=== PATIENT | female | born 1945 | race Caucasian/White ===

== ENCOUNTER → 2016-07-29 | Outpatient (CLI) | payer OTHER ==
[~2016-07-29] MED LIST: BROM0.0911 OPL; ESTRDIS EXT; LEVO25TA5 PO; OXYB3.9D TD; PRED1SUS3 OPR; THYR32.55 PO
--- NOTE | 2016-07-29 12:46 | MAMMOGRAPHY REPORT ---
ULTRASOUND OF BOTH BREASTS: 07/29/2016 CLINICAL HISTORY: Screening breast ultrasound, with history of dense breasts. The patient refuses m ammograms today, and was told in the past that mammograms were useless due to her dense breast tissu e. COMPARISON: Comparison is made to exams dated: 04/25/2013 ultrasound, 08/02/2012 ultrasound, 08/02/2012 mammogram - [facility], and 06/14/2008. TECHNIQUE: Real-time ultrasound of both breasts was performed. FINDINGS: Real-time, high-resolution ultrasound was performed of both breasts including all 4 quadrants and mantilla bareolar regions. The breast tissue is markedly heterogeneous on ultrasound, which reduces the sens itivity of the exam. Multiple small cysts were seen scattered within both breasts. In the left breast at 1:00, 2 cm from the nipple, there is an oval isoechoic circumscribed parallel mass which measures 6 x 2 x 4 mm. A punctate echogenic focus is seen within the mass, which could represent a calcification. The mass i s probably benign and may represent a complicated cyst or a solid mass such as a fibroadenoma. In t he left breast at 3:00, 2 cm from the nipple, there is a circumscribed anechoic cyst which measures 4 x 4 x 5 mm. An echogenic focus is seen within the mass which could represent an internal calcific ation. Multiple small anechoic benign cysts were seen within the left breast at 3:00. Another oval anechoic 6 x 5 mm mass is seen within the left breast at 9:00, 3 cm from the nipple, which contains an echogenic internal focus which could represent a calcification. In the left breast at 12:00 per iareolar region, there is an oval anechoic circumscribed mass with internal echogenic debris, consis tent with a complicated cyst, measuring 5 x 4 mm. In the right breast at 12:00 periareolar region, there is a lobulated circumscribed hypoechoic 6 x 4 x 5 mm mass, which likely represents a complicated cyst. In the right breast at 1:00 periareolar region, there is a round hypoechoic circumscribed mass which measures 3 x 3 mm, and is probably adam gn and likely represents a complicated cyst. An oval anechoic benign simple cyst is seen within the right breast at 4:00 measuring 4 mm. In the right breast at 6:00, 4 cm from the nipple, there is a n oval hypoechoic circumscribed 5 x 4 mm mass, which likely represents a complicated cyst. Other sc attered simple cysts were seen within the right breast including the subareolar and 9:00 breast. The masses in the left 12:00, 1:00, 3:00, and 9:00 breast, as well as the right 12:00, 1:00, and 6:0 0 breast are probably benign and likely represent complicated cysts. Recommend follow-up ultrasound in 6 months. At that time, recommend bilateral diagnostic tomosynthesis mammograms. Mammograms we re recommended today, however, the patient refused. It was discussed with the patient that mammogram s are useful even in patients with extremely dense breasts, as suspicious calcifications and areas o f architectural distortion can sometimes only be seen on a mammogram. IMPRESSION: ACR-BI-RADS CATEGORY 3: PROBABLY BENIGN - FOLLOW-UP RECOMMENDED Small bilateral hypoechoic masses, which are probably benign and likely represent complicated cysts, with other cysts seen elsewhere in both breasts. Recommend follow-up bilateral targeted ultrasound in 6 months. At that time, bilateral tomosynthesis mammograms could be performed. The patient was verbally notified of the results. Laure Izquierdo M.D. ah/:07/29/2016 12:14:34 Attending Technologist: Charis MUKHERJEE(R)(M), [facility] Workforce Management Consultant: Laure Izquierdo MD, [facility] letter sent: Follow Up Recommended 3 BI-RADS Code: ACR-BI-RADS Category 3: Probably Benign
== END | disposition home or self-care (01) ==
LOC: C.MAMM 08:49
PROVIDERS: ATTEND Family Medicine
DX: Z12.31 Encounter for screening mammogram for malignant neoplasm of breast (principal); N63 Unspecified lump in breast

== ENCOUNTER → 2016-07-30 | Outpatient (CLI) | payer OTHER | END | disposition home or self-care (01) | LOC: C.PAPS 17:53 | PROVIDERS: ATTEND Obstetrics & Gynecology | DX: Z12.4 Encounter for screening for malignant neoplasm of cervix (principal) ==

== ENCOUNTER → 2017-04-27 | Outpatient (CLI) | payer OTHER ==
--- NOTE | 2017-04-29 14:38 | MAMMOGRAPHY REPORT ---
BILATERAL DIGITAL DIAGNOSTIC MAMMOGRAM TOMOSYNTHESIS WITH CAD AND BILATERAL ULTRASOUND: 04/27/2017 CLINICAL HISTORY: Routine screening. Patient has no complaints. TECHNIQUE: Bilateral breast tomosynthesis in addition to standard 2D mammography was performed. An a dditional spot compression right CC tomosynthesis view was obtained. Current study was also evaluate d with a Computer Aided Detection (CAD) system. COMPARISON: Comparison is made to exams dated: 07/29/2016 ultrasound, 04/25/2013 ultrasound, 08/02/2012 ultrasound, 08/02/2012 mammogram - [facility], and 06/14/2008. BREAST COMPOSITION: The tissue of both breasts is extremely dense, which lowers the sensitivity of m ammography. FINDINGS: There are diffuse bilateral round and punctate microcalcifications, which appear similar in number and distribution comparing to the 2013 mammograms, most likely representing benign fibrocysti c change. No obvious new cluster of microcalcifications, suspicious mass or asymmetry is seen. Ther e is a questionable area of architectural distortion in the lateral, middle one third of the right br east on the CC view (tomosynthesis slice 16/42), for which the additional spot compression tomosynthe sis view in the right lateral breast was obtained. This additional view demonstrates effacement of t he questionable area of distortion, suggesting it represented normal overlapping tissue. Real-time high-resolution sonographic evaluation was performed in each breast including the retroareo lar aspect of the breasts and both axillae. The breast parenchymal echotexture is heterogeneousdense. There is no suspicious lymphadenopathy wi thin the right or left axilla. Again noted are bilateral anechoic cysts an indeterminate hypoechoic solid versus cystic masses. In particular in the 12:00 left breast, 2 cm from the nipple, there is a n oval parallel circumscribed hypoechoic solid versus cystic mass, with minimal posterior acoustic en hancement, measuring 5.9 x 2.9 x 4.7 mm. A probable cyst cluster in the 3:00 left breast, 2 cm from the nipple measures 3.7 x 3.2 x 7.0 mm. There is internal comet-tail artifact, suggesting an interna l calcification. Another oval parallel circumscribed hypoechoic cystic appearing mass in the 6:00 le ft breast measures 3.5 x 4.6 mm. The masses in the 12:00 and 3:00 left breast appears similar to a p rior whole breast ultrasound. The masses previously seen in the 1:00 and 9:00 axes are no longer see n, confirming benignity. The patient pointed out a lump in the right axilla and sonographic evaluation targeted over this area demonstrates normal subcutaneous tissue suggesting the visible and palpable soft lump could represen t a lipoma or simply normal tissue. There is an isoechoic solid versus cystic mass in the 12:00 right breast, 3 cm from the nipple, measu ring 4.9 x 3.0 x 4.8 mm. This may represent normal fibroglandular tissue or a collapsing cyst. In t he 4:00 right breast, 2 cm from the nipple, there is an oval parallel hypoechoic solid versus cystic mass measuring 3.8 x 1.8 x 3.7 mm. Another hypoechoic solid versus cystic mass is seen in the 6:00 p eriareolar right breast measuring 3.5 x 2.3 x 3.1 mm. The cyst in the 1:00 periareolar region is no longer clearly identified. The other benign-appearing masses in the 12:00 and 6:00 axes of the right breast are stable and most likely benign. There is also a conglomerate of several isoechoic to hypo echoic prominent/dilated ducts in the upper outer quadrant of the right breast, 9:00 and 10:00 axes. Although this most likely represents debris-filled ducts in the no prior ultrasound images are avail able for complete comparison and therefore a short interval follow-up targeted right breast ultrasoun d is recommended to ensure stability in 6 months. IMPRESSION: ACR-BI-RADS CATEGORY 3: PROBABLY BENIGN, ULTRASOUND ACR-BI-RADS CATEGORY 3: PROBABLY CUONG IGN 1. No mammographic evidence of malignancy in the breasts. There are stable scattered benign-appeari ng round and punctate microcalcifications bilaterally. 2. Stable sonographic appearance of benign-appearing complicated cysts and solid versus cystic ander s in the left 12:00, 3:00, right 12:00 and 6:00 axes. Other similar appearing lesions are identified in the right 4:00 and left 3:00 axes. Some of the previously observed indeterminate solid versus cy stic masses have resolved, confirming benignity. Overall these bilateral findings most likely repres ent benign fibrocystic changes, but another close follow-up bilateral targeted ultrasound is recommen ded. 3. A conglomerate of prominent hypoechoic dilated ducts in the right 9:00 and 10:00 axes identified on ultrasound, without prior imaging to confirm stability. Although these findings most likely repre sent debris-filled ducts, given that there is no new mammographic abnormality in this area, a short i nterval follow-up targeted ultrasound focused in the right upper outer quadrant is recommended in 6 m [facility]. Overall bilateral ultrasound is recommended in 6 months (30 minutes) and pending stability, would rec ommend bilateral tomosynthesis mammography with possible ultrasound in one year. These results and recommendations were discussed with the patient at the time of the exam and via tel ephone after consultation of the imaging findings with a second Breast Tractor Crane Operator. Approximately 10% of breast cancers are not detected with mammography. A negative mammographic report should not delay biopsy if a clinically suggestive mass is present. Cora Sorto M.D. ay/:04/28/2017 15:20:49 Balance Staff Staker: Darby Corbin, [facility] letter sent: Follow Up Recommended 3 BI-RADS Code: ACR-BI-RADS Category 3: Probably Benign Ultrasound BI-RADS: ACR-BI-RADS Category 3: Pr obably Benign
== END | disposition home or self-care (01) ==
LOC: C.MAMM 08:43
PROVIDERS: ATTEND Family Medicine
DX: R92.0 Mammographic microcalcification found on diagnostic imaging of breast (principal); N63.21 Unspecified lump in the left breast, upper outer quadrant

== ENCOUNTER → 2017-08-24 | Outpatient (CLI) | payer OTHER | END | disposition home or self-care (01) | LOC: C.PAPS 15:38 | PROVIDERS: ATTEND Obstetrics & Gynecology | DX: Z12.4 Encounter for screening for malignant neoplasm of cervix (principal) ==

== ENCOUNTER 2020-06-14 16:53 | Inpatient (IN) ==
[2020-06-14] MEDS ORDERED: SODIUM CHLORIDE 0.9% 1000ML 1,000 ML IV ONE (19:35)
[2020-06-14] MEDS ORDERED: FAMOTIDINE 20MG IV PUSH 20 MG/5 ML SYR IV STA (19:35)
--- NOTE | 2020-06-14 19:41 | Emergency Department Note ---
Impression & Plan Hyponatremia, Hypokalemia, Diarrhea ED Provider Note NAME: YULIANA GALLAGHER AGE: 74 SEX: F ARRIVES VIA: Walk-In INFORMANT: Patient, ED PROVIDER(S): Anjum Jurado MD CHIEF COMPLAINT: weakness, hyponatremia - referred. PLAN: Disposition: Admit. MEDICAL DECISION MAKING: The patient is a pleasant 74-year-old woman with a past medical history of bipolar disorder who presents emergency department with generalized weakness nausea over the past couple of weeks where she was seen by her [facility] providers today for question of UTI per her report and had blood work that was abnormal and was referred to the emergency department. The patient is uncertain what was abnormal about her blood work. She reports feeling weak, intermitte ntly confused, nauseated but no vomiting with several episodes of diarrhea for the past week or so. She reports a burning with urination. She reports feeling lightheaded intermittently but denies headaches, changes in vision or hearing. She denies any chest pain, shortness of breath. She reports she has been intermittently confused over the past several months. We were able to obtain the patient's [facility] records and does show blood work that showed hyponatremia with a sodium of 120 which appears acutely new compared to normal sodium in December 2019. On arrival patient is fatigued appearing but no acute distress, afebrile stable vital signs. She appears clinically dry. She has no focal neurologic deficits. Abdomen is benign. EKG without overt acute ischemia. Chest x-ray deferred as patient declined. WBC, H/H and platelets within normal limits. Chemistry without metabolic acidosis. Sodium 120 again in the ED. Serum and urine osmolality ordered and pending. Potassium 3.1 with repletion initiated. Electrolytes otherwise unremarkable. Total bilirubin 3.7 however direct bilirubin 0.5, nonspecific given no upper abdominal pain. Troponin negative/undetectable. UA pending. Results reviewed with the patient and she was agreeable with plan for admission. Case was discussed with Dr. Marks, [facility] hospitalist, who will evaluate the patient for admission. Triage Nursing notes reviewed and agree them. Additional history obtained from [facility] records. Prior medical records reviewed Vital Signs: reviewed and remarkable for no significant abnormalities Differential diagnosis: Infection, dehydration, metabolic abnormality, hypo/hyperglycemia, electrolyte disturbance, anemia, hypoxia, cardiac sources, intracerebral event, toxicologic, neurologic, as well as other pathologies. ER treatment provided: See below. Diagnostics interpreted by me: ECG: Normal sinus rhythm, 75 bpm, no ectopy, left axis deviation, nonspecific T wave abnormality, no overt ST elevation or depression, QTC 460, QRS 86. Cardiac Monitoring: An order for continuous cardiac monitoring was placed and demonstrated Normal sinus rhythm, 75 bpm, no ectopy. Laboratory studies: See below Consultation(s): Case was discussed with Dr. Marks, [facility] hospitalist, who will evaluate the patient for admission. HPI: The patient is a pleasant 74-year-old woman with a past medical history of bipolar disorder who presents emergency department with generalized weakness nausea over the past couple of weeks where she was seen by her [facility] providers today for question of UTI per her report and had blood work that was abnormal and was referred to the emergency department. The patient is uncertain what was abnormal about her blood work. She reports feeling weak, intermittently confused, nauseated but no vomiting with several episodes of diarrhea for the past week or so. She reports a burning with urination. She reports feeling lightheaded intermittently but denies headaches, changes in vision or hearing. She denies any chest pain, shortness of breath. She reports she has been intermittently confused over the past several months. ROS: See above HPI for pertinent positives & negatives. A total of 10 systems reviewed and were otherwise negative. PAST MEDICAL HISTORY:See Below PAST SURGICAL HISTORY:See Below FAMILY HISTORY:See Below SOCIAL HISTORY:See Below HOME MEDICATIONS:See Below ALLERGIES:See Below VITALS:See Below PHYSICAL EXAMINATION: GENERAL: Awake, alert, fatigued-appearing, in no distress HENT: Normocephalic, atraumatic. Oropharynx with dry mucous membranes and ot herwise unremarkable. EYES: Normal conjunctiva. Sclera non-icteric. NECK: Supple. No nuchal rigidity. FROM. No JVD. RESPIRATORY: Clear to auscultation. CARDIAC: Regular rate, normal rhythm. Extremities warm and well perfused. Pulses equal. ABDOMEN: Soft, non-distended. No tenderness to palpation. No rebound or guarding. No masses. RECTAL: Deferred. MUSCULOSKELETAL: Chest examination reveals no tenderness. The back is symmetrical on inspection without obvious abnormality. There is no CVA tendern ess to palpation. No joint edema. LOWER EXTREMITIES: Calves are equal size bilaterally and non-tender. No edema. No discoloration. NEURO: Normal sensorium. No focal sensory or motor deficits noted. DTRs wnl. SKIN: No rash or jaundice noted. Anjum Jurado MD Past Med/Surg History Medical History ADHD Bipolar disorder Hypothyroidism Interstitial cystitis Migraine Family History Daughter Lupus Social History Smoking Status: Former smoker Smoking End Date: 50 years ago; Second Hand Exposure: No; Do You Dip or Chew Tobacco: No; Tobacco Cessation Education Requested by Patient: No Hx Alcohol Use: No Hx Substance Use: No Preferred Language: Nepali Communication Ability: Effective Business Transformation Analyst Required: No Beliefs That Will Affect Care: None Current Living Situation: Alone Other Information That Helps Us Care for You: No Feels Safe at Home: Yes Safety Concerns: Feels Safe At This Time Assistive Devices: Glasses Allergies Allergies Allergy/AdvReac Type Severity Reaction Status Date / Time gluten Allergy Unknown ANAPHYLAXIS Verified 06/14/20 20:40 bee venom protein (honey bee) Allergy Anaphylaxis Verified 06/14/20 20:40 lactose AdvReac Unknown Gastrointestinal Unverified 06/14/20 20:41 Upset DAIRY PRODUCTS Allergy Unknown Gastrointestinal Uncoded 06/14/20 20:42 Upset Home Meds Home Medications Medication Instructions Recorded Confirmed cyclosporine [Restasis] 1 drp OPB BID 12/22/19 06/14/20 estradiol-levonorgestrel [Climara 1 patch TRANSDERMAL WK 12/22/19 06/14/20 Pro] fluoride (sodium) [SF 5000 Plus] 1 applic DENTAL HS 12/22/19 06/14/20 onabotulinumtoxinA [Botox] 200 unit SUBCUT .Q3M 12/22/19 06/14/20 sumatriptan succinate 25 mg PO Q2H PRN 12/22/19 06/14/20 levothyroxine [Levoxyl] 25 mcg PO QAM 06/14/20 06/14/20 Results & Data (ED) Vital Signs Vital Signs - 24 hr 06/14/20 17:17 06/14/20 19:47 06/14/20 20:14 Temperature 36.8 C Temperature Source Oral Pulse Rate 88 Pulse Rate [Bilateral Apical] 81 78 Pulse Rhythm Regular Pulse Strength Normal Respiratory Rate 20 20 20 Respiratory Effort / Characteristics Non-Labored Spontaneous Respiratory Depth Normal Respiratory Pattern Regular Blood Pressure 125/80 Blood Pressure [Left Arm] 141/88 H 141/88 H Blood Pressure Mean 95 Blood Pressure Mean [Left Arm] 105 105 Pulse Oximetry 98 98 98 Oxygen Delivery Method Room Air Room Air Sepsis Recent Fever Within 48 Hours No Sepsis New/Unexplained Change in Mental Status N/A Sepsis Action Taken by Nursing No Action Required 06/14/20 21:00 06/14/20 22:17 Temperature Temperature Source Pulse Rate Pulse Rate [Bilateral Apical] 71 65 Pulse Rhythm Pulse Strength Respiratory Rate 20 20 Respiratory Effort / Characteristics Respiratory Depth Respiratory Pattern Blood Pressure Blood Pressure [Left Arm] 143/79 H 144/80 H Blood Pressure Mean Blood Pressure Mean [Left Arm] 100 101 Pulse Oximetry 99 99 Oxygen Delivery Method Room Air Room Air Sepsis Recent Fever Within 48 Hours Sepsis New/Unexplained Change in Mental Status Sepsis Action Taken by Nursing Laboratory Data Attestation: I reviewed the patient's lab results. Result diagrams: 06/14/20 19:40 06/15/20 00:27 Lab Results 06/14/20 06/14/20 06/14/20 Range/Units 19:40 19:40 19:40 WBC 6.52 (4.8-10.8) K/uL RBC 4.66 (4.2-5.4) M/uL Hgb 15.9 (12.0-16.0) g/dL Hct 41.9 (37-47) % MCV 89.9 (80-100) fL MCH 34.1 H (25-34) pg MCHC 37.9 H (32-36) g/dL RDW Std Deviation 40.7 (36.4-46.3) fL RDW Coeff of Jackeline 12.5 (11.5-14.5) % Plt Count 214 (130-400) K/uL MPV 9.2 (7.4-10.4) fL Immature Gran % (Auto) 0.3 % Neut % (Auto) 54.9 % Lymph % (Auto) 33.4 % Gulf % (Auto) 10.9 % Eos % (Auto) 0.3 % Baso % (Auto) 0.2 % Neut # (Auto) 3.58 (1.4-6.5) K/uL Lymph # (Auto) 2.18 (1.2-3.4) K/uL [place] # (Auto) 0.71 H (0.11-0.59) K/uL Eos # (Auto) 0.02 (0-0.5) K/uL Baso # (Auto) 0.01 (0-0.2) K/uL Immature Gran # (Auto) 0.02 (0.00-0.02) K/uL Sodium 120 L (136-145) mmol/L Potassium 3.1 L (3.5-5.1) mmol/L Chloride 81 L (98-107) mmol/L Carbon Dioxide 28 (21-32) mmol/L Anion Gap 11.0 (3-11) BUN 5 L (7-18) mg/dl Creatinine 0.56 L (0.6-1.2) mg/dl Est Cr Clr Drug Dosing 49.0 ml/min Est GFR ( Amer) 105.0 Est GFR (Non-Af Amer) 90.6 BUN/Creatinine Ratio 8.1 L (10-20) Glucose 84 (70-99) mg/dl Osmolality 248 L (280-300) mOsm/kg Calcium 9.1 (8.5-10.1) mg/dl Phosphorus 2.4 L (2.5-4.9) mg/dl Magnesium 2.2 (1.8-2.4) mg/dl Total Bilirubin 3.7 H (0.2-1) mg/dl Direct Bilirubin 0.5 H (0-0.2) mg/dl AST 9 L (15-37) U/L ALT 19 (12-78) U/L Alkaline Phosphatase 53 (45-117) U/L Total Creatine Kinase 62 (26-192) U/L Troponin I < 0.015 (0-0.045) ng/ml Total Protein 6.4 (6.4-8.2) gm/dl Albumin 4.0 (3.4-5.0) gm/dl Globulin 2.4 L (2.5-4.0) gm/dl Albumin/Globulin Ratio 1.7 (0.9-2) Lipase 118 (73-393) U/L TSH 1.980 (0.300-4.500) uIu/ml Urine Color Urine Appearance (Clear) Urine pH (4.5-7.5) Ur Specific [place] (1.000-1.030) Urine Protein (Negative) Urine Glucose (UA) (Negative) Urine Ketones (Negative) Urine Blood (Negative) Urine Nitrite (Negative) Urine Bilirubin (Negative) Urine Urobilinogen (Negative) Ur Leukocyte Esterase (Negative) Urine RBC (0-4) /hpf Urine WBC (0-5) /hpf Ur Epithelial Cells (0-5) /lpf Ur Renal Epithelial Cell (0-5) /lpf Urine Bacteria (Negative) Urine Osmolality (500-800) mOsm/kg COVID-19 Eval Order SARS-CoV-2 (PCR) (Negative) Influenza Type A (PCR) (Neg) Influenza Type B (PCR) (Neg) RSV (RT-PCR) (Neg) 06/14/20 06/14/20 06/14/20 Range/Units 20:04 20:04 20:39 WBC (4.8-10.8) K/uL RBC (4.2-5.4) M/uL Hgb (12.0-16.0) g/dL Hct (37-47) % MCV (80-100) fL MCH (25-34) pg MCHC (32-36) g/dL RDW Std Deviation (36.4-46.3) fL RDW Coeff of Jackeline (11.5-14.5) % Plt Count (130-400) K/uL MPV (7.4-10.4) fL Immature Gran % (Auto) % Neut % (Auto) % Lymph % (Auto) % [place] % (Auto) % Eos % (Auto) % Baso % (Auto) % Neut # (Auto) (1.4-6.5) K/uL Lymph # (Auto) (1.2-3.4) K/uL [place] # (Auto) (0.11-0.59) K/uL Eos # (Auto) (0-0.5) K/uL Baso # (Auto) (0-0.2) K/uL Immature Gran # (Auto) (0.00-0.02) K/uL Sodium (136-145) mmol/L Potassium (3.5-5.1) mmol/L Chloride (98-107) mmol/L Carbon Dioxide (21-32) mmol/L Anion Gap (3-11) BUN (7-18) mg/dl Creatinine (0.6-1.2) mg/dl Est Cr Clr Drug Dosing ml/min Est GFR ( Amer) Est GFR (Non-Af Amer) BUN/Creatinine Ratio (10-20) Glucose (70-99) mg/dl Osmolality (280-300) mOsm/kg Calcium (8.5-10.1) mg/dl Phosphorus (2.5-4.9) mg/dl Magnesium (1.8-2.4) mg/dl Total Bilirubin (0.2-1) mg/dl Direct Bilirubin (0-0.2) mg/dl AST (15-37) U/L ALT (12-78) U/L Alkaline Phosphatase (45-117) U/L Total Creatine Kinase (26-192) U/L Troponin I (0-0.045) ng/ml Total Protein (6.4-8.2) gm/dl Albumin (3.4-5.0) gm/dl Globulin (2.5-4.0) gm/dl Albumin/Globulin Ratio (0.9-2) Lipase (73-393) U/L TSH (0.300-4.500) uIu/ml Urine Color Yellow Urine Appearance Clear (Clear) Urine pH 7.0 (4.5-7.5) Ur Specific [place] 1.007 (1.000-1.030) Urine Protein Negative (Negative) Urine Glucose (UA) Negative (Negative) Urine Ketones 1+ H (Negative) Urine Blood Trace H (Negative) Urine Nitrite Negative (Negative) Urine Bilirubin Negative (Negative) Urine Urobilinogen Negative (Negative) Ur Leukocyte Esterase 2+ H (Negative) Urine RBC 0-4 (0-4) /hpf Urine WBC 10-30 H (0-5) /hpf Ur Epithelial Cells 5-10 H (0-5) /lpf Ur Renal Epithelial Cell 5-10 H (0-5) /lpf Urine Bacteria 1+ H (Negative) Urine Osmolality 75 L (500-800) mOsm/kg COVID-19 Eval Order CovFluRsv at [facility] SARS-CoV-2 (PCR) (Negative) Influenza Type A (PCR) (Neg) Influenza Type B (PCR) (Neg) RSV (RT-PCR) (Neg) 02/26/21 Range/Units 20:39 WBC (4.8-10.8) K/uL RBC (4.2-5.4) M/uL Hgb (12.0-16.0) g/dL Hct (37-47) % MCV (80-100) fL MCH (25-34) pg MCHC (32-36) g/dL RDW Std Deviation (36.4-46.3) fL RDW Coeff of Jackeline (11.5-14.5) % Plt Count (130-400) K/uL MPV (7.4-10.4) fL Immature Gran % (Auto) % Neut % (Auto) % Lymph % (Auto) % [place] % (Auto) % Eos % (Auto) % Baso % (Auto) % Neut # (Auto) (1.4-6.5) K/uL Lymph # (Auto) (1.2-3.4) K/uL [place] # (Auto) (0.11-0.59) K/uL Eos # (Auto) (0-0.5) K/uL Baso # (Auto) (0-0.2) K/uL Immature Gran # (Auto) (0.00-0.02) K/uL Sodium (136-145) mmol/L Potassium (3.5-5.1) mmol/L Chloride (98-107) mmol/L Carbon Dioxide (21-32) mmol/L Anion Gap (3-11) BUN (7-18) mg/dl Creatinine (0.6-1.2) mg/dl Est Cr Clr Drug Dosing ml/min Est GFR ( Amer) Est GFR (Non-Af Amer) BUN/Creatinine Ratio (10-20) Glucose (70-99) mg/dl Osmolality (280-300) mOsm/kg Calcium (8.5-10.1) mg/dl Phosphorus (2.5-4.9) mg/dl Magnesium (1.8-2.4) mg/dl Total Bilirubin (0.2-1) mg/dl Direct Bilirubin (0-0.2) mg/dl AST (15-37) U/L ALT (12-78) U/L Alkaline Phosphatase (45-117) U/L Total Creatine Kinase (26-192) U/L Troponin I (0-0.045) ng/ml Total Protein (6.4-8.2) gm/dl Albumin (3.4-5.0) gm/dl Globulin (2.5-4.0) gm/dl Albumin/Globulin Ratio (0.9-2) Lipase (73-393) U/L TSH (0.300-4.500) uIu/ml Urine Color Urine Appearance (Clear) Urine pH (4.5-7.5) Ur Specific [place] (1.000-1.030) Urine Protein (Negative) Urine Glucose (UA) (Negative) Urine Ketones (Negative) Urine Blood (Negative) Urine Nitrite (Negative) Urine Bilirubin (Negative) Urine Urobilinogen (Negative) Ur Leukocyte Esterase (Negative) Urine RBC (0-4) /hpf Urine WBC (0-5) /hpf Ur Epithelial Cells (0-5) /lpf Ur Renal Epithelial Cell (0-5) /lpf Urine Bacteria (Negative) Urine Osmolality (500-800) mOsm/kg COVID-19 Eval Order SARS-CoV-2 (PCR) NEGATIVE (Negative) Influenza Type A (PCR) Negative (Neg) Influenza Type B (PCR) Negative (Neg) RSV (RT-PCR) Negative (Neg) Administered Medications Potassium Phosphate 6 mmol/ (Sodium Chloride) 102 mls @ 100 mls/hr IV ONE ONE Stop: 06/15/20 02:01 Last Admin: 06/15/20 01:01 Dose: 100 mls/hr Documented by: [id number] Lorazepam (Lorazepam 0.5 Mg Tab) 0.25 mg PO HS PRN PRN Reason: Insomnia Stop: 07/15/20 00:05 Last Admin: 06/15/20 01:07 Dose: 0.25 mg Documented by: [id number] Discontinued Medications Sodium Chloride (Nss 1000ml) 1,000 mls @ 999 mls/hr IV .Q1H1M ONE Stop: 06/14/20 20:35 Last Infusion: 06/14/20 21:10 Dose: 0 mls/hr Documented by: [id number] Admin: 06/14/20 20:07 Dose: 999 mls/hr Documented by: [id number] Famotidine (Pepcid 20mg Iv Push) 20 mg in 5 mls @ 2.5 mls/min IV NOW STA Stop: 06/14/20 19:36 Last Admin: 06/14/20 20:07 Dose: 2.5 mls/min Documented by: [id number] Potassium Chloride (K Vance / Wtr) 10 meq in 100 mls @ 100 mls/hr IV Q1H ALEJANDRO Stop: 06/14/20 22:29 Last Infusion: 06/14/20 22:37 Dose: 0 mls/hr Documented by: [id number] Admin: 06/14/20 21:37 Dose: 100 mls/hr Documented by: [id number] Infusion: 06/14/20 21:37 Dose: 0 mls/hr Documented by: [id number] Admin: 06/14/20 20:38 Dose: 100 mls/hr Documented by: [id number] Cefepime HCl (Maxipime) 2,000 mg in 20 mls @ 5 mls/min IV NOW STA; Protocol Stop: 06/14/20 20:53 Last Admin: 06/14/20 21:14 Dose: 5 mls/min Documented by: [id number] Potassium Chloride (Potassium Chloride Crtab 20 Meq Tabcr) 40 meq PO NOW STA Stop: 06/14/20 20:42 Last Admin: 06/14/20 23:06 Dose: Not Given Documented by: [id number] Potassium Chloride (Potassium Chloride Crtab 20 Meq Tabcr) 20 meq PO NOW STA Stop: 06/14/20 20:43 Last Admin: 06/14/20 21:10 Dose: 20 meq Documented by: [id number] Discharge Plan Visit Data Chief Complaint: Abnormal Labs/Diagnostic Testing Stated Complaint: ABNORMAL LABS ED Provider: Anjum Jurado Discharge Problem: Hyponatremia, Hypokalemia, Diarrhea Patient Disposition: Admitted As Inpatient Discharge Instructions Interventions: ED Discharge Assessment Last Done: 06/14/20 23:46 Discharge Problem: Diarrhea Qualifiers: Diarrhea type: unspecified type Qualified Code(s): R19.7 - Diarrhea, unspecified
[2020-06-14 19:49] LABS: Basophils # (auto) 0.01 K/uL (0-0.2); Basophils % (auto) 0.2 %; Eosinophils # (auto) 0.02 K/uL (0-0.5); Eosinophils % (auto) 0.3 %; Hematocrit (blood only) 41.9 % (37-47); Hemoglobin 15.9 g/dL (12.0-16.0); Immature Granulocytes # (auto) 0.02 K/uL (0.00-0.02); Immature Granulocytes % (auto) 0.3 %; Lymphocytes # (auto) 2.18 K/uL (1.2-3.4); Lymphocytes % (auto) 33.4 %; Mean Corpuscular Hemoglobin 34.1 pg (25-34); Mean Corpuscular Hgb Conc 37.9 g/dL (32-36); Mean Corpuscular Volume 89.9 fL (80-100); Mean Platelet Volume 9.2 fL (7.4-10.4); Monocytes # (auto) 0.71 K/uL (0.11-0.59); Monocytes % (auto) 10.9 %; Neutrophils # (auto) 3.58 K/uL (1.4-6.5); Neutrophils % (auto) 54.9 %; Platelet Count 214 K/uL (130-400); RDW Coefficient of Variation 12.5 % (11.5-14.5); RDW Standard Deviation 40.7 fL (36.4-46.3); Red Blood Count 4.66 M/uL (4.2-5.4); White Blood Count 6.52 K/uL (4.8-10.8)
[2020-06-14 20:06] LABS: Alanine Aminotransferase 19 U/L (12-78); Aspartate Aminotransferase 9 U/L (15-37); BUN Creatinine Ratio 8.1 (10-20); Bilirubin Direct 0.5 mg/dl (0-0.2); Blood Urea Nitrogen 5 mg/dl (7-18); Calcium 9.1 mg/dl (8.5-10.1); Carbon Dioxide 28 mmol/L (21-32); Chloride 81 mmol/L (98-107); Est GFR (Non-African American) 90.6; Glucose 84 mg/dl (70-99); Lipase 118 U/L (73-393); Magnesium 2.2 mg/dl (1.8-2.4); Potassium 3.1 mmol/L (3.5-5.1); Sodium 120 mmol/L (136-145)
[2020-06-14 20:15] LABS: Albumin Globulin Ratio 1.7 (0.9-2); Alkaline Phosphatase 53 U/L (45-117); Bilirubin,Total 3.7 mg/dl (0.2-1); Creatine Kinase 62 U/L (26-192); Globulin 2.4 gm/dl (2.5-4.0); Phosphorus 2.4 mg/dl (2.5-4.9); Total Protein 6.4 gm/dl (6.4-8.2); Troponin I < 0.015 ng/ml (0-0.045)
[2020-06-14 20:17] LABS: Appearance Urine Clear (Clear); Bilirubin Urine Negative (Negative); Blood Urine Trace (Negative); Color Urine Yellow; Glucose Urine UA Negative (Negative); Ketones Urine 1+ (Negative); Leukocyte Esterase Urine 2+ (Negative); Nitrite Urine Negative (Negative); Protein Urine Negative (Negative); Specific Gravity Urine 1.007 (1.000-1.030); Urobilinogen Urine Negative (Negative)
[2020-06-14 20:34] LABS: Bacteria Urine 1+ (Negative); RBC Urine 0-4 /hpf (0-4)
[2020-06-14] MEDS: POTASSIUM CHLORIDE / WTR 10 MEQ/100 ML PLCT IV SCH ×2 (20:38→21:37)
[2020-06-14] MEDS ORDERED: POTASSIUM CHLORIDE CRTAB 20 MEQ TABCR PO STA ×2 (20:41→20:42)
[2020-06-14] MEDS ORDERED: PROMETHAZINE HCL 6.25 MG in SODIUM CHLORIDE 0.9% 50 ML IV PRN (20:41)
[2020-06-14] MEDS ORDERED: CEFEPIME 2,000 MG/20 ML VIAL IV STA (20:50)
--- NOTE | 2020-06-14 21:46 | History & Physical Report ---
Date of Service June 14, 2020 Assessment & Plan (1) Hyponatremia: (2) Hypokalemia: (3) Bipolar disorder: (4) Hypothyroidism: Assessment and plan per Dr. Power Follows with Dr Vazquez for routine care Pt was seen and care coordinated with Dr Power. See addendum History of Present Illness Chief Complaint: Abnormal labs Primary Care Provider: Alec Vazquez, Pt is 74 y/o F with PMH interstitial cystitis, bipolar depression, hypothyroidism, migraine receiving Botox therapy presented to ER for abnormal labs. Patient was seen outpatient at [facility] urgent care for complaints of "urethra discomfort", dysuria, weakness, nausea. She had labs done revealing hyponatremia and referred to ER. She reports history of interstitial cystitis and often has episodes of dysuria and urinary frequency. Reports today with dysuria and urinary frequency. Also reports sensation of bladder spasms today. She complains of nausea. States had several episodes of watery diarrhea. Patient states does have intermittent episodes of watery diarrhea when she has poor oral intake. She reports past several months has been having increased depression. In past has been on medications however reports is intolerant. She states has not been sleeping. Denies suicidal or homicidal ideations. Patient states she has had "poor decision-making" over the past several months. She feels she has had intermittent confusion over the past several months as well. Patient reports recent stressor of housing troubles. Lives alone. Complains of generalized weakness. Decreased oral intake patient reports secondary to not wanting to eat and to poor dentition. Has been eating eggs and avocado. Denies other abdominal pain. No fevers. Reports is always cold. Denies fever/chills, melena, hematochezia, hematemesis, ROSARIO, dizziness, syncope, vision changes, neck pain, CP, SOB, orthopnea, palpitations, cough, sore throat, choking, otalgia, rh inorrhea, paresthesias, extremity edema, rashes, hematuria, flank pain, vaginal bleeding or discharge. Allergies Allergy/AdvReac Type Severity Reaction Status Date / Time gluten Allergy Unknown ANAPHYLAXIS Verified 06/14/20 20:40 bee venom protein (honey bee) Allergy Anaphylaxis Verified 06/14/20 20:40 lactose AdvReac Unknown Gastrointestinal Unverified 06/14/20 20:41 Upset DAIRY PRODUCTS Allergy Unknown Gastrointestinal Uncoded 06/14/20 20:42 Upset Home Medications Medication Instructions Recorded Confirmed Type cyclosporine [Restasis] 1 drp OPB BID 12/22/19 06/14/20 History estradiol-levonorgestrel [Climara 1 patch TRANSDERMAL WK 12/22/19 06/14/20 History Pro] fluoride (sodium) [SF 5000 Plus] 1 applic DENTAL HS 12/22/19 06/14/20 History onabotulinumtoxinA [Botox] 200 unit SUBCUT .Q3M 12/22/19 06/14/20 History sumatriptan succinate 25 mg PO Q2H PRN 12/22/19 06/14/20 History levothyroxine [Levoxyl] 25 mcg PO QAM 06/14/20 06/14/20 History Past Med/Surg History Medical History ADHD Bipolar disorder Hypothyroidism Interstitial cystitis Migraine Family History Daughter Lupus Social History Smoking Status: Former smoker Smoking End Date: 50 years ago; Second Hand Exposure: No; Do You Dip or Chew Tobacco: No; Tobacco Cessation Education Requested by Patient: No Hx Alcohol Use: No Hx Substance Use: No Preferred Language: Italian Communication Ability: Effective 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 Beliefs That Will Affect Care: None Current Living Situation: Alone Other Information That Helps Us Care for You: No Feels Safe at Home: Yes Safety Concerns: Feels Safe At This Time Assistive Devices: Glasses Review of Systems Review of Systems: All systems reviewed & are unremarkable except as noted in HPI & below Physical Exam Physical Exam: General: no acute distress, very thin Head: normocephalic, atraumatic Eyes: PERRL, EOM's intact, conjunctiva non-injected, anicteric ENT: normal inspection external ears, nose, mucous membranes mildly dry Neck: supple, trachea midline Lungs: clear, no respiratory distress, no wheezing/rhonchi/rales CV: RRR, no murmur, no pretibial edema Abd: normal BS, soft, non-tender Ext: no cyanosis, no calf tenderness Neuro: A&O x 3, no focal deficits noted, flat affect, slow speech Skin: warm, dry Results & Data Results & Data ([facility]) Vital Signs (Past 12 Hours) Vital Signs Temp Pulse Pulse Resp BP BP Pulse Ox 06/14/20 21:00 71 20 143/79 H 99 06/14/20 20:14 78 20 141/88 H 98 06/14/20 19:47 81 20 141/88 H 98 06/14/20 17:17 36.8 C 88 20 125/80 98 Laboratory Results Short CBC 06/14/20 Range/Units 19:40 WBC 6.52 (4.8-10.8) K/uL Hgb 15.9 (12.0-16.0) g/dL Hct 41.9 (37-47) % Plt Count 214 (130-400) K/uL BMP 06/14/20 19:40 Sodium 120 L Potassium 3.1 L Chloride 81 L Carbon Dioxide 28 BUN 5 L Creatinine 0.56 L Glucose 84 Calcium 9.1 Cardiac Enzymes 06/14/20 Range/Units 19:40 Total Creatine Kinase 62 (26-192) U/L Troponin I < 0.015 (0-0.045) ng/ml Liver Function 06/14/20 Range/Units 19:40 Total Bilirubin 3.7 H (0.2-1) mg/dl Direct Bilirubin 0.5 H (0-0.2) mg/dl AST 9 L (15-37) U/L ALT 19 (12-78) U/L Alkaline Phosphatase 53 (45-117) U/L Albumin 4.0 (3.4-5.0) gm/dl Urine 06/14/20 Range/Units 20:04 Urine Color Yellow Urine Appearance Clear (Clear) Urine pH 7.0 (4.5-7.5) Ur Specific [place] 1.007 (1.000-1.030) Urine Protein Negative (Negative) Urine Glucose (UA) Negative (Negative) Supervising Physician Co-Signing Physician Notes IM ATTENDING : Patient seen and examined. History obtained from patient and records. Preceding documentation by Ms. Mackenzie Vila PA-C reviewed. FINAL ASSESSMENT AND PLAN as follows : Hyponatremia Multifactorial : Acute diarrheal illness secondary to viral gastroenteritis rule out C. difficile Malnutrition /poor p.o. intake the last 6 months secondary to dental concerns and suboptimal mood symptoms (hx bipolar disorder/ADD not on medications secondary to intolerance as per patient account) Complicated UTI, history interstitial cystitis, patient not septic Hypothyroidism, euthyroid as of today's TSH Hypokalemia secondary to illness Medical telemetry Careful correction of sodium Hyponatremia work-up May need Nephrology consultation for hyponatremia Replace potassium Nutrition consult RE low BMI Patient to contemplate on inpatient Psychiatry consultation for mood disorder PT OT eval DVT prophylaxis. Heparin subcu DNR Text document was generated using Mor[employer] voice recognition software. It may contain grammatical or spelling errors. Kindly contact undersigned for clarification of any documentation item in question.
[2020-06-14 22:13] LABS: Influenza A virus by PCR Negative (Neg); Influenza B virus by PCR Negative (Neg); RSV by PCR Negative (Neg); SARS CoV2 RNA(COVID-19) InHosp NEGATIVE (Negative)
[2020-06-14] MEDS ORDERED: ACETAMINOPHEN 325 MG TAB PO PRN (22:38)
[2020-06-15] MEDS ORDERED: CEFEPIME CONSULT ACTIVE PRN (00:06)
[2020-06-15] MEDS ORDERED: LORazepam 0.5 MG TAB PO PRN (00:06)
[2020-06-15] MEDS ORDERED: POTASSIUM PHOS 3 MMOL/1 ML INFUSION IV STA (00:07)
[2020-06-15] MEDS ORDERED: POTASSIUM PHOSPHATE 6 MMOL in 0.9 % SODIUM CHLORIDE 100 ML IV ONE (01:00)
[2020-06-15] MEDS ORDERED: POTASSIUM CHLORIDE 40 MEQ in D5W AND 1/2NSS 1,000 ML/1,000 ML BAG IV ONE (01:06)
[2020-06-15] MEDS ORDERED: POTASSIUM CHLORIDE 40 MEQ in DEXTROSE 5% 1,000 ML IV ONE (01:45)
[2020-06-15] MEDS: LEVOTHYROXINE SODIUM 25 MCG TABLET PO SCH (05:43)
[2020-06-15] MEDS: HEPARIN SOD 5,000 UNIT/0.5 ML VIAL SQ SCH ×4 (05:44→21:01)
[2020-06-15 06:29] LABS: Basophils # (auto) 0.01 K/uL (0-0.2); Basophils % (auto) 0.2 %; Hematocrit (blood only) 37.9 % (37-47); Hemoglobin 14.1 g/dL (12.0-16.0); Lymphocytes # (auto) 1.27 K/uL (1.2-3.4); Lymphocytes % (auto) 26.6 %; Mean Corpuscular Hemoglobin 33.7 pg (25-34); Mean Corpuscular Hgb Conc 37.2 g/dL (32-36); Mean Corpuscular Volume 90.5 fL (80-100); Mean Platelet Volume 9.4 fL (7.4-10.4); Monocytes # (auto) 0.48 K/uL (0.11-0.59); Neutrophils # (auto) 3.02 K/uL (1.4-6.5); Neutrophils % (auto) 63.2 %; Platelet Count 213 K/uL (130-400); RDW Coefficient of Variation 12.7 % (11.5-14.5); RDW Standard Deviation 42.2 fL (36.4-46.3); Red Blood Count 4.19 M/uL (4.2-5.4); White Blood Count 4.78 K/uL (4.8-10.8)
[2020-06-15 06:58] LABS: BUN Creatinine Ratio 6.4 (10-20); Calcium 8.3 mg/dl (8.5-10.1); Creatinine Clr Calc Pharmacy 54.4 ml/min; Est GFR (African American) 109.7; Est GFR (Non-African American) 94.6; Potassium 3.3 mmol/L (3.5-5.1)
[2020-06-15] MEDS ORDERED: POTASSIUM CHLORIDE CRTAB 20 MEQ TABCR PO STA (09:25)
--- NOTE | 2020-06-15 09:39 | Electrocardiogram Report ---
Test Reason : Blood Pressure : / mmHG Vent. Rate : 075 BPM Atrial Rate : 075 BPM P-R Int : 130 ms QRS Dur : 086 ms QT Int : 412 ms P-R-T Axes : 068 -60 034 degrees QTc Int : 460 ms Normal sinus rhythm Poor R wave progression, consider anterior CT vs. lead placement vs. LVH Left axis deviation Abnormal ECG When compared with ECG of 22-DEC-2019 09:43, Nonspecific T wave abnormality, improved in Anterior leads Confirmed by Yonis Ho ([id number]) on 06/15/2020 9:38:59 AM Referred By: Alec Vazquez Confirmed By:Yonis Ho
[2020-06-15 13:10] LABS: BUN Creatinine Ratio 9.1 (10-20); Creatinine Clr Calc Pharmacy 41.7 ml/min; Est GFR (African American) 100.5; Est GFR (Non-African American) 86.7; Potassium 3.6 mmol/L (3.5-5.1)
--- NOTE | 2020-06-15 16:32 | Hospitalist Progress Note ---
Date of Service June 15, 2020 Assessment & Plan Admission and Anticipated Discharge Date Admission Date: June 14, 2020 Hyponatremia, Hypovolemic Multifactorial : Acute diarrheal illness secondary to viral gastroenteritis rule out C. difficile Malnutrition /poor p.o. intake the last 6 months secondary to dental concerns and suboptimal mood symptoms (hx bipolar disorder/ADD not on medications secondary to intolerance as per patient account) -- Na increased drastically from 120 to 133 as of 12 noon, 129 hold IV fluids repeat PRP at 1800 then q6h -- Urine Osm and Na noted will consult Nephrology service Complicated UTI, history interstitial cystitis -- urine culture: pending -- continue Cefepime IV Poor Nutrition -- states her diet is limited due to intolerance to gluten/grain, dairy etc -- Boost Breeeze TID Residential Door Unit Installer consult Hypokalemia secondary to illness -- resolved Hypothyroidism -- TSH normal PT OT eval DVT prophylaxis. Heparin subcu DNR Disposition pending plan of care discussed with patient in detail and at length all questions answered She is understanding, agreeable, comfortable with the plan of care Subjective ff up for hyponatremia, UTI etc seen resting in bed, comfortable somewhat weak states she feels somewhat better today no nausea, abdominal pain, fever/chills dysuria improving denies diarrhea no other symptoms Review of Systems Review of Systems: All systems reviewed & are unremarkable except as noted in Subjective Physical Exam Physical Exam: General- oriented x 3, not in distress, speaks in sentences with no effort or accessory muscle use undernourished somewhat weak Eyes- anicteric Neck- no JVD Lungs- clear breath sounds bilaterally, no rales/wheezes Heart- normal rate, regular rhythm; no murmurs Abdomen- normal bowel sounds, nondistended, soft, nontender Extremities- no pretibial edema, no calf tenderness Neuro- alert, oriented x 3; no gross focal neurologic deficits Skin- warm & dry Results & Data Results & Data ([facility]) Vital Signs (Past 12 Hours) Vital Signs Temp Pulse Pulse Resp BP Pulse Ox 06/15/20 15:54 37.4 C 65 16 150/81 H 97 06/15/20 14:20 88 06/15/20 11:18 76 18 135/82 97 06/15/20 07:26 36.9 C 67 18 124/73 97 06/15/20 07:19 64 all noted and reviewed including below Laboratory Results Laboratory Results - last 24 hr 06/14/20 06/14/20 06/14/20 19:40 19:40 19:40 WBC 6.52 RBC 4.66 Hgb 15.9 Hct 41.9 MCV 89.9 MCH 34.1 H MCHC 37.9 H RDW Std Deviation 40.7 RDW Coeff of Jackeline 12.5 Plt Count 214 MPV 9.2 Immature Gran % (Auto) 0.3 Neut % (Auto) 54.9 Lymph % (Auto) 33.4 Cooper % (Auto) 10.9 Eos % (Auto) 0.3 Baso % (Auto) 0.2 Neut # (Auto) 3.58 Lymph # (Auto) 2.18 Cooper # (Auto) 0.71 H Eos # (Auto) 0.02 Baso # (Auto) 0.01 Immature Gran # (Auto) 0.02 Sodium 120 L Potassium 3.1 L Chloride 81 L Carbon Dioxide 28 Anion Gap 11.0 BUN 5 L Creatinine 0.56 L Est Cr Clr Drug Dosing 49.0 Est GFR ( Amer) 105.0 Est GFR (Non-Af Amer) 90.6 BUN/Creatinine Ratio 8.1 L Glucose 84 Osmolality 248 L Calcium 9.1 Phosphorus 2.4 L Magnesium 2.2 Total Bilirubin 3.7 H Direct Bilirubin 0.5 H AST 9 L ALT 19 Alkaline Phosphatase 53 Total Creatine Kinase 62 Troponin I < 0.015 Total Protein 6.4 Albumin 4.0 Globulin 2.4 L Albumin/Globulin Ratio 1.7 Lipase 118 TSH 1.980 Urine Color Urine Appearance Urine pH Ur Specific Alma Urine Protein Urine Glucose (UA) Urine Ketones Urine Blood Urine Nitrite Urine Bilirubin Urine Urobilinogen Ur Leukocyte Esterase Urine RBC Urine WBC Ur Epithelial Cells Ur Renal Epithelial Cell Urine Bacteria Urine Osmolality Ur Random Sodium COVID-19 Eval Order SARS-CoV-2 (PCR) Influenza Type A (PCR) Influenza Type B (PCR) RSV (RT-PCR) 06/14/20 06/14/20 06/14/20 20:04 20:04 20:39 WBC RBC Hgb Hct MCV MCH MCHC RDW Std Deviation RDW Coeff of Jackeline Plt Count MPV Immature Gran % (Auto) Neut % (Auto) Lymph % (Auto) Cooper % (Auto) Eos % (Auto) Baso % (Auto) Neut # (Auto) Lymph # (Auto) Cooper # (Auto) Eos # (Auto) Baso # (Auto) Immature Gran # (Auto) Sodium Potassium Chloride Carbon Dioxide Anion Gap BUN Creatinine Est Cr Clr Drug Dosing Est GFR ( Amer) Est GFR (Non-Af Amer) BUN/Creatinine Ratio Glucose Osmolality Calcium Phosphorus Magnesium Total Bilirubin Direct Bilirubin AST ALT Alkaline Phosphatase Total Creatine Kinase Troponin I Total Protein Albumin Globulin Albumin/Globulin Ratio Lipase TSH Urine Color Yellow Urine Appearance Clear Urine pH 7.0 Ur Specific Alma 1.007 Urine Protein Negative Urine Glucose (UA) Negative Urine Ketones 1+ H Urine Blood Trace H Urine Nitrite Negative Urine Bilirubin Negative Urine Urobilinogen Negative Ur Leukocyte Esterase 2+ H Urine RBC 0-4 Urine WBC 10-30 H Ur Epithelial Cells 5-10 H Ur Renal Epithelial Cell 5-10 H Urine Bacteria 1+ H Urine Osmolality 75 L Ur Random Sodium COVID-19 Eval Order CovFluRsv at [facility] SARS-CoV-2 (PCR) Influenza Type A (PCR) Influenza Type B (PCR) RSV (RT-PCR) 06/14/20 06/15/20 06/15/20 20:39 00:27 05:32 WBC RBC Hgb Hct MCV MCH MCHC RDW Std Deviation RDW Coeff of Jackeline Plt Count MPV Immature Gran % (Auto) Neut % (Auto) Lymph % (Auto) Cooper % (Auto) Eos % (Auto) Baso % (Auto) Neut # (Auto) Lymph # (Auto) Cooper # (Auto) Eos # (Auto) Baso # (Auto) Immature Gran # (Auto) Sodium 133 L D Potassium Chloride Carbon Dioxide Anion Gap BUN Creatinine Est Cr Clr Drug Dosing Est GFR ( Amer) Est GFR (Non-Af Amer) BUN/Creatinine Ratio Glucose Osmolality Calcium Phosphorus Magnesium Total Bilirubin Direct Bilirubin AST ALT Alkaline Phosphatase Total Creatine Kinase Troponin I Total Protein Albumin Globulin Albumin/Globulin Ratio Lipase TSH Urine Color Urine Appearance Urine pH Ur Specific [place] Urine Protein Urine Glucose (UA) Urine Ketones Urine Blood Urine Nitrite Urine Bilirubin Urine Urobilinogen Ur Leukocyte Esterase Urine RBC Urine WBC Ur Epithelial Cells Ur Renal Epithelial Cell Urine Bacteria Urine Osmolality Ur Random Sodium 27 COVID-19 Eval Order SARS-CoV-2 (PCR) NEGATIVE Influenza Type A (PCR) Negative Influenza Type B (PCR) Negative RSV (RT-PCR) Negative 06/15/20 06/15/20 06/15/20 06:06 06:06 06:06 WBC 4.78 L RBC 4.19 L Hgb 14.1 Hct 37.9 MCV 90.5 MCH 33.7 MCHC 37.2 H RDW Std Deviation 42.2 RDW Coeff of Jackeline 12.7 Plt Count 213 MPV 9.4 Immature Gran % (Auto) 0.0 Neut % (Auto) 63.2 Lymph % (Auto) 26.6 Cooper % (Auto) 10.0 Eos % (Auto) 0.0 Baso % (Auto) 0.2 Neut # (Auto) 3.02 Lymph # (Auto) 1.27 Cooper # (Auto) 0.48 Eos # (Auto) 0.00 Baso # (Auto) 0.01 Immature Gran # (Auto) 0.00 Sodium 132 L Potassium 3.3 L Chloride 96 L Carbon Dioxide 26 Anion Gap 10.0 BUN 3 L Creatinine 0.49 L Est Cr Clr Drug Dosing 54.4 Est GFR ( Amer) 109.7 Est GFR (Non-Af Amer) 94.6 BUN/Creatinine Ratio 6.4 L Glucose 98 Osmolality Calcium 8.3 L Phosphorus 2.8 Magnesium Total Bilirubin Direct Bilirubin AST ALT Alkaline Phosphatase Total Creatine Kinase Troponin I Total Protein Albumin Globulin Albumin/Globulin Ratio Lipase TSH Urine Color Urine Appearance Urine pH Ur Specific [place] Urine Protein Urine Glucose (UA) Urine Ketones Urine Blood Urine Nitrite Urine Bilirubin Urine Urobilinogen Ur Leukocyte Esterase Urine RBC Urine WBC Ur Epithelial Cells Ur Renal Epithelial Cell Urine Bacteria Urine Osmolality Ur Random Sodium COVID-19 Eval Order SARS-CoV-2 (PCR) Influenza Type A (PCR) Influenza Type B (PCR) RSV (RT-PCR) 06/15/20 12:06 WBC RBC Hgb Hct MCV MCH MCHC RDW Std Deviation RDW Coeff of Jackeline Plt Count MPV Immature Gran % (Auto) Neut % (Auto) Lymph % (Auto) Cooper % (Auto) Eos % (Auto) Baso % (Auto) Neut # (Auto) Lymph # (Auto) Cooper # (Auto) Eos # (Auto) Baso # (Auto) Immature Gran # (Auto) Sodium 129 L Potassium 3.6 Chloride 96 L Carbon Dioxide 27 Anion Gap 6.0 BUN 6 L Creatinine 0.64 Est Cr Clr Drug Dosing 41.7 Est GFR ( Amer) 100.5 Est GFR (Non-Af Amer) 86.7 BUN/Creatinine Ratio 9.1 L Glucose 124 H Osmolality Calcium 9.0 Phosphorus Magnesium Total Bilirubin Direct Bilirubin AST ALT Alkaline Phosphatase Total Creatine Kinase Troponin I Total Protein Albumin Globulin Albumin/Globulin Ratio Lipase TSH Urine Color Urine Appearance Urine pH Ur Specific [place] Urine Protein Urine Glucose (UA) Urine Ketones Urine Blood Urine Nitrite Urine Bilirubin Urine Urobilinogen Ur Leukocyte Esterase Urine RBC Urine WBC Ur Epithelial Cells Ur Renal Epithelial Cell Urine Bacteria Urine Osmolality Ur Random Sodium COVID-19 Eval Order SARS-CoV-2 (PCR) Influenza Type A (PCR) Influenza Type B (PCR) RSV (RT-PCR)
[2020-06-15 18:23] LABS: BUN Creatinine Ratio 10.2 (10-20); Calcium 8.5 mg/dl (8.5-10.1); Creatinine Clr Calc Pharmacy 36.5 ml/min; Est GFR (African American) 92.7; Potassium 3.7 mmol/L (3.5-5.1)
[2020-06-15] MEDS: CEFEPIME 2,000 MG in SYRINGE 0 ML IV SCH (20:54)
[2020-06-16 01:22] LABS: BUN Creatinine Ratio 18.6 (10-20); Calcium 8.3 mg/dl (8.5-10.1); Creatinine Clr Calc Pharmacy 59.3 ml/min; Est GFR (African American) 112.8; Est GFR (Non-African American) 97.3; Potassium 3.4 mmol/L (3.5-5.1)
[2020-06-16] MEDS: LEVOTHYROXINE SODIUM 25 MCG TABLET PO SCH (05:53)
[2020-06-16] MEDS: HEPARIN SOD 5,000 UNIT/0.5 ML VIAL SQ SCH ×3 (05:54→21:01)
[2020-06-16 06:41] LABS: BUN Creatinine Ratio 14.2 (10-20); Calcium 8.8 mg/dl (8.5-10.1); Creatinine Clr Calc Pharmacy 57.5 ml/min; Est GFR (Non-African American) 96.6; Potassium 3.5 mmol/L (3.5-5.1)
[2020-06-16] MEDS ORDERED: bisacodyL 10 MG SUPP PR STA (11:13)
[2020-06-16 12:38] LABS: BUN Creatinine Ratio 15.6 (10-20); Calcium 8.5 mg/dl (8.5-10.1); Creatinine Clr Calc Pharmacy 77.8 ml/min; Est GFR (African American) 123.7; Est GFR (Non-African American) 106.7; Potassium 3.4 mmol/L (3.5-5.1)
--- NOTE | 2020-06-16 14:22 | Nephrology Consultation ---
Date of Consultation June 16, 2020 Assessment & Plan (1) Hyponatremia: acute hyponatremia on 06/16 w/ 7 point drop in sNa in 6 hours > 127 w/ K 3.3 on recheck (prior to receiving 40 mEq po K) SUSPECT polydipsia but need to confirm w/ pending data -recheck hyponatremia labs ordered stat > no apparent reason for the drop and if fall continues she is at risk for seizures or other severe complications; serum osm 256; urine studies pending -control pain but avoid nsaids to do this -- defer to primary service to conside rstopping abtx or not -ordered bmp 1999 and again in am -asked RN to offer pt potato chips often>> salty snack with high K -likely to need 1.8L FR but await urine osms; pt aware may have FR Present on Admission?: Yes (2) Hypokalemia: need eukalemia to correct Na appropriately; has not had repletion today >40 mEq po K stat ordered -encourage K rich foods Present on Admission?: Yes History of Present Illness Reason for Consultation: hyponatremia Requesting Physician: Dr Araiza Attending Physician: Ramón Araiza MD History of Present Illness 74 y/o F whom I'm asked to evaluate for hyponatremia after her serum sodium went from 133 this am at 0600 to 126 at noon. No medications such as lasix or ivf or urea or salt tabs have been given in the past 24 hrs. PMH includes ADHD, chronic interstitial cystitis, hypothyroid, migraines. She was admitted on 06/14 for sNa 120 after presenting with for eval of LUTS, N, weakness. She is on cefepime for uti while cx pending; states that IV abtx from her standpoint worsen LUTS. urine osms at admission were 75. she is not on a fluid limit or nsaids currently. RN reports pt drinks constantly. pt states she has diarrhea but needs dulcolax b/c not getting much stool out. no sob, no edema. states she does not have balance issues as she moves above. denies past issues w/ low Na. states "I've never been more discouraged about anything than I have been about this (hospital stay;)" states she plans to leave this afternoon. Allergies Allergy/AdvReac Type Severity Reaction Status Date / Time milk Allergy Intermediate Abdominal Verified 06/15/20 13:14 Pain gluten Allergy Unknown ANAPHYLAXIS Verified 06/14/20 20:40 bee venom protein (honey bee) Allergy Anaphylaxis Verified 06/14/20 20:40 lactose AdvReac Unknown Gastrointestinal Verified 06/15/20 13:15 Upset Home Medications Medication Instructions Recorded Confirmed Type cyclosporine [Restasis] 1 drp OPB BID 12/22/19 06/14/20 History estradiol-levonorgestrel [Climara 1 patch TRANSDERMAL WK 12/22/19 06/14/20 History Pro] fluoride (sodium) [SF 5000 Plus] 1 applic DENTAL HS 12/22/19 06/14/20 History onabotulinumtoxinA [Botox] 200 unit SUBCUT .Q3M 12/22/19 06/14/20 History sumatriptan succinate 25 mg PO Q2H PRN 12/22/19 06/14/20 History levothyroxine [Levoxyl] 25 mcg PO QAM 06/14/20 06/14/20 History Patient History Medical History ADHD Bipolar disorder Hypothyroidism Interstitial cystitis Migraine Surgical History (Updated 06/16/20 @ 16:11 by Darby Davies MD, PhD) Hx of tonsillectomy Family History Daughter Lupus Social History Smoking Status: Former smoker Smoking End Date: 50 years ago; Second Hand Exposure: No; Do You Dip or Chew Tobacco: No; Tobacco Cessation Education Requested by Patient: No Hx Alcohol Use: No Hx Substance Use: No Preferred Language: Mongolian Communication Ability: Effective Fuse Maker Required: No Beliefs That Will Affect Care: None Current Living Situation: Alone Other Information That Helps Us Care for You: No Feels Safe at Home: Yes Safety Concerns: Feels Safe At This Time Assistive Devices: None Review of Systems Review of Systems: All systems reviewed & are unremarkable except as noted in HPI & below Physical Exam Constitutional: well developed and + cachectic; no acute distress Eyes: EOM intact bilaterally ENMT: Ears: no external ear abnormality Nose: no external nose abnormality Mouth: oral mucous membranes not dry Neck: no nuchal rigidity Respiratory: normal respiratory effort Auscultation: lungs clear to auscultation bilaterally and + diminished lung sounds Cardiovascular: RRR, no murmur, no edema Gastrointestinal (Abdomen): Inspection/Auscultation: normal bowel sounds Percussion/Palpation: abdomen soft; abdomen nontender Musculoskeletal: Extremities: strength 5/5 throughout Skin: no rashes, warm and dry Neurologic: briceño, fluent speech, no tremor Psychiatric: Orientation: alert and oriented x 3 Speech: normal rate/rhythm/volume of speech Affect: + flat affect Mood: + depressed mood Results & Data ([facility]) Vital Signs (Past 12 Hours) Vital Signs Temp Pulse Pulse Resp BP Pulse Ox 06/16/20 11:20 36.5 C 67 18 167/86 H 97 06/16/20 07:25 36.4 C L 64 18 155/85 H 97 06/16/20 07:13 63 06/16/20 04:48 36.4 C L 62 18 129/74 98 Laboratory Results 06/15/20 06:06 06/16/20 11:49
[2020-06-16] MEDS ORDERED: POTASSIUM CHLORIDE CRTAB 20 MEQ TABCR PO STA (14:24)
[2020-06-16 15:12] LABS: BUN Creatinine Ratio 11.3 (10-20); Creatinine Clr Calc Pharmacy 56.3 ml/min; Est GFR (African American) 111.2; Est GFR (Non-African American) 95.9; Potassium 3.3 mmol/L (3.5-5.1)
--- NOTE | 2020-06-16 15:55 | Hospitalist Progress Note ---
Date of Service June 16, 2020 Assessment & Plan (1) Hyponatremia: Hyponatremia, Hypovolemic Multifactorial : Acute diarrheal illness secondary to viral gastroenteritis rule out C. difficile Malnutrition /poor p.o. intake the last 6 months secondary to dental concerns and suboptimal mood symptoms (hx bipolar disorder/ADD not on medications secondary to intolerance as per patient account) -- Na increased drastically from 120 to 133 down again to 126 -- Urine Osm and Na noted will consult Nephrology service Complicated UTI, history interstitial cystitis -- urine culture: pending -- afebrile dysuria improving but still has episodes of bladder pain -- continue Cefepime IV Poor Nutrition -- states her diet is limited due to intolerance to gluten/grain, dairy etc -- Boost Breeeze TID Bellows Assembler consult Hypokalemia secondary to illness -- replace Hypothyroidism -- TSH normal PT OT eval DVT prophylaxis. Heparin subcu DNR Disposition pending plan of care discussed with patient in detail and at length all questions answered She is understanding, agreeable, comfortable with the plan of care Admission and Anticipated Discharge Date Admission Date: June 14, 2020 Subjective ff up for hyponatremia, etc seen resting in bed, sitting up states she feels improved today does have bladder pain intermittently no dysuria, chills, nausea no chest pain, dyspnea, palpitations no other symptoms Review of Systems Review of Systems: All systems reviewed & are unremarkable except as noted in Subjective Physical Exam Physical Exam: General- oriented x 2, not in distress, speaks in sentences with no effort or accessory muscle use Eyes- anicteric Neck- no JVD Lungs- clear breath sounds bilaterally Heart- normal rate, regular rhythm; no murmurs Abdomen- normal bowel sounds, nondistended, soft, nontender Extremities- no pretibial edema, no calf tenderness Neuro- alert, oriented x 3; no gross focal neurologic deficits Skin- warm & dry Results & Data Results & Data ([facility]) Vital Signs (Past 12 Hours) Vital Signs Temp Pulse Pulse Resp BP Pulse Ox 06/16/20 15:48 36.7 C 69 18 167/86 H 97 06/16/20 11:20 36.5 C 67 18 167/86 H 97 06/16/20 07:25 36.4 C L 64 18 155/85 H 97 06/16/20 07:13 63 06/16/20 04:48 36.4 C L 62 18 129/74 98 all noted and reviewed including below Laboratory Results Laboratory Results - last 24 hr 06/16/20 06/16/20 06/16/20 00:37 05:49 11:49 Sodium 134 L D 133 L 126 L D Potassium 3.4 L 3.5 3.4 L Chloride 99 98 91 L Carbon Dioxide 28 29 29 Anion Gap 7.0 5.0 6.0 BUN 8 7 5 L Creatinine 0.45 L 0.46 L 0.34 L Est Cr Clr Drug Dosing 59.3 57.5 77.8 Est GFR ( Amer) 112.8 112.0 123.7 Est GFR (Non-Af Amer) 97.3 96.6 106.7 BUN/Creatinine Ratio 18.6 14.2 15.6 Glucose 93 94 96 Osmolality Calcium 8.3 L 8.8 8.5 Urine Osmolality Ur Random Sodium 06/16/20 06/16/20 06/16/20 14:47 14:47 16:00 Sodium 127 L Potassium 3.3 L Chloride 90 L Carbon Dioxide 28 Anion Gap 9.0 BUN 5 L Creatinine 0.47 L Est Cr Clr Drug Dosing 56.3 Est GFR ( Amer) 111.2 Est GFR (Non-Af Amer) 95.9 BUN/Creatinine Ratio 11.3 Glucose 101 H Osmolality 256 L Calcium 9.0 Urine Osmolality 96 L Ur Random Sodium 06/16/20 16:04 Sodium Potassium Chloride Carbon Dioxide Anion Gap BUN Creatinine Est Cr Clr Drug Dosing Est GFR ( Amer) Est GFR (Non-Af Amer) BUN/Creatinine Ratio Glucose Osmolality Calcium Urine Osmolality Ur Random Sodium 31
[2020-06-16] MEDS: CEFEPIME 2,000 MG in SYRINGE 0 ML IV SCH (19:07)
[2020-06-16 20:31] LABS: BUN Creatinine Ratio 13.6 (10-20); Calcium 8.8 mg/dl (8.5-10.1); Creatinine Clr Calc Pharmacy 45.6 ml/min; Est GFR (African American) 103.8; Est GFR (Non-African American) 89.5; Potassium 3.8 mmol/L (3.5-5.1)
[2020-06-17] MEDS: LEVOTHYROXINE SODIUM 25 MCG TABLET PO SCH (06:35)
[2020-06-17] MEDS: HEPARIN SOD 5,000 UNIT/0.5 ML VIAL SQ SCH ×2 (06:35→13:21)
[2020-06-17 07:43] LABS: Calcium 8.6 mg/dl (8.5-10.1); Creatinine Clr Calc Pharmacy 70.2 ml/min; Est GFR (African American) 120.3; Est GFR (Non-African American) 103.8; Potassium 3.7 mmol/L (3.5-5.1)
[2020-06-17] MEDS ORDERED: CEFEPIME 2,000 MG in SYRINGE 0 ML IV SCH (09:00)
--- NOTE | 2020-06-17 13:13 | Hospitalist Progress Note ---
Date of Service June 17, 2020 Assessment & Plan (1) Hyponatremia: Hyponatremia, Hypovolemic -- secondary to excessive water intake -- Na increased drastically from 120 to 133 down again to 126 -- Urine Osm and Na noted consulted Nephrology service- Dr. Davies hyponatremia felt to be from excessive water intake- patient admitted to drinking multiple cups of water prior to admission to address her bladder spasms fluid restriction ordered -- Na improved to 128 nephro recommendations: Fluid restriction - not to exceed 80oz per day K rich foods repeat basic metabolic profile, urine Na and Osm on ff up with PCP this week (please forward results to Dr. Davies- Nephro) Nephro Clinic ff up with Dr. Davies in 1-2 weeks Bladder pain likely from interstitial cystitis Urinary Tract Infection ruled out -- urine culture: negative -- afebrile dysuria resolved, has intermittent episodes of bladder pain -- given 3 days of Cefepime IV PRN Oxybutynin ordered ff pu with PCP this week Poor Nutrition -- states her diet is limited due to intolerance to gluten/grain, dairy etc -- Boost Breeeze TID Traffic Signal Mechanic consult Hypokalemia secondary to illness -- replaced Hypothyroidism -- TSH normal Disposition d/c home ff up with PCP this week ff up with Nephro Dr. Davies in 1-2 weeks plan of care discussed with patient in detail and at length all questions answered She is understanding, agreeable, comfortable with the plan of care Admission and Anticipated Discharge Date Admission Date: June 14, 2020 Subjective ff up for hyponatremia, etc seen resting in bed, comfortable states she feels better overall has intermittent bladder spasms, but no dysuria, no problems with urination no fever/chills, nausea no chest pain, dyspnea, headache, palpitations, dizziness no other symptoms states she is ready and would like to be discharged today Review of Systems Review of Systems: All systems reviewed & are unremarkable except as noted in Subjective Physical Exam Physical Exam: General- oriented x 3, not in distress, speaks in sentences with no effort or accessory muscle use Eyes- anicteric Neck- no JVD Lungs- clear breath sounds bilaterally Heart- normal rate, regular rhythm; no murmurs Abdomen- normal bowel sounds, nondistended, soft, nontender no CVA tenderness Extremities- no pretibial edema, no calf tenderness Neuro- alert, oriented x 3; no gross focal neurologic deficits Skin- warm & dry Results & Data Results & Data ([facility]) Vital Signs (Past 12 Hours) Vital Signs Temp Pulse Pulse Resp BP BP Pulse Ox 06/17/20 11:39 36.6 C 80 18 159/90 H 96 06/17/20 07:44 36.7 C 70 18 159/90 H 98 06/17/20 07:34 71 06/17/20 04:00 36.4 C L 72 18 144/86 H 98 06/17/20 01:26 63 Laboratory Results Laboratory Results - last 24 hr 06/16/20 06/16/20 06/16/20 14:47 14:47 16:00 Sodium 127 L Potassium 3.3 L Chloride 90 L Carbon Dioxide 28 Anion Gap 9.0 BUN 5 L Creatinine 0.47 L Est Cr Clr Drug Dosing 56.3 Est GFR ( Amer) 111.2 Est GFR (Non-Af Amer) 95.9 BUN/Creatinine Ratio 11.3 Glucose 101 H Osmolality 256 L Calcium 9.0 Urine Osmolality 96 L Ur Random Sodium 06/16/20 06/16/20 06/17/20 16:04 19:50 06:47 Sodium 130 L 128 L Potassium 3.8 D 3.7 Chloride 94 L 93 L Carbon Dioxide 27 27 Anion Gap 9.0 8.0 BUN 8 4 L Creatinine 0.58 L 0.37 L Est Cr Clr Drug Dosing 45.6 70.2 Est GFR ( Amer) 103.8 120.3 Est GFR (Non-Af Amer) 89.5 103.8 BUN/Creatinine Ratio 13.6 10.0 Glucose 107 H 98 Osmolality Calcium 8.8 8.6 Urine Osmolality Ur Random Sodium 31
--- NOTE | 2020-06-17 13:29 | Discharge Summary ---
Date of Service June 17, 2020 Admission HPI Per Admitting Provider Pt is 74 y/o F with PMH interstitial cystitis, bipolar depression, hypothyroidism, migraine receiving Botox therapy presented to ER for abnormal labs. Patient was seen outpatient at [facility] urgent care for complaints of "urethra discomfort", dysuria, weakness, nausea. She had labs done revealing hyponatremia and referred to ER. She reports history of interstitial cystitis and often has episodes of dysuria and urinary frequency. Reports today with dysuria and urinary frequency. Also reports sensation of bladder spasms today. She complains of nausea. States had several episodes of watery diarrhea. Patient states does have intermittent episodes of watery diarrhea when she has poor oral intake. She reports past several months has been having increased depression. In past has been on medications however reports is intolerant. She states has not been sleeping. Denies suicidal or homicidal ideations. Patient states she has had "poor decision-making" over the past several months. She feels she has had intermittent confusion over the past several months as well. Patient reports recent stressor of housing troubles. Lives alone. Complains of generalized weakness. Decreased oral intake patient reports secondary to not wanting to eat and to poor dentition. Has been eating eggs and avocado. Denies other abdominal pain. No fevers. Reports is always cold. Denies fever/chills, melena, hematochezia, hematemesis, ROSARIO, dizziness, syncope, vision changes, neck pain, CP, SOB, orthopnea, palpitations, cough, sore throat, choking, otalgia, rhinorrhea, paresthesias, extremity edema, rashes, hematuria, flank pain, vaginal bleeding or discharge. Admission Exam Per Admitting Provider General: no acute distress, very thin Head: normocephalic, atraumatic Eyes: PERRL, EOM's intact, conjunctiva non-injected, anicteric ENT: normal inspection external ears, nose, mucous membranes mildly dry Neck: supple, trachea midline Lungs: clear, no respiratory distress, no wheezing/rhonchi/rales CV: RRR, no murmur, no pretibial edema Abd: normal BS, soft, non-tender Ext: no cyanosis, no calf tenderness Neuro: A&O x 3, no focal deficits noted, flat affect, slow speech Skin: warm, dry Principal Diagnosis HYPONATREMIA SECONDARY TO EXCESSIVE WATER INTAKE INTERSTITIAL CYSTITS Discharge Exam General- oriented x 3, not in distress, speaks in sentences with no effort or accessory muscle use Eyes- anicteric Neck- no JVD Lungs- clear breath sounds bilaterally Heart- normal rate, regular rhythm; no murmurs Abdomen- normal bowel sounds, nondistended, soft, nontender no CVA tenderness Extremities- no pretibial edema, no calf tenderness Neuro- alert, oriented x 3; no gross focal neurologic deficits Skin- warm & dry Discharge Data Allergies Allergy/AdvReac Type Severity Reaction Status Date / Time milk Allergy Intermediate Abdominal Verified 06/15/20 13:14 Pain gluten Allergy Unknown ANAPHYLAXIS Verified 06/14/20 20:40 bee venom protein (honey bee) Allergy Anaphylaxis Verified 06/14/20 20:40 lactose AdvReac Unknown Gastrointestinal Verified 06/15/20 13:15 Upset Consultations 06/14/20 20:36 ED Decision to Admit Stat 06/15/20 00:06 Consult Case Management - Discharge Planning Routine 06/16/20 13:48 Consult Nephrology Routine Hospital Course (1) Hyponatremia: Hyponatremia -- secondary to excessive water intake -- Na increased drastically from 120 to 133, then decreased again to 126 -- Urine Osm and Na noted consulted Nephrology service- Dr. Bonilla hyponatremia felt to be from excessive water intake- patient admitted to drinking multiple cups of water prior to admission to address her bladder spasms fluid restriction ordered -- Na improved to 128 -- patient requesting to be discharged nephro recommendations: Fluid restriction - not to exceed 80oz per day K rich foods repeat basic metabolic profile, urine Na and Osm on ff up with PCP this week (please forward results to Dr. Bonilla- Nephro) Nephro Clinic ff up with Dr. Bonilla in 1-2 weeks Bladder pain likely from interstitial cystitis Urinary Tract Infection ruled out -- urine culture: negative -- afebrile dysuria resolved, has intermittent episodes of bladder pain -- given 3 days of Cefepime IV PRN Oxybutynin ordered ff pu with PCP this week Poor Nutrition -- states her diet is limited due to intolerance to gluten/grain, dairy etc -- Boost Breeeze TID Pilot Submersible consult Hypokalemia secondary to illness -- replaced advised to include high potassium foods in daily diet Hypothyroidism -- TSH normal Disposition d/c home ff up with PCP this week ff up with Nephro Dr. Bonilla in 1-2 weeks plan of care discussed with patient in detail and at length all questions answered She is understanding, agreeable, comfortable with the plan of care Total Time Total Time Spent Total Time Spent (In Minutes): 45 minutes Discharge Plan Discharge Items Patient Disposition: Home - Self-Care Reason For Visit: HYPONATREMIA Discharge Diagnosis: LOW SODIUM LEVEL FROM EXCESSIVE WATER INTAKE Activity: Resume your previous activity Activity Comment: GRADUALLY TOLERATED Lifting: Gradually increase as tolerated Exercise/Sports: Wait until after follow-up appointment Driving/Machine Use: NO DRIVING UNTIL RE-EVALUATED AND ALLOWED BY PRIMARY CARE PHYSICIAN Non-emergency contact: Primary Care Provider Call non-emergency contact if: you have any medication questions, your symptoms worsen, your pain is not controlled, your pain is worsening, your pain is unusual for you, your pain is concerning for you and you have a fever Follow-up/Referrals: Alec Vazquez, [Primary Care Provider] - (Date & Time 06/21/2020 10:00 AM Provider Volodymyr Silva MD Department Family Practice [facility] ) Diet: Regular Addtl Attending Provider Instructions: DO NOT DRINK MORE THAN 80 OUNCES OF FLUID PER DAY - INCLUDING WATER, JUICE, SOUP. EAT POTASSIUM RICH FOODS DAILY INCLUDING BANANAS, POTATOES, ORANGES, TOMATOES. YOU NEED TO HAVE A REPEAT BLOOD WORK ON YOUR FOLLOW UP WITH VISIT WITH YOUR PCP ON SUNDAY JUNE 21, 2020 TO CHECK YOUR SODIUM AND POTASSIUM LEVELS. IT IS VERY IMPORTANT TO COME TO THIS APPOINTMENT TO ENSURE YOUR LEVELS ARE STABLE AND AVOID SEVERE COMPLICATIONS. FOLLOW UP WITH POWDERED SUGAR SUPERVISOR DR. BONILLA IN 1-2 WEEKS. PLEASE CALL HER OFFICE FOR AN APPOINTMENT. CONTACT INFORMATION NOTED ABOVE. YOU CAN TAKE OXYBUTININ 5MG 1-2X A DAY FOR BLADDER SPASMS. CALL PRIMARY CARE PHYSICIAN OR RETURN TO THE ER IMMEDIATELY IF WITH RECURRENCE OR WORSENING OF SYMPTOMS. Pending Studies at Discharge: Yes Studies:: YOU NEED TO HAVE A REPEAT BLOOD WORK ON YOUR FOLLOW UP WITH VISIT WITH YOUR PCP ON SUNDAY JUNE 21, 2020 TO CHECK YOUR SODIUM AND POTASSIUM LEVELS. IT IS VERY IMPORTANT TO COME TO THIS APPOINTMENT TO ENSURE YOUR LEVELS ARE STAB LE AND AVOID SEVERE COMPLICATIONS. Stand-Alone Forms: My [employer], Smoking Cessation Medications and DC Order Prescriptions: New oxybutynin chloride 5 mg tablet 5 mg PO BID PRN (Reason: bladder spasms) Qty: 14 RF: 0 Continued sumatriptan succinate 25 mg tablet 25 mg PO Q2H PRN (Reason: Migraine Headache) RF: 0 Restasis 0.05 % dropperette 1 drp OPB BID RF: 0 Climara Pro 0.045-0.015 mg/24 hr patch weekly 1 patch transdermal WK RF: 0 fluoride (sodium) [SF 5000 Plus] 1.1 % cream 1 applic dental HS RF: 0 Botox 200 unit recon soln 200 unit subcut .Q3M RF: 0 levothyroxine [Levoxyl] 50 mcg tablet 25 mcg PO QAM RF: 0 Discharge Orders: Discharge Order (Routine); Ordered 06/17/20 Ordered By: Ramón Araiza Admission Data Admit Date/Time: 06/14/20 23:13 Attending Provider: Ramón Araiza Admit Provider: Morgan Power Primary Care Provider: Alec Vazquez Other Providers: Morgan Power ; Darby Bonilla Other Interventions: Discharge Summary Assessment (RN) Last Done: 06/17/20 13:19
--- NOTE | 2020-06-17 14:38 | Nephrology Progress Note ---
Date of Service June 17, 2020 Assessment & Plan (1) Hyponatremia: acute hyponatremia on 06/16 w/ 7 point drop in sNa in 6 hours > 127 w/ K 3.3 on recheck (prior to receiving 40 mEq po K); serum sodium stable since then both admission labs adn repeat studies on 06/16 confirm this hyponatremia is clearly from polydipsia>> she is drinking a lot of water and literally diluting her sodium down Ideally she should stay until we work out apporpirate mgt but she won't hear of it, barely stayed yesterday. She is at high risk for readmission and for complications of psychogenic polydipsia DISCHARGE RECOMMENDATIONS (discussed w/ Dr Araiza) -recheck bmp later this week at f/u w/ Dr Vazquez (will add on urine osms as well) -80 oz daily fluid limit reinforced, this to include anything that is liquid at room temp -encourage high potassium foods particularly -salty snacks and especially high protein foods encouraged -needs to f/u in 1-2 wks in CKD clinic with myself or FABIOLA Li in [facility] (2) Hypokalemia: need eukalemia to correct Na appropriately; has not had repletion today -encourage K rich foods Admission and Anticipated Discharge Date Admission Date: June 14, 2020 Subjective pt seen and evaluated at 1245; she is preparing for d/c home; I reinforced fluid limit with her > she has concerns that her IS cystitis will worsen if she does not flush her bladder. she stated she felt dizzy and disoriented and had to get home to improve this. she states she has not slept since arrival to hospital Review of Systems Review of Systems: All systems reviewed & are unremarkable except as noted in Subjective Physical Exam Constitutional: well developed and + cachectic; no acute distress (apart from anxiety) Eyes: EOM intact bilaterally ENMT: Ears: no external ear abnormality Nose: no external nose abnormality Mouth: oral mucous membranes not dry Neck: no nuchal rigidity Respiratory: normal respiratory effort Auscultation: lungs clear to auscultation bilaterally and + diminished lung sounds Cardiovascular: RRR, no murmur, no edema Gastrointestinal (Abdomen): Inspection/Auscultation: normal bowel sounds Percussion/Palpation: abdomen soft; abdomen nontender Musculoskeletal: Extremities: strength 5/5 throughout Skin: no rashes, warm and dry Psychiatric: Orientation: alert and oriented x 3 Speech: normal rate/rhythm/volume of speech Affect: + anxious affect Results & Data ([facility]) Vital Signs (Past 12 Hours) Vital Signs Temp Pulse Pulse Pulse Pulse Resp BP 06/17/20 13:19 36.6 C 76 80 69 18 144/86 H 06/17/20 11:39 36.6 C 80 18 06/17/20 07:44 36.7 C 70 18 06/17/20 07:34 71 06/17/20 04:00 36.4 C L 72 18 144/86 H BP Pulse Ox 06/17/20 13:19 159/90 H 96 06/17/20 11:39 159/90 H 96 06/17/20 07:44 159/90 H 98 06/17/20 07:34 06/17/20 04:00 98 Laboratory Results 06/15/20 06:06 06/17/20 06:47
--- NOTE | 2020-06-25 14:03 | Coding Query ---
MALNUTRITION To promote full compliance with coding requirements relating to patient care, physician participation is requested in all cases of travel sales consultant uncertainty. Please assist us with the question(s) below: Please place an X within the parenthesis (x). If other, please document: "Malnutrition" is documented in this record. If possible, please check the box that provides a more specific diagnosis: ( ) Mild malnutrition ( ) Moderate malnutrition ( ) Severe malnutrition ( ) Protein malnutrition (kwashiorkor) (x ) Severe protein calorie malnutrition ( ) Protein calorie malnutrition, unspecified ( ) Other (please specify): Thank you Sylvie Knutson [facility]
== END 2020-06-17 14:23 | disposition home or self-care (01) | DRG 640 ==
LOC: ED 16:53 → 2N 23:13

== ENCOUNTER 2020-06-29 13:21 | Inpatient (IN) ==
[2020-06-29] MEDS ORDERED: SODIUM CHLORIDE 0.9% 1000ML 1,000 ML IV SCH (13:45)
--- NOTE | 2020-06-29 13:56 | Emergency Department Note ---
Impression & Plan Hypotension, Hypokalemia, Syncope, Weakness, Acute hyponatremia ED Provider Note NAME: YULIANA GALLAGHER AGE: 74 SEX: F : 1945 ARRIVES VIA: Walk-In INFORMANT: [Patient][friend] ED PROVIDER(S): [Matt Kirk MD] CHIEF COMPLAINT: Syncope, weakness HISTORY OF PRESENT ILLNESS: The patient is a 74-year-old female who was discharged from our hospital about 12 days ago. She was in for a low sodium and dehydration. Patient has felt poorly for the last week. She has been dizzy, lightheaded. She has felt confused. Yesterday, she apparently passed out on a chair, she did not suffer any trauma. She felt dizzy and poorly before the syncopal event. No chest pain or shortness of breath. Today, she is weak and feels quite thirsty, she thinks that she is dehydrated. She has not had chest pain, there has been no fever, no urinary complaints, no vomiting or diarrhea, no abdominal pain. She is concerned that she is having the same problem she had a few weeks ago when she was admitted to our hospital. Of note, the patient does live alone. REVIEW OF SYSTEMS: See HPI for pertinent positives and negatives. A total of ten systems were reviewed and were otherwise negative. PMHx/PSHx: See Below SOCIAL HISTORY: See Below. PHYSICAL EXAM: GENERAL: Patient is in no acute distress. HEENT: No acute trauma, normocephalic atraumatic, mucous membranes dry, no nasal congestion, no scleral icterus. NECK: No stridor, no adenopathy, no meningismus, trachea is midline. LUNGS: Clear to auscultation bilaterally, no wheeze, no rhonchi, breath sounds equal. HEART: Mildly tachycardic, regular rhythm, subtle systolic murmur. ABDOMEN: Soft, nontender, bowel sounds positive, no hernias, no peritonitis. EXTREMITIES: No cyanosis, mild bilateral pedal edema, full range of motion of all the joints without pain or difficulty, no signs for acute trauma. NEUROLOGIC: Oriented x 3, no acute motor or sensory deficits, no focal weakness. No speech slur, no extremity drift. SKIN: No rash, no jaundice, no diaphoresis. DIFFERENTIAL DIAGNOSIS: Infection, dehydration, metabolic abnormality, hypo/hyperglycemia, dysrhythmia, UTI, malnutrition, electrolyte disturbance, anemia, hypoxia, cardiac sources, intracerebral event, toxicologic issues, stroke, TIA, as well as other pathologies. EMERGENCY DEPARTMENT COURSE/PROCEDURES: ECG: Indication was weakness and syncope. The ECG shows a normal sinus rhythm with some artifact. The rate is 82. There is no ST elevation. No PVCs. There is poor R wave progression. Compared to an ECG from 14 June 2020, the poor R wave progression is now noted. Continuous Cardiac Monitoring: An order was placed for continuous cardiac m onitoring. The monitor shows a rate of 98 with normal sinus rhythm. Critical Care Note: I have personally spent 38 minutes of critical care time in the direct management of this patient. This includes bedside care, interpretation of diagnostic studies, and testing, discussion with consultants, patient, and family members, and other required patient management activities. This 38 minutes is in excess of all separately billable procedures. MEDICAL DECISION MAKING: There is no leukocytosis or concerning anemia. There is a normal platelet count. Renal panel testing shows a low sodium at 120 and a low potassium at 2.8. No kidney failure. Lactic acid level was not elevated making sepsis less likely. There was an isolated bilirubin elevation however, this has been documented before. Patient appeared to be in a euthyroid state. ECG shows a sinus rhythm, no acute ischemic change. Cardiac enzyme testing x1 is not consistent with acute cardiac injury. Urinalysis does not show infection. Covid testing returned negative. Chest film did not show pneumonia or CHF. Brain CT showed no acute bleed or mass-effect. The patient presents weak and tired, she had a syncopal event yesterday. She appeared dehydrated by history and exam, she was hyponatremic and hypokalemic by our work-up. The patient was given IV saline, this did improve her blood pressure. She was given IV potassium. She received IV ceftriaxone as empiric antibiotic coverage. The patient requires a hospital stay. I do not think she is septic, more so, I think she is dehydrated with some electrolyte disturbances. The syncope is from her dehydration and chemistry abnormalities. I did speak with the patient and her friend, I spoke with case management. The on-call hospitalist was consulted. Past Med/Surg History Medical History ADHD Bipolar disorder Hypothyroidism Interstitial cystitis Migraine Surgical History (Updated 06/16/20 @ 16:11 by Darby Davies MD, PhD) Hx of tonsillectomy Family History Daughter Lupus Social History Smoking Status: Former smoker Second Hand Exposure: No; Hx Alcohol Use: No Hx Substance Use: No Preferred Language: Mauritanian Communication Ability: Effective Pill Coater Required: No Beliefs That Will Affect Care: None Current Living Situation: Alone Feels Safe at Home: Yes Assistive Devices: None Allergies Allergies Allergy/AdvReac Type Severity Reaction Status Date / Time milk Allergy Intermediate Abdominal Verified 06/29/20 14:43 Pain gluten Allergy Unknown ANAPHYLAXIS Verified 06/29/20 14:43 bee venom protein (honey bee) Allergy Anaphylaxis Verified 06/29/20 14:43 lactose AdvReac Unknown Gastrointestinal Verified 06/29/20 14:43 Upset grains Allergy Severe Anaphylaxis Uncoded 06/29/20 14:43 Home Meds Home Medications Medication Instructions Recorded Confirmed Botox 200 unit SUBCUT .Q3M 12/22/19 06/29/20 Climara Pro 1 patch TRANSDERMAL WK 12/22/19 06/29/20 Restasis 1 drp OPB BID 12/22/19 06/29/20 fluoride (sodium) [SF 5000 Plus] 1 applic DENTAL HS 12/22/19 06/29/20 sumatriptan succinate 25 mg PO Q2H PRN 12/22/19 06/29/20 levothyroxine [Levoxyl] 25 mcg PO QAM 06/14/20 06/29/20 Previous Rx's Medication Instructions Recorded oxybutynin chloride 5 mg PO BID PRN #14 tab 06/17/20 Results & Data (ED) Vital Signs Vital Signs - 24 hr 06/29/20 13:24 06/29/20 14:00 06/29/20 14:01 Temperature 36.5 C Temperature Source Temporal Artery Scan Pulse Rate 122 H 82 82 Pulse Rate [Left] Pulse Rate from SpO2 Sensor 82 81 Pulse Rhythm [Left] Pulse Strength [Left] Respiratory Rate 19 12 18 Respiratory Effort / Characteristics Non-Labored Respiratory Depth Normal Respiratory Pattern Blood Pressure 87/56 L 89/57 L Blood Pressure [Left Arm] Blood Pressure Mean 66 67 Blood Pressure Mean [Left Arm] Blood Pressure Position [Left Arm] Pulse Oximetry 99 98 99 Oxygen Delivery Method Room Air Room Air Room Air Sepsis Recent Fever Within 48 Hours No Sepsis New/Unexplained Change in Mental Status No Sepsis Action Taken by Nursing No Action Required 06/29/20 14:10 06/29/20 14:14 06/29/20 14:20 Temperature Temperature Source Pulse Rate 77 75 Pulse Rate [Left] Pulse Rate from SpO2 Sensor 78 76 Pulse Rhythm [Left] Pulse Strength [Left] Respiratory Rate 18 18 Respiratory Effort / Characteristics Respiratory Depth Respiratory Pattern Blood Pressure Blood Pressure [Left Arm] Blood Pressure Mean Blood Pressure Mean [Left Arm] Blood Pressure Position [Left Arm] Pulse Oximetry 98 100 Oxygen Delivery Method Room Air Room Air Room Air Sepsis Recent Fever Within 48 Hours Sepsis New/Unexplained Change in Mental Status Sepsis Action Taken by Nursing 06/29/20 17:30 Temperature Temperature Source Pulse Rate Pulse Rate [Left] 66 Pulse Rate from SpO2 Sensor Pulse Rhythm [Left] Regular Pulse Strength [Left] Normal Respiratory Rate 16 Respiratory Effort / Characteristics Non-Labored Spontaneous Respiratory Depth Normal Respiratory Pattern Regular Blood Pressure Blood Pressure [Left Arm] 113/71 Blood Pressure Mean Blood Pressure Mean [Left Arm] 85 Blood Pressure Position [Left Arm] Lying Pulse Oximetry 96 Oxygen Delivery Method Room Air Sepsis Recent Fever Within 48 Hours Sepsis New/Unexplained Change in Mental Status Sepsis Action Taken by Detention Medications Current Medication List: was personally reviewed by me Laboratory Data Attestation: I reviewed the patient's lab results. Result diagrams: 06/29/20 14:00 06/29/20 14:00 Lab Results 06/29/20 06/29/20 06/29/20 Range/Units 14:00 14:00 14:00 WBC 6.11 (4.8-10.8) K/uL RBC 4.27 (4.2-5.4) M/uL Hgb 14.3 (12.0-16.0) g/dL Hct 37.6 (37-47) % MCV 88.1 (80-100) fL MCH 33.5 (25-34) pg MCHC 38.0 H (32-36) g/dL RDW Std Deviation 40.2 (36.4-46.3) fL RDW Coeff of Jackeline 12.6 (11.5-14.5) % Plt Count 250 (130-400) K/uL MPV 9.4 (7.4-10.4) fL Immature Gran % (Auto) 0.2 % Neut % (Auto) 69.2 % Lymph % (Auto) 24.7 % [place] % (Auto) 5.9 % Eos % (Auto) 0.0 % Baso % (Auto) 0.0 % Neut # (Auto) 4.23 (1.4-6.5) K/uL Lymph # (Auto) 1.51 (1.2-3.4) K/uL [place] # (Auto) 0.36 (0.11-0.59) K/uL Eos # (Auto) 0.00 (0-0.5) K/uL Baso # (Auto) 0.00 (0-0.2) K/uL Immature Gran # (Auto) 0.01 (0.00-0.02) K/uL Sodium 120 L (136-145) mmol/L Potassium 2.8 L (3.5-5.1) mmol/L Chloride 80 L (98-107) mmol/L Carbon Dioxide 27 (21-32) mmol/L Anion Gap 11.0 (3-11) BUN 11 (7-18) mg/dl Creatinine 0.69 (0.6-1.2) mg/dl Est Cr Clr Drug Dosing 38.0 ml/min Est GFR ( Amer) 98.0 Est GFR (Non-Af Amer) 84.6 BUN/Creatinine Ratio 16.1 (10-20) Glucose 104 H (70-99) mg/dl Lactate 1.6 (0.4-2.0) mmol/L Calcium 9.2 (8.5-10.1) mg/dl Magnesium 2.2 (1.8-2.4) mg/dl Total Bilirubin 3.0 H (0.2-1) mg/dl AST 16 (15-37) U/L ALT 22 (12-78) U/L Alkaline Phosphatase 52 (45-117) U/L Troponin I 0.033 (0-0.045) ng/ml Total Protein 6.3 L (6.4-8.2) gm/dl Albumin 3.7 (3.4-5.0) gm/dl Globulin 2.6 (2.5-4.0) gm/dl Albumin/Globulin Ratio 1.4 (0.9-2) TSH 2.250 (0.300-4.500) uIu/ml Urine Color Urine Appearance (Clear) Urine pH (4.5-7.5) Ur Specific [place] (1.000-1.030) Urine Protein (Negative) Urine Glucose (UA) (Negative) Urine Ketones (Negative) Urine Blood (Negative) Urine Nitrite (Negative) Urine Bilirubin (Negative) Urine Urobilinogen (Negative) Ur Leukocyte Esterase (Negative) Urine WBC (Auto) (0-5) /hpf Urine RBC (Auto) (0-4) /hpf U Hyaline Cast (Auto) (0-5) /lpf U Epithel Cells (Auto) (0-5) /lpf Urine Bacteria (Auto) (Negative) Ur Renal Epithelial Cell (0-5) /lpf COVID-19 Eval Order SARS-CoV-2, RNA, NAAT (NEGATIVE) 06/29/20 06/29/20 06/29/20 Range/Units 16:31 17:40 17:40 WBC (4.8-10.8) K/uL RBC (4.2-5.4) M/uL Hgb (12.0-16.0) g/dL Hct (37-47) % MCV (80-100) fL MCH (25-34) pg MCHC (32-36) g/dL RDW Std Deviation (36.4-46.3) fL RDW Coeff of Jackeline (11.5-14.5) % Plt Count (130-400) K/uL MPV (7.4-10.4) fL Immature Gran % (Auto) % Neut % (Auto) % Lymph % (Auto) % [place] % (Auto) % Eos % (Auto) % Baso % (Auto) % Neut # (Auto) (1.4-6.5) K/uL Lymph # (Auto) (1.2-3.4) K/uL [place] # (Auto) (0.11-0.59) K/uL Eos # (Auto) (0-0.5) K/uL Baso # (Auto) (0-0.2) K/uL Immature Gran # (Auto) (0.00-0.02) K/uL Sodium (136-145) mmol/L Potassium (3.5-5.1) mmol/L Chloride (98-107) mmol/L Carbon Dioxide (21-32) mmol/L Anion Gap (3-11) BUN (7-18) mg/dl Creatinine (0.6-1.2) mg/dl Est Cr Clr Drug Dosing ml/min Est GFR ( Amer) Est GFR (Non-Af Amer) BUN/Creatinine Ratio (10-20) Glucose (70-99) mg/dl Lactate (0.4-2.0) mmol/L Calcium (8.5-10.1) mg/dl Magnesium (1.8-2.4) mg/dl Total Bilirubin (0.2-1) mg/dl AST (15-37) U/L ALT (12-78) U/L Alkaline Phosphatase (45-117) U/L Troponin I (0-0.045) ng/ml Total Protein (6.4-8.2) gm/dl Albumin (3.4-5.0) gm/dl Globulin (2.5-4.0) gm/dl Albumin/Globulin Ratio (0.9-2) TSH (0.300-4.500) uIu/ml Urine Color Yellow Urine Appearance Clear (Clear) Urine pH 7.0 (4.5-7.5) Ur Specific [place] 1.006 (1.000-1.030) Urine Protein Negative (Negative) Urine Glucose (UA) Negative (Negative) Urine Ketones Trace H (Negative) Urine Blood Negative (Negative) Urine Nitrite Negative (Negative) Urine Bilirubin Negative (Negative) Urine Urobilinogen Negative (Negative) Ur Leukocyte Esterase Trace H (Negative) Urine WBC (Auto) 1-5 (0-5) /hpf Urine RBC (Auto) 0-4 (0-4) /hpf U Hyaline Cast (Auto) 0 (0-5) /lpf U Epithel Cells (Auto) 0-5 (0-5) /lpf Urine Bacteria (Auto) Negative (Negative) Ur Renal Epithelial Cell 0-5 (0-5) /lpf COVID-19 Eval Order Covid19 IDNow atMWVC SARS-CoV-2, RNA, NAAT NEGATIVE (NEGATIVE) Administered Medications Discontinued Medications Sodium Chloride (Nss 1000ml) 1,000 mls @ 999 mls/hr IV .Q1H1M ALEJANDRO Stop: 06/29/20 14:45 Last Infusion: 06/29/20 15:34 Dose: 0 mls/hr Documented by: [id number] Admin: 06/29/20 14:10 Dose: 999 mls/hr Documented by: [id number] Sodium Chloride (Nss 1000ml) 500 mls @ 999 mls/hr IV .Q31M ONE Stop: 06/29/20 16:52 Last Infusion: 06/29/20 18:25 Dose: 0 mls/hr Documented by: [id number] Admin: 06/29/20 17:50 Dose: 999 mls/hr Documented by: [id number] Potassium Chloride (K Vance / Wtr) 10 meq in 100 mls @ 100 mls/hr IV ONE ONE Stop: 06/29/20 17:21 Last Admin: 06/29/20 17:49 Dose: 100 mls/hr Documented by: [id number] Ceftriaxone Sodium (Rocephin) 1,000 mg in 50 mls @ 100 mls/hr IV NOW STA Stop: 06/29/20 16:53 Last Infusion: 06/29/20 18:25 Dose: 0 mls/hr Documented by: [id number] Admin: 06/29/20 17:50 Dose: 100 mls/hr Documented by: [id number] Imaging Data Radiologist's Impression: XR chest 1V portable HISTORY: 74 years-old Female weakness acute weakness COMPARISON: Chest radiograph 12/22/2019 TECHNIQUE: Portable AP view of the chest FINDINGS: Cardiomediastinal and hilar silhouettes are within normal limits. No pneumothorax, pleural effusion, airspace consolidation or overt pulmonary edema. Degenerative changes of the shoulders and spine. IMPRESSION: No acute process. CT head/brain wo con CLINICAL HISTORY: 74 years-old Female with confusion. Acutely altered mental status TECHNIQUE: Multiple axial CT images of the head were obtained without contrast. A dose lowering technique was utilized adhering to the principles of ALARA. CT DOSE: 537.48 mGy.cm COMPARISON: Head CT 10/29/2008. FINDINGS: Mildly motion degraded exam. No acute intracranial hemorrhage, midline shift, intracranial mass, hydrocephalus, territorial ischemia or abnormal extra-axial collection. Age-related involutional changes. White matter hypodensities suggest chronic microvascular ischemic disease. The calvarium is intact. Prior bilateral lens replacement. The paranasal sinuses, mastoid air cells, and middle ear cavities are clear. IMPRESSION: No acute intracranial abnormality. Discharge Plan Visit Data Chief Complaint: Syncope Stated Complaint: PASSED OUT ED Provider: Matt Kirk Discharge Problem: Hypotension, Hypokalemia, Syncope, Weakness, Acute hyponatremia Patient Disposition: Admitted As Inpatient Condition: Fair Forms Stand Alone Forms: [facility] Prescriptions Prescriptions: No Action sumatriptan succinate 25 mg tablet 25 mg PO Q2H PRN (Reason: Migraine Headache) RF: 0 Restasis 0.05 % dropperette 1 drp OPB BID RF: 0 Climara Pro 0.045-0.015 mg/24 hr patch weekly 1 patch transdermal WK RF: 0 fluoride (sodium) [SF 5000 Plus] 1.1 % cream 1 applic dental HS RF: 0 Botox 200 unit recon soln 200 unit subcut .Q3M RF: 0 levothyroxine [Levoxyl] 50 mcg tablet 25 mcg PO QAM RF: 0 oxybutynin chloride 5 mg tablet 5 mg PO BID PRN (Reason: bladder spasms) Qty: 14 RF: 0 Referrals Referrals: Alec Vazquez DO [Primary Care Provider] - Discharge Problem: Hypotension Qualifiers: Hypotension type: unspecified hypotension type Qualified Code(s): I95.9 - Hypotension, unspecified Syncope Qualifiers: Syncope type: unspecified Qualified Code(s): R55 - Syncope and collapse
--- NOTE | 2020-06-29 14:31 | XRay Report ---
XR chest 1V portable HISTORY: 74 years-old Female weakness acute weakness COMPARISON: Chest radiograph 12/22/2019 TECHNIQUE: Portable AP view of the chest FINDINGS: Cardiomediastinal and hilar silhouettes are within normal limits. No pneumothorax, pleural effusion, airspace consolidation or overt pulmonary edema. Degenerative changes of the shoulders and spine. IMPRESSION: No acute process. ACT 112: Negative or not required by law. The above report was generated using voice recognition software. It may contain grammatical, syntax o r spelling errors. Electronically signed by: Johnnie Jeter M.D. 06/29/2020 2:30 PM
[2020-06-29 14:41] LABS: Hematocrit (blood only) 37.6 % (37-47); Hemoglobin 14.3 g/dL (12.0-16.0); Immature Granulocytes # (auto) 0.01 K/uL (0.00-0.02); Immature Granulocytes % (auto) 0.2 %; Lymphocytes # (auto) 1.51 K/uL (1.2-3.4); Lymphocytes % (auto) 24.7 %; Mean Corpuscular Hemoglobin 33.5 pg (25-34); Mean Corpuscular Volume 88.1 fL (80-100); Mean Platelet Volume 9.4 fL (7.4-10.4); Monocytes # (auto) 0.36 K/uL (0.11-0.59); Monocytes % (auto) 5.9 %; Neutrophils # (auto) 4.23 K/uL (1.4-6.5); Neutrophils % (auto) 69.2 %; Platelet Count 250 K/uL (130-400); RDW Coefficient of Variation 12.6 % (11.5-14.5); RDW Standard Deviation 40.2 fL (36.4-46.3); Red Blood Count 4.27 M/uL (4.2-5.4); White Blood Count 6.11 K/uL (4.8-10.8)
--- NOTE | 2020-06-29 14:54 | CT Scan Report ---
CT head/brain wo con CLINICAL HISTORY: 74 years-old Female with confusion. Acutely altered mental status TECHNIQUE: Multiple axial CT images of the head were obtained without contrast. A dose lowering tech nique was utilized adhering to the principles of ALARA. CT DOSE: 537.48 mGy.cm COMPARISON: Head CT 10/29/2008. FINDINGS: Mildly motion degraded exam. No acute intracranial hemorrhage, midline shift, intracranial mass, hydr ocephalus, territorial ischemia or abnormal extra-axial collection. Age-related involutional changes. White matter hypodensities suggest chronic microvascular ischemic disease. The calvarium is intact. Prior bilateral lens replacement. The paranasal sinuses, mastoid air cells, and middle ear cavities are clear. IMPRESSION: No acute intracranial abnormality. ACT 112: Negative or not required by law. The above report was generated using voice recognition software. It may contain grammatical, syntax o r spelling errors. Electronically signed by: Johnnie Jeter M.D. 06/29/2020 2:52 PM
[2020-06-29 15:08] LABS: Albumin Globulin Ratio 1.4 (0.9-2); Albumin Level 3.7 gm/dl (3.4-5.0); BUN Creatinine Ratio 16.1 (10-20); Calcium 9.2 mg/dl (8.5-10.1); Est GFR (Non-African American) 84.6; Globulin 2.6 gm/dl (2.5-4.0); Magnesium 2.2 mg/dl (1.8-2.4); Potassium 2.8 mmol/L (3.5-5.1); Thyroid Stimulating Hormone 2.25 uIu/ml (0.300-4.500); Total Protein 6.3 gm/dl (6.4-8.2); Troponin I 0.033 ng/ml (0-0.045)
[2020-06-29] MEDS ORDERED: POTASSIUM CHLORIDE / WTR 10 MEQ/100 ML PLCT IV ONE (16:22)
[2020-06-29] MEDS ORDERED: SODIUM CHLORIDE 0.9% 1000ML 500 ML IV ONE (16:22)
[2020-06-29] MEDS ORDERED: cefTRIAXone SODIUM 1,000 MG/50 ML BAG IV STA (16:24)
[2020-06-29 16:46] LABS: Appearance Urine Clear (Clear); Bilirubin Urine Negative (Negative); Blood Urine Negative (Negative); Color Urine Yellow; Glucose Urine UA Negative (Negative); Ketones Urine Trace (Negative); Leukocyte Esterase Urine Trace (Negative); Nitrite Urine Negative (Negative); Protein Urine Negative (Negative); Specific Gravity Urine 1.006 (1.000-1.030); Urobilinogen Urine Negative (Negative)
[2020-06-29 16:57] LABS: RBC Urine Automated 0-4 /hpf (0-4)
[2020-06-29 16:58] LABS: Bacteria Urine Automated Negative (Negative); Cast Urine Automated 0 /lpf (0-5); Epithelial Cell Urine Auto 0-5 /lpf (0-5); Renal Epithelial Cells Urine 0-5 /lpf (0-5)
--- NOTE | 2020-06-29 17:26 | History & Physical Report ---
Date of Service June 29, 2020 Assessment & Plan (1) Hyponatremia: Admission and Anticipated Discharge Date Admission Date: 74 year-old female with history of thyroidism, bipolar disorder, interstitial cystitis, migraine, presenting with syncope and weakness. Hyponatremia --At this point, unsure of etiology; urine studies pending to confirm --Fluid restriction 1.2 L/day BMP every 6 hours starting at 8 PM --Replete potassium --We will consult nephrology, discussed case with Dr. Lyons Hypokalemia --Unclear etiology, component of poor oral intake --Will replace with p.o. potassium Magnesium level normal Constipation --Positive bowel sounds KUB pending --milk of Magnesium ordered Poor oral intake --We will order stoneworking sander consult Bilateral lower extremity edema --Albumin normal --Check Doppler ultrasound to rule out DVT Check echocardiogram to rule out CHF Bipolar disorder --Appears stable Hypothyroidism --TSH last month normal Interstitial cystitis --On oxybutynin Urinalysis no signs of UTI Migraine --Stable DVT prophylaxis SCDs for now CODE STATUS DNR as confirmed with patient Disposition Pending We will need PT and OT evaluation History of Present Illness 74 y/o female presenting with syncopal episode and weakness. Patient recently admitted for hyponatremia secondary to excessive water intake. As per patient, since discharge, she has not been eating much-1 egg per day and has not been drinking fluids as well. She states that she does not have any appetite. Denies abdominal pain, nausea vomiting, diarrhea, no fevers or chills. Yesterday, patient apparently was sitting on the chair and passed out. She said she really consciousness a few hours later. She has poor recollection of the events. Today, patient's neighbor checked on her upon the advice of the patient's daughter who talked her earlier, and found that she was sounding weak. Patient found her to be coherent but rather weak. She was then brought to the ER for evaluation. At the ER, patient sodium level was found to be 120, potassium 2.8. CT head: No acute process On exam, the patient was seen resting in bed, with her friend at the bedside. She is oriented x3, answers all questions appropriately. Denies active headache, dizziness, chest pain, shortness of breath, abdominal pain, nausea vomiting. Reports some mild dysuria, hematuria. Reports constipation times few days. No other symptoms Primary Care Provider: Alec Vazquez DO Allergies Allergy/AdvReac Type Severity Reaction Status Date / Time milk Allergy Intermediate Abdominal Verified 06/29/20 14:43 Pain gluten Allergy Unknown ANAPHYLAXIS Verified 06/29/20 14:43 bee venom protein (honey bee) Allergy Anaphylaxis Verified 06/29/20 14:43 lactose AdvReac Unknown Gastrointestinal Verified 06/29/20 14:43 Upset grains Allergy Severe Anaphylaxis Uncoded 06/29/20 14:43 Home Medications Medication Instructions Recorded Confirmed Type Botox 200 unit SUBCUT .Q3M 12/22/19 06/29/20 History Climara Pro 1 patch TRANSDERMAL WK 12/22/19 06/29/20 History Restasis 1 drp OPB BID 12/22/19 06/29/20 History fluoride (sodium) [SF 5000 Plus] 1 applic DENTAL HS 12/22/19 06/29/20 History sumatriptan succinate 25 mg PO Q2H PRN 12/22/19 06/29/20 History levothyroxine [Levoxyl] 25 mcg PO QAM 06/14/20 06/29/20 History oxybutynin chloride 5 mg PO BID PRN #14 tab 06/17/20 06/29/20 Rx Past Med/Surg History Medical History ADHD Bipolar disorder Hypothyroidism Interstitial cystitis Migraine Surgical History (Updated 06/16/20 @ 16:11 by Darby Davies MD, PhD) Hx of tonsillectomy Family History Daughter Lupus Social History Smoking Status: Former smoker Second Hand Exposure: No; Hx Alcohol Use: No Hx Substance Use: No Preferred Language: Omani Communication Ability: Effective Veneer Lathe Operator Required: No Beliefs That Will Affect Care: None Current Living Situation: Alone Feels Safe at Home: Yes Assistive Devices: None Review of Systems Review of Systems: All systems reviewed & are unremarkable except as noted in Subjective Physical Exam Physical Exam: General- oriented x 3, not in distress, speaks in sentences with no effort or accessory muscle use Weak, under nourished Head- atraumatic Eyes- PERRL, EOMI, anicteric ENT- oropharynx clear Neck- supple, no JVD, no adenopathy, no thyromegaly; carotids +2/2, no bruits appreciated Lungs- clear to auscultation bilaterally, no rales/wheezes Heart- normal rate, regular rhythm; no murmur, no gallop, no rub appreciated Abdomen- normal bowel sounds, nondistended, soft, nontender, no masses or hepatosplenomegaly No CVA tenderness Extremities-positive mild lower leg edema right greater than left-no erythema, warmth, tenderness, no calf tenderness; peripheral pulses intact Neuro- alert, oriented x 3; CN 2-12 grossly intact; motor 5/5 bilaterally;sensation 100% on all extremities; no other gross focal neurologic deficits Skin- warm & dry Results & Data Results & Data ([facility]) Vital Signs (Past 12 Hours) Vital Signs Temp Pulse Resp BP Pulse Ox 06/29/20 14:20 75 18 100 06/29/20 14:10 77 18 98 06/29/20 14:01 82 18 99 06/29/20 14:00 82 12 89/57 L 98 06/29/20 13:24 36.5 C 122 H 19 87/56 L 99 all noted and reviewed including below Laboratory Results Laboratory Results - last 24 hr 06/29/20 06/29/20 06/29/20 14:00 14:00 14:00 WBC 6.11 RBC 4.27 Hgb 14.3 Hct 37.6 MCV 88.1 MCH 33.5 MCHC 38.0 H RDW Std Deviation 40.2 RDW Coeff of Jackeline 12.6 Plt Count 250 MPV 9.4 Immature Gran % (Auto) 0.2 Neut % (Auto) 69.2 Lymph % (Auto) 24.7 [place] % (Auto) 5.9 Eos % (Auto) 0.0 Baso % (Auto) 0.0 Neut # (Auto) 4.23 Lymph # (Auto) 1.51 [place] # (Auto) 0.36 Eos # (Auto) 0.00 Baso # (Auto) 0.00 Immature Gran # (Auto) 0.01 Sodium 120 L Potassium 2.8 L Chloride 80 L Carbon Dioxide 27 Anion Gap 11.0 BUN 11 Creatinine 0.69 Est Cr Clr Drug Dosing 38.0 Est GFR ( Amer) 98.0 Est GFR (Non-Af Amer) 84.6 BUN/Creatinine Ratio 16.1 Glucose 104 H Lactate 1.6 Calcium 9.2 Magnesium 2.2 Total Bilirubin 3.0 H AST 16 ALT 22 Alkaline Phosphatase 52 Troponin I 0.033 Total Protein 6.3 L Albumin 3.7 Globulin 2.6 Albumin/Globulin Ratio 1.4 TSH 2.250 Urine Color Urine Appearance Urine pH Ur Specific [place] Urine Protein Urine Glucose (UA) Urine Ketones Urine Blood Urine Nitrite Urine Bilirubin Urine Urobilinogen Ur Leukocyte Esterase Urine WBC (Auto) Urine RBC (Auto) U Hyaline Cast (Auto) U Epithel Cells (Auto) Urine Bacteria (Auto) Ur Renal Epithelial Cell 06/29/20 16:31 WBC RBC Hgb Hct MCV MCH MCHC RDW Std Deviation RDW Coeff of Jackeline Plt Count MPV Immature Gran % (Auto) Neut % (Auto) Lymph % (Auto) [place] % (Auto) Eos % (Auto) Baso % (Auto) Neut # (Auto) Lymph # (Auto) [place] # (Auto) Eos # (Auto) Baso # (Auto) Immature Gran # (Auto) Sodium Potassium Chloride Carbon Dioxide Anion Gap BUN Creatinine Est Cr Clr Drug Dosing Est GFR ( Amer) Est GFR (Non-Af Amer) BUN/Creatinine Ratio Glucose Lactate Calcium Magnesium Total Bilirubin AST ALT Alkaline Phosphatase Troponin I Total Protein Albumin Globulin Albumin/Globulin Ratio TSH Urine Color Yellow Urine Appearance Clear Urine pH 7.0 Ur Specific [place] 1.006 Urine Protein Negative Urine Glucose (UA) Negative Urine Ketones Trace H Urine Blood Negative Urine Nitrite Negative Urine Bilirubin Negative Urine Urobilinogen Negative Ur Leukocyte Esterase Trace H Urine WBC (Auto) 1-5 Urine RBC (Auto) 0-4 U Hyaline Cast (Auto) 0 U Epithel Cells (Auto) 0-5 Urine Bacteria (Auto) Negative Ur Renal Epithelial Cell 0-5 Code Status & VTE Plan VTE Prophylaxis Plan VTE Prophylaxis will be ordered: Yes
[2020-06-29] MEDS ORDERED: MAGNESIUM HYDROXIDE SUSP 30 ML UDC PO PRN (19:58)
[2020-06-29] MEDS ORDERED: POTASSIUM CHLORIDE CRTAB 20 MEQ TABCR PO STA (19:58)
[2020-06-29] MEDS ORDERED: ACETAMINOPHEN 325 MG TAB PO PRN (19:58)
[2020-06-29] MEDS ORDERED: ONDANSETRON INJ 2 MG/ML 2 ML VIAL IV PRN (19:58)
[2020-06-29] MEDS ORDERED: MAGNESIUM HYDROXIDE SUSP 30 ML UDC PO ONE (19:58)
[2020-06-29] MEDS ORDERED: OXYBUTYNIN CHLORIDE 5 MG TAB PO PRN (19:58)
[2020-06-29] MEDS: HEPARIN SOD 5,000 UNIT/0.5 ML VIAL SQ SCH (20:33)
[2020-06-29 20:56] LABS: BUN Creatinine Ratio 20.3 (10-20); Calcium 8.6 mg/dl (8.5-10.1); Creatinine Clr Calc Pharmacy 54.9 ml/min; Est GFR (African American) 110.4; Est GFR (Non-African American) 95.3; Potassium 3.2 mmol/L (3.5-5.1)
--- NOTE | 2020-06-29 21:29 | XRay Report ---
KUB HISTORY: Acute generalized abdominal pain r/o ileus, obstruction COMPARISON: CT abdomen and pelvis 10/15/2017 FINDINGS: Gas-filled loops of large and small bowel are noted throughout the abdomen and pelvis. Larg e bowel loops measure up to approximately 4.7 cm. No renal calculi. No ureteral calculi. No pneumope ritoneum or pneumatosis. Degenerative changes of the spine, pelvis and hips. No fracture. IMPRESSION: Air-filled loops of large and small bowel with mild colonic distention suggests ileus. ACT 112: Negative or not required by law. The above report was generated using voice recognition software. It may contain grammatical, syntax o r spelling errors. Electronically signed by: Johnnie Jeter M.D. 06/29/2020 9:27 PM
--- NOTE | 2020-06-29 22:24 | Ultrasound Report ---
BILATERAL LOWER EXTREMITY VENOUS DOPPLER HISTORY: Acute pain and swelling of the bilateral lower legs r/o dvt COMPARISON STUDY: None. FINDINGS: There is normal compressibility, flow, and augmentation within the bilateral lower extremit y deep venous systems. IMPRESSION: No DVT within the right or left lower extremity. ACT 112: Negative or not required by law. Electronically signed by: Johnnie Jeter M.D. 06/29/2020 10:23 PM
[2020-06-30 04:23] LABS: Hematocrit (blood only) 32.3 % (37-47); Hemoglobin 12.1 g/dL (12.0-16.0); Mean Corpuscular Hemoglobin 33.6 pg (25-34); Mean Corpuscular Hgb Conc 37.5 g/dL (32-36); Mean Corpuscular Volume 89.7 fL (80-100); Mean Platelet Volume 9.4 fL (7.4-10.4); Platelet Count 189 K/uL (130-400); RDW Coefficient of Variation 12.7 % (11.5-14.5); RDW Standard Deviation 41.6 fL (36.4-46.3); White Blood Count 4.31 K/uL (4.8-10.8)
[2020-06-30 04:55] LABS: BUN Creatinine Ratio 18.6 (10-20); Calcium 8.2 mg/dl (8.5-10.1); Creatinine Clr Calc Pharmacy 61.3 ml/min; Est GFR (African American) 114.5; Est GFR (Non-African American) 98.8; Potassium 4.2 mmol/L (3.5-5.1)
[2020-06-30] MEDS: LEVOTHYROXINE SODIUM 25 MCG TABLET PO SCH (05:01)
[2020-06-30] MEDS: HEPARIN SOD 5,000 UNIT/0.5 ML VIAL SQ SCH ×3 (05:01→21:13)
[2020-06-30] MEDS ORDERED: DEXTROSE 5% 500 ML IV ONE (07:03)
[2020-06-30 09:50] LABS: BUN Creatinine Ratio 13.1 (10-20); Calcium 8.6 mg/dl (8.5-10.1); Creatinine Clr Calc Pharmacy 45.5 ml/min; Est GFR (African American) 103.8; Est GFR (Non-African American) 89.5; Potassium 3.9 mmol/L (3.5-5.1)
--- NOTE | 2020-06-30 10:14 | Nephrology Consultation ---
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 presenting sNa 1400 on 06/29 = 120; up to 129 this am, w/ target for 1400 today as 126. 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 -increased D5W rate to 100 mL /hr > adjust rate depending on f/u levels -cont q6h bmp for now -keep K at 4 -no FR now b/c she is NPO w/ chips/sips of ice/water d/t concern for ileus; when taking po will start w/ liquid diet most likely so no FR there but DO limit free water to 750mL/ day; when taking regular diet, needs FR 1.2L / day -psych consultation -evaluate for malnutrition -dietary consult +/- psych +/- social work >> many dietary intolerances/limits a nd cachectic and drinks too much water >> ? $$ or functional/logistics issue (can't go get food and prepare it) versus ?body dysmorphic disorder? -daily standing wt Present on Admission?: Yes History of Present Illness Reason for Consultation: hyponatremia Requesting Physician: Dr Araiza Attending Physician: Ramón Araiza MD History of Present Illness 74 y/o F whom I'm asked to see for hyponatremia after she was admitted last evening for same. She presented with generalized weakness and report of having passed out at home day prior to admission; also endorsed diminished po prior to arrival. She reports to multiple providers eating 1 egg daily and drinking less than before last admission. Her presenting sodium was 120. She received 1.5L NS in ER. TTE planned and dopplers w/o DVT > obtained d/t notable/new LE edema. She also c/o abd pain and was KUB concerning for ileus; she is currently NPO. she has ongoing generalized weakness, tells me she feels "miserable," and has is constipated, passing no flatus; no n. no sob. had edema yesterday - primarily pedal by her report but has resolved today. denies new/worrisome voising sx. She was admitted here from 06/14 to 06/17 for similar issue, w/ hyponatremia from polydipsia at that time. Allergies Allergy/AdvReac Type Severity Reaction Status Date / Time milk Allergy Intermediate Abdominal Verified 06/29/20 14:43 Pain gluten Allergy Unknown ANAPHYLAXIS Verified 06/29/20 14:43 bee venom protein (honey bee) Allergy Anaphylaxis Verified 06/29/20 14:43 lactose AdvReac Unknown Gastrointestinal Verified 06/29/20 14:43 Upset grains Allergy Severe Anaphylaxis Uncoded 06/29/20 14:43 Home Medications Medication Instructions Recorded Confirmed Type Botox 200 unit SUBCUT .Q3M 12/22/19 06/29/20 History Climara Pro 1 patch TRANSDERMAL WK 12/22/19 06/29/20 History Restasis 1 drp OPB BID 12/22/19 06/29/20 History fluoride (sodium) [SF 5000 Plus] 1 applic DENTAL HS 12/22/19 06/29/20 History sumatriptan succinate 25 mg PO Q2H PRN 12/22/19 06/29/20 History levothyroxine [Levoxyl] 25 mcg PO QAM 06/14/20 06/29/20 History oxybutynin chloride 5 mg PO BID PRN #14 tab 06/17/20 06/29/20 Rx Patient History Medical History ADHD Bipolar disorder Chronic hyponatremia Hypothyroidism Interstitial cystitis Migraine Surgical History Hx of tonsillectomy Family History Daughter Lupus Social History Smoking Status: Former smoker Second Hand Exposure: No; Hx Alcohol Use: No Hx Substance Use: No Preferred Language: Thai Communication Ability: Effective Pan Operator Required: No Beliefs That Will Affect Care: None Current Living Situation: Alone Other Information That Helps Us Care for You: No Feels Safe at Home: Yes Safety Concerns: Feels Safe At This Time Assistive Devices: None Review of Systems Review of Systems: All systems reviewed & are unremarkable except as noted in HPI & below Physical Exam Constitutional: well developed, + cachectic and cooperative; no acute distress Eyes: EOM intact bilaterally ENMT: Ears: no external ear abnormality Nose: no external nose abnormality Mouth: + dry oral mucous membranes Neck: no nuchal rigidity Respiratory: normal respiratory effort Auscultation: lungs clear to auscultation bilaterally and + diminished lung sounds Cardiovascular: Rate/Rhythm: regular rate and regular rhythm Extremities: no edema Gastrointestinal (Abdomen): Inspection/Auscultation: + high-pitched sounds Percussion/Palpation: abdomen soft; abdomen nontender, no guarding and no ascites Musculoskeletal: Extremities: + abnormal strength (generalized weakness: unwilling/unable to sit up for exam but rolls w/o ass) Skin: no rashes, warm and dry Neurologic: briceño, fluent speech, no tremor, generalized weakness Psychiatric: Orientation: alert and oriented x 3 Affect: + flat affect and + blunted affect Results & Data ([facility]) Vital Signs (Past 12 Hours) Vital Signs Temp Pulse Pulse Resp BP BP Pulse Ox 06/30/20 08:00 71 06/30/20 07:25 36.4 C L 73 18 113/71 96 06/30/20 03:43 36.8 C 71 16 102/64 97 06/29/20 22:15 36.6 C 66 16 122/73 96 06/29/20 21:42 67 Laboratory Results 06/30/20 04:05 06/30/20 09:04 urine osm 73, serum osm 261, TSH WNL Diagnostic Findings Doppler Venous BLE > no DVT KUB last evening Air-filled loops of large and small bowel with mild colonic distention suggests ileus. Head CT and CXR both w/o acute process TTE EF 65%, grade 1 diastolic dysfnxn, mild RV systlic pressure elevtion, mild RVH
--- NOTE | 2020-06-30 12:34 | Electrocardiogram Report ---
Test Reason : Blood Pressure : / mmHG Vent. Rate : 082 BPM Atrial Rate : 082 BPM P-R Int : 124 ms QRS Dur : 082 ms QT Int : 374 ms P-R-T Axes : 078 -58 069 degrees QTc Int : 436 ms Poor data quality, interpretation may be adversely affected Normal sinus rhythm Left axis deviation Cannot rule out Anteroseptal infarct , age undetermined Abnormal ECG When compared with ECG of 14-JUN-2020 20:03, Minimal criteria for Anteroseptal infarct are now Present Confirmed by Adis Cowart ([id number]) on 06/30/2020 12:34:30 PM Referred By: REFERRED SELF Confirmed By:Adis Cowart
--- NOTE | 2020-06-30 13:45 | Hospitalist Progress Note ---
Date of Service June 30, 2020 Assessment & Plan (1) Acute hyponatremia: (1) Hyponatremia: Admission and Anticipated Discharge Date Admission Date: 74 year-old female with history of thyroidism, bipolar disorder, interstitial cystitis, migraine, presenting with syncope and weakness. 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 Urine Na 73 --Fluid restriction 1.2 L/day (currently NPO) --D5W 100cc/hr BMP every 6 hours --Replete potassium accordingly --app[place] [facility] [place] patient declines to speak with Psych Service today despite lengthy discussion will try again tomorrow Hypokalemia --Unclear etiology, component of poor oral intake --repleted Magnesium level normal Ileus, Constipation secondary to Hyponatremia -- NPO -- tap water enema -- IV fluids -- Gen Surg consulted -- monitor closelyt Poor oral intake --We will order detective and intelligence analyst consult Bilateral lower extremity edema --Albumin normal --Check Doppler ultrasound to rule out DVT: negative Check echocardiogram to rule out CHF: Gr 1 Diastolic CHF Bipolar disorder -- reports depression symptoms, denies suicial ideation patient declines to speak with Psych Service today despite lengthy discussion will try again tomorrow Hypothyroidism --TSH last month normal Interstitial cystitis --On oxybutynin Urinalysis no signs of UTI Migraine --Stable DVT prophylaxis Heparin SC CODE STATUS DNR as confirmed with patient Disposition Pending We will need PT and OT evaluation Admission and Anticipated Discharge Date Admission Date: June 29, 2020 Subjective ff up for hyponatremia, ileus seen resting in bed, not in distress appears comfortable but weak reports abdominal distention with discomfort no nausea/vomiting (+) flatus, no BMs yet no headache, dizziness, chest pain, dyspnea, palpitations states her mood is mostly down, denies suicidal ideations no other symptoms Review of Systems Review of Systems: All systems reviewed & are unremarkable except as noted in Subjective Physical Exam Physical Exam: General- oriented x 3, not in distress, speaks in sentences with no effort or accessory muscle use Head- atraumatic Eyes- PERRL, EOMI, anicteric ENT- oropharynx clear Neck- supple, no JVD, no adenopathy, no thyromegaly; carotids +2/2, no bruits appreciated Lungs- clear to auscultation bilaterally, no rales/wheezes Heart- normal rate, regular rhythm; no murmur, no gallop, no rub appreciated Abdomen- normal bowel sounds, mildly distended, soft, nontender, no masses or hepatosplenomegaly Extremities- mild pedal edema, no calf tenderness; peripheral pulses intact Neuro- alert, oriented x 3; CN 2-12 grossly intact; motor 5/5 bilaterally;sensation 100% on all extremities; no other gross focal neurologic deficits Skin- warm & dry Psych- affect mostly flat, denies suicidal ideation Results & Data Results & [facility] ([facility]) Vital Signs (Past 12 Hours) Vital Signs Temp Pulse Pulse Resp BP BP Pulse Ox 06/30/20 13:24 77 06/30/20 12:00 36.5 C 66 16 131/78 98 06/30/20 08:00 71 06/30/20 07:25 36.4 C L 73 18 113/71 96 06/30/20 03:43 36.8 C 71 16 102/64 97 all noted and reviewed including below Laboratory Results Laboratory Results - last 24 hr 06/29/20 06/29/20 06/29/20 14:00 14:00 14:00 WBC 6.11 RBC 4.27 Hgb 14.3 Hct 37.6 MCV 88.1 MCH 33.5 MCHC 38.0 H RDW Std Deviation 40.2 RDW Coeff of Jackeline 12.6 Plt Count 250 MPV 9.4 Immature Gran % (Auto) 0.2 Neut % (Auto) 69.2 Lymph % (Auto) 24.7 [place] % (Auto) 5.9 Eos % (Auto) 0.0 Baso % (Auto) 0.0 Neut # (Auto) 4.23 Lymph # (Auto) 1.51 [place] # (Auto) 0.36 Eos # (Auto) 0.00 Baso # (Auto) 0.00 Immature Gran # (Auto) 0.01 Sodium 120 L Potassium 2.8 L Chloride 80 L Carbon Dioxide 27 Anion Gap 11.0 BUN 11 Creatinine 0.69 Est Cr Clr Drug Dosing 38.0 Est GFR ( Amer) 98.0 Est GFR (Non-Af Amer) 84.6 BUN/Creatinine Ratio 16.1 Glucose 104 H Osmolality Lactate 1.6 Calcium 9.2 Magnesium 2.2 Total Bilirubin 3.0 H AST 16 ALT 22 Alkaline Phosphatase 52 Troponin I 0.033 Total Protein 6.3 L Albumin 3.7 Globulin 2.6 Albumin/Globulin Ratio 1.4 TSH 2.250 Urine Color Urine Appearance Urine pH Ur Specific [place] Urine Protein Urine Glucose (UA) Urine Ketones Urine Blood Urine Nitrite Urine Bilirubin Urine Urobilinogen Ur Leukocyte Esterase Urine WBC (Auto) Urine RBC (Auto) U Hyaline Cast (Auto) U Epithel Cells (Auto) Urine Bacteria (Auto) Ur Renal Epithelial Cell Urine Osmolality Ur Random Sodium Ethyl Alcohol mg/dL COVID-19 Eval Order SARS-CoV-2, RNA, NAAT 06/29/20 06/29/20 06/29/20 16:31 16:31 16:31 WBC RBC Hgb Hct MCV MCH MCHC RDW Std Deviation RDW Coeff of Jackeline Plt Count MPV Immature Gran % (Auto) Neut % (Auto) Lymph % (Auto) [place] % (Auto) Eos % (Auto) Baso % (Auto) Neut # (Auto) Lymph # (Auto) [place] # (Auto) Eos # (Auto) Baso # (Auto) Immature Gran # (Auto) Sodium Potassium Chloride Carbon Dioxide Anion Gap BUN Creatinine Est Cr Clr Drug Dosing Est GFR ( Amer) Est GFR (Non-Af Amer) BUN/Creatinine Ratio Glucose Osmolality Lactate Calcium Magnesium Total Bilirubin AST ALT Alkaline Phosphatase Troponin I Total Protein Albumin Globulin Albumin/Globulin Ratio TSH Urine Color Yellow Urine Appearance Clear Urine pH 7.0 Ur Specific [place] 1.006 Urine Protein Negative Urine Glucose (UA) Negative Urine Ketones Trace H Urine Blood Negative Urine Nitrite Negative Urine Bilirubin Negative Urine Urobilinogen Negative Ur Leukocyte Esterase Trace H Urine WBC (Auto) 1-5 Urine RBC (Auto) 0-4 U Hyaline Cast (Auto) 0 U Epithel Cells (Auto) 0-5 Urine Bacteria (Auto) Negative Ur Renal Epithelial Cell 0-5 Urine Osmolality 73 L Ur Random Sodium 8 Ethyl Alcohol mg/dL COVID-19 Eval Order SARS-CoV-2, RNA, NAAT 06/29/20 06/29/20 06/29/20 17:40 17:40 18:35 WBC RBC Hgb Hct MCV MCH MCHC RDW Std Deviation RDW Coeff of Jackeline Plt Count MPV Immature Gran % (Auto) Neut % (Auto) Lymph % (Auto) [place] % (Auto) Eos % (Auto) Baso % (Auto) Neut # (Auto) Lymph # (Auto) [place] # (Auto) Eos # (Auto) Baso # (Auto) Immature Gran # (Auto) Sodium Potassium Chloride Carbon Dioxide Anion Gap BUN Creatinine Est Cr Clr Drug Dosing Est GFR ( Amer) Est GFR (Non-Af Amer) BUN/Creatinine Ratio Glucose Osmolality Lactate Calcium Magnesium Total Bilirubin AST ALT Alkaline Phosphatase Troponin I Total Protein Albumin Globulin Albumin/Globulin Ratio TSH Urine Color Urine Appearance Urine pH Ur Specific [place] Urine Protein Urine Glucose (UA) Urine Ketones Urine Blood Urine Nitrite Urine Bilirubin Urine Urobilinogen Ur Leukocyte Esterase Urine WBC (Auto) Urine RBC (Auto) U Hyaline Cast (Auto) U Epithel Cells (Auto) Urine Bacteria (Auto) Ur Renal Epithelial Cell Urine Osmolality Ur Random Sodium Ethyl Alcohol mg/dL < 3.0 COVID-19 Eval Order Covid19 [facility] SARS-CoV-2, RNA, NAAT NEGATIVE 06/29/20 06/29/20 06/30/20 20:11 20:11 04:05 WBC 4.31 L RBC 3.60 L Hgb 12.1 Hct 32.3 L MCV 89.7 MCH 33.6 MCHC 37.5 H RDW Std Deviation 41.6 RDW Coeff of Jackeline 12.7 Plt Count 189 MPV 9.4 Immature Gran % (Auto) Neut % (Auto) Lymph % (Auto) [place] % (Auto) Eos % (Auto) Baso % (Auto) Neut # (Auto) Lymph # (Auto) [place] # (Auto) Eos # (Auto) Baso # (Auto) Immature Gran # (Auto) Sodium 126 L Potassium 3.2 L Chloride 91 L Carbon Dioxide 31 Anion Gap 5.0 BUN 10 Creatinine 0.48 L Est Cr Clr Drug Dosing 54.9 Est GFR ( Amer) 110.4 Est GFR (Non-Af Amer) 95.3 BUN/Creatinine Ratio 20.3 H Glucose 73 Osmolality 261 L Lactate Calcium 8.6 Magnesium Total Bilirubin AST ALT Alkaline Phosphatase Troponin I Total Protein Albumin Globulin Albumin/Globulin Ratio TSH Urine Color Urine Appearance Urine pH Ur Specific [place] Urine Protein Urine Glucose (UA) Urine Ketones Urine Blood Urine Nitrite Urine Bilirubin Urine Urobilinogen Ur Leukocyte Esterase Urine WBC (Auto) Urine RBC (Auto) U Hyaline Cast (Auto) U Epithel Cells (Auto) Urine Bacteria (Auto) Ur Renal Epithelial Cell Urine Osmolality Ur Random Sodium Ethyl Alcohol mg/dL COVID-19 Eval Order SARS-CoV-2, RNA, NAAT 06/30/20 06/30/20 04:05 09:04 WBC RBC Hgb Hct MCV MCH MCHC RDW Std Deviation RDW Coeff of Jackeline Plt Count MPV Immature Gran % (Auto) Neut % (Auto) Lymph % (Auto) [place] % (Auto) Eos % (Auto) Baso % (Auto) Neut # (Auto) Lymph # (Auto) [place] # (Auto) Eos # (Auto) Baso # (Auto) Immature Gran # (Auto) Sodium 129 L 129 L Potassium 4.2 D 3.9 Chloride 95 L 95 L Carbon Dioxide 27 30 Anion Gap 7.0 4.0 BUN 8 8 Creatinine 0.43 L 0.58 L Est Cr Clr Drug Dosing 61.3 45.5 Est GFR ( Amer) 114.5 103.8 Est GFR (Non-Af Amer) 98.8 89.5 BUN/Creatinine Ratio 18.6 13.1 Glucose 73 90 Osmolality Lactate Calcium 8.2 L 8.6 Magnesium Total Bilirubin AST ALT Alkaline Phosphatase Troponin I Total Protein Albumin Globulin Albumin/Globulin Ratio TSH Urine Color Urine Appearance Urine pH Ur Specific [place] Urine Protein Urine Glucose (UA) Urine Ketones Urine Blood Urine Nitrite Urine Bilirubin Urine Urobilinogen Ur Leukocyte Esterase Urine WBC (Auto) Urine RBC (Auto) U Hyaline Cast (Auto) U Epithel Cells (Auto) Urine Bacteria (Auto) Ur Renal Epithelial Cell Urine Osmolality Ur Random Sodium Ethyl Alcohol mg/dL COVID-19 Eval Order SARS-CoV-2, RNA, NAAT
[2020-06-30 16:11] LABS: BUN Creatinine Ratio 14.5 (10-20); Calcium 8.1 mg/dl (8.5-10.1); Creatinine Clr Calc Pharmacy 57.3 ml/min; Est GFR (Non-African American) 96.6; Potassium 3.5 mmol/L (3.5-5.1)
--- NOTE | 2020-06-30 19:57 | Surgery Consultation ---
Date of Consultation June 30, 2020 Assessment & Plan (1) Ileus: This patient has dilated colon and small bowel. This may be consistent with an ileus due to her metabolic issues. This may also be constipation. I agree with the enemas. There is no evidence of peritonitis at the present time. There is no indication for surgical intervention. History of Present Illness Reason for Consultation: Ileus Requesting Physician: Ramón Araiza MD Attending Physician: Ramón Araiza MD History of Present Illness I have been asked by Dr. Araiza for evaluation of a probable ileus. I could not obtain history from the patient as she is a poor historian. History was obtained from the chart. The patient has been admitted in the past for hyponatremia. Review of the nephrology notes reveals that this is felt to most likely be due to polydipsia. The patient was discharged recently. It is reported that she has not been eating much. She does not feel as though she has been drinking fluids well. The patient feels as though she is constipated. She denies abdominal pain however. She has not had any nausea or vomiting. She denies diarrhea. The patient was looked on by a neighbor. It was felt that she may be unconscious or had severe weakness or decreased mental status. She was then transported to the hospital for evaluation. At present she denies abdominal pain. She has no nausea. Allergies Allergy/AdvReac Type Severity Reaction Status Date / Time milk Allergy Intermediate Abdominal Verified 06/29/20 14:43 Pain gluten Allergy Unknown ANAPHYLAXIS Verified 06/29/20 14:43 bee venom protein (honey bee) Allergy Anaphylaxis Verified 06/29/20 14:43 lactose AdvReac Unknown Gastrointestinal Verified 06/29/20 14:43 Upset grains Allergy Severe Anaphylaxis Uncoded 06/29/20 14:43 Home Medications Medication Instructions Recorded Confirmed Type Botox 200 unit SUBCUT .Q3M 12/22/19 06/29/20 History Climara Pro 1 patch TRANSDERMAL WK 12/22/19 06/29/20 History Restasis 1 drp OPB BID 12/22/19 06/29/20 History fluoride (sodium) [SF 5000 Plus] 1 applic DENTAL HS 12/22/19 06/29/20 History sumatriptan succinate 25 mg PO Q2H PRN 12/22/19 06/29/20 History levothyroxine [Levoxyl] 25 mcg PO QAM 06/14/20 06/29/20 History oxybutynin chloride 5 mg PO BID PRN #14 tab 06/17/20 06/29/20 Rx Patient History Medical History ADHD Bipolar disorder Chronic hyponatremia Hypothyroidism Interstitial cystitis Migraine Surgical History Hx of tonsillectomy Family History Daughter Lupus Social History Smoking Status: Former smoker Second Hand Exposure: No; Hx Alcohol Use: No Hx Substance Use: No Preferred Language: Arabic Communication Ability: Effective [employer] Required: No Beliefs That Will Affect Care: None Current Living Situation: Alone Other Information That Helps Us Care for You: No Feels Safe at Home: Yes Safety Concerns: Feels Safe At This Time Assistive Devices: None Physical Exam Constitutional: no acute distress Respiratory: normal respiratory effort, lungs clear to auscultation Cardiovascular: Rate/Rhythm: regular rate and regular rhythm Gastrointestinal (Abdomen): Inspection/Auscultation: + abdomen distended (Mild) and + hypoactive bowel sounds Percussion/Palpation: + abdomen tender (Minimal diffuse) and abdomen soft Lymphatic: no cervical lymphadenopathy Results & Data ([facility]) Vital Signs (Past 12 Hours) Vital Signs Temp Pulse Pulse Resp BP BP Pulse Ox 06/30/20 19:17 36.6 C 63 16 128/75 98 06/30/20 15:53 66 06/30/20 14:43 36.8 C 62 16 148/55 H 98 06/30/20 13:24 77 06/30/20 12:00 36.5 C 66 16 131/78 98 06/30/20 08:00 71 Laboratory Results 06/30/20 06/30/20 06/30/20 Range/Units 15:24 09:04 04:05 WBC (4.8-10.8) K/uL RBC (4.2-5.4) M/uL Hgb (12.0-16.0) g/dL Hct (37-47) % MCV (80-100) fL MCH (25-34) pg MCHC (32-36) g/dL RDW Std Deviation (36.4-46.3) fL RDW Coeff of Jackeline (11.5-14.5) % Plt Count (130-400) K/uL MPV (7.4-10.4) fL Sodium 126 L 129 L 129 L (136-145) mmol/L Potassium 3.5 3.9 4.2 D (3.5-5.1) mmol/L Chloride 94 L 95 L 95 L (98-107) mmol/L Carbon Dioxide 27 30 27 (21-32) mmol/L Anion Gap 5.0 4.0 7.0 (3-11) BUN 7 8 8 (7-18) mg/dl Creatinine 0.46 L 0.58 L 0.43 L (0.6-1.2) mg/dl Est Cr Clr Drug Dosing 57.3 45.5 61.3 ml/min Est GFR ( Amer) 112.0 103.8 114.5 Est GFR (Non-Af Amer) 96.6 89.5 98.8 BUN/Creatinine Ratio 14.5 13.1 18.6 (10-20) Glucose 116 H 90 73 (70-99) mg/dl Osmolality (280-300) mOsm/kg Calcium 8.1 L 8.6 8.2 L (8.5-10.1) mg/dl Urine Osmolality (500-800) mOsm/kg Ur Random Sodium mmol/L Ethyl Alcohol mg/dL (0-3) mg/dl 06/30/20 06/29/20 06/29/20 Range/Units 04:05 20:11 20:11 WBC 4.31 L (4.8-10.8) K/uL RBC 3.60 L (4.2-5.4) M/uL Hgb 12.1 (12.0-16.0) g/dL Hct 32.3 L (37-47) % MCV 89.7 (80-100) fL MCH 33.6 (25-34) pg MCHC 37.5 H (32-36) g/dL RDW Std Deviation 41.6 (36.4-46.3) fL RDW Coeff of Jackeline 12.7 (11.5-14.5) % Plt Count 189 (130-400) K/uL MPV 9.4 (7.4-10.4) fL Sodium 126 L (136-145) mmol/L Potassium 3.2 L (3.5-5.1) mmol/L Chloride 91 L (98-107) mmol/L Carbon Dioxide 31 (21-32) mmol/L Anion Gap 5.0 (3-11) BUN 10 (7-18) mg/dl Creatinine 0.48 L (0.6-1.2) mg/dl Est Cr Clr Drug Dosing 54.9 ml/min Est GFR ( Amer) 110.4 Est GFR (Non-Af Amer) 95.3 BUN/Creatinine Ratio 20.3 H (10-20) Glucose 73 (70-99) mg/dl Osmolality 261 L (280-300) mOsm/kg Calcium 8.6 (8.5-10.1) mg/dl Urine Osmolality (500-800) mOsm/kg Ur Random Sodium mmol/L Ethyl Alcohol mg/dL (0-3) mg/dl 06/29/20 06/29/20 06/29/20 Range/Units 18:35 16:31 16:31 WBC (4.8-10.8) K/uL RBC (4.2-5.4) M/uL Hgb (12.0-16.0) g/dL Hct (37-47) % MCV (80-100) fL MCH (25-34) pg MCHC (32-36) g/dL RDW Std Deviation (36.4-46.3) fL RDW Coeff of Jackeline (11.5-14.5) % Plt Count (130-400) K/uL MPV (7.4-10.4) fL Sodium (136-145) mmol/L Potassium (3.5-5.1) mmol/L Chloride (98-107) mmol/L Carbon Dioxide (21-32) mmol/L Anion Gap (3-11) BUN (7-18) mg/dl Creatinine (0.6-1.2) mg/dl Est Cr Clr Drug Dosing ml/min Est GFR ( Amer) Est GFR (Non-Af Amer) BUN/Creatinine Ratio (10-20) Glucose (70-99) mg/dl Osmolality (280-300) mOsm/kg Calcium (8.5-10.1) mg/dl Urine Osmolality 73 L (500-800) mOsm/kg Ur Random Sodium 8 mmol/L Ethyl Alcohol mg/dL < 3.0 (0-3) mg/dl Diagnostic Findings KUB HISTORY: Acute generalized abdominal pain r/o ileus, obstruction COMPARISON: CT abdomen and pelvis 10/15/2017 FINDINGS: Gas-filled loops of large and small bowel are noted throughout the abdomen and pelvis. Large bowel loops measure up to approximately 4.7 cm. No renal calculi. No ureteral calculi. No pneumoperitoneum or pneumatosis. Degenerative changes of the spine, pelvis and hips. No fracture. IMPRESSION: Air-filled loops of large and small bowel with mild colonic distention suggests ileus.
[2020-07-01] MEDS: LEVOTHYROXINE SODIUM 25 MCG TABLET PO SCH (05:36)
[2020-07-01] MEDS: HEPARIN SOD 5,000 UNIT/0.5 ML VIAL SQ SCH ×3 (05:36→21:19)
[2020-07-01 08:12] LABS: Hemoglobin 13.3 g/dL (12.0-16.0); Mean Corpuscular Hemoglobin 33.4 pg (25-34); Mean Corpuscular Hgb Conc 36.9 g/dL (32-36); Mean Corpuscular Volume 90.5 fL (80-100); Mean Platelet Volume 9.2 fL (7.4-10.4); Platelet Count 190 K/uL (130-400); RDW Coefficient of Variation 12.8 % (11.5-14.5); RDW Standard Deviation 42.7 fL (36.4-46.3); Red Blood Count 3.98 M/uL (4.2-5.4); White Blood Count 4.25 K/uL (4.8-10.8)
[2020-07-01] MEDS: POLYETHYLENE (MIRALAX) 17 GM PACK PO PRN (08:39)
[2020-07-01 09:09] LABS: BUN Creatinine Ratio 12.9 (10-20); Calcium 8.4 mg/dl (8.5-10.1); Creatinine Clr Calc Pharmacy 71.1 ml/min; Est GFR (African American) 116.3; Est GFR (Non-African American) 100.4; Potassium 3.4 mmol/L (3.5-5.1)
--- NOTE | 2020-07-01 09:43 | XRay Report ---
KUB CLINICAL HISTORY: Follow-up ileus. FINDINGS: 2 AP supine abdominal radiographs are compared to study dated 06/29/2020 and correlated with abdominal CT dated 10/06/1917. There is persistent gaseous distention of the small bowel and colon mantilla ggestive of ileus. This appears modestly improved as compared to the 06/29/2020 examination. There is no radiographic evidence of high-grade bowel obstruction. No evidence of intraperitoneal free air is seen on these supine images. There are no abnormal abdominal calcifications. The lung bases are clear as imaged. The skeletal structures are osteopenic and appear intact. There is moderate lumbosacral s pondylosis. IMPRESSION: Distention of the small bowel and colon is suggestive of ileus. This appears modestly imp roved as compared to 06/29/2020. Electronically signed by: Matt Vilchis M.D. 07/01/2020 9:42 AM
[2020-07-01] MEDS ORDERED: POTASSIUM CHLORIDE CRTAB 20 MEQ TABCR PO STA (10:10)
--- NOTE | 2020-07-01 11:45 | Progress Notes ---
DATE: 07/01/2020 NEPHROLOGY PROGRESS NOTE SUBJECTIVE: Overnight, she is complaining of some abdominal discomfort and lack of bowel movement for which she was just seen by general surgeon who feels this is ileus related with metabolic issues with no indication for surgical intervention. Sodium is improving and is now up to 129. The patient is a very poor historian. OBJECTIVE: VITAL SIGNS: Blood pressure is 119/75, pulse rate 71, temperature 36.7, 97% on room air. HEENT: Mucous membranes moist. NECK: Supple. No jugular venous distention. CHEST: Bilaterally clear to auscultation, although very, very poor inspiratory effort, which makes physical exam essentially useless. CARDIOVASCULAR: S1, S2 regular. ABDOMEN: Soft, nontender. EXTREMITIES: Show no edema. LABORATORY TESTS: Sodium is 130, potassium 3.4, chloride 95, BUN 5, creatinine 0.4. Urine osmolality was super low at 73. ASSESSMENT AND PLAN: A 74-year-old female with severe hyponatremia. Given the urine osmolarity of 73, the diagnosis is unquestionably psychogenic polydipsia. She was obviously drinking a massive amount of liquid prior to hospitalization, although she does not answer when asked how much. She most likely was also not eating much food, so the combination of excessive fluid intake with very low solute food intake is the cause. At this time, serum sodium is 130, so we can stop the aggressive blood work check. She can have normal fluid intake. However, we do have to make sure she does not drink massive amount. At this point, BMP will be done twice daily.
--- NOTE | 2020-07-01 12:52 | Psychiatric Consultation ---
Date of Consultation July 01, 2020 Impression / Recommendations Impression Dr. [Em Figueroa] was directly involved in review and discussion of the patient's case and participated in medical decision making regarding treatment recommendations. RECOMMENDATIONS: 07/01/20 - Psychiatric consultation requested to evaluate patient for depression and polydipsia. Nephrology consulted as well and feel patient's hyponatremia is consistent with psychogenic polydipsia. - There are reports of historical diagnoses of bipolar disorder versus depression; however, patient's home medication list does not reflect that she is currently in treatment for either of these diagnoses. Historical records were reviewed - no history of psychiatric hospitalizations at our facility in the past. No apparent history of psychiatric consultations by our service. As far as this provider could see - there is no documentation suggesting that the patient was on psychotropic prescription medications at any of her ED visits in the past (as far back as 2001), though the accuracy of this cannot be confirmed. - Despite limited records and historical documentation suggesting bipolar disorder, the patient did admit to symptoms of elevated mood/anthony as recently as this past summer ("acting crazy, doing impulsive things, buying stuff I didn't need, starting work early in the morning working outside for 15 or more hours a day"). This is not consistent with patient's current presentation, she appears ill and depressed. We discussed some medication options and will engage patient in further conversation as she feels able. - Psychiatric nurse liaison is hoping to speak with the patient's daughter to gather collateral information regarding psychiatric history and recent behaviors. Patient did not feel well today, so interview was admittedly limited - will plan to have liaison nurses round on patient and attempt to reassess tomorrow. Will consider indications for medications after additional information is gathered from the patient as well as from her supports. - Pt is denying SI or any self harm thoughts/urges. There is no indication for inpatient psychiatric treatment at this time. Appreciate the opportunity to participate in the care of this patient, please reach out to our service with any additional questions or updates. Psych History Identifying Data 74-year-old female admitted medically on 06/29/20 after presenting to the ED with weakness and a syncopal episode. In the ED, the patient's sodium was 120 and potassium was 2.8. Psychiatric consultation was requested to evaluate the patient for depression and psychogenic polydipsia. Chief Complaint "I feel miserable." History of Present Illness Archana Bradford is a 74-year-old female admitted medically on 06/29/20 with syncopal episode and generalized weakness. Upon ED presentation, the patient reported poor PO intake and had significant hyponatremia (120) an hypokalemia (2.8). By report, it is suggested the patient has a history of depression and/or bipolar disorder. Psychiatric consultation was requested to evaluate the patient for depression and psychogenic polydipsia. Nephrology had been consulted for hyponatremia as well. Pt had a recent medical admission for similar presentation from 06/14 - 06/17 of this year as well. This provider entered the patient's room to introduce herself and explain our role in patient's treatment. Pt indicated this was not a good time to talk, stating "I feel miserable." Pt did agree to a return visit from this provider tomorrow; however, was able to be engaged in conversation a bit longer than anticipated. Pt stated she has not been feeling well for a while, and is continuing to feel no better here in the hospital. Pt states she is not sleeping well and verbalized understanding of concerns regarding her appetite. The patient admits that she is feeling depressed and states "my anxiety is uncontrollable." Pt does admit to interest in discussing medications that could assist with these concerns. This provider inquired as to patient's awareness of any psychiatric history. She indicates she was hospitalized psychiatrically at age 17 for "depression and anxiety", but admits to 4 total mental health hospitalizations "a long time ago." Pt states she is bipolar - stating her most recent episode of elevated mood was this past summer. Pt described behavior as "acting crazy, doing impulsive things, buying stuff I didn't need, starting work early in the morning working outside for 15 or more hours a day". Pt was asked how long these moods generally last, and she states "I couldn't say, it varies so much." Pt denies SI or self harm thoughts/urges. She is alert and oriented x4. Pt agreed to continued conversation with our service to gather additional history; however, politely expressed desire to end conversation for today. We were unfortunately unable to go into depth during this conversation about patient's water intake. Past Psychiatric History Current Psychiatric Diagnosis: Reported diagnosis of bipolar disorder Outpatient Services: Unknown, patient is not reported to be on any psychotropic medications at this time. Previous Psych Admissions: Pt reports a total of 4 inpatient psychiatric hospitalizations in her lifetime. States one was at age 17 for "depression and anxiety." Past Medication Trials: No external medication history to clarify previous psychiatric medications. Allergies Allergy/AdvReac Type Severity Reaction Status Date / Time milk Allergy Intermediate Abdominal Verified 06/29/20 14:43 Pain gluten Allergy Unknown ANAPHYLAXIS Verified 06/29/20 14:43 bee venom protein (honey bee) Allergy Anaphylaxis Verified 06/29/20 14:43 lactose AdvReac Unknown Gastrointestinal Verified 06/29/20 14:43 Upset grains Allergy Severe Anaphylaxis Uncoded 06/29/20 14:43 Home Medications Medication Instructions Recorded Confirmed Type Botox 200 unit SUBCUT .Q3M 12/22/19 06/29/20 History Climara Pro 1 patch TRANSDERMAL WK 12/22/19 06/29/20 History Restasis 1 drp OPB BID 12/22/19 06/29/20 History fluoride (sodium) [SF 5000 Plus] 1 applic DENTAL HS 12/22/19 06/29/20 History sumatriptan succinate 25 mg PO Q2H PRN 12/22/19 06/29/20 History levothyroxine [Levoxyl] 25 mcg PO QAM 06/14/20 06/29/20 History oxybutynin chloride 5 mg PO BID PRN #14 tab 06/17/20 06/29/20 Rx Personal History Living Arrangements: Home Patient History Medical History ADHD Bipolar disorder Chronic hyponatremia Hypothyroidism Interstitial cystitis Migraine Surgical History Hx of tonsillectomy Family History Daughter Lupus Social History Smoking Status: Former smoker Second Hand Exposure: No; Hx Alcohol Use: No Hx Substance Use: No Preferred Language: Samoan Communication Ability: Effective Maintenance Assistant Required: No Current Living Situation: Alone Other Information That Helps Us Care for You: No Feels Safe at Home: Yes Safety Concerns: Feels Safe At This Time Assistive Devices: None Physical Exam Psychiatric: Orientation: alert, oriented x 3 and cooperative Apperance: appropriately dressed, appropriately groomed and appeared stated age Petite, underweight appearing female - laying in bed in no acute distress. Pt is appropriately dressed, wearing a hospital gown. White hair is short and appears clean and well-groomed. Level of hygiene appears adequate. Eye Contact: good eye contact Motor Behavior: no abnormal motor movements (obser gemma while laying in bed) Speech: normal rate/rhythm/volume of speech Affect: + depressed affect Mood: + depressed mood and + anxious mood Thought Process: goal directed thought process Thought Content: reality based without delusions; no hopelessness Suicidal Thoughts: denies suicidal thoughts Homicidal Thoughts: denies homicidal thoughts Cognition: attentio n grossly intact and language grossly intact Estimated Intelligence: consistent with education level Insight: + fair insight Judgement: + fair judgement Vital Signs (Past 24 Hours): Last Vital Signs Temp 36.6 C 07/01/20 11:27 Pulse 89 07/01/20 11:27 Resp 16 07/01/20 11:27 BP 125/77 07/01/20 11:27 Pulse Ox 99 07/01/20 11:27 Review of Systems Constitutional: reports fatigue, poor sleep, generalized weakness Cardiovascular: denied Respiratory: denied Gastrointestinal: abdominal discomfort Neurological: denied Psychiatric: denies symptoms other than stated above Total of at least 10 systems reviewed, pertinent positives as above and in HPI. Results & Data ([facility]) Medications Administered Heparin Sodium (Porcine) (Heparin Sod 5,000 Unit/0.5 Ml Vial) 5,000 units SQ Q8 [facility] Stop: 07/29/20 21:59 Last Admin: 07/01/20 05:36 Dose: Not Given Documented by: [id number] Admin: 06/30/20 21:13 Dose: Not Given Documented by: [id number] Admin: 06/30/20 13:00 Dose: Not Given Documented by: [id number] Admin: 06/30/20 05:01 Dose: Not Given Documented by: [id number] Admin: 06/29/20 20:33 Dose: Not Given Documented by: [id number] Levothyroxine Sodium (Levothyroxine Sodium 25 Mcg Tablet) 25 mcg PO DAILYBB [facility] Stop: 07/30/20 06:29 Last Admin: 07/01/20 05:36 Dose: Not Given Documented by: [id number] Admin: 06/30/20 05:01 Dose: 25 mcg Documented by: [id number] Miscellaneous (Cyclosporine [Restasis] Order Awaiting Action) 1 ea N/A QS ALEJANDRO Stop: 07/30/20 00:00 Last Admin: 07/01/20 07:08 Dose: Not Given Documented by: [id number] Admin: 07/01/20 00:07 Dose: Not Given Documented by: [id number] Admin: 06/30/20 13:00 Dose: Not Given Documented by: [id number] Admin: 06/30/20 07:48 Dose: Not Given Documented by: [id number] Admin: 06/29/20 20:33 Dose: Not Given Documented by: [id number] Polyethylene Glycol (Polyethylene (Miralax) 17 Gm Pack) 17 gm PO DAILY PRN PRN Reason: Constipation Stop: 07/29/20 19:57 Last Admin: 07/01/20 08:39 Dose: 17 gm Documented by: [id number] Coding Level of Care Code 59272 [facility] Care Lvl 1
--- NOTE | 2020-07-01 14:09 | Surgery Progress Note ---
Date of Service July 01, 2020 Assessment & Plan (1) Ileus: KUB today showing persistent Ileus but mildly improved Continue medical management for ileus/constipation Highly encouraged patient to get OOB to chair and ambulate No surgical intervention required at this time, our services signing off please call with questions or concerns Dr. Logan has seen and examined pt, agrees with above. Admission and Anticipated Discharge Date Admission Date: June 29, 2020 Subjective patient feeling some abdominal discomfort and bloating still passing litle amounts of gas but no stool had enema yesterday, told she was going to have another one today takes Miralax regularly at home and then suppositories if needed no n/v Physical Exam Constitutional: + thin and + frail appearing; no acute distress and not ill appearing Respiratory: normal respiratory effort; no respiratory distress and no labored breathing Gastrointestinal (Abdomen): Inspection/Auscultation: abdomen normal to inspection and + abdomen distended (very mild in lower adomen) Percussion/Palpation: + abdomen tender and abdomen soft; no guarding and abdomen not rigid Skin: no rashes, warm and dry Psychiatric: Orientation: alert and oriented x 3 Eye Contact: + poor eye contact Affect: + flat affect Results & Data ([facility]) Vital Signs (Past 12 Hours) Vital Signs Temp Pulse Resp BP Pulse Ox 07/01/20 11:27 36.6 C 89 16 125/77 99 07/01/20 07:25 36.7 C 71 16 119/75 97 07/01/20 03:19 36.8 C 62 17 135/74 97 Laboratory Results 07/01/20 07/01/20 06/30/20 Range/Units 07:44 07:44 15:24 WBC 4.25 L (4.8-10.8) K/uL RBC 3.98 L (4.2-5.4) M/uL Hgb 13.3 (12.0-16.0) g/dL Hct 36.0 L (37-47) % MCV 90.5 (80-100) fL MCH 33.4 (25-34) pg MCHC 36.9 H (32-36) g/dL RDW Std Deviation 42.7 (36.4-46.3) fL RDW Coeff of Jackeline 12.8 (11.5-14.5) % Plt Count 190 (130-400) K/uL MPV 9.2 (7.4-10.4) fL Sodium 130 L 126 L (136-145) mmol/L Potassium 3.4 L 3.5 (3.5-5.1) mmol/L Chloride 95 L 94 L (98-107) mmol/L Carbon Dioxide 24 27 (21-32) mmol/L Anion Gap 11.0 5.0 (3-11) BUN 5 L 7 (7-18) mg/dl Creatinine 0.41 L 0.46 L (0.6-1.2) mg/dl Est Cr Clr Drug Dosing 71.1 57.3 ml/min Est GFR ( Amer) 116.3 112.0 Est GFR (Non-Af Amer) 100.4 96.6 BUN/Creatinine Ratio 12.9 14.5 (10-20) Glucose 81 116 H (70-99) mg/dl Calcium 8.4 L 8.1 L (8.5-10.1) mg/dl Diagnostic Findings KUB CLINICAL HISTORY: Follow-up ileus. FINDINGS: 2 AP supine abdominal radiographs are compared to study dated 06/29/2020 and correlated with abdominal CT dated 10/06/1917. There is persistent gaseous distention of the small bowel and colon suggestive of ileus. This appears modestly improved as compared to the 06/29/2020 examination. There is no radiographic evidence of high-grade bowel obstruction. No evidence of intraperitoneal free air is seen on these supine images. There are no abnormal abdominal calcifications. The lung bases are clear as imaged. The skeletal structures are osteopenic and appear intact. There is moderate lumbosacral spondylosis. IMPRESSION: Distention of the small bowel and colon is suggestive of ileus. This appears modestly improved as compared to 06/29/2020
--- NOTE | 2020-07-01 16:37 | Hospitalist Progress Note ---
Date of Service July 01, 2020 Assessment & Plan (1) Acute hyponatremia: (1) Hyponatremia: Admission and Anticipated Discharge Date Admission Date: 74 year-old female with history of thyroidism, bipolar disorder, interstitial cystitis, migraine, presenting with syncope and weakness. 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 Urine Na 73 --Fluid restriction 1.2 L/day (currently NPO) --D5W 100cc/hr given Na now 130 --Replete potassium accordingly --appreciate nephrology [facility] [place] recs -- patient willing to speak with Psych Service today Hypokalemia --Unclear etiology, component of poor oral intake --repleted Magnesium level normal Ileus, Constipation secondary to Hyponatremia -- repeat KUB: mild improvement still with no BM/flatus -- NPO except meds, ice chips/sip -- repeat tap water enema -- gentle IV fluids -- Gen Surg consulted -- monitor closely Poor oral intake -- internal controls analyst consulted Bilateral lower extremity edema --Albumin normal --Check Doppler ultrasound to rule out DVT: negative Check echocardiogram to rule out CHF: Gr 1 Diastolic CHF Bipolar disorder -- reports depression symptoms, denies suicial ideation patient agreeable for Psych consult Mirtazipine 7.5mg po HS recommended, will start Hypothyroidism --TSH last month normal Interstitial cystitis --On oxybutynin Urinalysis no signs of UTI Migraine --Stable DVT prophylaxis Heparin SC CODE STATUS DNR as confirmed with patient Disposition Pending We will need PT and OT evaluation plan of care discussed with patient in detail and at length all questions answered she is understanding, agreeable, comfortable with the plan of care Admission and Anticipated Discharge Date Admission Date: June 29, 2020 Subjective ff up for hyponatremia, ileus seen resting in bed, comfortable not in distress does report mild abdominal discomfort had very scant stools after enema yesterday had flatus yesterday after enema none today yet denies chest pain, dyspnea, palpitations, dizziness reports mood is about the same as yesterday no other symptoms Review of Systems Review of Systems: All systems reviewed & are unremarkable except as noted in Subjective Physical Exam Physical Exam: General- oriented x 3, not in distress, speaks in sentences with no effort or accessory muscle use Eyes- anicteric Neck- no JVD Lungs- clear breath sounds bilaterally, no rales/wheezes Heart- normal rate, regular rhythm; no murmurs Abdomen- normal bowel sounds, nondistended, soft, non distended Extremities-mild pedal edema, no calf tenderness Neuro- alert, oriented x 3; no gross focal neurologic deficits Skin- warm & dry Results & Data Results & Data ([facility]) Vital Signs (Past 12 Hours) Vital Signs Temp Pulse Pulse Resp BP Pulse Ox 07/01/20 15:40 36.7 C 67 18 134/79 97 07/01/20 11:27 36.6 C 89 16 125/77 99 07/01/20 07:25 36.7 C 71 16 119/75 97 all noted and reviewed including below Laboratory Results Laboratory Results - last 24 hr 07/01/20 07/01/20 07:44 07:44 WBC 4.25 L RBC 3.98 L Hgb 13.3 Hct 36.0 L MCV 90.5 MCH 33.4 MCHC 36.9 H RDW Std Deviation 42.7 RDW Coeff of Jackeline 12.8 Plt Count 190 MPV 9.2 Sodium 130 L Potassium 3.4 L Chloride 95 L Carbon Dioxide 24 Anion Gap 11.0 BUN 5 L Creatinine 0.41 L Est Cr Clr Drug Dosing 71.1 Est GFR ( Amer) 116.3 Est GFR (Non-Af Amer) 100.4 BUN/Creatinine Ratio 12.9 Glucose 81 Calcium 8.4 L
[2020-07-01] MEDS: D5NSS + 20MEQ KCL 20 MEQ/1,000 ML BAG IV SCH (18:03)
[2020-07-02] MEDS: HEPARIN SOD 5,000 UNIT/0.5 ML VIAL SQ SCH ×3 (05:11→21:03)
[2020-07-02] MEDS: LEVOTHYROXINE SODIUM 25 MCG TABLET PO SCH (05:21)
--- NOTE | 2020-07-02 08:27 | XRay Report ---
XR KUB/Abdomen 1 view CLINICAL HISTORY: Ileus COMPARISON STUDY: 07/01/2020 FINDINGS: There is persistent gaseous prominence of the colon. The findings remain similar to the pre ceding study. Gas-filled nondilated small bowel loops are also present. IMPRESSION: Mild gaseous distention of the colon. The findings are suggestive of an ileus. ACT 112: Negative or not required by law. Electronically signed by: Hilton Wang M.D. 07/02/2020 8:25 AM
[2020-07-02 10:23] LABS: Magnesium 2.2 mg/dl (1.8-2.4); Phosphorus 3.3 mg/dl (2.5-4.9)
--- NOTE | 2020-07-02 10:25 | Nephrology Progress Note ---
Date of Service July 02, 2020 Assessment & Plan Admission and Anticipated Discharge Date Admission Date: June 29, 2020 Subjective NEPHROLOGY PROGRESS NOTE SUBJECTIVE: Overnight, she is complaining of some abdominal discomfort and lack of bowel movement for which she was just seen by general surgeon who feels this is ileus related with metabolic issues with no indication for surgical intervention. Sodium is improving . The patient is a very poor historian. OBJECTIVE: HEENT: Mucous membranes moist. NECK: Supple. No jugular venous distention. CHEST: Bilaterally clear to auscultation, although very, very poor inspiratory effort, which makes physical exam essentially useless. CARDIOVASCULAR: S1, S2 regular. ABDOMEN: Soft, nontender. EXTREMITIES: Show no edema. LABORATORY TESTS: Sodium is 130, potassium 3.4, chloride 95, BUN 5, creatinine 0.4. Urine osmolality was super low at 73. ASSESSMENT AND PLAN: A 74-year-old female with severe hyponatremia. Given the urine osmolarity of 73, the diagnosis is unquestionably psychogenic polydipsia. She was obviously drinking a massive amount of liquid prior to hospitalization, although she does not answer when asked how much. She most likely was also not eating much food, so the combination of excessive fluid intake with very low solute food intake is the cause. At this time, serum sodium is 130--today is pending, so we can stop the aggressive blood work check. She can have normal fluid intake. However, we do have to make sure she does not drink massive amount. At this point, BMP will be done twice daily. Results & Data ([facility]) Vital Signs (Past 12 Hours) Vital Signs Temp Pulse Pulse Resp BP Pulse Ox 07/02/20 07:43 36.4 C L 63 68 16 129/76 97 07/02/20 04:00 36.5 C 64 18 143/79 H 98 07/01/20 23:58 36.4 C L 63 18 123/77 96
[2020-07-02] MEDS: D5NSS + 20MEQ KCL 20 MEQ/1,000 ML BAG IV SCH (10:56)
--- NOTE | 2020-07-02 12:33 | Psychiatric Progress Note ---
Date of Service July 02, 2020 Impression / Recommendations Impression Dr. Em Figueroa was directly involved in review and discussion of the patient's case and participated in medical decision making regarding treatment recommendations. RECOMMENDATIONS: 07/01/20 - Psychiatric consultation requested to evaluate patient for depression and polydipsia. Nephrology consulted as well and feel patient's hyponatremia is consistent with psychogenic polydipsia. - There are reports of historical diagnoses of bipolar disorder versus depression; however, patient's home medication list does not reflect that she is currently in treatment for either of these diagnoses. Historical records were reviewed - no history of psychiatric hospitalizations at our facility in the past. No apparent history of psychiatric consultations by our service. As far as this provider could see - there is no documentation suggesting that the patient was on psychotropic prescription medications at any of her ED visits in the past (as far back as 2001), though the accuracy of this cannot be confirmed. - Despite limited records and historical documentation suggesting bipolar disorder, the patient did admit to symptoms of elevated mood/anthony as recently as this past summer ("acting crazy, doing impulsive things, buying stuff I didn't need, starting work early in the morning working outside for 15 or more hours a day"). This is not consistent with patient's current presentation, she appears ill and depressed. We discussed some medication options and will engage patient in further conversation as she feels able. - Psychiatric nurse liaison is hoping to speak with the patient's daughter to gather collateral information regarding psychiatric history and recent behaviors. Patient did not feel well today, so interview was admittedly limited - will plan to have liaison nurses round on patient and attempt to reassess tomorrow. Will consider indications for medications after additional information is gathered from the patient as well as from her supports. - Pt is denying SI or any self harm thoughts/urges. There is no indication for inpatient psychiatric treatment at this time. Appreciate the opportunity to participate in the care of this patient, please reach out to our service with any additional questions or updates. 07/02 - Pt is agreeing to the addition of a psychiatric medication that may help to target anxiety, poor sleep, and ongoing episodes of what seems to be consistent with hypomania/anthony (though currently mood has been primarily depressed). Reviewed recommendation for low-dose quetiapine at HS, which can be titrated as needed to target symptoms. Will begin at 25mg due to patient's expressed concern for possible side effects. - Available information was somewhat limited regarding preferred atypical antipsychotic medications in the setting of hyponatremia. It does seem that quetiapine may be less likely to contribute to this, and therefore does seem like an appropriate medication to start with to target other symptoms of concern. - Pt continues to deny SI/HI and any acute safety concerns. We will continue to follow the patient and address any other needs during her hospitalization. She is currently denying desire for outpatient psychiatric referrals to be made on her behalf. Interval History Identifying Information 74-year-old female admitted medically on 06/29/20 after presenting to the ED with weakness and a syncopal episode. In the ED, the patient's sodium was 120 and potassium was 2.8. Psychiatric consultation was requested to evaluate the patient for depression and psychogenic polydipsia - seen in follow-up today. Chief Complaint "I'm feeling much better." Review of Systems Notes Constitutional: ongoing reports of poor sleep Cardiovascular: denied Respiratory: denied Gastrointestinal: reports still feeling her "digestion is bad" Neurological: denied Psychiatric: denies symptoms other than stated above Total of at least 10 systems reviewed, pertinent positives as above and in HPI. Subjective Subjective Patient's case was reviewed and discussed with psychiatric nurse liaison and supervising psychiatrist. Patient was seen today for follow-up visit, as she was not feeling well yesterday when initial psychiatric consultation was attempted - leading to limited conversation. We did receive some collateral information from the patient's daughter as well, which helped to clarify patient's past psychiatric history. Daughter did report mood fluctuations and compulsive spending habits, and reports the patient was given a diagnosis of bipolar disorder in the 's. She states the patient has generally not been interested in medications for her bipolar disorder, recalls some past prescriptions but uncertain of names. This provider did round on the patient after receiving this information. Pt begins conversation by stating she is "feeling much better." She tell this provider, after just telling our liaison nurse that she was refusing medications, that she would be willing to consider a mood stabilizer. We discussed options, which led to patient continuing to alternate with regard to willingness to initiate any medications to target her mood or anxiety. Pt states that "you know what, the best I ever felt was the three years when I was taking dark chocolate each morning." Pt believes she has been on some medications in the past - naming Xanax and Valium. Pt also states she benefitted from Sofy's Wort and PAUL-E - but found that they occasionally triggered manic episodes. After further discussion, the patient states she is ultimately willing for a medication to assist with her symptoms, specifically reporting willingness for a mood stabilizer. We reviewed symptoms we would hope to target and quetiapine was discussed specifically. Pt was initially concerned about some of the side effects reviewed, but ultimately agreed to starting a low dose at bedtime. With regard to patient's water intake, the patient seems to be very focused on her interstitial cystitis and states that she does tend to drink juice when she feels it acting up - patient admits the juice is generally very diluted and only "one glass a day". According to the patient, her water intake is not generally excessive. She does admit to abnormally increased consumption prior to her last hospitalization, reportedly due to "feeling an attack of interstitial cystitis coming on." She states that she was not continuing this behavior prior to this current admission. Pt denies feeling her water intake is related to her anxiety, denying compulsions to drink. Pt states that generally her appetite is "great, I eat all kinds of food" - for example breakfast is "an egg, a potato and some kind of meat." Pt states that the reason for poor intake currently is "my digestion is bad, so that makes me not want to eat." Patient states this is not usual and denies poor PO intake at baseline. Physical Exam Psychiatric Orientation: alert, oriented x 3 and cooperative Apperance: appropriately dressed, appropriately groomed and appeared stated age Patient appears very thin and frail Eye Contact: good eye contact Motor Behavior: no abnormal motor movements (observed while laying in bed) Speech: normal rate/rhythm/volume of speech Affect: + depressed affect and + flat affect Mood: + depressed mood and + anxious mood Thought Process: goal directed thought process and clear/coherent thought process Thought Content: reality based without delusions; no hopelessness and no worthlessness Suicidal Thoughts: denies suicidal thoughts and denies suicidal intent Homicidal Thoughts: denies homicidal thoughts Hallucinations: no auditory hallucinations and no visual hallucinations Cognition: attention grossly intact and language grossly intact Estimated Intelligence: consistent with education level Insight: + fair insight Judgement: + fair judgement Vital Signs (Past 24 Hours) Last Vital Signs Temp 36.5 C 07/02/20 11:12 Pulse 74 07/02/20 11:12 Resp 18 07/02/20 11:12 BP 138/78 07/02/20 11:12 Pulse Ox 96 07/02/20 11:12 Results & Data ([facility]) Laboratory Results Laboratory Results - last 24 hr 07/02/20 09:39 Phosphorus 3.3 Magnesium 2.2 Current Inpatient Medications Current Inpatient Medications: Current Inpatient Medications Acetaminophen (Acetaminophen 325 Mg Tab) 650 mg PO Q4H PRN PRN Reason: Pain or Fever Stop: 07/29/20 19:57 Last Admin: 07/01/20 14:51 Dose: 650 mg Documented by: Heparin Sodium (Porcine) (Heparin Sod 5,000 Unit/0.5 Ml Vial) 5,000 units SQ Q8 [facility] Stop: 07/29/20 21:59 Last Admin: 07/02/20 05:11 Dose: Not Given Documented by: Potassium Chloride/Dextrose/Sod Cl (D5nss + 20meq Kcl) 20 meq in 1,000 mls @ 60 mls/hr IV .[id number] [facility] Stop: 07/31/20 16:29 Last Admin: 07/02/20 10:56 Dose: 60 mls/hr Documented by: Levothyroxine Sodium (Levothyroxine Sodium 25 Mcg Tablet) 25 mcg PO DAILYBB [facility] Stop: 07/30/20 06:29 Last Admin: 07/02/20 05:21 Dose: Not Given Documented by: Magnesium Hydroxide (Magnesium Hydroxide Susp 30 Ml Udc) 30 ml PO Q6H PRN PRN Reason: Constipation Stop: 07/29/20 19:57 Miscellaneous (Cyclosporine [Restasis] Order Awaiting Action) 1 ea N/A QS [facility] Stop: 07/30/20 00:00 Last Admin: 07/02/20 08:22 Dose: Not Given Documented by: Ondansetron HCl (Ondansetron Inj 2 Mg/Ml 2 Ml Vial) 4 mg IV Q6H PRN PRN Reason: Nausea Stop: 07/29/20 19:57 Oxybutynin Chloride (Oxybutynin Chloride 5 Mg Tab) 5 mg PO BID PRN PRN Reason: bladder spasms Stop: 07/29/20 19:57 Polyethylene Glycol (Polyethylene (Miralax) 17 Gm Pack) 17 gm PO DAILY PRN PRN Reason: Constipation Stop: 07/29/20 19:57 Last Admin: 07/01/20 08:39 Dose: 17 gm Documented by:
--- NOTE | 2020-07-02 15:44 | Hospitalist Progress Note ---
Date of Service July 02, 2020 Assessment & Plan (1) Acute hyponatremia: (1) Hyponatremia: Admission and Anticipated Discharge Date Admission Date: 74 year-old female with history of thyroidism, bipolar disorder, interstitial cystitis, migraine, presenting with syncope and weakness. 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 Urine Na 73 --Fluid restriction 1.2 L/day (currently NPO) --D5W 100cc/hr given Na improved from 120 to 130 --Replete potassium accordingly --appreciate nephrology [facility] [place] recs --Psych consulted Hypokalemia --Likely from poor oral intake --repleted Magnesium level normal Ileus, Constipation secondary to Hyponatremia, hypokalemia -- 07/02 repeat KUB: mild improvement --Has been given tapwater enemas x2 producing only small pieces of stool Positive flatus today --Discussed with general surgery Will advance diet to clear liquids Monitor closely Poor oral intake -- grave digger consulted Bilateral lower extremity edema --Albumin normal --Check Doppler ultrasound to rule out DVT: negative Check echocardiogram to rule out CHF: Gr 1 Diastolic CHF --Resolving Bipolar disorder -- reports depression symptoms, denies suicial ideation patient agreeable for Psych consult Seroquel started Monitor closely Hypothyroidism --TSH last month normal Interstitial cystitis --On oxybutynin Urinalysis: no signs of UTI Migraine --Stable DVT prophylaxis Heparin SC CODE STATUS DNR as confirmed with patient Disposition Pending PT and OT evaluation Lives alone in her apartment plan of care discussed with patient in detail and at length all questions answered she is understanding, agreeable, comfortable with the plan of care Admission and Anticipated Discharge Date Admission Date: June 29, 2020 Subjective Follow-up for hyponatremia, polydipsia, etc. Seen with ALICIA Taylor at the bedside throughout whole encounter Resting in bed, comfortable, not in distress, appears to be in a better mood today, smiling more States she feels improved compared to yesterday Denies abdominal discomfort, nausea Had some flatus this morning, no bowel movement today Per RN had some small pieces of stool after enema yesterday No headache, dizziness, chest pain, shortness of breath States mood is somewhat better today No other symptoms Review of Systems Review of Systems: All systems reviewed & are unremarkable except as noted in Subjective Physical Exam Physical Exam: General- oriented x 3, not in distress, speaks in sentences with no effort or accessory muscle use Eyes- anicteric Neck- no JVD Lungs- clear breath sounds, no crackles bilaterally Heart- normal rate, regular rhythm; no murmurs Abdomen- normal bowel sounds, nondistended, soft, nontender Extremities- no pretibial edema, no calf tenderness Neuro- alert, oriented x 3; no gross focal neurologic deficits Skin- warm & dry Psych-mood is better today, smiling more Results & Data Results & Data ([facility]) Vital Signs (Past 12 Hours) Vital Signs Temp Pulse Pulse Resp BP Pulse Ox 07/02/20 11:12 36.5 C 74 18 138/78 96 07/02/20 07:43 36.4 C L 63 68 16 129/76 97 07/02/20 04:00 36.5 C 64 18 143/79 H 98 all noted and reviewed including below Laboratory Results Laboratory Results - last 24 hr 07/02/20 09:39 Phosphorus 3.3 Magnesium 2.2
[2020-07-02 16:54] LABS: BUN Creatinine Ratio 10.1 (10-20); Est GFR (African American) 109.7; Est GFR (Non-African American) 94.6; Potassium 3.2 mmol/L (3.5-5.1)
[2020-07-02] MEDS: POLYETHYLENE (MIRALAX) 17 GM PACK PO PRN (21:02)
[2020-07-02] MEDS: POTASSIUM CHLORIDE CRTAB 20 MEQ TABCR PO SCH (21:03)
[2020-07-02] MEDS: QUEtiapine FUMARATE 25 MG TABLET PO SCH (21:03)
[2020-07-02] MEDS ORDERED: MELATONIN 3 MG TAB PO ONE (21:11)
[2020-07-02] MEDS: MELATONIN 3 MG TAB PO PRN (22:30)
[2020-07-03] MEDS: D5NSS + 20MEQ KCL 20 MEQ/1,000 ML BAG IV SCH ×2 (02:30→18:30)
[2020-07-03] MEDS: HEPARIN SOD 5,000 UNIT/0.5 ML VIAL SQ SCH ×3 (06:10→21:07)
[2020-07-03] MEDS: LEVOTHYROXINE SODIUM 25 MCG TABLET PO SCH (06:10)
[2020-07-03 07:01] LABS: BUN Creatinine Ratio 11.2 (10-20); Calcium 8.4 mg/dl (8.5-10.1); Creatinine Clr Calc Pharmacy 58.6 ml/min; Est GFR (African American) 113.6; Est GFR (Non-African American) 98.1; Magnesium 2.2 mg/dl (1.8-2.4); Phosphorus 2.9 mg/dl (2.5-4.9); Potassium 3.4 mmol/L (3.5-5.1)
[2020-07-03] MEDS: POTASSIUM CHLORIDE CRTAB 20 MEQ TABCR PO SCH ×2 (08:18→20:42)
--- NOTE | 2020-07-03 10:20 | Gastrointestinal Consultation ---
Date of Consultation July 03, 2020 Assessment & Plan (1) Ileus: Likely secondary to constipation, poor po intake, minimal physical activity and electrolyte derangement. Would slowly advance diet. Recommend adding daily miralax, scheduled 1-2 x daily. She is up to date on screening colonoscopy thus no clear indication to repeat at this time. Suspect poor po intake and weight loss are driven by psychiatric issues. It is reasonable to r/o occult malignancy with CT abd/pelvis with IV and oral contrast - will defer to primary hospitalist team. GI will sign off. Please notify us of new/worsening GI issues. Present on Admission?: Yes Supervising Physician Co-Signing Physician Notes Attg add: I interviewed and examined pt. Pt with abd distention, imaging showing ileus. Not on scheduled laxatives. K mildly low and is being replaced, Ca and mag ok. TSH WNL. She reports several BM's this afternoon. On exam, her abdomen is non tender, mildly distended and tympanic. Cscopy in 2018. A/P Ileus, constipation - Diet as tolerated. Miralax once daily, can add dulcolax 5 qOD if needed. Consider d/c of oxybutynin. Please reconsult if needed. History of Present Illness Reason for Consultation: ileus; weight loss Requesting Physician: Dr. Araiza Attending Physician: Quoc Montoya MD History of Present Illness Ms. Archana Bradford is 74 yr old female pt of Dr. Alec Vazquez with a hx of ADHD, Bipolar disorder, Hypothyroidism, Interstitial cystitis, Migraines. She presented to the ED for weakness on 06/29 and had reported a non witnessed syncopal episode earlier that day. She has had poor appetite and poor po intake of foods and fluids. On arrival, she was hyponatremic and nephrology is on board. Daily KUBs are suggestive of an improving small/large bowel ileus. Thus far, blood and urine cx are w/o growth. She has been constipated and after laxatives here, has passed smears and small hard BMs. She denies any abdominal pain, blood in BMs, reflux symptoms, nausea or vomiting. She is concerned about her low weight. Most recent colonoscopy [place] [address] Quiroga w/o any abnormalities and recommendation for repeat in 10 yrs dependent on comorbidities at that time. Allergies Allergy/AdvReac Type Severity Reaction Status Date / Time milk Allergy Intermediate Abdominal Verified 06/29/20 14:43 Pain gluten Allergy Unknown ANAPHYLAXIS Verified 06/29/20 14:43 bee venom protein (honey bee) Allergy Anaphylaxis Verified 06/29/20 14:43 lactose AdvReac Unknown Gastrointestinal Verified 06/29/20 14:43 Upset grains Allergy Severe Anaphylaxis Uncoded 06/29/20 14:43 Home Medications Medication Instructions Recorded Confirmed Type Botox 200 unit SUBCUT .Q3M 12/22/19 06/29/20 History Climara Pro 1 patch TRANSDERMAL WK 12/22/19 06/29/20 History Restasis 1 drp OPB BID 12/22/19 06/29/20 History fluoride (sodium) [SF 5000 Plus] 1 applic DENTAL HS 12/22/19 06/29/20 History sumatriptan succinate 25 mg PO Q2H PRN 12/22/19 06/29/20 History levothyroxine [Levoxyl] 25 mcg PO QAM 06/14/20 06/29/20 History oxybutynin chloride 5 mg PO BID PRN #14 tab 06/17/20 06/29/20 Rx Patient History Medical History ADHD Bipolar disorder Chronic hyponatremia Hypothyroidism Interstitial cystitis Migraine Surgical History Hx of tonsillectomy Family History Daughter Lupus Social History Smoking Status: Former smoker Second Hand Exposure: No; Hx Alcohol Use: No Hx Substance Use: No Preferred Language: Irish Communication Ability: Effective Binder Operator Required: No Current Living Situation: Alone Other Information That Helps Us Care for You: No Feels Safe at Home: Yes Safety Concerns: Feels Safe At This Time Assistive Devices: None Review of Systems Review of Systems: ROS: Gen: + weakness, + weight loss; denies fevers Eyes: No eye redness, or pain, no recent vision changes Resp: No SOB, no cough Cardio: No palpitations/irregular beats, no chest pain GI: No abdominal pain, no nausea/vomiting : Denies pain on urination Skin: No jaundice, itching or new rashes Neuro: + syncopal episode Physical Exam Constitutional: + ill appearing, + cachectic and cooperative Eyes: PERRL, conjunctivae normal, anicteric sclerae ENMT: external ear and nose normal, oropharynx normal Neck: trachea midline, no thyromegaly Respiratory: normal respiratory effort, lungs clear to auscultation Cardiovascular: RRR, no murmur, no edema Skin: no rashes, warm and dry no jaundice dressing in place over coccyx Neurologic: PERRL, EOMI, accommodation nl, no face palsy, no dysarthria Psychiatric: Orientation: alert and cooperative Apperance: + disheveled Eye Contact: good eye contact Motor Behavior: n tremor Thought Content: + preoccupation (with low body weight) Insight: + limited insight scattered thoughts/flight of idea Lymphatic: no cervical or axillary lymphadenopathy Results & Data ([facility]) Vital Signs (Past 12 Hours) Vital Signs Temp Pulse Pulse Resp BP BP Pulse Ox 07/03/20 07:54 36.3 C L 60 18 134/84 97 07/03/20 07:32 66 07/03/20 02:31 36.5 C 66 14 143/82 H 97 07/03/20 01:00 61 07/02/20 23:20 36.5 C 66 14 124/81 97 Laboratory Results Hematology on 07/01/20: WBC 4.2, Hb 13, Hct 36, Plats 190, Na 133, K 3.4, BUN 5, Cr 0.44, glucose 122 Diagnostic Findings KUB 07/02/20: Mild gaseous distention of the colon. The findings are suggestive of an ileus.
--- NOTE | 2020-07-03 16:17 | Hospitalist Progress Note ---
Date of Service July 03, 2020 Assessment & Plan (1) Acute hyponatremia: 74 year-old female with history of thyroidism, bipolar disorder, interstitial cystitis, migraine, presenting with syncope and weakness. 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 Urine Na 73 Oral fluid was restricted initially D5W 100cc/hr given Na improved from 120 to 133 as of 07/03/2020 Appreciate nephrology [facility] [place] recs Hypokalemia Likely from poor oral intake and dilution Repleted Magnesium level normal Ileus, Constipation secondary to Hyponatremia, hypokalemia 07/02 repeat KUB: mild improvement Has been given tapwater enemas x2 producing only small pieces of stool Appreciate general surgery input and recommendation Diet advanced to clear liquid Appreciate GI input and recommendation Advised to have CT scan of the abdomen pelvis to rule out any occult malignancy We will discuss with the patient and go from there Severe malnutrition Poor oral intake Concrete Mason consulted Bilateral lower extremity edema Albumin normal Check Doppler ultrasound to rule out DVT: negative Check echocardiogram to rule out CHF: Gr 1 Diastolic CHF Resolving Bipolar disorder Reports depression symptoms, denies suicial ideation Appreciate psychiatry input and recommendation Seroquel started Hypothyroidism --TSH last month normal Interstitial cystitis --On oxybutynin Urinalysis: no signs of UTI Migraine --Stable DVT prophylaxis Heparin SC CODE STATUS DNR as confirmed with patient Disposition Pending PT and OT evaluation Lives alone in her apartment Admission and Anticipated Discharge Date Admission Date: June 29, 2020 Subjective 07/03/2020 The patient was seen and examined in medical telemetry unit She remains extremely anxious and still complains to have lower abdominal discomfort without any significant urinary symptoms She is emaciated from not been eating but drinking water heavily Review of Systems Review of Systems: All systems reviewed and are unremarkable except as noted below Gastrointestinal: + abdominal pain (Lower abdominal); no vomiting, no dysphagia and no diarrhea/loose stools Musculoskeletal: + muscle weakness and + muscle atrophy; no myalgia Neurologic: + generalized weakness Physical Exam Physical Exam: Lying in bed comfortably Constitutional: + thin Eyes: PERRL, conjunctivae normal, anicteric sclerae ENMT: external ear and nose normal, oropharynx normal Neck: trachea midline, no thyromegaly Respiratory: no respiratory distress Auscultation: lungs clear to auscultation bilaterally Cardiovascular: Rate/Rhythm: regular rate and regular rhythm Heart Sounds: no murmur Extremities: no edema Gastrointestinal (Abdomen): Inspection/Auscultation: normal bowel sounds; abdomen not distended Percussion/Palpation: + abdomen tender (Mildly tender in the hypogastrium) and abdomen soft Musculoskeletal: No acute arthritis in any joint Neurologic: Alert, awake and oriented x3. Generally weak Psychiatric: Mood: + depressed mood and + anxious mood Insight: + limited insight Results & Data Results & Data ([facility]) Vital Signs (Past 12 Hours) Vital Signs Temp Pulse Pulse Resp BP BP Pulse Ox 07/03/20 15:20 36.5 C 66 18 144/82 H 98 07/03/20 12:10 36.3 C L 69 18 113/68 99 07/03/20 07:54 36.3 C L 60 18 134/84 97 07/03/20 07:32 66 Laboratory Results BMP 07/02/20 07/03/20 16:03 06:15 Sodium 131 L 133 L Potassium 3.2 L 3.4 L Chloride 96 L 99 Carbon Dioxide 28 30 BUN 5 L 5 L Creatinine 0.49 L 0.44 L Glucose 124 H 122 H Calcium 9.0 8.4 L Medications Administered Current Inpatient Medications Acetaminophen (Acetaminophen 325 Mg Tab) 650 mg PO Q4H PRN PRN Reason: Pain or Fever Stop: 07/29/20 19:57 Last Admin: 07/01/20 14:51 Dose: 650 mg Documented by: Heparin Sodium (Porcine) (Heparin Sod 5,000 Unit/0.5 Ml Vial) 5,000 units SQ Q8 [facility] Stop: 07/29/20 21:59 Last Admin: 07/03/20 13:26 Dose: Not Given Documented by: Potassium Chloride/Dextrose/Sod Cl (D5nss + 20meq Kcl) 20 meq in 1,000 mls @ 60 mls/hr IV .[id number] [facility] Stop: 07/31/20 16:29 Last Admin: 07/03/20 02:30 Dose: 60 mls/hr Documented by: Levothyroxine Sodium (Levothyroxine Sodium 25 Mcg Tablet) 25 mcg PO DAILYBB [facility] Stop: 07/30/20 06:29 Last Admin: 07/03/20 06:10 Dose: 25 mcg Documented by: Magnesium Hydroxide (Magnesium Hydroxide Susp 30 Ml Udc) 30 ml PO Q6H PRN PRN Reason: Constipation Stop: 07/29/20 19:57 Melatonin (Melatonin 3 Mg Tab) 3 mg PO HS PRN PRN Reason: Sleep Stop: 08/01/20 22:36 Last Admin: 07/02/20 22:30 Dose: 3 mg Documented by: Miscellaneous (Cyclosporine [Restasis] Order Awaiting Action) 1 ea N/A QS [facility] Stop: 07/30/20 00:00 Last Admin: 07/03/20 15:22 Dose: Not Given Documented by: Ondansetron HCl (Ondansetron Inj 2 Mg/Ml 2 Ml Vial) 4 mg IV Q6H PRN PRN Reason: Nausea Stop: 07/29/20 19:57 Oxybutynin Chloride (Oxybutynin Chloride 5 Mg Tab) 5 mg PO BID PRN PRN Reason: bladder spasms Stop: 07/29/20 19:57 Polyethylene Glycol (Polyethylene (Miralax) 17 Gm Pack) 17 gm PO DAILY [facility] Stop: 08/03/20 08:59 Potassium Chloride (Potassium Chloride Crtab 20 Meq Tabcr) 40 meq PO BID [facility] Stop: 08/01/20 20:59 Last Admin: 07/03/20 08:18 Dose: 40 meq Documented by: Quetiapine Fumarate (Quetiapine Fumarate 25 Mg Tablet) 25 mg PO HS [facility] Stop: 08/01/20 20:59 Last Admin: 07/02/20 21:03 Dose: 25 mg Documented by:
[2020-07-03] MEDS: QUEtiapine FUMARATE 25 MG TABLET PO SCH (20:42)
[2020-07-03] MEDS: MELATONIN 3 MG TAB PO PRN (20:45)
[2020-07-04] MEDS: HEPARIN SOD 5,000 UNIT/0.5 ML VIAL SQ SCH ×3 (04:54→20:08)
[2020-07-04] MEDS: LEVOTHYROXINE SODIUM 25 MCG TABLET PO SCH (05:31)
[2020-07-04 07:34] LABS: BUN Creatinine Ratio 7.7 (10-20); Calcium 8.3 mg/dl (8.5-10.1); Creatinine Clr Calc Pharmacy 55.4 ml/min; Est GFR (African American) 118.2; Magnesium 2.1 mg/dl (1.8-2.4); Phosphorus 2.6 mg/dl (2.5-4.9); Potassium 4.4 mmol/L (3.5-5.1)
[2020-07-04] MEDS: POLYETHYLENE (MIRALAX) 17 GM PACK PO SCH (08:07)
[2020-07-04] MEDS: POTASSIUM CHLORIDE CRTAB 20 MEQ TABCR PO SCH ×2 (08:07→19:49)
--- NOTE | 2020-07-04 10:37 | Nephrology Progress Note ---
Date of Service July 04, 2020 Assessment & Plan Admission and Anticipated Discharge Date Admission Date: June 29, 2020 Subjective SUBJECTIVE: No new issues. PO intake very poor. Sodium is improving . The patient is a very poor historian. OBJECTIVE: HEENT: Mucous membranes moist. NECK: Supple. No jugular venous distention. CHEST: Bilaterally clear to auscultation, although very, very poor inspiratory effort, which makes physical exam essentially useless. CARDIOVASCULAR: S1, S2 regular. ABDOMEN: Soft, nontender. EXTREMITIES: Show no edema. LABORATORY TESTS: reviewed. ASSESSMENT AND PLAN: A 74-year-old female with severe hyponatremia. Given the urine osmolarity of 73, the diagnosis is unquestionably psychogenic polydipsia. She was obviously drinking a massive amount of liquid prior to hospitalization, although she does not answer when asked how much. She most likely was also not eating much food, so the combination of excessive fluid intake with very low solute food intake is the cause. At this time, serum sodium is 130--today is pending, so we can stop the aggressive blood work check. She can have normal fluid intake. However, we do have to make sure she does not drink massive amount. At this point, [facility] daily Results & Data ([facility]) Vital Signs (Past 12 Hours) Vital Signs Temp Pulse Pulse Resp BP BP Pulse Ox 07/04/20 08:05 36.5 C 68 16 132/83 97 07/04/20 07:36 73 07/04/20 04:51 60 07/04/20 03:18 36.7 C 60 16 114/75 97 07/04/20 00:15 36.4 C L 65 17 124/79 98
[2020-07-04] MEDS: D5NSS + 20MEQ KCL 20 MEQ/1,000 ML BAG IV SCH (11:23)
--- NOTE | 2020-07-04 16:18 | Hospitalist Progress Note ---
Date of Service July 04, 2020 Assessment & Plan (1) Acute hyponatremia: 74 year-old female with history of thyroidism, bipolar disorder, interstitial cystitis, migraine, presenting with syncope and weakness. 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 Urine Na 73 Oral fluid was restricted initially D5W 100cc/hr given Na improved from 120 to 133 as of 07/03/2020 Appreciate nephrology [facility] [place] recs Has been eating and drinking reasonably We will recheck electrolytes tomorrow and likely discharge if those are unremarkable Hypokalemia Likely from poor oral intake and dilution Repleted Magnesium level normal Will check tomorrow Ileus, Constipation secondary to Hyponatremia, hypokalemia 07/02 repeat KUB: mild improvement Has been given tapwater enemas x2 producing only small pieces of stool Appreciate general surgery input and recommendation Diet advanced to clear liquid Appreciate GI input and recommendation Advised to have CT scan of the abdomen pelvis to rule out any occult malignancy She refused to have any CT scan of the abdomen and pelvis as advised by the GI Team of the bowel today and her diet was advanced Severe malnutrition Poor oral intake Media Librarian consulted Bilateral lower extremity edema Albumin normal Check Doppler ultrasound to rule out DVT: negative Check echocardiogram to rule out CHF: Gr 1 Diastolic CHF Resolved Bipolar disorder Reports depression symptoms, denies suicial ideation Appreciate psychiatry input and recommendation Seroquel started Hypothyroidism --TSH last month normal Interstitial cystitis --On oxybutynin Urinalysis: no signs of UTI Migraine --Stable DVT prophylaxis Heparin SC CODE STATUS DNR as confirmed with patient Disposition Pending PT and OT evaluation Lives alone in her apartment She refused to have any home health or any Meals on Wheels Admission and Anticipated Discharge Date Admission Date: June 29, 2020 Subjective 07/03/2020 The patient was seen and examined in medical telemetry unit She remains extremely anxious and still complains to have lower abdominal discomfort without any significant urinary symptoms She is emaciated from not been eating but drinking water heavily 07/04/2020 The patient was seen and examined in medical telemetry unit She remains very anxious today and wants to go home She still has significant psychiatric symptoms mainly anxiety but is still wants to go home Denies any abdominal pain, nausea and/or vomiting Review of Systems Review of Systems: All systems reviewed and are unremarkable except as noted below Gastrointestinal: + abdominal pain (Lower abdominal); no vomiting, no dysphagia and no diarrhea/loose stools Musculoskeletal: + muscle weakness and + muscle atrophy; no myalgia Neurologic: + generalized weakness Physical Exam Physical Exam: Lying in bed very anxious Constitutional: + thin Eyes: PERRL, conjunctivae normal, anicteric sclerae ENMT: external ear and nose normal, oropharynx normal Neck: trachea midline, no thyromegaly Respiratory: no respiratory distress Auscultation: lungs clear to auscultation bilaterally Cardiovascular: Rate/Rhythm: regular rate and regular rhythm Heart Sounds: no murmur Extremities: no edema Gastrointestinal (Abdomen): Inspection/Auscultation: normal bowel sounds; abdomen not distended Percussion/Palpation: + abdomen tender (Mildly tender in the hypogastrium) and abdomen soft Musculoskeletal: No acute arthritis in any joint Neurologic: Alert , Awake and oriented x3. Generally weak Psychiatric: Mood: + depressed mood and + anxious mood Insight: + limited insight Results & Data Results & Data ([facility]) Vital Signs (Past 12 Hours) Vital Signs Temp Pulse Pulse Resp BP BP Pulse Ox 07/04/20 15:44 36.5 C 72 16 131/85 97 07/04/20 12:52 36.6 C 73 16 129/79 97 07/04/20 08:05 36.5 C 68 16 132/83 97 07/04/20 07:36 73 07/04/20 04:51 60 Laboratory Results [facility] 07/04/20 06:30 Sodium 133 L Potassium 4.4 D Chloride 102 Carbon Dioxide 29 BUN 3 L Creatinine 0.39 L Glucose 101 H Calcium 8.3 L Medications Administered Current Inpatient Medications Acetaminophen (Acetaminophen 325 Mg Tab) 650 mg PO Q4H PRN PRN Reason: Pain or Fever Stop: 07/29/20 19:57 Last Admin: 07/01/20 14:51 Dose: 650 mg Documented by: Heparin Sodium (Porcine) (Heparin Sod 5,000 Unit/0.5 Ml Vial) 5,000 units SQ Q8 [facility] Stop: 07/29/20 21:59 Last Admin: 07/04/20 15:03 Dose: Not Given Documented by: Potassium Chloride/Dextrose/Sod Cl (D5nss + 20meq Kcl) 20 meq in 1,000 mls @ 60 mls/hr IV .[id number] [facility] Stop: 07/31/20 16:29 Last Admin: 07/04/20 11:23 Dose: 60 mls/hr Documented by: Levothyroxine Sodium (Levothyroxine Sodium 25 Mcg Tablet) 25 mcg PO DAILYBB [facility] Stop: 07/30/20 06:29 Last Admin: 07/04/20 05:31 Dose: 25 mcg Documented by: Magnesium Hydroxide (Magnesium Hydroxide Susp 30 Ml Udc) 30 ml PO Q6H PRN PRN Reason: Constipation Stop: 07/29/20 19:57 Melatonin (Melatonin 3 Mg Tab) 3 mg PO HS PRN PRN Reason: Sleep Stop: 08/01/20 22:36 Last Admin: 07/03/20 20:45 Dose: 3 mg Documented by: Miscellaneous (Cyclosporine [Restasis] Order Awaiting Action) 1 ea N/A QS [facility] Stop: 07/30/20 00:00 Last Admin: 07/04/20 07:28 Dose: Not Given Documented by: Ondansetron HCl (Ondansetron Inj 2 Mg/Ml 2 Ml Vial) 4 mg IV Q6H PRN PRN Reason: Nausea Stop: 07/29/20 19:57 Oxybutynin Chloride (Oxybutynin Chloride 5 Mg Tab) 5 mg PO BID PRN PRN Reason: bladder spasms Stop: 07/29/20 19:57 Polyethylene Glycol (Polyethylene (Miralax) 17 Gm Pack) 17 gm PO DAILY [facility] Stop: 08/03/20 08:59 Last Admin: 07/04/20 08:07 Dose: 17 gm Documented by: Potassium Chloride (Potassium Chloride Crtab 20 Meq Tabcr) 40 meq PO BID [facility] Stop: 08/01/20 20:59 Last Admin: 07/04/20 08:07 Dose: 40 meq Documented by: Quetiapine Fumarate (Quetiapine Fumarate 25 Mg Tablet) 25 mg PO HS [facility] Stop: 08/01/20 20:59 Last Admin: 07/03/20 20:42 Dose: 25 mg Documented by:
[2020-07-04] MEDS: QUEtiapine FUMARATE 25 MG TABLET PO SCH ×2 (19:49→20:09)
[2020-07-05] MEDS: D5NSS + 20MEQ KCL 20 MEQ/1,000 ML BAG IV SCH (03:33)
[2020-07-05] MEDS: LEVOTHYROXINE SODIUM 25 MCG TABLET PO SCH (04:59)
[2020-07-05] MEDS: HEPARIN SOD 5,000 UNIT/0.5 ML VIAL SQ SCH ×3 (05:02→22:53)
[2020-07-05 07:36] LABS: BUN Creatinine Ratio 5.9 (10-20); Creatinine Clr Calc Pharmacy 59.4 ml/min; Est GFR (African American) 112.8; Est GFR (Non-African American) 97.3; Magnesium 2.2 mg/dl (1.8-2.4); Potassium 4.3 mmol/L (3.5-5.1)
[2020-07-05 07:37] LABS: Phosphorus 2.6 mg/dl (2.5-4.9)
[2020-07-05] MEDS: POTASSIUM CHLORIDE CRTAB 20 MEQ TABCR PO SCH ×2 (08:06→23:42)
[2020-07-05] MEDS: POLYETHYLENE (MIRALAX) 17 GM PACK PO SCH (08:06)
--- NOTE | 2020-07-05 09:18 | Nephrology Progress Note ---
Date of Service July 05, 2020 Assessment & Plan Admission and Anticipated Discharge Date Admission Date: June 29, 2020 Subjective SUBJECTIVE: No new issues. PO intake very poor. Sodium is improving but has now stalled in the low 130's . The patient is a very poor historian. OBJECTIVE: HEENT: Mucous membranes moist. NECK: Supple. No jugular venous distention. CHEST: Bilaterally clear to auscultation, although very, very poor inspiratory effort, which makes physical exam essentially useless. CARDIOVASCULAR: S1, S2 regular. ABDOMEN: Soft, nontender. EXTREMITIES: Show no edema. LABORATORY TESTS: reviewed. ASSESSMENT AND PLAN: A 74-year-old female with severe hyponatremia. Given the urine osmolarity of 73, the diagnosis is unquestionably psychogenic polydipsia. She was obviously drinking a massive amount of liquid prior to hospitalization, although she does not answer when asked how much. She most likely was also not eating much food, so the combination of excessive fluid intake with very low solute food intake is the cause. At this time, serum sodium is 130+ and stable. She can have normal fluid intake. However, we do have to make sure she does not drink massive amount. At this point, BMP daily. if Sodium gets below 130 add urea-na Results & Data ([facility] [place]) Vital Signs (Past 12 Hours) Vital Signs Temp Pulse Pulse Resp BP BP Pulse Ox 07/05/20 08:16 37 C 18 143/75 H 96 07/05/20 07:44 68 07/05/20 03:20 36.5 C 67 18 137/82 98 07/05/20 01:19 60 07/04/20 23:24 36.5 C 64 18 135/81 97
--- NOTE | 2020-07-05 15:38 | Hospitalist Progress Note ---
Date of Service July 05, 2020 Assessment & Plan (1) Acute hyponatremia: Bipolar disorder with severe anxiety symptoms Reports depression symptoms, denies suicial ideation Appreciate psychiatry input and recommendation Trav started Noted to be confused this morning of 07/05/2020 She remains very anxious and sometimes does not know what to do and she is at high risk of leaving alone at home This was discussed with her in detail and also with her daughter in [place] and her friend in [place] Her daughter cannot come and take care of her at home and her friend will not be available to see her every day Discussed with the rn case management and PT/OT have been ordered to see how she does with ambulation I have been visiting her 3 or 4 times a day to give her comfortable 74 year-old female with history of thyroidism, bipolar disorder, interstitial cystitis, migraine, presenting with syncope and weakness. 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 Urine Na 73 Oral fluid was restricted initially D5W 100cc/hr given Na improved from 120 to 133 as of 07/03/2020 Appreciate nephrology [facility] [place] recs Has been eating and drinking reasonably We will recheck electrolytes tomorrow and likely discharge if those are unremarkable Electrolytes are unremarkable and she can be discharged Hypokalemia Likely from poor oral intake and dilution Repleted Magnesium level normal Will check tomorrow-Corrected Ileus, Constipation secondary to Hyponatremia, hypokalemia 07/02 repeat KUB: mild improvement Has been given tapwater enemas x2 producing only small pieces of stool Appreciate general surgery input and recommendation Diet advanced to clear liquid Appreciate GI input and recommendation Advised to have CT scan of the abdomen pelvis to rule out any occult malignancy She refused to have any CT scan of the abdomen and pelvis as advised by the GI Team of the bowel today and her diet was advanced Severe malnutrition Poor oral intake Coupon Manifest Clerk consulted Bilateral lower extremity edema Albumin normal Check Doppler ultrasound to rule out DVT: negative Check echocardiogram to rule out CHF: Gr 1 Diastolic CHF Resolved Hypothyroidism --TSH last month normal Interstitial cystitis --On oxybutynin Urinalysis: no signs of UTI Migraine --Stable DVT prophylaxis Heparin SC CODE STATUS DNR as confirmed with patient Disposition Pending PT and OT evaluation Lives alone in her apartment She refused to have any home health or any Meals on Wheels Admission and Anticipated Discharge Date Admission Date: June 29, 2020 Subjective 07/03/2020 The patient was seen and examined in medical telemetry unit She remains extremely anxious and still complains to have lower abdominal discomfort without any significant urinary symptoms She is emaciated from not been eating but drinking water heavily 07/04/2020 The patient was seen and examined in medical telemetry unit She remains very anxious today and wants to go home She still has significant psychiatric symptoms mainly anxiety but is still wants to go home Denies any abdominal pain, nausea and/or vomiting 07/05/2020 The patient was seen and examined in medical telemetry She remains very anxious and pleasantly confused and most likely will not be able to take care of herself at home alone She denies any specific symptoms except anxiety PT and OT have been ordered to see how she does on ambulation Review of Systems Review of Systems: All systems reviewed and are unremarkable except as noted below Gastrointestinal: + abdominal pain (Lower abdominal); no vomiting, no dysphagia and no diarrhea/loose stools Musculoskeletal: + muscle weakness and + muscle atrophy; no myalgia Neurologic: + generalized weakness Physical Exam Physical Exam: Lying in bed very anxious and crying at times Constitutional: + thin, + altered mental status (Pleasantly confused. ), + frail appearing, + lethargic and + malnourished Eyes: PERRL, conjunctivae normal, anicteric sclerae ENMT: external ear and nose normal, oropharynx normal Neck: trachea midline, no thyromegaly Respiratory: no respiratory distress Auscultation: lungs clear to auscultation bilaterally Cardiovascular: Rate/Rhythm: regular rate and regular rhythm Heart Sounds: no murmur Extremities: no edema Gastrointestinal (Abdomen): Inspection/Auscultation: normal bowel sounds; abdomen not distended Percussion/Palpation: + abdomen tender (Mildly tender in the hypogastrium) and abdomen soft Musculoskeletal: No acute arthritis in any joint Neurologic: Alert and awake. Confused more than usual. Generally very anxious. Patient is does not know what to do in any situation. Psychiatric: Mood: + depressed mood and + anxious mood Insight: + limited insight Results & Data Results & Data ([facility]) Vital Signs (Past 12 Hours) Vital Signs Temp Pulse Pulse Resp BP Pulse Ox 07/05/20 14:44 36.7 C 73 18 124/73 96 07/05/20 11:59 36.5 C 70 18 130/80 97 07/05/20 08:16 37 C 18 143/75 H 96 07/05/20 07:44 68 Laboratory Results BMP 07/05/20 06:38 Sodium 131 L Potassium 4.3 Chloride 98 Carbon Dioxide 29 BUN 3 L Creatinine 0.45 L Glucose 107 H Calcium 9.0 Medications Administered Current Inpatient Medications Acetaminophen (Acetaminophen 325 Mg Tab) 650 mg PO Q4H PRN PRN Reason: Pain or Fever Stop: 07/29/20 19:57 Last Admin: 07/01/20 14:51 Dose: 650 mg Documented by: Heparin Sodium (Porcine) (Heparin Sod 5,000 Unit/0.5 Ml Vial) 5,000 units SQ Q8 [facility] Stop: 07/29/20 21:59 Last Admin: 07/05/20 14:47 Dose: Not Given Documented by: Potassium Chloride/Dextrose/Sod Cl (D5nss + 20meq Kcl) 20 meq in 1,000 mls @ 60 mls/hr IV .[id number] [facility] Stop: 07/31/20 16:29 Last Admin: 07/05/20 03:33 Dose: 60 mls/hr Documented by: Levothyroxine Sodium (Levothyroxine Sodium 25 Mcg Tablet) 25 mcg PO DAILYBB [facility] Stop: 07/30/20 06:29 Last Admin: 07/05/20 04:59 Dose: 25 mcg Documented by: Magnesium Hydroxide (Magnesium Hydroxide Susp 30 Ml Udc) 30 ml PO Q6H PRN PRN Reason: Constipation Stop: 07/29/20 19:57 Melatonin (Melatonin 3 Mg Tab) 3 mg PO HS PRN PRN Reason: Sleep Stop: 08/01/20 22:36 Last Admin: 07/03/20 20:45 Dose: 3 mg Documented by: Miscellaneous (Cyclosporine [Restasis] Order Awaiting Action) 1 ea N/A QS [facility]; Protocol Stop: 07/30/20 00:00 Last Admin: 07/05/20 08:06 Dose: Not Given Documented by: Ondansetron HCl (Ondansetron Inj 2 Mg/Ml 2 Ml Vial) 4 mg IV Q6H PRN PRN Reason: Nausea Stop: 07/29/20 19:57 Oxybutynin Chloride (Oxybutynin Chloride 5 Mg Tab) 5 mg PO BID PRN PRN Reason: bladder spasms Stop: 07/29/20 19:57 Polyethylene Glycol (Polyethylene (Miralax) 17 Gm Pack) 17 gm PO DAILY [facility] Stop: 08/03/20 08:59 Last Admin: 07/05/20 08:06 Dose: 17 gm Documented by: Potassium Chloride (Potassium Chloride Crtab 20 Meq Tabcr) 40 meq PO BID [facility] Stop: 08/01/20 20:59 Last Admin: 07/05/20 08:06 Dose: 40 meq Documented by: Quetiapine Fumarate (Quetiapine Fumarate 25 Mg Tablet) 25 mg PO HS [facility] Stop: 08/01/20 20:59 Last Admin: 07/04/20 20:09 Dose: Not Given Documented by:
[2020-07-05] MEDS ORDERED: ALPRAZolam 0.25 MG TABLET PO ONE (16:22)
[2020-07-05] MEDS ORDERED: SIMETHICONE 80 MG CHEW PO PRN (17:48)
[2020-07-05] MEDS ORDERED: MELATONIN 3 MG TAB PO SCH (21:00)
[2020-07-05] MEDS ORDERED: ALPRAZolam 0.25 MG TABLET PO SCH (21:00)
[2020-07-05] MEDS: QUEtiapine FUMARATE 25 MG TABLET PO SCH (22:53)
[2020-07-06] MEDS: HEPARIN SOD 5,000 UNIT/0.5 ML VIAL SQ SCH ×2 (06:14→13:22)
[2020-07-06] MEDS: LEVOTHYROXINE SODIUM 25 MCG TABLET PO SCH (06:15)
[2020-07-06 07:34] LABS: BUN Creatinine Ratio 13.8 (10-20); Creatinine Clr Calc Pharmacy 61.4 ml/min; Est GFR (African American) 116.3; Est GFR (Non-African American) 100.4; Magnesium 2.2 mg/dl (1.8-2.4); Potassium 4.4 mmol/L (3.5-5.1)
[2020-07-06 07:38] LABS: Phosphorus 3.4 mg/dl (2.5-4.9)
[2020-07-06] MEDS: POLYETHYLENE (MIRALAX) 17 GM PACK PO SCH (07:44)
[2020-07-06] MEDS: POTASSIUM CHLORIDE CRTAB 20 MEQ TABCR PO SCH (07:45)
[2020-07-06] MEDS ORDERED: SODIUM CHLORIDE 1 GM TABLET PO SCH (09:00)
--- NOTE | 2020-07-06 09:27 | Nephrology Progress Note ---
Date of Service July 06, 2020 Assessment & Plan (1) Hyponatremia: Etiology likely low solute intake. She also admitted to large water intake at home but currently this low solute intake. -Start salt tabs 1g tid -Patient can salt her food. -Encourage high protein diet. -Hot Stick Man consult for malnutrition if not following already. Admission and Anticipated Discharge Date Admission Date: June 29, 2020 Subjective Seen for hyponatremia and malnutrition. She feels better. Eating better. Reports diarrhoea with certain foods which makes her averse to most foods. na at 130. Review of Systems Review of Systems: All systems reviewed & are unremarkable except as noted in HPI & below Physical Exam Physical Exam: General exam: Cachectic, Appears comfortable, no acute distress HEENT: Pupils are equal and reactive to light Neck: No JVD, neck is supple trachea is midline Respiratory system: Clear breath sounds bilaterally. Gastrointestinal: Abdomen is soft, non distended, non tender, bowel sounds are present CVS: Regular rate and rhythm. No murmurs, rubs or gallops Musculoskeletal: No joint or muscle tenderness Extremities: Non tender, no edema, peripheral pulses are present Neuro: Oriented, no tremors, no focal neurological deficits Skin: No rashes Results & Data ([facility]) Vital Signs (Past 12 Hours) Vital Signs Temp Pulse Pulse Resp BP Pulse Ox 07/06/20 07:30 63 07/06/20 07:23 36.6 C 69 16 125/75 98 07/06/20 04:25 63 07/06/20 03:03 36.5 C 64 18 120/71 97 07/05/20 22:49 36.4 C L 61 18 155/84 H 98 Laboratory Results 07/06/20 06:42 07/06/20 06:42 Phosphorus 3.4
[2020-07-06] MEDS: SODIUM CHLORIDE 1 GM TABLET PO SCH ×2 (10:04→13:28)
--- NOTE | 2020-07-06 11:39 | Communication Note ---
Date of Service: July 06, 2020 liaison met with patient as she has not been taking Seroquel consistently. She complained of cognitive slowing with 25 mg "feeling like a zombie" and offered trial of 12.5 mg hs. She was readily agreeable.
--- NOTE | 2020-07-06 13:04 | Hospitalist Progress Note ---
Date of Service July 06, 2020 Assessment & Plan (1) Acute hyponatremia: Bipolar disorder with severe anxiety symptoms Reports depression symptoms, denies suicial ideation Appreciate psychiatry input and recommendation Trav started Noted to be confused this morning of 07/05/2020 She remains very anxious and sometimes does not know what to do and she is at high risk of leaving alone at home This was discussed with her in detail and also with her daughter in [place] and her friend in [place] Her daughter cannot come and take care of her at home and her friend will not be available to see her every day Discussed with the patient case manager and PT/OT have been ordered to see how she does with ambulation I have been visiting her 3 or 4 times a day to give her comfortable Her anxiety seems to be improving She still wants to go home-we will try to convince her to stay 74 year-old female with history of thyroidism, bipolar disorder, interstitial cystitis, migraine, presenting with syncope and weakness. 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 Urine Na 73 Oral fluid was restricted initially D5W 100cc/hr given Na improved from 120 to 133 as of 07/03/2020 Appreciate nephrology [facility] [place] recs Has been eating and drinking reasonably We will recheck electrolytes tomorrow and likely discharge if those are unremarkable Electrolytes are unremarkable and she can be discharged Sodium remains low at 130 Sodium tablet has been provided Hypokalemia Likely from poor oral intake and dilution Repleted Magnesium level normal Will check tomorrow-Corrected Ileus, Constipation secondary to Hyponatremia, hypokalemia 07/02 repeat KUB: mild improvement Has been given tapwater enemas x2 producing only small pieces of stool Appreciate general surgery input and recommendation Diet advanced to clear liquid Appreciate GI input and recommendation Advised to have CT scan of the abdomen pelvis to rule out any occult malignancy She refused to have any CT scan of the abdomen and pelvis as advised by the GI Team of the bowel today and her diet was advanced Has been tolerating reasonable amount of regular food Severe malnutrition Poor oral intake Marketing Engineer consulted-appreciate input Bilateral lower extremity edema Albumin normal Check Doppler ultrasound to rule out DVT: negative Check echocardiogram to rule out CHF: Gr 1 Diastolic CHF Resolved Hypothyroidism --TSH last month normal Interstitial cystitis --On oxybutynin Urinalysis: no signs of UTI Migraine --Stable DVT prophylaxis Heparin SC CODE STATUS DNR as confirmed with patient Disposition Pending PT and OT evaluation-awaiting PT and OT evaluation Lives alone in her apartment She refused to have any home health or any Meals on Wheels Admission and Anticipated Discharge Date Admission Date: June 29, 2020 Subjective 07/03/2020 The patient was seen and examined in medical telemetry unit She remains extremely anxious and still complains to have lower abdominal discomfort without any significant urinary symptoms She is emaciated from not been eating but drinking water heavily 07/04/2020 The patient was seen and examined in medical telemetry unit She remains very anxious today and wants to go home She still has significant psychiatric symptoms mainly anxiety but is still wants to go home Denies any abdominal pain, nausea and/or vomiting 07/05/2020 The patient was seen and examined in medical telemetry She remains very anxious and pleasantly confused and most likely will not be able to take care of herself at home alone She denies any specific symptoms except anxiety PT and OT have been ordered to see how she does on ambulation 07/06/2020 The patient was seen and examined in medical telemetry unit She looks much better and wants to go home She remains very weak and lethargic Physical therapy has not been done yet Review of Systems Review of Systems: All systems reviewed and are unremarkable except as noted below Gastrointestinal: + abdominal pain (Lower abdominal); no vomiting, no dysphagia and no diarrhea/loose stools Musculoskeletal: + muscle weakness and + muscle atrophy; no myalgia Neurologic: + generalized weakness Physical Exam Physical Exam: Sitting on bed without any acute distress Constitutional: + thin, + altered mental status (Pleasantly confused. ), + frail appearing, + lethargic and + malnourished Eyes: PERRL, conjunctivae normal, anicteric sclerae ENMT: external ear and nose normal, oropharynx normal Neck: trachea midline, no thyromegaly Respiratory: no respiratory distress Auscultation: lungs clear to auscultation bilaterally Cardiovascular: Rate/Rhythm: regular rate and regular rhythm Heart Sounds: no murmur Extremities: no edema Gastrointestinal (Abdomen): Inspection/Auscultation: normal bowel sounds; abdomen not distended Percussion/Palpation: + abdomen tender (Mildly tender in the hypogastrium) and abdomen soft Musculoskeletal: No acute arthritis in any joint Neurologic: Alert, awake, pleasantly confused. Generally very weak and lethargic Psychiatric: Mood: + depressed mood and + anxious mood Insight: + limited insight Results & Data Results & Data ([facility]) Vital Signs (Past 12 Hours) Vital Signs Temp Pulse Pulse Resp BP Pulse Ox 07/06/20 11:17 36.3 C L 78 16 121/74 97 07/06/20 07:30 63 07/06/20 07:23 36.6 C 69 16 125/75 98 07/06/20 04:25 63 07/06/20 03:03 36.5 C 64 18 120/71 97 Laboratory Results [facility] 07/06/20 06:42 Sodium 130 L Potassium 4.4 Chloride 98 Carbon Dioxide 27 BUN 6 L Creatinine 0.41 L Glucose 90 Calcium 9.0 Medications Administered Current Inpatient Medications Acetaminophen (Acetaminophen 325 Mg Tab) 650 mg PO Q4H PRN PRN Reason: Pain or Fever Stop: 07/29/20 19:57 Last Admin: 07/01/20 14:51 Dose: 650 mg Documented by: Heparin Sodium (Porcine) (Heparin Sod 5,000 Unit/0.5 Ml Vial) 5,000 units SQ Q8 [facility] Stop: 07/29/20 21:59 Last Admin: 07/06/20 06:14 Dose: Not Given Documented by: Levothyroxine Sodium (Levothyroxine Sodium 25 Mcg Tablet) 25 mcg PO DAILYBB [facility] Stop: 07/30/20 06:29 Last Admin: 07/06/20 06:15 Dose: 25 mcg Documented by: Magnesium Hydroxide (Magnesium Hydroxide Susp 30 Ml Udc) 30 ml PO Q6H PRN PRN Reason: Constipation Stop: 07/29/20 19:57 Melatonin (Melatonin 3 Mg Tab) 3 mg PO HS PRN PRN Reason: Sleep Stop: 08/01/20 22:36 Last Admin: 07/03/20 20:45 Dose: 3 mg Documented by: Melatonin (Melatonin 3 Mg Tab) 3 mg PO HS [facility] Stop: 08/04/20 20:59 Last Admin: 07/05/20 23:43 Dose: 3 mg Documented by: Miscellaneous (Cyclosporine [Restasis] Order Awaiting Action) 1 ea N/A QS [facility]; Protocol Stop: 07/30/20 00:00 Last Admin: 07/06/20 07:44 Dose: Not Given Documented by: Ondansetron HCl (Ondansetron Inj 2 Mg/Ml 2 Ml Vial) 4 mg IV Q6H PRN PRN Reason: Nausea Stop: 07/29/20 19:57 Oxybutynin Chloride (Oxybutynin Chloride 5 Mg Tab) 5 mg PO BID PRN PRN Reason: bladder spasms Stop: 07/29/20 19:57 Polyethylene Glycol (Polyethylene (Miralax) 17 Gm Pack) 17 gm PO DAILY [facility] Stop: 08/03/20 08:59 Last Admin: 07/06/20 07:44 Dose: Not Given Documented by: Potassium Chloride (Potassium Chloride Crtab 20 Meq Tabcr) 40 meq PO BID [facility] Stop: 08/01/20 20:59 Last Admin: 07/06/20 07:45 Dose: 40 meq Documented by: Quetiapine Fumarate (Quetiapine Fumarate 25 Mg Tablet) 12.5 mg PO HS [facility] Stop: 08/05/20 20:59 Simethicone (Simethicone 80 Mg Chew) 40 mg PO Q6H PRN PRN Reason: Dyspepsia Stop: 08/04/20 17:47 Sodium Chloride (Sodium Chloride 1 Gm Tablet) 1 gm PO TID [facility] Stop: 08/05/20 08:59 Last Admin: 07/06/20 10:04 Dose: 1 gm Documented by:
[2020-07-06] MEDS ORDERED: QUEtiapine FUMARATE 25 MG TABLET PO SCH (21:00)
--- NOTE | 2020-07-07 07:29 | Discharge Summary ---
Date of Service July 07, 2020 Admission HPI Per Admitting Provider 74 y/o female presenting with syncopal episode and weakness. Patient recently admitted for hyponatremia secondary to excessive water intake. As per patient, since discharge, she has not been eating much-1 egg per day and has not been drinking fluids as well. She states that she does not have any appetite. Denies abdominal pain, nausea vomiting, diarrhea, no fevers or chills. Yesterday, patient apparently was sitting on the chair and passed out. She said she really consciousness a few hours later. She has poor recollection of the events. Today, patient's neighbor checked on her upon the advice of the patient's daughter who talked her earlier, and found that she was sounding weak. Patient found her to be coherent but rather weak. She was then brought to the ER for evaluation. At the ER, patient sodium level was found to be 120, potassium 2.8. CT head: No acute process On exam, the patient was seen resting in bed, with her friend at the bedside. She is oriented x3, answers all questions appropriately. Denies active headache, dizziness, chest pain, shortness of breath, abdominal pain, nausea vomiting. Reports some mild dysuria, hematuria. Reports constipation times few days. No other symptoms Primary Care Provider: Alec Vazquez, DO Admission Exam Per Admitting Provider Physical Exam: General- oriented x 3, not in distress, speaks in sentences with no effort or accessory muscle use Weak, under nourished Head- atraumatic Eyes- PERRL, EOMI, anicteric ENT- oropharynx clear Neck- supple, no JVD, no adenopathy, no thyromegaly; carotids +2/2, no bruits appreciated Lungs- clear to auscultation bilaterally, no rales/wheezes Heart- normal rate, regular rhythm; no murmur, no gallop, no rub appreciated Abdomen- normal bowel sounds, nondistended, soft, nontender, no masses or hepatosplenomegaly No CVA tenderness Extremities-positive mild lower leg edema right greater than left-no erythema, warmth, tenderness, no calf tenderness; peripheral pulses intact Neuro- alert, oriented x 3; CN 2-12 grossly intact; motor 5/5 bilaterally;sensation 100% on all extremities; no other gross focal neurologic deficits Skin- warm & dry Principal Diagnosis Electrolyte imbalance, severe malnutrition, interstitial cystitis, hypothyroidism Discharge Exam Constitutional + thin, + altered mental status (Pleasantly confused. ), + frail appearing, + lethargic and + malnourished Eyes PERRL, conjunctivae normal, anicteric sclerae ENMT external ear and nose normal, oropharynx normal Neck trachea midline, no thyromegaly Respiratory no respiratory distress Auscultation: lungs clear to auscultation bilaterally Cardiovascular Rate/Rhythm: regular rate and regular rhythm Heart Sounds: no murmur Extremities: no edema Gastrointestinal (Abdomen) Inspection/Auscultation: normal bowel sounds; abdomen not distended Percussion/Palpation: + abdomen tender (Mildly tender in the hypogastrium) and abdomen soft Psychiatric Mood: + depressed mood and + anxious mood Insight: + limited insight Discharge Data Allergies Allergy/AdvReac Type Severity Reaction Status Date / Time milk Allergy Intermediate Abdominal Verified 06/29/20 14:43 Pain gluten Allergy Unknown ANAPHYLAXIS Verified 06/29/20 14:43 bee venom protein (honey bee) Allergy Anaphylaxis Verified 06/29/20 14:43 lactose AdvReac Unknown Gastrointestinal Verified 06/29/20 14:43 Upset grains Allergy Severe Anaphylaxis Uncoded 06/29/20 14:43 Consultations 06/29/20 16:38 ED Decision to Admit Stat 06/29/20 19:58 Consult Nephrology Routine 06/30/20 11:51 Consult General Surgery Routine 07/01/20 10:08 Consult Psychiatry Routine 07/03/20 09:01 Consult Gastroenterology Routine Ordered Studies 06/29/20 13:44 CT head/brain wo con Stat 06/29/20 19:58 US venous doppler LE Stat Hospital Course (1) Acute hyponatremia: Bipolar disorder with severe anxiety symptoms Reports depression symptoms, denies suicial ideation Appreciate psychiatry input and recommendation Trav started Noted to be confused this morning of 07/05/2020 She remains very anxious and sometimes does not know what to do and she is at high risk of leaving alone at home This was discussed with her in detail and also with her daughter in [place] and her friend in [place] Her daughter cannot come and take care of her at home and her friend will not be available to see her every day Discussed with the renal case manager and PT/OT have been ordered to see how she does with ambulation I have been visiting her 3 or 4 times a day to give her comfortable Her anxiety seems to be improving She still wants to go home-we will try to convince her to stay 74 year-old female with history of thyroidism, bipolar disorder, interstitial cystitis, migraine, presenting with syncope and weakness. 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 Urine Na 73 Oral fluid was restricted initially D5W 100cc/hr given Na improved from 120 to 133 as of 07/03/2020 Appreciate nephrology [facility] recs Has been eating and drinking reasonably We will recheck electrolytes tomorrow and likely discharge if those are unremarkable Electrolytes are unremarkable and she can be discharged Sodium remains low at 130 Sodium tablet has been provided Hypokalemia Likely from poor oral intake and dilution Repleted Magnesium level normal Will check tomorrow-Corrected Ileus, Constipation secondary to Hyponatremia, hypokalemia 07/02 repeat KUB: mild improvement Has been given tapwater enemas x2 producing only small pieces of stool Appreciate general surgery input and recommendation Diet advanced to clear liquid Appreciate GI input and recommendation Advised to have CT scan of the abdomen pelvis to rule out any occult malignancy She refused to have any CT scan of the abdomen and pelvis as advised by the GI Team of the bowel today and her diet was advanced Has been tolerating reasonable amount of regular food Severe malnutrition Poor oral intake Defensive Secondary Coach consulted-appreciate input Bilateral lower extremity edema Albumin normal Check Doppler ultrasound to rule out DVT: negative Check echocardiogram to rule out CHF: Gr 1 Diastolic CHF Resolved Hypothyroidism --TSH last month normal Interstitial cystitis --On oxybutynin Urinalysis: no signs of UTI Migraine --Stable DVT prophylaxis Heparin LA CODE STATUS DNR as confirmed with patient Disposition Pending PT and OT evaluation-awaiting PT and OT evaluation Lives alone in her apartment She refused to have any home health or any Meals on Wheels Total Time Total Time Spent Total Time Spent (In Minutes): 45 minutes Total Time Includes: Examination of the Patient, Discharge Planning, Medication Reconciliation and Communication With Other Providers Discharge Plan Discharge Items Patient Disposition: Home - Self-Care Reason For Visit: HYPONATREMIA,HYPOKALEMIA,SYNCOPE Discharge Diagnosis: Electrolyte imbalance, severe malnutrition, interstitial cystitis, hypothyroidism Condition on Discharge: Fair Activity: Resume your previous activity Activity Comment: Take extreme precaution to avoid falls Non-emergency contact: Primary Care Provider Call non-emergency contact if: you have any medication questions and your symptoms worsen Follow-up/Referrals: Alec Vazquez DO [Primary Care Provider] - (Date & Time 07/09/2020 11:00 AM Provider Alec Vazquez DO Department [facility] ) Diet: Regular Fluids: 1200ml (5 cups) Addtl Attending Provider Instructions: Please take extreme precautions to avoid fall Have regular meals at least 3 times a day and you can have extra salt in your diet Keep drinking less fluid and that will be up to 1200 mL a day. Try to take your medications as advised We will arrange for [facility] at home program from Wednesday. Pending Studies at Discharge: No Stand-Alone Forms: [facility], Smoking Cessation Medications and DC Order Prescriptions: New quetiapine 25 mg Tablet 12.5 mg PO HS Qty: 14 RF: 0 potassium chloride [Klor-Con M20] 20 mEq Tablet,Er Particles/Crystals 40 meq PO BID Qty: 60 RF: 0 Continued sumatriptan succinate 25 mg tablet 25 mg PO Q2H PRN (Reason: Migraine Headache) RF: 0 Restasis 0.05 % dropperette 1 drp OPB BID RF: 0 Climara Pro 0.045-0.015 mg/24 hr patch weekly 1 patch transdermal WK RF: 0 fluoride (sodium) [SF 5000 Plus] 1.1 % cream 1 applic dental HS RF: 0 Botox 200 unit recon soln 200 unit subcut .Q3M RF: 0 levothyroxine [Levoxyl] 50 mcg tablet 25 mcg PO QAM RF: 0 oxybutynin chloride 5 mg tablet 5 mg PO BID PRN (Reason: bladder spasms) Qty: 14 RF: 0 Discharge Orders: Discharge Order (Routine); Ordered 07/06/20 Ordered By: Quoc Montoya Admission Data Admit Date/Time: 06/29/20 16:44 Attending Provider: Quoc Montoya Admit Provider: Ramón Araiza Primary Care Provider: Alec Vazquez Other Providers: Pop Montenegro ; Darby Davies ; Michael Logan ; Kecia Wahl ; Denita Sylvester ; Nilesh Zimmerman ; Elmer Cazares ; Yue Lee ; Gabi Escalera ; Tera Greer Jr ; Kayli Naranjo ; Víctor Britt ; Angie Nash ; Hiren Prado ; [place] ; Suresh Mathews ; Wesley Romero ; Chandler Raymundo ; Shonna Christian ; Eusebio Milan ; Em Figueroa ; Inna Frankel ; Gillian Dobbins ; Elmer Gorman I. ; Camila Morales ; Dana Barrett ; Olivia Kendall ; Ramón Araiza ; Brooke Gomez. Other Interventions: Discharge Summary Assessment (RN) Last Done: 07/06/20 13:57
== END 2020-07-06 15:16 | disposition home or self-care (01) | DRG 640 ==
LOC: ED 13:21 → SUATTDRO 16:44 → 2S 16:44 → 2W 06-30 11:21

== ENCOUNTER 2020-07-14 16:03 | Observation (INO) ==
[2020-07-14 16:36] LABS: Basophils # (auto) 0.02 K/uL (0-0.2); Basophils % (auto) 0.4 %; Hematocrit (blood only) 37.1 % (37-47); Hemoglobin 13.3 g/dL (12.0-16.0); Lymphocytes # (auto) 1.29 K/uL (1.2-3.4); Lymphocytes % (auto) 27.3 %; Mean Corpuscular Hemoglobin 33.3 pg (25-34); Mean Corpuscular Hgb Conc 35.8 g/dL (32-36); Mean Corpuscular Volume 92.8 fL (80-100); Mean Platelet Volume 9.1 fL (7.4-10.4); Monocytes % (auto) 8.5 %; Neutrophils # (auto) 3.01 K/uL (1.4-6.5); Neutrophils % (auto) 63.8 %; Platelet Count 204 K/uL (130-400); RDW Coefficient of Variation 13.4 % (11.5-14.5); RDW Standard Deviation 45.2 fL (36.4-46.3); White Blood Count 4.72 K/uL (4.8-10.8)
[2020-07-14 16:53] LABS: INR 1.2 (0.9-1.1); Prothrombin Time 11.6 Seconds (9.0-12.0)
[2020-07-14 16:54] LABS: Alanine Aminotransferase 18 U/L (12-78); Albumin Level 3.4 gm/dl (3.4-5.0); Aspartate Aminotransferase 10 U/L (15-37); BUN Creatinine Ratio 21.5 (10-20); Blood Urea Nitrogen 12 mg/dl (7-18); Calcium 8.6 mg/dl (8.5-10.1); Carbon Dioxide 26 mmol/L (21-32); Chloride 97 mmol/L (98-107); Est GFR (African American) 105.6; Est GFR (Non-African American) 91.1; Glucose 113 mg/dl (70-99); Lipase 171 U/L (73-393); Magnesium 2.3 mg/dl (1.8-2.4); Sodium 129 mmol/L (136-145)
[2020-07-14 17:05] LABS: Albumin Globulin Ratio 1.6 (0.9-2); Alkaline Phosphatase 38 U/L (45-117); Globulin 2.2 gm/dl (2.5-4.0); Phosphorus 2.7 mg/dl (2.5-4.9); Total Protein 5.6 gm/dl (6.4-8.2); Troponin I < 0.015 ng/ml (0-0.045)
--- NOTE | 2020-07-14 17:15 | XRay Report ---
XR chest 1V portable, XR KUB/Abdomen 1 view HISTORY: 74 years-old Female weakness acute weakness with chest and abdominal pain COMPARISON: KUB 07/02/2020, chest radiograph 06/29/2020 TECHNIQUE: Portable AP view the chest with KUB radiograph FINDINGS: CHEST: Cardiomediastinal and hilar silhouettes are within normal limits. No pneumothorax, pleural effusion, airspace consolidation or overt pulmonary edema. Degenerative changes of the shoulders and spine. KUB: Nonobstructive bowel gas pattern. Decreased gaseous distention of the colon compared to prior. No pne umatosis or pneumoperitoneum. No urolith. No acute fracture. Osteoarthritis of the bilateral hips. IMPRESSION: 1. No acute processes of the chest. 2. Nonobstructive bowel gas pattern. ACT 112: Negative or not required by law. The above report was generated using voice recognition software. It may contain grammatical, syntax o r spelling errors. Electronically signed by: Johnnie Jeter M.D. 07/14/2020 5:13 PM
--- NOTE | 2020-07-14 17:22 | Emergency Department Note ---
Impression & Plan Weakness, Abdominal pain, Confusion ED Provider Note Provider: Diogo Francis MD DATE OF SERVICE: 07/14/2020 CHIEF COMPLAINT: Concerns for dehydration HISTORY OF PRESENT ILLNESS: Patient is a 74-year-old female with a past history of bipolar disorder, interstitial cystitis, hypothyroidism, and recent admission for hyponatremia and hypokalemia. Patient presents via ambulance from home stat ed she called 911 she felt some concern she could be dehydrated or unwell. Patient states she was very concerned that she could earlier but this feeling has abated. She states she missed her potassium tablets yesterday and only ate an egg yesterday. She reports that she did have some tuna and avocado today. Has been drinking liquids okay including some coconut water. She denies significant chest pain or difficulty breathing. EMS does report the patient seemed a bit short of breath with them but she denies this to me and she is stable on room air here. Does report a little bit of lower abdominal pain but states this is not uncommon for her interstitial cystitis. Patient states she often chronically has diarrhea and has some issues eating foods related to this and multiple food intolerances. Denies any falls over last 24 hours. Patient herself states she felt very scared earlier but is feeling a bit foolish now. Patient states he lives alone but occasionally has folks check on her. Patient denies any dizziness or lightheadedness. Patient denies significant focal weakness but a little bit of generalized weakness. Plan she still continue to lose some weight. REVIEW OF SYSTEMS: A total of 10 review of systems was obtained and negative except as stated above in the HPI. PAST MEDICAL HISTORY: As noted above MEDICATIONS: Reviewed home medications SOCIAL HISTORY: Former smoker, lives at home by herself PHYSICAL EXAM: GENERAL: alert and oriented to person and place in no acute distress on stretcher quite thin appearing Head: normocephalic and atraumatic EYES: No injection, discharge or icterus. PERRL NECK: Trachea midline. Supple. ENT: Mucous membranes pink and moist. LUNGS: Airway patent. No retractions. Breath sounds clear with good air entry bilaterally. HEART: Regular rate and rhythm. No chest wall tenderness but very thin musculature of the thorax and chest ABDOMEN: Soft and non-tender, without guarding or rebound. SKIN: Acyanotic, warm, dry, without rashes EXTREMITIES: Without swelling, tenderness or deformity although quite thin and cachectic limbs. NEUROLOGICAL: No focal deficits. No aphasia. No facial droop or slurred speech. Speech is however somewhat slow Psych: Flattened affect, no response to external stimuli EK bpm sinus rhythm without PAC or PVC. No acute ST segment elevation is noted. Normal QTC. Compared to previous from July 11 of this year similar. CONTINUOUS CARDIAC MONITORING: was ordered and showed a heart rate of 89 bpm in normal sinus rhythm Patient's laboratory studies and imaging reviewed. Differential includes Infection, dehydration, metabolic abnormality, hypo/hyperglycemia, electrolyte disturbance, anemia, hypoxia, cardiac sources, intracerebral event, toxicologic, neurologic, as well as other pathologies. IMPRESSION/MEDICAL DECISION MAKING: Patient with some concerns for dehydration or electrolyte abnormality given recent admission. Repeat labs are sent here. Nonfocal exam. Patient is quite thin and frail appearing. Patient states she lives by self and wished to stay there. Patient denies significant confusion and although she is a little bit slow at times to talk appears to understand what is occurring at this time. Patient denies any difficulty breathing and does not appear to be in respiratory distress or hypoxic here. She is alert and oriented to her current location and recent events. EKG without significant changes. Chest x-ray and abdominal KUB without significant changes per radiology with a nonobstructive pattern. Patient does complain a little lower abdominal pain declined CT scan and has a history of interstitial cystitis. She believes is related to her symptoms. Blood work is otherwise reassuring and similar to recent baseline. Some mild hyponatremia 129's note actually improved from recent ER visit. No lactate elevation. No hypokalemia or hypomagnesemia noted. I doubt systemic infection. No evidence of thyroid dysfunction. No laboratory evidence of acute hepatitis or pancreatitis. Patient very quickly asked to leave after initial evaluation and states that she just wanted reassurance now wants to return home. Repeat blood work and imaging with x-rays was completed and mostly reassuring. Sodium is trending upwards and no severe abnormality otherwise noted. Did discuss with her further possible states here versus placement options if she does not feel uncomfortable at home and she lives alone. Patient does have some home services through [employer]. Patient's friend was present as well and made multiple overtures to the patient to consider possibly staying given her decreased intake and weight loss. Patient declined this multiple times when both I and the patient's friend made the suggestion of hospitalization. Patient states she wishes to go home. Patient again seems at this time to understand the discussion. I do not feel of involuntary grounds to hold her here at this time. Patient was discharged but recommended that she follow-up closely and recommend she return here at any time for concern. Patient's friend voiced some concern about ability go home prior to leaving and the patient now only shakes her head that she did not want to stay. She is sitting steady on the bed looking ahead. No response to external stimuli noted. Patient however no long is talking and cannot tell and risk or benefits. She did not want me to speak via phone with her daughter in [place] (shock her head no). Involve case management with the patient as well who also were not able to have a clear dialog with the patient. Patient staring in room no answer questions other shaking head that she does not want to stay. Asked the hospitalist to evaluate for admission as I am no longer convinced that she can communicate with me that she truly understands the risks and benefits and can truly refuse hospitalization at this point. DIAGNOSIS: Weakness, abdominal pain, confusion DISPOSITION: Being evaluated by the hospitalist team. Past Med/Surg History Medical History ADHD Bipolar disorder Chronic hyponatremia Hypothyroidism Interstitial cystitis Migraine Surgical History Hx of tonsillectomy Family History Daughter Lupus Social History Smoking Status: Former smoker Second Hand Exposure: No; Hx Alcohol Use: No Hx Substance Use: No Preferred Language: Cameroonian Communication Ability: Effective Scarifier Operator Required: No Current Living Situation: Alone Feels Safe at Home: Yes Assistive Devices: None Allergies Allergies Allergy/AdvReac Type Severity Reaction Status Date / Time milk Allergy Intermediate Abdominal Verified 07/11/20 20:33 Pain gluten Allergy Unknown ANAPHYLAXIS Verified 07/11/20 20:33 bee venom protein (honey bee) Allergy Anaphylaxis Verified 07/11/20 20:33 lactose AdvReac Unknown Gastrointestinal Verified 07/11/20 20:33 Upset grains Allergy Severe Anaphylaxis Uncoded 07/11/20 20:33 Home Meds Home Medications Medication Instructions Recorded Confirmed Botox 200 unit SUBCUT .Q3MO 12/22/19 07/14/20 Climara Pro 1 patch TRANSDERMAL WK 12/22/19 07/14/20 Restasis 1 drp OPB BID 12/22/19 07/14/20 sumatriptan succinate 25 mg PO Q2H PRN 12/22/19 07/14/20 levothyroxine [Levoxyl] 50 mcg PO 5XWK 06/14/20 07/14/20 hyoscyamine sulfate 0.125 mg PO Q4 PRN 07/14/20 07/14/20 quetiapine 25 mg PO HS 07/14/20 07/14/20 terbinafine HCl [Lamisil] 1 applic TOPICAL BID PRN 07/14/20 07/14/20 Previous Rx's Medication Instructions Recorded oxybutynin chloride 5 mg PO BID PRN #14 tab 06/17/20 potassium chloride [Klor-Con M20] 40 meq PO BID #60 tab 07/06/20 Results & Data (ED) Vital Signs Vital Signs - 24 hr 07/14/20 16:11 07/14/20 16:44 07/14/20 16:46 Temperature 36.5 C Temperature Source Oral Pulse Rate 90 Pulse Rate [Right] Pulse Rhythm [Right] Pulse Strength [Right] Respiratory Rate 16 Respiratory Effort / Characteristics Non-Labored Spontaneous Respiratory Depth Normal Respiratory Pattern Blood Pressure 120/77 Blood Pressure [Right Arm] Blood Pressure Mean 91 Blood Pressure Mean [Right Arm] Blood Pressure Position Sitting Blood Pressure Position [Right Arm] Pulse Oximetry 96 96 96 Oxygen Delivery Method Room Air Room Air Room Air Sepsis Recent Fever Within 48 Hours No Sepsis New/Unexplained Change in Mental Status N/A Sepsis Action Taken by Nursing No Action Required 07/14/20 18:01 07/14/20 20:45 Temperature Temperature Source Pulse Rate 87 Pulse Rate [Right] 81 Pulse Rhythm [Right] Regular Pulse Strength [Right] Normal Respiratory Rate 16 17 Respiratory Effort / Characteristics Non-Labored Spontaneous Respiratory Depth Normal Respiratory Pattern Regular Blood Pressure 115/72 Blood Pressure [Right Arm] 146/92 H Blood Pressure Mean Blood Pressure Mean [Right Arm] 110 Blood Pressure Position Blood Pressure Position [Right Arm] Sitting Pulse Oximetry 97 99 Oxygen Delivery Method Room Air Room Air Sepsis Recent Fever Within 48 Hours Sepsis New/Unexplained Change in Mental Status Sepsis Action Taken by Nursing Laboratory Data Result diagrams: 07/14/20 16:28 07/14/20 16:28 Lab Results 07/14/20 07/14/20 07/14/20 Range/Units 16:28 16: 16:28 WBC 4.72 L (4.8-10.8) K/uL RBC 4.00 L (4.2-5.4) M/uL Hgb 13.3 (12.0-16.0) g/dL Hct 37.1 (37-47) % MCV 92.8 (80-100) fL MCH 33.3 (25-34) pg MCHC 35.8 (32-36) g/dL RDW Std Deviation 45.2 (36.4-46.3) fL RDW Coeff of Jackeline 13.4 (11.5-14.5) % Plt Count 204 (130-400) K/uL MPV 9.1 (7.4-10.4) fL Immature Gran % (Auto) 0.0 % Neut % (Auto) 63.8 % Lymph % (Auto) 27.3 % [place] % (Auto) 8.5 % Eos % (Auto) 0.0 % Baso % (Auto) 0.4 % Neut # (Auto) 3.01 (1.4-6.5) K/uL Lymph # (Auto) 1.29 (1.2-3.4) K/uL [place] # (Auto) 0.40 (0.11-0.59) K/uL Eos # (Auto) 0.00 (0-0.5) K/uL Baso # (Auto) 0.02 (0-0.2) K/uL Immature Gran # (Auto) 0.00 (0.00-0.02) K/uL PT 11.6 (9.0-12.0) Seconds INR 1.2 H (0.9-1.1) D-Dimer (0-500) ug/L FEU Sodium 129 L (136-145) mmol/L Potassium 5.0 (3.5-5.1) mmol/L Chloride 97 L (98-107) mmol/L Carbon Dioxide 26 (21-32) mmol/L Anion Gap 6.0 (3-11) BUN 12 (7-18) mg/dl Creatinine 0.55 L (0.6-1.2) mg/dl Est Cr Clr Drug Dosing 51.0 ml/min Est GFR ( Amer) 105.6 Est GFR (Non-Af Amer) 91.1 BUN/Creatinine Ratio 21.5 H (10-20) Glucose 113 H (70-99) mg/dl Lactate (0.4-2.0) mmol/L Calcium 8.6 (8.5-10.1) mg/dl Phosphorus 2.7 (2.5-4.9) mg/dl Magnesium 2.3 (1.8-2.4) mg/dl Total Bilirubin 2.0 H (0.2-1) mg/dl AST 10 L (15-37) U/L ALT 18 (12-78) U/L Alkaline Phosphatase 38 L (45-117) U/L Troponin I < 0.015 (0-0.045) ng/ml Total Protein 5.6 L (6.4-8.2) gm/dl Albumin 3.4 (3.4-5.0) gm/dl Globulin 2.2 L (2.5-4.0) gm/dl Albumin/Globulin Ratio 1.6 (0.9-2) Lipase 171 (73-393) U/L TSH 2.580 (0.300-4.500) uIu/ml COVID-19 Eval Order SARS-CoV-2 (PCR) (Negative) Influenza Type A (PCR) (Neg) Influenza Type B (PCR) (Neg) RSV (RT-PCR) (Neg) 07/14/20 07/14/20 07/14/20 Range/Units 16:28 16:37 20:00 WBC (4.8-10.8) K/uL RBC (4.2-5.4) M/uL Hgb (12.0-16.0) g/dL Hct (37-47) % MCV (80-100) fL MCH (25-34) pg MCHC (32-36) g/dL RDW Std Deviation (36.4-46.3) fL RDW Coeff of Jackeline (11.5-14.5) % Plt Count (130-400) K/uL MPV (7.4-10.4) fL Immature Gran % (Auto) % Neut % (Auto) % Lymph % (Auto) % [place] % (Auto) % Eos % (Auto) % Baso % (Auto) % Neut # (Auto) (1.4-6.5) K/uL Lymph # (Auto) (1.2-3.4) K/uL [place] # (Auto) (0.11-0.59) K/uL Eos # (Auto) (0-0.5) K/uL Baso # (Auto) (0-0.2) K/uL Immature Gran # (Auto) (0.00-0.02) K/uL PT (9.0-12.0) Seconds INR (0.9-1.1) D-Dimer 490 (0-500) ug/L FEU Sodium (136-145) mmol/L Potassium (3.5-5.1) mmol/L Chloride (98-107) mmol/L Carbon Dioxide (21-32) mmol/L Anion Gap (3-11) BUN (7-18) mg/dl Creatinine (0.6-1.2) mg/dl Est Cr Clr Drug Dosing ml/min Est GFR ( Amer) Est GFR (Non-Af Amer) BUN/Creatinine Ratio (10-20) Glucose (70-99) mg/dl Lactate 0.8 (0.4-2.0) mmol/L Calcium (8.5-10.1) mg/dl Phosphorus (2.5-4.9) mg/dl Magnesium (1.8-2.4) mg/dl Total Bilirubin (0.2-1) mg/dl AST (15-37) U/L ALT (12-78) U/L Alkaline Phosphatase (45-117) U/L Troponin I (0-0.045) ng/ml Total Protein (6.4-8.2) gm/dl Albumin (3.4-5.0) gm/dl Globulin (2.5-4.0) gm/dl Albumin/Globulin Ratio (0.9-2) Lipase (73-393) U/L TSH (0.300-4.500) uIu/ml COVID-19 Eval Order CovFluRsv at [facility] SARS-CoV-2 (PCR) (Negative) Influenza Type A (PCR) (Neg) Influenza Type B (PCR) (Neg) RSV (RT-PCR) (Neg) 07/14/20 Range/Units 20:00 WBC (4.8-10.8) K/uL RBC (4.2-5.4) M/uL Hgb (12.0-16.0) g/dL Hct (37-47) % MCV (80-100) fL MCH (25-34) pg MCHC (32-36) g/dL RDW Std Deviation (36.4-46.3) fL RDW Coeff of Jackeline (11.5-14.5) % Plt Count (130-400) K/uL MPV (7.4-10.4) fL Immature Gran % (Auto) % Neut % (Auto) % Lymph % (Auto) % [place] % (Auto) % Eos % (Auto) % Baso % (Auto) % Neut # (Auto) (1.4-6.5) K/uL Lymph # (Auto) (1.2-3.4) K/uL [place] # (Auto) (0.11-0.59) K/uL Eos # (Auto) (0-0.5) K/uL Baso # (Auto) (0-0.2) K/uL Immature Gran # (Auto) (0.00-0.02) K/uL PT (9.0-12.0) Seconds INR (0.9-1.1) D-Dimer (0-500) ug/L FEU Sodium (136-145) mmol/L Potassium (3.5-5.1) mmol/L Chloride (98-107) mmol/L Carbon Dioxide (21-32) mmol/L Anion Gap (3-11) BUN (7-18) mg/dl Creatinine (0.6-1.2) mg/dl Est Cr Clr Drug Dosing ml/min Est GFR ( Amer) Est GFR (Non-Af Amer) BUN/Creatinine Ratio (10-20) Glucose (70-99) mg/dl Lactate (0.4-2.0) mmol/L Calcium (8.5-10.1) mg/dl Phosphorus (2.5-4.9) mg/dl Magnesium (1.8-2.4) mg/dl Total Bilirubin (0.2-1) mg/dl AST (15-37) U/L ALT (12-78) U/L Alkaline Phosphatase (45-117) U/L Troponin I (0-0.045) ng/ml Total Protein (6.4-8.2) gm/dl Albumin (3.4-5.0) gm/dl Globulin (2.5-4.0) gm/dl Albumin/Globulin Ratio (0.9-2) Lipase (73-393) U/L TSH (0.300-4.500) uIu/ml COVID-19 Eval Order SARS-CoV-2 (PCR) NEGATIVE (Negative) Influenza Type A (PCR) Negative (Neg) Influenza Type B (PCR) Negative (Neg) RSV (RT-PCR) Negative (Neg) Administered Medications Sodium Chloride (Nss) 500 mls @ 60 mls/hr IV .[id number] ONE Stop: 07/15/20 04:20 Last Admin: 07/14/20 20:45 Dose: 60 mls/hr Documented by: [id number] Discontinued Medications Sodium Chloride (Nss 1000ml) 1,000 mls @ 60 mls/hr IV .[id number] ONE Stop: 07/15/20 12:37 Last Admin: 07/14/20 20:50 Dose: Not Given Documented by: [id number] Discharge Plan Visit Data Chief Complaint: Confusion Stated Complaint: AMS, SOB ED Provider: Diogo Francis Discharge Problem: Weakness, Abdominal pain, Confusion Patient Disposition: Being Evaluated by Hospitalist Condition: Fair Discharge Instructions Interventions: ED Discharge Assessment Last Done: 07/14/20 18:01 Prescriptions Prescriptions: No Action sumatriptan succinate 25 mg tablet 25 mg PO Q2H PRN (Reason: Migraine Headache) RF: 0 Restasis 0.05 % dropperette 1 drp OPB BID RF: 0 Climara Pro 0.045-0.015 mg/24 hr patch weekly 1 patch transdermal WK RF: 0 Botox 200 unit recon soln 200 unit subcut .Q3MO RF: 0 levothyroxine [Levoxyl] 50 mcg tablet 50 mcg PO 5XWK RF: 0 oxybutynin chloride 5 mg tablet 5 mg PO BID PRN (Reason: bladder spasms) Qty: 14 RF: 0 potassium chloride [Klor-Con M20] 20 mEq Tablet,Er Particles/Crystals 40 meq PO BID Qty: 60 RF: 0 terbinafine HCl [Lamisil] 1 % Cream 1 applic TOPICAL BID PRN (Reason: ..) RF: 0 hyoscyamine sulfate 0.125 mg tablet 0.125 mg PO Q4 PRN (Reason: ABD CRAMPING) RF: 0 quetiapine 25 mg tablet 25 mg PO HS RF: 0 Referrals Referrals: Alec Vazquez, [Primary Care Provider] -
[2020-07-14] MEDS ORDERED: SODIUM CHLORIDE 0.9% 1000ML 1,000 ML IV ONE (19:58)
--- NOTE | 2020-07-14 20:00 | History & Physical Report ---
Date of Service July 14, 2020 Assessment & Plan (1) Unable to care for self: Functional disability Patient does not feel safe being by herself at home. Needs supervised setting to facilitate care and adequate oral intake given malnutrition. Chronic hyponatremia Mild clinical dehydration hx psychogenic polydipsia as per records Malnutrition /poor p.o. intake the last 6 months secondary to dental concerns and mood disorder Hypothyroidism, euthyroid as of today's TSH OBS GMF PT OT eval Social service RE discharge planning Careful correction of sodium Nutrition consult RE low BMI DVT prophylaxis. Heparin subcu DNR Patient requests for her daughter to updated of plan of care. Ms. Stephanie BradfordEveline, contact #[phone]. Text document was generated using Oral[employer] voice recognition software. It may contain grammatical or spelling errors. Kindly contact undersigned for clarification of any documentation item in question. History of Present Illness Chief Complaint: Dehydration Primary Care Provider: Alec Vazquez, DO History obtained from patient and records. Medical history significant for chronic hyponatremia, hypothyroidism, ADD/mood disorder, chronic interstitial cystitis as per records. Two confinements in the last month for recurrent hyponatremia, last confinement from June 29-2020. Hyponatremia attributed to possible psychogenic polydipsia and low solute intake as per documentation. Patient discharged with instructions to restrict daily fluid intake to less than 1200 mL. Seroquel also prescribed by psychiatry on discharge. Patient seen at the ER 3 days ago for dehydration. Serum sodium noted to be 128. Patient subsequently discharged home. Patient daughter contacted [facility] case management 3 days ago to relay concerns about mother's safety at home. Case management in touch with [facility]. Patient seemed lethargic and slow to answer some questions on home visitation by [facility] health emergency veterinary assistant 2 days ago. Erratic patient behavior described in outpatient documentation. Today, patient started to worry that she was getting dehydrated because she hasn't been eating well.. A little short of breath without chest pain. No unusual abdominal discomfort. Usual diarrhea as per patient. Patient brought to the ER by a friend for evaluation. As per patient, she feels unable to care for herself at home. 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 Allergies Allergy/AdvReac Type Severity Reaction Status Date / Time milk Allergy Intermediate Abdominal Verified 07/11/20 20:33 Pain gluten Allergy Unknown ANAPHYLAXIS Verified 07/11/20 20:33 bee venom protein (honey bee) Allergy Anaphylaxis Verified 07/11/20 20:33 lactose AdvReac Unknown Gastrointestinal Verified 07/11/20 20:33 Upset grains Allergy Severe Anaphylaxis Uncoded 07/11/20 20:33 Home Medications Medication Instructions Recorded Confirmed Type Botox 200 unit SUBCUT .Q3MO 12/22/19 07/14/20 History Climara Pro 1 patch TRANSDERMAL WK 12/22/19 07/14/20 History Restasis 1 drp OPB BID 12/22/19 07/14/20 History sumatriptan succinate 25 mg PO Q2H PRN 12/22/19 07/14/20 History levothyroxine [Levoxyl] 50 mcg PO 5XWK 06/14/20 07/14/20 History oxybutynin chloride 5 mg PO BID PRN #14 tab 06/17/20 07/14/20 Rx potassium chloride [Klor-Con M20] 40 meq PO BID #60 tab 07/06/20 07/14/20 Rx hyoscyamine sulfate 0.125 mg PO Q4 PRN 07/14/20 07/14/20 History quetiapine 25 mg PO HS 07/14/20 07/14/20 History terbinafine HCl [Lamisil] 1 applic TOPICAL BID PRN 07/14/20 07/14/20 History Past Med/Surg History Medical History ADHD Bipolar disorder Chronic hyponatremia Hypothyroidism Interstitial cystitis Migraine Surgical History Hx of tonsillectomy Family History Daughter Lupus Social History Smoking Status: Never smoker Second Hand Exposure: No; Hx Alcohol Use: No Hx Substance Use: No Preferred Language: Mexican Communication Ability: Effective Animal Care Worker Required: No Beliefs That Will Affect Care: None Current Living Situation: Alone Other Information That Helps Us Care for You: No Feels Safe at Home: Yes Assistive Devices: None Review of Systems 2 Review of Systems: As per HPI, all 10 systems reviewed, all other ROS negative Physical Exam Physical Exam: GENERAL: Comfortable, slightly anxious, underweight, no respiratory distress SKIN: Normal color, warm HEENT: [place] palpebral conjunctivae, no ptosis, dry buccal mucosa NECK : Supple, no tenderness CHEST : CTA, no tenderness HEART : RRR, no obvious murmurs ABDOMEN: No distention, nontender EXTREMITIES : No LE swelling/tenderness, no other conspicuous deformities noted NEUROLOGIC : Coherent, no facial asymmetry, no other gross focality Results & Data Results & Data ([facility]) Vital Signs (Past 12 Hours) Vital Signs Temp Pulse Resp BP Pulse Ox 07/14/20 18:01 87 16 115/72 97 07/14/20 16:46 96 07/14/20 16:44 96 07/14/20 16:11 36.5 C 90 16 120/77 96 Laboratory Results Laboratory Results WBC 4.72 K/uL (4.8-10.8) L 07/14/20 16:28 RBC 4.00 M/uL (4.2-5.4) L 07/14/20 16:28 Hgb 13.3 g/dL (12.0-16.0) 07/14/20 16:28 Hct 37.1 % (37-47) 07/14/20 16:28 MCV 92.8 fL (80-100) 07/14/20 16:28 MCH 33.3 pg (25-34) 07/14/20 16:28 MCHC 35.8 g/dL (32-36) 07/14/20 16:28 RDW Std Deviation 45.2 fL (36.4-46.3) 07/14/20 16:28 RDW Coeff of Jackeline 13.4 % (11.5-14.5) 07/14/20 16:28 Plt Count 204 K/uL (130-400) 07/14/20 16:28 MPV 9.1 fL (7.4-10.4) 07/14/20 16:28 Immature Gran % (Auto) 0.0 % 07/14/20 16:28 Neut % (Auto) 63.8 % 07/14/20 16:28 Lymph % (Auto) 27.3 % 07/14/20 16:28 [place] % (Auto) 8.5 % 07/14/20 16:28 Eos % (Auto) 0.0 % 07/14/20 16: Baso % (Auto) 0.4 % 07/14/20 16: Neut # (Auto) 3.01 K/uL (1.4-6.5) 07/14/20 16: Lymph # (Auto) 1.29 K/uL (1.2-3.4) 07/14/20 16: [place] # (Auto) 0.40 K/uL (0.11-0.59) 07/14/20 16: Eos # (Auto) 0.00 K/uL (0-0.5) 07/14/20 16: Baso # (Auto) 0.02 K/uL (0-0.2) 07/14/20 16: Immature Gran # (Auto) 0.00 K/uL (0.00-0.02) 07/14/20 16: PT 11.6 Seconds (9.0-12.0) 07/14/20 16: INR 1.2 (0.9-1.1) H 07/14/20 16: Sodium 129 mmol/L (136-145) L 07/14/20 16: Potassium 5.0 mmol/L (3.5-5.1) 07/14/20 16: Chloride 97 mmol/L (98-107) L 07/14/20 16: Carbon Dioxide 26 mmol/L (21-32) 07/14/20 16: Anion Gap 6.0 (3-11) 07/14/20 16: BUN 12 mg/dl (7-18) 07/14/20 16: Creatinine 0.55 mg/dl (0.6-1.2) L 07/14/20 16:28 Est Cr Clr Drug Dosing 51.0 ml/min 07/14/20 16:28 Est GFR ( Amer) 105.6 07/14/20 16: Est GFR (Non-Af Amer) 91.1 07/14/20 16:28 BUN/Creatinine Ratio 21.5 (10-20) H 07/14/20 16:28 Glucose 113 mg/dl (70-99) H 07/14/20 16:28 Lactate 0.8 mmol/L (0.4-2.0) 07/14/20 16:37 Calcium 8.6 mg/dl (8.5-10.1) 07/14/20 16:28 Phosphorus 2.7 mg/dl (2.5-4.9) 07/14/20 16:28 Magnesium 2.3 mg/dl (1.8-2.4) 07/14/20 16:28 Total Bilirubin 2.0 mg/dl (0.2-1) H 07/14/20 16:28 AST 10 U/L (15-37) L 07/14/20 16:28 ALT 18 U/L (12-78) 07/14/20 16:28 Alkaline Phosphatase 38 U/L (45-117) L 07/14/20 16:28 Troponin I < 0.015 ng/ml (0-0.045) 07/14/20 16:28 Total Protein 5.6 gm/dl (6.4-8.2) L 07/14/20 16:28 Albumin 3.4 gm/dl (3.4-5.0) 07/14/20 16:28 Globulin 2.2 gm/dl (2.5-4.0) L 07/14/20 16:28 Albumin/Globulin Ratio 1.6 (0.9-2) 07/14/20 16:28 Lipase 171 U/L (73-393) 07/14/20 16:28 TSH 2.580 uIu/ml (0.300-4.500) 07/14/20 16:28 Diagnostic Findings Chest x-ray/KUB xray : 1. No acute processes of the chest. 2. Nonobstructive bowel gas pattern. EKG as per my interpretation : Rate 85, NSR normal axis, short VA, T wave abnormalities inferior and septal leads, low voltage
[2020-07-14] MEDS ORDERED: SODIUM CHLORIDE 0.9% 500 ML IV ONE (20:01)
[2020-07-14 20:36] LABS: D Dimer 490 ug/L FEU (0-500)
[2020-07-14 20:52] LABS: Influenza A virus by PCR Negative (Neg); Influenza B virus by PCR Negative (Neg); RSV by PCR Negative (Neg); SARS CoV2 RNA(COVID-19) InHosp NEGATIVE (Negative)
[2020-07-14] MEDS ORDERED: OXYBUTYNIN CHLORIDE 5 MG TAB PO PRN (21:52)
[2020-07-14] MEDS ORDERED: ACETAMINOPHEN 325 MG TAB PO PRN (21:52)
[2020-07-14] MEDS ORDERED: PROMETHAZINE HCL 6.25 MG in SODIUM CHLORIDE 0.9% 50 ML IV PRN (21:52)
[2020-07-14] MEDS ORDERED: MELATONIN 3 MG TAB PO PRN (21:52)
[2020-07-14] MEDS: QUEtiapine FUMARATE 25 MG TABLET PO SCH (23:45)
[2020-07-14] MEDS: HEPARIN SOD 5,000 UNIT/0.5 ML VIAL SQ SCH (23:45)
[2020-07-15] MEDS: RESTASIS~ORDER AWAITING ACTION SCH ×3 (01:14→16:55)
[2020-07-15 02:45] LABS: Appearance Urine Clear (Clear); Bilirubin Urine Negative (Negative); Blood Urine Negative (Negative); Color Urine Yellow; Glucose Urine UA Negative (Negative); Ketones Urine Trace (Negative); Leukocyte Esterase Urine Negative (Negative); Nitrite Urine Negative (Negative); Protein Urine Negative (Negative); Specific Gravity Urine 1.015 (1.000-1.030); Urobilinogen Urine Negative (Negative)
[2020-07-15] MEDS: HEPARIN SOD 5,000 UNIT/0.5 ML VIAL SQ SCH ×3 (05:17→20:48)
[2020-07-15] MEDS: LEVOTHYROXINE SODIUM 50 MCG TABLET PO SCH (06:00)
[2020-07-15 06:53] LABS: Basophils # (auto) 0.01 K/uL (0-0.2); Basophils % (auto) 0.3 %; Eosinophils # (auto) 0.01 K/uL (0-0.5); Eosinophils % (auto) 0.3 %; Hematocrit (blood only) 35.2 % (37-47); Hemoglobin 12.7 g/dL (12.0-16.0); Immature Granulocytes # (auto) 0.01 K/uL (0.00-0.02); Immature Granulocytes % (auto) 0.3 %; Lymphocytes # (auto) 1.16 K/uL (1.2-3.4); Lymphocytes % (auto) 30.5 %; Mean Corpuscular Hemoglobin 33.6 pg (25-34); Mean Corpuscular Hgb Conc 36.1 g/dL (32-36); Mean Corpuscular Volume 93.1 fL (80-100); Mean Platelet Volume 9.6 fL (7.4-10.4); Monocytes # (auto) 0.27 K/uL (0.11-0.59); Monocytes % (auto) 7.1 %; Neutrophils # (auto) 2.34 K/uL (1.4-6.5); Neutrophils % (auto) 61.5 %; Platelet Count 178 K/uL (130-400); RDW Coefficient of Variation 13.3 % (11.5-14.5); RDW Standard Deviation 45.6 fL (36.4-46.3); Red Blood Count 3.78 M/uL (4.2-5.4)
[2020-07-15 07:21] LABS: BUN Creatinine Ratio 20.6 (10-20); Calcium 8.7 mg/dl (8.5-10.1); Creatinine Clr Calc Pharmacy 59.6 ml/min; Est GFR (African American) 111.2; Est GFR (Non-African American) 95.9; Potassium 3.9 mmol/L (3.5-5.1)
--- NOTE | 2020-07-15 12:20 | Electrocardiogram Report ---
Test Reason : Blood Pressure : / mmHG Vent. Rate : 085 BPM Atrial Rate : 085 BPM P-R Int : 104 ms QRS Dur : 066 ms QT Int : 344 ms P-R-T Axes : 078 046 034 degrees QTc Int : 409 ms Sinus rhythm with short UT Low voltage QRS Poor R wave progression, consider anterior IL vs. lead placement vs. LVH Abnormal ECG When compared with ECG of 11-JUL-2020 20:52, Questionable change in initial forces of Septal leads Confirmed by Adis Cowart ([id number]) on 07/15/2020 12:20:26 PM Referred By: REFERRED SELF Confirmed By:Adis Cowart
--- NOTE | 2020-07-15 15:27 | Communication Note ---
Date of Service: July 15, 2020 Patient was seen and examined today. Continue with plan of care. Work with PT/OT. Plan for placement.
[2020-07-15] MEDS: QUEtiapine FUMARATE 25 MG TABLET PO SCH (20:48)
[2020-07-16] MEDS: RESTASIS~ORDER AWAITING ACTION SCH ×3 (00:04→17:03)
[2020-07-16] MEDS: HEPARIN SOD 5,000 UNIT/0.5 ML VIAL SQ SCH ×2 (05:41→14:43)
[2020-07-16] MEDS: LEVOTHYROXINE SODIUM 50 MCG TABLET PO SCH (06:27)
[2020-07-16 08:27] LABS: Basophils # (auto) 0.01 K/uL (0-0.2); Basophils % (auto) 0.3 %; Hematocrit (blood only) 35.1 % (37-47); Hemoglobin 12.7 g/dL (12.0-16.0); Lymphocytes # (auto) 1.14 K/uL (1.2-3.4); Lymphocytes % (auto) 32.7 %; Mean Corpuscular Hemoglobin 33.3 pg (25-34); Mean Corpuscular Hgb Conc 36.2 g/dL (32-36); Mean Corpuscular Volume 92.1 fL (80-100); Mean Platelet Volume 8.9 fL (7.4-10.4); Monocytes # (auto) 0.21 K/uL (0.11-0.59); Neutrophils # (auto) 2.13 K/uL (1.4-6.5); Platelet Count 176 K/uL (130-400); RDW Coefficient of Variation 13.4 % (11.5-14.5); RDW Standard Deviation 44.8 fL (36.4-46.3); Red Blood Count 3.81 M/uL (4.2-5.4); White Blood Count 3.49 K/uL (4.8-10.8)
[2020-07-16] MEDS ORDERED: bisacodyL 10 MG SUPP PR STA (08:31)
[2020-07-16 09:03] LABS: Albumin Level 3.2 gm/dl (3.4-5.0); BUN Creatinine Ratio 24.8 (10-20); Calcium 8.9 mg/dl (8.5-10.1); Creatinine Clr Calc Pharmacy 59.6 ml/min; Est GFR (African American) 111.2; Est GFR (Non-African American) 95.9; Potassium 3.2 mmol/L (3.5-5.1)
[2020-07-16 09:14] LABS: Albumin Globulin Ratio 1.7 (0.9-2); Bilirubin,Total 2.2 mg/dl (0.2-1); Globulin 1.8 gm/dl (2.5-4.0)
--- NOTE | 2020-07-16 11:22 | XRay Report ---
KUB HISTORY: Acute generalized abdominal pain with constipation stool burden? COMPARISON: KUB 07/14/2020 FINDINGS: Nonobstructive bowel gas pattern. Mild gaseous distention of the colon with mild to moderat e fecal retention. No renal calculi. No ureteral calculi. No pneumoperitoneum or pneumatosis. No fra cture. IMPRESSION: 1. Nonobstructive bowel gas pattern. 2. Mild gaseous distention of the colon with mild to moderate fecal retention. ACT 112: Negative or not required by law. The above report was generated using voice recognition software. It may contain grammatical, syntax o r spelling errors. Electronically signed by: Johnnie Jeter M.D. 07/16/2020 11:20 AM
[2020-07-16] MEDS ORDERED: POTASSIUM CHLORIDE CRTAB 20 MEQ TABCR PO STA (14:21)
--- NOTE | 2020-07-22 11:13 | Discharge Summary ---
Date of Service July 22, 2020 Admission HPI Per Admitting Provider History obtained from patient and records. Medical history significant for chronic hyponatremia, hypothyroidism, ADD/mood disorder, chronic interstitial cystitis as per records. Two confinements in the last month for recurrent hyponatremia, last confinement from June 29-2020. Hyponatremia attributed to possible psychogenic polydipsia and low solute intake as per documentation. Patient discharged with instructions to restrict daily fluid intake to less than 1200 mL. Seroquel also prescribed by psychiatry on discharge. Patient seen at the ER 3 days ago for dehydration. Serum sodium noted to be 128. Patient subsequently discharged home. Patient daughter contacted [facility] case management 3 days ago to relay concerns about mother's safety at home. Case management in touch with [facility]. Patient seemed lethargic and slow to answer some questions on home visitation by [facility] health personal care assistant 2 days ago. Erratic patient behavior described in outpatient documentation. 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 Admission Exam Per Admitting Provider GENERAL: Comfortable, slightly anxious, underweight, no respiratory distress SKIN: Normal color, warm HEENT: [place] palpebral conjunctivae, no ptosis, dry buccal mucosa NECK : Supple, no tenderness CHEST : CTA, no tenderness HEART : RRR, no obvious murmurs ABDOMEN: No distention, nontender EXTREMITIES : No LE swelling/tenderness, no other conspicuous deformities noted NEUROLOGIC : Coherent, no facial asymmetry, no other gross focality Principal Diagnosis Placement Hyponatremia Discharge Exam General:awake and alert HENT: NCAT, MMM, EOMI Eyes: PERRLA Neck: Supple, normal range of motion CVS: normal rate and rhythm Resp: b/l good breath sounds Abdomen: Soft, ND/NT, +BS Extremities: No c/c/e Neuro: face symmetric, strength grossly equal, no focal deficit Skin: warm and dry, no rashes/lesions/errythema MSK: normal ROM, no joint swelling/erythema Discharge Data Allergies Allergy/AdvReac Type Severity Reaction Status Date / Time milk Allergy Intermediate Abdominal Verified 07/23/20 14:31 Pain gluten Allergy Unknown ANAPHYLAXIS Verified 07/23/20 14:31 bee venom protein (honey bee) Allergy Anaphylaxis Verified 04/06/21 14:31 lactose AdvReac Unknown Gastrointestinal Verified 07/23/20 14:31 Upset grains Allergy Severe Anaphylaxis Uncoded 07/23/20 14:31 Consultations 07/14/20 19:09 ED Decision to Admit Stat Hospital Course (1) Unable to care for self: Functional disability Patient does not feel safe being by herself at home. Needs supervised setting to facilitate care and adequate oral intake given malnutrition. Chronic hyponatremia Mild clinical dehydration hx psychogenic polydipsia as per records Malnutrition /poor p.o. intake the last 6 months secondary to dental concerns and mood disorder Hypothyroidism, euthyroid as of today's TSH On the day of discharge patient was evaluated. She was awake, alert and oriented x3. Patient worked with PT/OT. She wants to go home and does not want to go to a facility. Her sodium was corrected to 131 in the day of discharge and had good appetite. She had constipation but did have bowel movement prior to discharge. Hemodynamically patient was doing fine. On the day of discharge there were no other complaints. Discharged in stable condition. Total Time Total Time Spent Total Time Spent (In Minutes): 35 Discharge Plan Discharge Items Patient Disposition: Home - Self-Care Reason For Visit: WEAKNESS Discharge Diagnosis: hyponatremia Condition on Discharge: Fair Activity: Resume your previous activity Non-emergency contact: Primary Care Provider Call non-emergency contact if: your symptoms worsen Follow-up/Referrals: Alec Vazquez DO [Primary Care Provider] - Diet: Regular Addtl Attending Provider Instructions: Follow-up with your primary care physician within 1 week. Obtain basic metabolic panel to have sodium levels checked. Pending Studies at Discharge: No Stand-Alone Forms: My [facility] [employer], Smoking Cessation Medications and DC Order Prescriptions: Continued Climara Pro 0.045-0.015 mg/24 hr patch weekly 1 patch transdermal WK RF: 0 Botox 200 unit recon soln 200 unit subcut .Q3MO RF: 0 levothyroxine [Levoxyl] 50 mcg tablet 50 mcg PO 5XWK RF: 0 potassium chloride [Klor-Con M20] 20 mEq Tablet,Er Particles/Crystals 40 meq PO BID Qty: 60 RF: 0 hyoscyamine sulfate 0.125 mg tablet 0.125 mg PO Q4 PRN (Reason: ABD CRAMPING) RF: 0 quetiapine 25 mg tablet 25 mg PO HS RF: 0 Discharge Orders: Discharge Order (Routine); Ordered 07/16/20 Ordered By: To West/Other Patient Handouts: Hyponatremia Dc Admission Data Admit Date/Time: 07/14/20 20:57 Attending Provider: To Ferrera Admit Provider: Morgan Power Primary Care Provider: Alec Vazquez Other Interventions: Discharge Summary Assessment (RN) Last Done: 07/16/20 15:11
== END 2020-07-16 17:42 | disposition home or self-care (01) ==
LOC: 3N 16:03 → ED 16:03 → 3N 18:01

== ENCOUNTER 2020-08-02 17:18 | Inpatient (IN) ==
[2020-08-02 18:19] LABS: Alanine Aminotransferase 15 U/L (12-78); Albumin Level 3.1 gm/dl (3.4-5.0); Aspartate Aminotransferase 12 U/L (15-37); BUN Creatinine Ratio 39.9 (10-20); Blood Urea Nitrogen 25 mg/dl (7-18); Calcium 9.1 mg/dl (8.5-10.1); Carbon Dioxide 30 mmol/L (21-32); Chloride 94 mmol/L (98-107); Est GFR (African American) 100.8; Glucose 80 mg/dl (70-99); Magnesium 2.4 mg/dl (1.8-2.4); Potassium 3.4 mmol/L (3.5-5.1); Sodium 136 mmol/L (136-145)
--- NOTE | 2020-08-02 18:26 | XRay Report ---
SINGLE VIEW CHEST CLINICAL HISTORY: Change in mental status. FINDINGS: An AP, portable, upright chest radiograph is compared to study dated 07/14/2020. The examina tion is degraded by portable technique and apical lordotic positioning. The cardiomediastinal silhoue tte is unremarkable. Chronic interstitial thickening is similar to previous. No airspace consolidatio n or large pleural effusion is identified. No pneumothorax is seen. The skeletal structures are osteo penic. The bony thorax is grossly intact. Degenerative change is noted throughout the thoracic spine. IMPRESSION: No active disease in the chest. ACT 112: Negative or not required by law. Electronically signed by: Matt Vilchis M.D. 08/02/2020 6:24 PM
[2020-08-02 18:30] LABS: Albumin Globulin Ratio 1.1 (0.9-2); Alkaline Phosphatase 41 U/L (45-117); Bilirubin,Total 2.7 mg/dl (0.2-1); Globulin 2.7 gm/dl (2.5-4.0); Total Protein 5.8 gm/dl (6.4-8.2); Troponin I < 0.015 ng/ml (0-0.045)
[2020-08-02 18:54] LABS: Partial Thromboplastin Ratio 0.9; Partial Thromboplastin Time 23.8 Seconds (21.0-31.0); Prothrombin Time 10.5 Seconds (9.0-12.0)
[2020-08-02 18:57] LABS: Basophils # (auto) 0.01 K/uL (0-0.2); Basophils % (auto) 0.2 %; Hematocrit (blood only) 41.5 % (37-47); Hemoglobin 15.3 g/dL (12.0-16.0); Immature Granulocytes # (auto) 0.02 K/uL (0.00-0.02); Immature Granulocytes % (auto) 0.4 %; Lymphocytes # (auto) 1.29 K/uL (1.2-3.4); Mean Corpuscular Hemoglobin 34.4 pg (25-34); Mean Corpuscular Hgb Conc 36.9 g/dL (32-36); Mean Corpuscular Volume 93.3 fL (80-100); Mean Platelet Volume 9.6 fL (7.4-10.4); Monocytes # (auto) 0.24 K/uL (0.11-0.59); Monocytes % (auto) 4.7 %; Neutrophils % (auto) 69.7 %; Platelet Count 257 K/uL (130-400); RDW Coefficient of Variation 13.6 % (11.5-14.5); RDW Standard Deviation 46.8 fL (36.4-46.3); Red Blood Count 4.45 M/uL (4.2-5.4); White Blood Count 5.16 K/uL (4.8-10.8)
[2020-08-02 20:01] LABS: Appearance Urine Clear (Clear); Bacteria Urine Automated Negative (Negative); Bilirubin Urine Negative (Negative); Blood Urine Negative (Negative); Color Urine Dark Yellow; Epithelial Cell Urine Auto 20-30 /lpf (0-5); Glucose Urine UA Negative (Negative); Ketones Urine 1+ (Negative); Leukocyte Esterase Urine Negative (Negative); Nitrite Urine Negative (Negative); Protein Urine Trace (Negative); RBC Urine Automated 0-4 /hpf (0-4); Specific Gravity Urine 1.024 (1.000-1.030); Urobilinogen Urine Negative (Negative); pH Urine 5.5 (4.5-7.5)
[2020-08-02 20:16] LABS: Amphetamines+Metham, Urine Neg (Neg); Barbiturates, Urine Neg (Neg); Benzodiazepine, Urine Neg (Neg); Cocaine, Urine Neg (Neg); MDMA (Ecstacy), Urine Neg (Neg); Methadone, Urine Neg (Neg); Opiate, Urine Neg (Neg); Phencyclidine, Urine Neg (Neg)
--- NOTE | 2020-08-02 20:25 | CT Scan Report ---
CT SCAN OF THE BRAIN WITHOUT IV CONTRAST CLINICAL HISTORY: Change in mental status. COMPARISON STUDY: CT of the brain dated 06/29/2020. TECHNIQUE: Unenhanced axial CT scan of the brain is performed from the vertex to the skull base. A do se lowering technique was utilized adhering to the principles of ALARA. CT DOSE: 537.48 mGy.cm FINDINGS: Brain parenchyma: There are age-related involutional changes noting mild subcortical and periventric ular microangiopathic change. There is no hemorrhage, mass effect, or evidence of acute territorial i schemia by CT criteria. Gonzalez-white matter differentiation is preserved. No extra-axial fluid collecti on is seen. Ventricles, sulci, cisterns: Prominent secondary to involutional change. Intracranial vasculature: There is atherosclerotic calcification of the cavernous carotid arteries. Calvarium: Unremarkable. Sinuses and mastoids: The visualized paranasal sinuses are clear. The mastoid air cells are well pneu matized. Orbits: The bony orbits are grossly intact. There are bilateral ocular lens implants. IMPRESSION: There is no hemorrhage, mass effect, or evidence of acute territorial ischemia by CT crit ernoris. ACT 112: Negative or not required by law. Electronically signed by: Matt Vilchis M.D. 08/02/2020 8:24 PM
[2020-08-02 20:55] LABS: Influenza A virus by PCR Negative (Neg); Influenza B virus by PCR Negative (Neg); RSV by PCR Negative (Neg); SARS CoV2 RNA(COVID-19) InHosp NEGATIVE (Negative)
[2020-08-02] MEDS ORDERED: SODIUM CHLORIDE 0.9% 1000ML 1,000 ML IV SCH (22:15)
[2020-08-03] MEDS ORDERED: LORazepam 0.5 MG/1 ML VIAL IV STA (00:24)
--- NOTE | 2020-08-03 02:31 | Emergency Department Note ---
History of Present Illness General Chief complaint: Altered Mental Status Stated complaint: AMS, HYPOGLYCEMIA Source: friends (Neighbor at the bedside) Mode of arrival: EMS Limitations: altered mental status History of Present Illness Provider complaint: Altered mental status, weight loss, stays in bed This patient is a 75-year-old female who presents emergency department by ambulance with a neighbor. Neighbor states she received a phone call from the patient's daughter who resides in [place]. Apparently the patient has had a significant decline over the last several weeks to months. She has been "in and out" of our facility, usually declining additional care. Family is suspicious that the patient has not been out of bed in days. They do not believe she has been eating or drinking fluids. Currently the patient is not responding to verbal stimuli. They do not believe she has been taking any medications. She has done this in the past and has a diagnosis of bipolar disorder. Patient has apparently been referencing the fact that she will not be "around for very long." Home Medications Medication Instructions Recorded Confirmed Type Botox 200 unit SUBCUT .Q3MO 12/22/19 08/02/20 History Climara Pro 1 patch TRANSDERMAL WK 12/22/19 08/02/20 History levothyroxine [Levoxyl] 50 mcg PO [id number] 06/14/20 08/02/20 History potassium chloride [Klor-Con M20] 40 meq PO BID #60 tab 07/06/20 08/02/20 Rx hyoscyamine sulfate 0.125 mg PO Q4 PRN 07/14/20 08/02/20 History quetiapine 25 mg PO HS 07/14/20 08/02/20 History cyclosporine [Restasis] 1 drp OPHTHALMIC (EYE) Q12H 08/02/20 08/02/20 History melatonin 3 mg PO HS 08/02/20 08/02/20 History sumatriptan succinate 25 mg PO UD PRN 08/02/20 08/02/20 History Allergies Allergy/AdvReac Type Severity Reaction Status Date / Time milk Allergy Intermediate Abdominal Verified 08/02/20 20:49 Pain gluten Allergy Unknown ANAPHYLAXIS Verified 08/02/20 20:49 bee venom protein (honey bee) Allergy Anaphylaxis Verified 08/02/20 20:49 lactose AdvReac Unknown Gastrointestinal Verified 08/02/20 20:49 Upset grains Allergy Severe Anaphylaxis Uncoded 08/02/20 20:49 Past Med/Surg History Medical History ADHD Bipolar disorder Chronic hyponatremia Hypothyroidism Interstitial cystitis Migraine Surgical History Hx of tonsillectomy Family History Daughter Lupus Social History Smoking Status: Unknown if ever smoked Second Hand Exposure: No; Hx Alcohol Use: No Hx Substance Use: No Preferred Language: Bengali Communication Ability: Effective Hydrotherapist Required: No Beliefs That Will Affect Care: None marital status: Unknown Current Living Situation: Alone Feels Safe at Home: Yes Assistive Devices: None Review of Systems Unobtainable due to reduced consciousness (Altered versus catatonia) Physical Exam Vital Signs Vital Signs - 24 hr 08/02/20 17:32 08/02/20 17:33 08/02/20 18:00 Pulse Rate 74 74 71 Pulse Rate from SpO2 Sensor 74 71 Pulse Rhythm Regular Pulse Strength Normal Respiratory Rate 18 16 16 Respiratory Effort / Characteristics Non-Labored Spontaneous Respiratory Depth Normal Respiratory Pattern Regular Blood Pressure 127/86 127/86 132/91 Blood Pressure Mean 99 99 104 Blood Pressure Position Sitting Pulse Oximetry 98 99 99 Oxygen Delivery Method Room Air Room Air Room Air Sepsis Recent Fever Within 48 Hours No Sepsis New/Unexplained Change in Mental Status No Sepsis Action Taken by Nursing No Action Required 08/02/20 18:24 08/02/20 18:30 08/02/20 19:00 Pulse Rate 75 73 Pulse Rate from SpO2 Sensor 75 73 Pulse Rhythm Pulse Strength Respiratory Rate 16 16 Respiratory Effort / Characteristics Respiratory Depth Respiratory Pattern Blood Pressure 124/90 123/84 Blood Pressure Mean 101 97 Blood Pressure Position Pulse Oximetry 99 99 Oxygen Delivery Method Room Air Room Air Room Air Sepsis Recent Fever Within 48 Hours Sepsis New/Unexplained Change in Mental Status Sepsis Action Taken by Nursing 08/02/20 19:03 08/02/20 19:30 08/02/20 20:00 Pulse Rate 71 75 Pulse Rate from SpO2 Sensor 71 75 Pulse Rhythm Pulse Strength Respiratory Rate 16 17 Respiratory Effort / Characteristics Respiratory Depth Respiratory Pattern Blood Pressure 128/83 122/78 Blood Pressure Mean 98 92 Blood Pressure Position Pulse Oximetry 98 96 98 Oxygen Delivery Method Room Air Room Air Room Air Sepsis Recent Fever Within 48 Hours Sepsis New/Unexplained Change in Mental Status Sepsis Action Taken by Nursing 08/02/20 20:30 08/02/20 21:35 08/02/20 22:00 Pulse Rate 75 71 79 Pulse Rate from SpO2 Sensor 70 79 Pulse Rhythm Pulse Strength Respiratory Rate 16 16 20 Respiratory Effort / Characteristics Respiratory Depth Respiratory Pattern Blood Pressure 114/74 121/76 129/81 Blood Pressure Mean 87 91 97 Blood Pressure Position Pulse Oximetry 98 99 Oxygen Delivery Method Room Air Room Air Sepsis Recent Fever Within 48 Hours Sepsis New/Unexplained Change in Mental Status Sepsis Action Taken by Nursing 08/02/20 22:30 08/02/20 23:00 08/02/20 23:30 Pulse Rate 73 68 71 Pulse Rate from SpO2 Sensor 73 68 71 Pulse Rhythm Pulse Strength Respiratory Rate 17 14 15 Respiratory Effort / Characteristics Respiratory Depth Respiratory Pattern Blood Pressure 127/81 118/73 117/77 Blood Pressure Mean 96 88 90 Blood Pressure Position Pulse Oximetry 98 98 97 Oxygen Delivery Method Room Air Room Air Sepsis Recent Fever Within 48 Hours Sepsis New/Unexplained Change in Mental Status Sepsis Action Taken by Nursing 08/03/20 00:00 Pulse Rate 68 Pulse Rate from SpO2 Sensor 68 Pulse Rhythm Pulse Strength Respiratory Rate 15 Respiratory Effort / Characteristics Respiratory Depth Respiratory Pattern Blood Pressure 125/79 Blood Pressure Mean 94 Blood Pressure Position Pulse Oximetry 97 Oxygen Delivery Method Sepsis Recent Fever Within 48 Hours Sepsis New/Unexplained Change in Mental Status Sepsis Action Taken by Nursing Vital signs reviewed. General: Chronically ill-appearing 75 yo female, in no significant distress. Thin and cachectic appearing HEENT: No scleral icterus, PERRLA, neck supple. Atraumatic. Cardiovascular: Regular rate and rhythm, no extra sounds. Pulmonary: Clear to auscultation bilaterally, normal work of breathing. Abdomen: Soft, nontender, nondistended, positive bowel sounds. Musculoskeletal: Atraumatic, no peripheral edema. Neurologic: Patient is unresponsive to painful and verbal stimuli. Manual eye opening pt leaves lids open. Does not follow commands Skin: Warm, dry, no rash Course Administered Medications Discontinued Medications Sodium Chloride (Nss 1000ml) 1,000 mls @ 125 mls/hr IV .Q8H ALEJANDRO Stop: 09/01/20 22:14 Last Admin: 08/02/20 23:32 Dose: 125 mls/hr Documented by: [id number] Medical Decision Making Differential Diagnosis Infection, dehydration, metabolic abnormality, hypo/hyperglycemia, electrolyte disturbance, anemia, hypoxia, cardiac sources, intracerebral event, toxicologic, neurologic, as well as other pathologies. Medical Records Attestation: I reviewed the patient's medical records. Home Medications Current Medication List: was personally reviewed by me Laboratory Data Attestation: I reviewed the patient's lab results. Result diagrams: 08/02/20 18:20 08/02/20 17:50 Lab Results 08/02/20 08/02/20 08/02/20 Range/Units 17:50 17:50 17:50 WBC Cancelled RBC Cancelled Hgb Cancelled Hct Cancelled MCV Cancelled MCH Cancelled MCHC Cancelled RDW Std Deviation Cancelled RDW Coeff of Jackeline Cancelled Plt Count Cancelled MPV Cancelled Immature Gran % (Auto) Cancelled Neut % (Auto) Cancelled Lymph % (Auto) Cancelled [place] % (Auto) Cancelled Eos % (Auto) Cancelled Baso % (Auto) Cancelled Neut # (Auto) Cancelled Lymph # (Auto) Cancelled [place] # (Auto) Cancelled Eos # (Auto) Cancelled Baso # (Auto) Cancelled Immature Gran # (Auto) Cancelled Absolute Nucleated RBC Cancelled Nucleated RBC % (auto) Cancelled Neutrophils % (Manual) Cancelled Band Neutrophils % Cancelled Lymphocytes % (Manual) Cancelled Prolymphocyte % Cancelled Reactive Lymphs % (Man) Cancelled Monocytes % (Manual) Cancelled Eosinophils % (Manual) Cancelled Basophils % (Manual) Cancelled Metamyelocytes % (Man) Cancelled Myelocytes % (Man) Cancelled Promyelocytes % (Man) Cancelled Blast Cells % (Manual) Cancelled Plasma Cell % (Manual) Cancelled Other Cells % Cancelled Nucleated RBC % Cancelled Neutrophils # (Manual) Cancelled Band Neutrophils # Cancelled Total Absolute Neuts Cancelled Lymphocytes # (Manual) Cancelled Prolymphocyte # Cancelled Reactive Lymphs # Cancelled Total Abs Lymphocytes Cancelled Monocytes # (Manual) Cancelled Eosinophils # (Manual) Cancelled Basophils # (Manual) Cancelled Metamyelocytes # (Man) Cancelled Myelocytes # (Manual) Cancelled Promyelocytes # (Man) Cancelled Blast Cells # (Man) Cancelled Plasma Cell # (Manual) Cancelled Other Cells # Cancelled Nucleated RBCs # (Man) Cancelled Hypersegmented Neuts Cancelled Hyposegmented Neuts Cancelled Hypogranular Neuts Cancelled Large Granular Lymphs Cancelled # Lrg Granular Lymphs Cancelled Hairy Cells Cancelled Smudge Cells Cancelled Toxic Granulation Cancelled Toxic Vacuolation Cancelled Dohle Bodies Cancelled Jj Rods Cancelled Platelet Estimate Cancelled Hypogranular Platelets Cancelled Clumped Platelets Cancelled Giant Platelets Cancelled Platelet Satelliting Cancelled RBC Morphology Cancelled Polychromasia Cancelled Hypochromasia Cancelled Poikilocytosis Cancelled Basophilic Stippling Cancelled Anisocytosis Cancelled Microcytosis Cancelled Macrocytosis Cancelled Spherocytes Cancelled Pappenheimer Bodies Cancelled Sickle Cells Cancelled Target Cells Cancelled Tear Drop Cells Cancelled Ovalocytes Cancelled Stomatocytes Cancelled [place] Bodies Cancelled Echinocytes Cancelled Acanthocytes (Spur) Cancelled Rouleaux Cancelled RBC Agglutinates Cancelled Schistocytes Cancelled RBC Morph Comment Cancelled Sezary Cell Cancelled PT (9.0-12.0) Seconds INR (0.9-1.1) APTT (21.0-31.0) Seconds PTT Ratio Sodium 136 (136-145) mmol/L Potassium 3.4 L (3.5-5.1) mmol/L Chloride 94 L (98-107) mmol/L Carbon Dioxide 30 (21-32) mmol/L Anion Gap 12.0 H (3-11) BUN 25 H (7-18) mg/dl Creatinine 0.62 (0.6-1.2) mg/dl Est Cr Clr Drug Dosing Not Reportable Est GFR ( Amer) 100.8 Est GFR (Non-Af Amer) 87.0 BUN/Creatinine Ratio 39.9 H (10-20) Glucose 80 (70-99) mg/dl POC Glucose (70-99) mg/dl Calcium 9.1 (8.5-10.1) mg/dl Phosphorus 3.3 (2.5-4.9) mg/dl Magnesium 2.4 (1.8-2.4) mg/dl Total Bilirubin 2.7 H (0.2-1) mg/dl AST 12 L (15-37) U/L ALT 15 (12-78) U/L Alkaline Phosphatase 41 L (45-117) U/L Troponin I < 0.015 (0-0.045) ng/ml Total Protein 5.8 L (6.4-8.2) gm/dl Albumin 3.1 L (3.4-5.0) gm/dl Globulin 2.7 (2.5-4.0) gm/dl Albumin/Globulin Ratio 1.1 (0.9-2) TSH 2.470 (0.300-4.500) uIu/ml Urine Color Urine Appearance (Clear) Urine pH (4.5-7.5) Ur Specific [place] (1.000-1.030) Urine Protein (Negative) Urine Glucose (UA) (Negative) Urine Ketones (Negative) Urine Blood (Negative) Urine Nitrite (Negative) Urine Bilirubin (Negative) Urine Urobilinogen (Negative) Ur Leukocyte Esterase (Negative) Urine WBC (Auto) (0-5) /hpf Urine RBC (Auto) (0-4) /hpf U Hyaline Cast (Auto) (0-5) /lpf U Epithel Cells (Auto) (0-5) /lpf Urine Bacteria (Auto) (Negative) Urine Opiates Screen (Neg) Ur Methadone, Qual (Neg) Urine Barbiturates (Neg) Ur Phencyclidine (PCP) (Neg) U Amphetamin/Meth Scrn (Neg) MDMA (Ecstasy) Screen (Neg) U Benzodiazepines Scrn (Neg) Ur Cocaine Metabolite (Neg) U Marijuana (THC) Screen (Neg) Ethyl Alcohol mg/dL (0-3) mg/dl COVID-19 Eval Order SARS-CoV-2 (PCR) (Negative) Influenza Type A (PCR) (Neg) Influenza Type B (PCR) (Neg) RSV (RT-PCR) (Neg) 08/02/20 08/02/20 08/02/20 Range/Units 17:53 18:20 18:20 WBC 5.16 RBC 4.45 Hgb 15.3 Hct 41.5 MCV 93.3 MCH 34.4 H MCHC 36.9 H RDW Std Deviation 46.8 H RDW Coeff of Jackeline 13.6 Plt Count 257 MPV 9.6 Immature Gran % (Auto) 0.4 Neut % (Auto) 69.7 Lymph % (Auto) 25.0 [place] % (Auto) 4.7 Eos % (Auto) 0.0 Baso % (Auto) 0.2 Neut # (Auto) 3.60 Lymph # (Auto) 1.29 [place] # (Auto) 0.24 Eos # (Auto) 0.00 Baso # (Auto) 0.01 Immature Gran # (Auto) 0.02 Absolute Nucleated RBC Nucleated RBC % (auto) Neutrophils % (Manual) Band Neutrophils % Lymphocytes % (Manual) Prolymphocyte % Reactive Lymphs % (Man) Monocytes % (Manual) Eosinophils % (Manual) Basophils % (Manual) Metamyelocytes % (Man) Myelocytes % (Man) Promyelocytes % (Man) Blast Cells % (Manual) Plasma Cell % (Manual) Other Cells % Nucleated RBC % Neutrophils # (Manual) Band Neutrophils # Total Absolute Neuts Lymphocytes # (Manual) Prolymphocyte # Reactive Lymphs # Total Abs Lymphocytes Monocytes # (Manual) Eosinophils # (Manual) Basophils # (Manual) Metamyelocytes # (Man) Myelocytes # (Manual) Promyelocytes # (Man) Blast Cells # (Man) Plasma Cell # (Manual) Other Cells # Nucleated RBCs # (Man) Hypersegmented Neuts Hyposegmented Neuts Hypogranular Neuts Large Granular Lymphs # Lrg Granular Lymphs Hairy Cells Smudge Cells Toxic Granulation Toxic Vacuolation Dohle Bodies Jj Rods Platelet Estimate Hypogranular Platelets Clumped Platelets Giant Platelets Platelet Satelliting RBC Morphology Polychromasia Hypochromasia Poikilocytosis Basophilic Stippling Anisocytosis Microcytosis Macrocytosis Spherocytes Pappenheimer Bodies Sickle Cells Target Cells Tear Drop Cells Ovalocytes Stomatocytes [place] Bodies Echinocytes Acanthocytes (Spur) Rouleaux RBC Agglutinates Schistocytes RBC Morph Comment Sezary Cell PT 10.5 (9.0-12.0) Seconds INR 1.0 (0.9-1.1) APTT 23.8 (21.0-31.0) Seconds PTT Ratio 0.9 Sodium (136-145) mmol/L Potassium (3.5-5.1) mmol/L Chloride (98-107) mmol/L Carbon Dioxide (21-32) mmol/L Anion Gap (3-11) BUN (7-18) mg/dl Creatinine (0.6-1.2) mg/dl Est Cr Clr Drug Dosing Est GFR ( Amer) Est GFR (Non-Af Amer) BUN/Creatinine Ratio (10-20) Glucose (70-99) mg/dl POC Glucose 79 (70-99) mg/dl Calcium (8.5-10.1) mg/dl Phosphorus (2.5-4.9) mg/dl Magnesium (1.8-2.4) mg/dl Total Bilirubin (0.2-1) mg/dl AST (15-37) U/L ALT (12-78) U/L Alkaline Phosphatase (45-117) U/L Troponin I (0-0.045) ng/ml Total Protein (6.4-8.2) gm/dl Albumin (3.4-5.0) gm/dl Globulin (2.5-4.0) gm/dl Albumin/Globulin Ratio (0.9-2) TSH (0.300-4.500) uIu/ml Urine Color Urine Appearance (Clear) Urine pH (4.5-7.5) Ur Specific [place] (1.000-1.030) Urine Protein (Negative) Urine Glucose (UA) (Negative) Urine Ketones (Negative) Urine Blood (Negative) Urine Nitrite (Negative) Urine Bilirubin (Negative) Urine Urobilinogen (Negative) Ur Leukocyte Esterase (Negative) Urine WBC (Auto) (0-5) /hpf Urine RBC (Auto) (0-4) /hpf U Hyaline Cast (Auto) (0-5) /lpf U Epithel Cells (Auto) (0-5) /lpf Urine Bacteria (Auto) (Negative) Urine Opiates Screen (Neg) Ur Methadone, Qual (Neg) Urine Barbiturates (Neg) Ur Phencyclidine (PCP) (Neg) U Amphetamin/Meth Scrn (Neg) MDMA (Ecstasy) Screen (Neg) U Benzodiazepines Scrn (Neg) Ur Cocaine Metabolite (Neg) U Marijuana (THC) Screen (Neg) Ethyl Alcohol mg/dL (0-3) mg/dl COVID-19 Eval Order SARS-CoV-2 (PCR) (Negative) Influenza Type A (PCR) (Neg) Influenza Type B (PCR) (Neg) RSV (RT-PCR) (Neg) 08/02/20 08/02/20 08/02/20 Range/Units 18:56 19:49 19:49 WBC RBC Hgb Hct MCV MCH MCHC RDW Std Deviation RDW Coeff of Jackeline Plt Count MPV Immature Gran % (Auto) Neut % (Auto) Lymph % (Auto) [place] % (Auto) Eos % (Auto) Baso % (Auto) Neut # (Auto) Lymph # (Auto) [place] # (Auto) Eos # (Auto) Baso # (Auto) Immature Gran # (Auto) Absolute Nucleated RBC Nucleated RBC % (auto) Neutrophils % (Manual) Band Neutrophils % Lymphocytes % (Manual) Prolymphocyte % Reactive Lymphs % (Man) Monocytes % (Manual) Eosinophils % (Manual) Basophils % (Manual) Metamyelocytes % (Man) Myelocytes % (Man) Promyelocytes % (Man) Blast Cells % (Manual) Plasma Cell % (Manual) Other Cells % Nucleated RBC % Neutrophils # (Manual) Band Neutrophils # Total Absolute Neuts Lymphocytes # (Manual) Prolymphocyte # Reactive Lymphs # Total Abs Lymphocytes Monocytes # (Manual) Eosinophils # (Manual) Basophils # (Manual) Metamyelocytes # (Man) Myelocytes # (Manual) Promyelocytes # (Man) Blast Cells # (Man) Plasma Cell # (Manual) Other Cells # Nucleated RBCs # (Man) Hypersegmented Neuts Hyposegmented Neuts Hypogranular Neuts Large Granular Lymphs # Lrg Granular Lymphs Hairy Cells Smudge Cells Toxic Granulation Toxic Vacuolation Dohle Bodies Jj Rods Platelet Estimate Hypogranular Platelets Clumped Platelets Giant Platelets Platelet Satelliting RBC Morphology Polychromasia Hypochromasia Poikilocytosis Basophilic Stippling Anisocytosis Microcytosis Macrocytosis Spherocytes Pappenheimer Bodies Sickle Cells Target Cells Tear Drop Cells Ovalocytes Stomatocytes [place] Bodies Echinocytes Acanthocytes (Spur) Rouleaux RBC Agglutinates Schistocytes RBC Morph Comment Sezary Cell PT (9.0-12.0) Seconds INR (0.9-1.1) APTT (21.0-31.0) Seconds PTT Ratio Sodium (136-145) mmol/L Potassium (3.5-5.1) mmol/L Chloride (98-107) mmol/L Carbon Dioxide (21-32) mmol/L Anion Gap (3-11) BUN (7-18) mg/dl Creatinine (0.6-1.2) mg/dl Est Cr Clr Drug Dosing Est GFR ( Amer) Est GFR (Non-Af Amer) BUN/Creatinine Ratio (10-20) Glucose (70-99) mg/dl POC Glucose (70-99) mg/dl Calcium (8.5-10.1) mg/dl Phosphorus (2.5-4.9) mg/dl Magnesium (1.8-2.4) mg/dl Total Bilirubin (0.2-1) mg/dl AST (15-37) U/L ALT (12-78) U/L Alkaline Phosphatase (45-117) U/L Troponin I (0-0.045) ng/ml Total Protein (6.4-8.2) gm/dl Albumin (3.4-5.0) gm/dl Globulin (2.5-4.0) gm/dl Albumin/Globulin Ratio (0.9-2) TSH (0.300-4.500) uIu/ml Urine Color Dark Yellow Urine Appearance Clear (Clear) Urine pH 5.5 (4.5-7.5) Ur Specific [place] 1.024 (1.000-1.030) Urine Protein Trace H (Negative) Urine Glucose (UA) Negative (Negative) Urine Ketones 1+ H (Negative) Urine Blood Negative (Negative) Urine Nitrite Negative (Negative) Urine Bilirubin Negative (Negative) Urine Urobilinogen Negative (Negative) Ur Leukocyte Esterase Negative (Negative) Urine WBC (Auto) 1-5 (0-5) /hpf Urine RBC (Auto) 0-4 (0-4) /hpf U Hyaline Cast (Auto) 5-10 H (0-5) /lpf U Epithel Cells (Auto) 20-30 H (0-5) /lpf Urine Bacteria (Auto) Negative (Negative) Urine Opiates Screen Neg (Neg) Ur Methadone, Qual Neg (Neg) Urine Barbiturates Neg (Neg) Ur Phencyclidine (PCP) Neg (Neg) U Amphetamin/Meth Scrn Neg (Neg) MDMA (Ecstasy) Screen Neg (Neg) U Benzodiazepines Scrn Neg (Neg) Ur Cocaine Metabolite Neg (Neg) U Marijuana (THC) Screen Neg (Neg) Ethyl Alcohol mg/dL < 3.0 (0-3) mg/dl COVID-19 Eval Order SARS-CoV-2 (PCR) (Negative) Influenza Type A (PCR) (Neg) Influenza Type B (PCR) (Neg) RSV (RT-PCR) (Neg) 04/16/21 04/16/21 Range/Units 19:49 19:49 WBC RBC Hgb Hct MCV MCH MCHC RDW Std Deviation RDW Coeff of Jackeline Plt Count MPV Immature Gran % (Auto) Neut % (Auto) Lymph % (Auto) [place] % (Auto) Eos % (Auto) Baso % (Auto) Neut # (Auto) Lymph # (Auto) [place] # (Auto) Eos # (Auto) Baso # (Auto) Immature Gran # (Auto) Absolute Nucleated RBC Nucleated RBC % (auto) Neutrophils % (Manual) Band Neutrophils % Lymphocytes % (Manual) Prolymphocyte % Reactive Lymphs % (Man) Monocytes % (Manual) Eosinophils % (Manual) Basophils % (Manual) Metamyelocytes % (Man) Myelocytes % (Man) Promyelocytes % (Man) Blast Cells % (Manual) Plasma Cell % (Manual) Other Cells % Nucleated RBC % Neutrophils # (Manual) Band Neutrophils # Total Absolute Neuts Lymphocytes # (Manual) Prolymphocyte # Reactive Lymphs # Total Abs Lymphocytes Monocytes # (Manual) Eosinophils # (Manual) Basophils # (Manual) Metamyelocytes # (Man) Myelocytes # (Manual) Promyelocytes # (Man) Blast Cells # (Man) Plasma Cell # (Manual) Other Cells # Nucleated RBCs # (Man) Hypersegmented Neuts Hyposegmented Neuts Hypogranular Neuts Large Granular Lymphs # Lrg Granular Lymphs Hairy Cells Smudge Cells Toxic Granulation Toxic Vacuolation Dohle Bodies Jj Rods Platelet Estimate Hypogranular Platelets Clumped Platelets Giant Platelets Platelet Satelliting RBC Morphology Polychromasia Hypochromasia Poikilocytosis Basophilic Stippling Anisocytosis Microcytosis Macrocytosis Spherocytes Pappenheimer Bodies Sickle Cells Target Cells Tear Drop Cells Ovalocytes Stomatocytes [place] Bodies Echinocytes Acanthocytes (Spur) Rouleaux RBC Agglutinates Schistocytes RBC Morph Comment Sezary Cell PT (9.0-12.0) Seconds INR (0.9-1.1) APTT (21.0-31.0) Seconds PTT Ratio Sodium (136-145) mmol/L Potassium (3.5-5.1) mmol/L Chloride (98-107) mmol/L Carbon Dioxide (21-32) mmol/L Anion Gap (3-11) BUN (7-18) mg/dl Creatinine (0.6-1.2) mg/dl Est Cr Clr Drug Dosing Est GFR ( Amer) Est GFR (Non-Af Amer) BUN/Creatinine Ratio (10-20) Glucose (70-99) mg/dl POC Glucose (70-99) mg/dl Calcium (8.5-10.1) mg/dl Phosphorus (2.5-4.9) mg/dl Magnesium (1.8-2.4) mg/dl Total Bilirubin (0.2-1) mg/dl AST (15-37) U/L ALT (12-78) U/L Alkaline Phosphatase (45-117) U/L Troponin I (0-0.045) ng/ml Total Protein (6.4-8.2) gm/dl Albumin (3.4-5.0) gm/dl Globulin (2.5-4.0) gm/dl Albumin/Globulin Ratio (0.9-2) TSH (0.300-4.500) uIu/ml Urine Color Urine Appearance (Clear) Urine pH (4.5-7.5) Ur Specific [place] (1.000-1.030) Urine Protein (Negative) Urine Glucose (UA) (Negative) Urine Ketones (Negative) Urine Blood (Negative) Urine Nitrite (Negative) Urine Bilirubin (Negative) Urine Urobilinogen (Negative) Ur Leukocyte Esterase (Negative) Urine WBC (Auto) (0-5) /hpf Urine RBC (Auto) (0-4) /hpf U Hyaline Cast (Auto) (0-5) /lpf U Epithel Cells (Auto) (0-5) /lpf Urine Bacteria (Auto) (Negative) Urine Opiates Screen (Neg) Ur Methadone, Qual (Neg) Urine Barbiturates (Neg) Ur Phencyclidine (PCP) (Neg) U Amphetamin/Meth Scrn (Neg) MDMA (Ecstasy) Screen (Neg) U Benzodiazepines Scrn (Neg) Ur Cocaine Metabolite (Neg) U Marijuana (THC) Screen (Neg) Ethyl Alcohol mg/dL (0-3) mg/dl COVID-19 Eval Order [facility] at [facility] SARS-CoV-2 (PCR) NEGATIVE (Negative) Influenza Type A (PCR) Negative (Neg) Influenza Type B (PCR) Negative (Neg) RSV (RT-PCR) Negative (Neg) Imaging Data Radiologist's Impression: Chest X-Ray 08/02/20 17:47 SINGLE VIEW CHEST CLINICAL HISTORY: Change in mental status. FINDINGS: An AP, portable, upright chest radiograph is compared to study dated 07/14/2020. The examination is degraded by portable technique and apical lordotic positioning. The cardiomediastinal silhouette is unremarkable. Chronic interstitial thickening is similar to previous. No airspace consolidation or large pleural effusion is identified. No pneumothorax is seen. The skeletal structures are osteopenic. The bony thorax is grossly intact. Degenerative change is noted throughout the thoracic spine. IMPRESSION: No active disease in the chest. ACT 112: Negative or not required by law. Electronically signed by: Matt Vilchis M.D. 08/02/2020 6:[address] 08/02/20 18:45 CT SCAN OF THE BRAIN WITHOUT IV CONTRAST CLINICAL HISTORY: Change in mental status. COMPARISON STUDY: CT of the brain dated 06/29/2020. TECHNIQUE: Unenhanced axial CT scan of the brain is performed from the vertex to the skull base. A dose lowering technique was utilized adhering to the principles of ALARA. CT DOSE: 537.48 mGy.cm FINDINGS: Brain parenchyma: There are age-related involutional changes noting mild subcortical and periventricular microangiopathic change. There is no hemorrhage, mass effect, or evidence of acute territorial ischemia by CT criteria. Gonzalez- white matter differentiation is preserved. No extra-axial fluid collection is seen. Ventricles, sulci, cisterns: Prominent secondary to involutional change. Intracranial vasculature: There is atherosclerotic calcification of the cavernous carotid arteries. Calvarium: Unremarkable. Sinuses and mastoids: The visualized paranasal sinuses are clear. The mastoid air cells are well pneumatized. Orbits: The bony orbits are grossly intact. There are bilateral ocular lens implants. IMPRESSION: There is no hemorrhage, mass effect, or evidence of acute territorial ischemia by CT criteria. ACT 112: Negative or not required by law. Electronically signed by: Matt Vilchis M.D. 08/02/2020 8:24 PM ECG Data Attestation: I personally reviewed and interpreted this ECG as follows: Indication: + altered mental status Rate (beats per minute): 74 Rhythm: + normal sinus ECG Intervals/blocks: + Normal QT-c ECG [place]: + Left axis deviation ECG ST segments: + Normal ST segments ECG Findings: + Q waves (Anterior); no PACs and no PVCs Blood Pressure Blood Pressure Findings: Normal blood pressure Blood Pressure Disposition: did not require urgent referral MDM Narrative This patient was evaluated and appeared to be in no significant distress. Patient was initially not responsive to exam. An order for cardiac monitoring was placed and the patient is noted to be in a normal sinus rhythm at 71 bpm. IV access was obtained and laboratory work was drawn. She was hydrated with normal saline solution. UA is somewhat contaminated but appears to be negative for infection. Chest x-ray is clear. Head CT reveals no evidence of acute intracranial abnormality. Covid swab was negative. Patient's laboratory work is reassuring with BUN of 25 with a creatinine of 0.62. Patient's bilirubin is noted be elevated at 2.7, with fairly normal LFTs otherwise. Ultrasound the right upper quadrant was performed and reveals evidence of sludge and likely stones. Gallbladder wall does not appear to be significantly edematous. Linda desmondgabriela was informed of the results. Upon my reassessment, the patient was awake and conversant however understood minimally. I did speak with her daughter by phone who agrees with the plan for admission. She is flying in tomorrow from [place] to see her mother. She feels strongly that she has decompensated over the last several weeks significantly. Patient's case was discussed with Dr. Flowers of the hospitalist service who will evaluate the patient for admission and further management. Impression & Plan Cachexia, Bipolar disorder, Elevated bilirubin, Gallbladder sludge Discharge Plan Visit Data Chief Complaint: Altered Mental Status Stated Complaint: AMS, HYPOGLYCEMIA ED Provider: Radha Cardoza Discharge Problem: Cachexia, Bipolar disorder, Elevated bilirubin, Gallbladder sludge Patient Disposition: Admitted As Inpatient Discharge Instructions Interventions: ED Discharge Assessment Last Done: 08/03/20 02:18 Discharge Problem: Bipolar disorder Qualifiers: Active/Remission status: remission status unspecified Qualified Code(s): F31.9 - Bipolar disorder, unspecified
[2020-08-03] MEDS ORDERED: NITROGLYCERIN SL 0.4 MG/TAB TAB SL PRN (03:29)
[2020-08-03] MEDS ORDERED: ONDANSETRON INJ 2 MG/ML 2 ML VIAL IV PRN (03:29)
[2020-08-03] MEDS ORDERED: SODIUM CHLORIDE 0.9% 1000ML 1,000 ML IV SCH (03:29)
[2020-08-03] MEDS ORDERED: ACETAMINOPHEN 325 MG TAB PO PRN (03:29)
--- NOTE | 2020-08-03 04:21 | History and Physical Report ---
DATE OF ADMISSION: 08/02/2020 CHIEF COMPLAINT: Altered mental status. HISTORY OF PRESENT ILLNESS: A 75-year-old female with past medical history significant for acquired hypothyroidism, chronic interstitial cystitis, osteoporosis, chronic migraines, bipolar disorder, attention deficit hyperactivity disorder. The patient has a recently history of chronic hyponatremia. The patient has multiple admissions for hyponatremia and dehydration. 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 She also had prescribed Seroquel per Psychiatry and she was again in the hospital on 06/2020 and patient did not want to go to facility or stay. She just wanted to get discharged and got discharged. Daughter lives in [place]; did not see her mother for more than a year because of COVID. She is waited until covid vaccine to come and see her mother. She states she is flying tomorrow to [place] [employer]. She will be in the flight the whole day and she may come on the night of Wednesday and she will come to the hospital on Wednesday. Daughter states patient has been steadily declining since about a year and she is severely malnourished, not eating and drinking much. When the daughter asked, she could not explain why she did not want to eat.She sometimes mumbles and goes to catatonic state for about a day and it gets resolved by itself and she does fine. The patient is also stressed out since last year because of her living condition, her financial situation and as per daughter, patient thinks she had COVID last spring and she is not eating much since then. She also has some food allergies. Daughter does not have power of assistant attorney general and daughter is also talking with [facility] nurse and also local office of Aging, but the patient declines any help, does not accept any help. She did not answer the phone for a few days. That is nothing uncommon for her but last time when she talked to her, she did not seem right. So daughter asked the neighbors to check on her. When the neighbor checked, she was on the bed with multiple blankets and she was mumbling and seemed drowsy and not talking and she was brought into the hospital. Later she opened the eyes but not at all talking. As per the ER physician, she knows that she is getting admitted. Initial workup with a CT of the head is unremarkable. Gallbladder ultrasound showing gallstones. This time labs show a sodium of 136, potassium 3.4, BUN 25, creatinine 0.6, total bilirubin is 2.7, which seems to be chronically elevated. TSH is normal. Urinalysis was okay. Urine drug screen is okay. SARS-CoV-2 PCR is negative. Influenza A and B and RSV was negative. The patient does not answer any question. Could not get any history from the patient. Hemodynamically stable. ALLERGIES: MILK, GLUTEN, BEE VENOM, LACTULOSE, GRAINS. PAST MEDICAL HISTORY: As mentioned above. PAST SURGICAL HISTORY: Colonoscopy, ligation of oviduct, tonsillectomy. MEDICATIONS: The patient on Climara 1 patch transdermal weekly, Restasis 1 drop ophthalmic eye b.i.d., hyoscyamine 0.125 mg p.o. q. 4 hours p.r.n., levothyroxine 50 mcg p.o. 5 times a week, melatonin 3 mg p.o. at bedtime, potassium chloride 40 mEq p.o. b.i.d., Seroquel 25 mg p.o. at bedtime, sumatriptan 25 mg p.r.n. FAMILY HISTORY:. Significant for daughter has lupus. SOCIAL HISTORY: Currently lives alone. Daughter lives in [place]. No smoking, alcohol rare. No drug use as per records. REVIEW OF SYSTEMS: Unobtainable at this time. PHYSICAL EXAMINATION: VITAL SIGNS: Temperature afebrile, pulse 68, respiratory rate 14, blood pressure 118/77, oxygen 98% on room air. HEENT: Pupils equal, round, and reactive to light. Oral mucosa dry. NECK: No neck masses seen. CARDIOVASCULAR: S1, S2 heard, regular rate and rhythm, no murmur, no gallop. RESPIRATORY SYSTEM: Normal AP diameter. No accessory muscle use. No wheezing, no crackles. ABDOMEN: Soft, bowel sounds present. No distention. CENTRAL NERVOUS SYSTEM: The patient is awake, but not answering any questions, not responding to any stimuli. Not moving her extremities. No facial droop seen. EXTREMITIES: No edema, no erythema. LABORATORY DATA: WBC 5.1, hemoglobin 15.3, hematocrit 41.5, platelets 257. PT 10.5, INR 1, APTT 23.8. Sodium 136, potassium 3.4, chloride 94, bicarbonate 30, BUN 25, creatinine 0.6, serum glucose 80, calcium 9.1, phosphorus 3.3, magnesium 2.4, total bilirubin 2.7, AST 12, ALT 15, alkaline phosphatase 41. Troponin I less than 0.015. TSH 2.4. Urinalysis, +1 ketones. Urine drug screen negative. Alcohol level less than 3. SARS-CoV-2 PCR negative. Influenza A and B PCR negative, RSV PCR negative. Gallbladder ultrasound showed gallstones and sludge. CT of the head, no acute findings. Chest x-ray, no acute disease in the chest. EKG: Normal sinus rhythm, rate of 74, left axis deviation, no significant change was found. ASSESSMENT AND PLAN: This is a 75-year-old female who presents with altered mental status. 1. Altered mental status. The patient seemed to be in catatonia. As per daughter, she sometimes goes into catatonia and resolves itself. We will hold her Seroquel. Labs,electrolytes are okay. Does not seem to be any ongoing infectious process. Blood cultures ordered in the ER which will be followed. We will keep her hydrated, we will give a dose of Ativan. We will get an MRI scan to rule out any central causes. Consult Psychiatry and Neurology in a.m. Monitor in the [facility]. 2. History of bipolar. Currently holding Seroquel. We will await Psych input. 3. History of hypothyroidism. Continue Synthroid when able to take p.o. 4. Severe malnutrition. Currently we will place her on clear liquid diet. As per daughter, she is also not eating and drinking much because of chronic throat pain, may need speech evaluation when stable. Dietitian consult when patient is more awake. Currently, getting fluids. 5. Hypokalemia. She used to be on potassium 20 mEq, recently was increased to 40 mEq p.o. b.i.d. We will monitor the labs. If not able to take p.o. may need to give by IV. 6. History of hyponatremia, history of psychogenic polydipsia. Currently, sodium is okay. We will follow the labs. 7. History of interstitial cystitis. UA looks fine. 8. History of migraine, currently seems to be okay. She is on sumatriptan p.r.n. 9. Deep venous thrombosis prophylaxis. Placed on heparin subQ. 10. Disposition, closely monitor in the [facility]. PT and OT prior to discharge. Social service to help with discharge planning, may need a long-term placement versus home health. The patient seems to be adamant about not getting any help as per the daughter. CODE STATUS: DNR as per my discussion with the daughter. Daughter thinks that when she was more alert, the patient wanted to be DNR. MUKESH
[2020-08-03] MEDS: POTASSIUM CHLORIDE / WTR 10 MEQ/100 ML PLCT IV SCH ×2 (05:09→06:17)
[2020-08-03 06:32] LABS: Hematocrit (blood only) 38.1 % (37-47); Hemoglobin 13.7 g/dL (12.0-16.0); Lymphocytes # (auto) 1.08 K/uL (1.2-3.4); Lymphocytes % (auto) 23.2 %; Mean Corpuscular Hemoglobin 33.7 pg (25-34); Mean Corpuscular Volume 93.6 fL (80-100); Mean Platelet Volume 9.1 fL (7.4-10.4); Monocytes # (auto) 0.21 K/uL (0.11-0.59); Monocytes % (auto) 4.5 %; Neutrophils # (auto) 3.36 K/uL (1.4-6.5); Neutrophils % (auto) 72.3 %; Platelet Count 228 K/uL (130-400); RDW Coefficient of Variation 13.6 % (11.5-14.5); RDW Standard Deviation 46.9 fL (36.4-46.3); Red Blood Count 4.07 M/uL (4.2-5.4); White Blood Count 4.65 K/uL (4.8-10.8)
[2020-08-03 06:52] LABS: Alanine Aminotransferase 14 U/L (12-78); Aspartate Aminotransferase 12 U/L (15-37); BUN Creatinine Ratio 55.6 (10-20); Bilirubin Direct 0.4 mg/dl (0-0.2); Blood Urea Nitrogen 26 mg/dl (7-18); Calcium 9.1 mg/dl (8.5-10.1); Carbon Dioxide 31 mmol/L (21-32); Chloride 94 mmol/L (98-107); Est GFR (African American) 110.4; Est GFR (Non-African American) 95.3; Glucose 82 mg/dl (70-99); Magnesium 2.2 mg/dl (1.8-2.4); Potassium 3.9 mmol/L (3.5-5.1); Sodium 133 mmol/L (136-145)
[2020-08-03 06:54] LABS: Alkaline Phosphatase 39 U/L (45-117); Bilirubin,Total 2.4 mg/dl (0.2-1); Total Protein 5.4 gm/dl (6.4-8.2)
[2020-08-03] MEDS: RESTASIS~ORDER AWAITING ACTION SCH ×2 (07:42→16:14)
[2020-08-03] MEDS: POTASSIUM CHLORIDE CRTAB 20 MEQ TABCR PO SCH ×2 (08:42→20:08)
--- NOTE | 2020-08-03 08:53 | Ultrasound Report ---
BILIARY ULTRASOUND CLINICAL HISTORY: Elevated bilirubin. COMPARISON STUDY: CT scan dated 10/15/2017 FINDINGS: The pancreas appears normal as visualized. No focal hepatic lesions are visualized. There are bright portal triads, a nonspecific finding. There is a sludge-filled and stone filled gallbladder. There is no ductal dilatation. The common bile duct measures 4 mm. There is increased right renal cortical echogenicity. The study was difficult from a technical standpoint as the patient was unable to cooperate. IMPRESSION: 1. Gallbladder calculi and stones. No ductal dilatation 2. Increased right renal cortical echogenicity ACT 112: Negative or not required by law. Electronically signed by: Hilton aWng M.D. 08/03/2020 8:51 AM
[2020-08-03] MEDS ORDERED: HEPARIN SOD 5,000 UNIT/0.5 ML VIAL SQ SCH (09:00)
--- NOTE | 2020-08-03 10:09 | Surgery Consultation ---
Date of Consultation August 03, 2020 Assessment & Plan (1) Gallstones: No symptoms attributable to gallstones Poor surgical candidate with malnourishment Nontender on exam Would not recommend lap roxanne unless symptoms develop History of Present Illness Attending Physician: Poonam Cantu MD History of Present Illness This patient is a 75-year-old female who presented emergency department by ambulance with a neighbor who received a phone call from the patient's daughter in [place]. She has had significant decline over the last several weeks to months. She has had an acute change in mental status. She also states she has only been eating minimal food because most foods cause diarrhea. She denies abdominal pain. She has done this in the past and has a diagnosis of bipolar disorder and appears thin and malnourished. US shows gallstones without any sign of inflammation. Allergies Allergy/AdvReac Type Severity Reaction Status Date / Time milk Allergy Intermediate Abdominal Verified 08/02/20 20:49 Pain gluten Allergy Unknown ANAPHYLAXIS Verified 08/02/20 20:49 bee venom protein (honey bee) Allergy Anaphylaxis Verified 08/02/20 20:49 lactose AdvReac Unknown Gastrointestinal Verified 08/02/20 20:49 Upset grains Allergy Severe Anaphylaxis Uncoded 08/02/20 20:49 Home Medications Medication Instructions Recorded Confirmed Type Botox 200 unit SUBCUT .Q3MO 12/22/19 08/02/20 History Climara Pro 1 patch TRANSDERMAL WK 12/22/19 08/02/20 History levothyroxine [Levoxyl] 50 mcg PO 5XWK 06/14/20 08/02/20 History potassium chloride [Klor-Con M20] 40 meq PO BID #60 tab 07/06/20 08/02/20 Rx hyoscyamine sulfate 0.125 mg PO Q4 PRN 07/14/20 08/02/20 History quetiapine 25 mg PO HS 07/14/20 08/02/20 History cyclosporine [Restasis] 1 drp OPHTHALMIC (EYE) Q12H 08/02/20 08/02/20 History melatonin 3 mg PO HS 08/02/20 08/02/20 History sumatriptan succinate 25 mg PO UD PRN 08/02/20 08/02/20 History Patient History Medical History ADHD Bipolar disorder Chronic hyponatremia Hypothyroidism Interstitial cystitis Migraine Surgical History Hx of tonsillectomy Family History Daughter Lupus Social History Smoking Status: Never smoker Second Hand Exposure: No; Hx Alcohol Use: No Hx Substance Use: No Preferred Language: Persian Communication Ability: Impaired Communication Ability Comment: Pt refuses to answer the majority of the addmision questions Audiovisual Tech Required: No Beliefs That Will Affect Care: None marital status: Unknown Current Living Situation: Alone Other Information That Helps Us Care for You: No Feels Safe at Home: Yes Safety Concerns: Feels Safe At This Time Assistive Devices: None Review of Systems Constitutional: + weakness, + anorexia and + weight loss; no fever and no chills Respiratory: no cough and no dyspnea Cardiovascular: no chest pain and no dyspnea Gastrointestinal: + diarrhea/loose stools; no abdominal pain, no bloating, no nausea, no vomiting and no blood in stools Genitourinary: no dysuria Musculoskeletal: no back pain and no neck pain Integumentary: no rash and no changing lesions Neurologic: + generalized weakness; no localized weakness Psychiatric: + depression Endocrine: + fatigue Hematologic / Lymphatic: no easy bleeding and no easy bruising Physical Exam Constitutional: + ill appearing, + thin and + cachectic; no acute distress Eyes: PERRL, conjunctivae normal, anicteric sclerae Neck: trachea midline Respiratory: normal respiratory effort, lungs clear to auscultation no respiratory distress Cardiovascular: RRR, no murmur, no edema Gastrointestinal (Abdomen): Inspection/Auscultation: abdomen normal to inspection, normal bowel sounds and + scaphoid; abdomen not distended Percussion/Palpation: abdomen soft; abdomen nontender and no guarding Musculoskeletal: Head/Neck/Chest: normocephalic and head atraumatic Skin: + turgor decreased Neurologic: awake Psychiatric: Orientation: alert and oriented x 3 Eye Contact: + fair eye contact Results & Data ([facility]) Vital Signs (Past 12 Hours) Vital Signs Temp Pulse Pulse Resp BP BP Pulse Ox 08/03/20 07:40 36.3 C L 73 16 134/88 98 08/03/20 04:51 77 08/03/20 04:23 36.4 C L 18 121/78 97 08/03/20 02:00 73 18 116/75 98 08/03/20 01:30 69 14 117/73 98 08/03/20 01:00 70 15 125/77 97 08/03/20 00:30 71 13 117/75 97 08/03/20 00:00 68 15 125/79 97 08/02/20 23:30 71 15 117/77 97 08/02/20 23:00 68 14 118/73 98 08/02/20 22:30 73 17 127/81 98 Diagnostic Findings BILIARY ULTRASOUND CLINICAL HISTORY: Elevated bilirubin. COMPARISON STUDY: CT scan dated 10/15/2017 FINDINGS: The pancreas appears normal as visualized. No focal hepatic lesions are visualized. There are bright portal triads, a nonspecific finding. There is a sludge-filled and stone filled gallbladder. There is no ductal dilatation. The common bile duct measures 4 mm. There is increased right renal cortical echogenicity. The study was difficult from a technical standpoint as the patient was unable to cooperate. IMPRESSION: 1. Gallbladder calculi and stones. No ductal dilatation 2. Increased right renal cortical echogenicity
--- NOTE | 2020-08-03 11:30 | Consultation Report ---
DATE OF CONSULTATION: 08/03/2020 NEUROLOGY CONSULTATION NOTE CHIEF COMPLAINT: Altered mental status. HISTORY OF PRESENT ILLNESS: A 75-year-old woman with a history of chronic migraines, bipolar mood disorder, ADHD, and chronic interstitial cystitis as well as a history of hyponatremia, admitted yesterday for altered mental status. The patient has been admitted several times in the past for low sodium as well as dehydration. It has been thought in the past that her chronic hyponatremia is due to psychogenic polydipsia and she has been discharged on fluid restrictions in the past. She follows with Psychiatry and has been prescribed Seroquel. The patient's daughter lives in [place] and does not see her mother frequently. Per collateral, the daughter states that the patient has been steadily declining for about a year. It is now very malnourished and not eating or drinking much. Supposedly, the patient was not answering the phone for several days. The daughter then asked the neighbor to check on her. She was found to be in bed under multiple blankets and mumbling and seemed drowsy and not talking. Therefore, she was brought to the hospital. Workup ensued in the Emergency Department including a negative head CT. An ultrasound of the abdomen showed gallstones. Labs showed a sodium of 136, and a normal BUN and creatinine. TSH was normal. Urinalysis was negative. Urine drug screen was normal. COVID-19 PCR was negative. Influenza and RSV were negative. History was limited as the patient would not answer any questions. Therefore, no further history could be obtained. Vital signs are stable. She was admitted for altered mental status. Neurology was consulted upon admission. ALLERGIES: INCLUDE MILK, GLUTEN, BEE VENOM, LACTULOSE, GRAINS. PAST MEDICAL HISTORY: Chronic migraines, osteoporosis, bipolar mood disorder, chronic interstitial cystitis, chronic hyponatremia, hypothyroidism, ADHD. PAST SURGICAL HISTORY: Colonoscopy, ligation of oviduct, and tonsillectomy. MEDICATIONS: Synthroid 50 mcg 5 times a week, melatonin, potassium chloride, Seroquel 25 mg at bedtime, Imitrex 25 mg as needed. FAMILY HISTORY: Significant for daughter has lupus. SOCIAL HISTORY: She lives alone. Daughter lives in [place]. She is a nonsmoker and rarely uses alcohol. No drug use. REVIEW OF SYSTEMS: Unable to be obtained due to altered mental status. PHYSICAL EXAMINATION: VITAL SIGNS: Blood pressure 134/88, pulse is 75, respiratory rate 16, temperature is 36.3 degrees Celsius. Thin appearing women in no distress. Poor eye contact. Speech is soft. Face: normocephalic and atraumatic Eyes: normal lids, normal conjunctiva Neck: supple Respiratory: normal effort Cardiovascular: normal pulses Abdomen: non distended Skin: no rashes Psychiatric: depressed appearing with flat affect NEUROLOGIC EXAMINATION: Appearance: no acute distress Orientation: awake, alert and oriented to person and age Mental Status: alert Attention: decreased Language: no aphasia Speech: no dysarthria Cranial Nerves: CN 2 - no visual defect on confrontation and pupils round, equal CN 3, 4, 6 - extra-ocular movements intact CN 5 - facial sensation intact CN 7 - no facial asymmetry CN 8 - intact hearing CN 9, 10 - palate symmetric CN 11 - good shoulder shrug CN 12 - tongue midline Gait:deferred Coordination: no tremor Sensory: intact and symmetric to light touch Muscle Tone: normal Muscle exam: Poor effort Reflexes: [place] Negative DIAGNOSTIC TESTING AND LABORATORY VALUES: Hemoglobin 13.7, WBC 4.65, platelet count 228. INR 1.0. Sodium 133, potassium 3.9, chloride 94, BUN 26, creatinine 0.47, glucose is 82, magnesium 2.2. AST is 12, ALT is 14. Urinalysis clear, trace protein, 1+ ketones. Urine drug screen was negative. CT head noncontrast: Showed no evidence of hemorrhage, mass effect, or evidence of acute territorial ischemia. There was age related involutional changes including mild subcortical and periventricular microangiopathic changes. No hemorrhage. Chest x-ray showed no active disease in the chest. ASSESSMENT AND PLAN: A 75-year-old woman with history of bipolar mood disorder, admitted for adult failure to thrive. The patient is malnourished. CT head noncontrast showed no evidence of acute intracranial abnormality. Metabolic infectious workup appeared negative. Blood cultures pending. Given malnourishment recommend starting thiamine replacement as well as ordering a thiamine level. Clinical presentation and examination consistent with primary psychiatric condition /depression. No additional neurological work up necessary. Patient would benefit from psychiatric input. Please call me for any additional questions or concerns. [facility]
--- NOTE | 2020-08-03 12:49 | Hospitalist Progress Note ---
Date of Service August 03, 2020 Assessment & Plan (1) Severe protein-calorie malnutrition: Patient noted to be severely malnourished with failure to thrive Possible secondary to underlying psychiatric disease, severe depression, bipolar mood disorder Reports that he has been avoiding food, thinking it will keep her diarrhea After counseling, patient was willing to try meals Nutrition/dietary consulted -communication for supplement Patient is started with p.o. thiamine, vitamin B12, for possible underlying deficiency Added multivitamin with mineral Ordered to check levels Severe depression, bipolar mood disorder Possible causing severe withdrawal symptoms. Psych consult requested Adult failure to thrive: Past several month patient had multiple admissions with dehydration hyponatremia, She is able to take care of herself at home-lives alone with minimum support Has only 1 daughter, who lives in [place], planning to fly into [place] by tomorrow. PT OT lyndsay, social service consult requested Patient may benefit with skilled rehab versus assisted living after discharge from hospital CODE STATUS: DNR/DNI Admission and Anticipated Discharge Date Admission Date: August 03, 2020 Subjective Follow-up visit for severe protein calorie malnutrition/failure to thrive/catatonic phase/severe depression Patient is awake, staring to the wall, very flat affect. Answers questions in minimum sentences, offers no complaint of pain or discomfort Has not touched her breakfast, States that she takes she will not be able to digestive food and give her diarrhea, After much counseling, patient is willing to try to eat No fever or chills, no cough or shortness of breath Review of Systems Review of Systems: All systems reviewed & are unremarkable except as noted in Subjective Physical Exam Physical Exam: Physical exam: General: Very cachectic, flat affect HEENT: PERRLA, EOMI, Heart: Regular S1-S2, no carotid bruit, no JVD, no lower extremity edema Lungs: Clear to auscultate, no wheeze or rales Abdomen: Soft nontender, no organomegaly Extremity: Severe Cachexia And muscle wasting noted on both upper and lower extremity Neuro: No focal neurological deficit normal speech, Psych: Very flat affect, depressed mood, Results & Data Results & Data ([facility]) Vital Signs (Past 12 Hours) Vital Signs Temp Pulse Pulse Resp BP BP Pulse Ox 08/03/20 12:26 36.6 C 105 H 16 116/77 97 08/03/20 10:16 75 08/03/20 07:40 36.3 C L 73 16 134/88 98 08/03/20 04:51 77 08/03/20 04:23 36.4 C L 18 121/78 97 08/03/20 02:00 73 18 116/75 98 08/03/20 01:30 69 14 117/73 98 08/03/20 01:00 70 15 125/77 97
--- NOTE | 2020-08-03 13:09 | Psychiatric Consultation ---
Date of Consultation August 03, 2020 Impression / Recommendations Impression 75 yo female with a history of bipolar disorder, recent admit for psychogenic polydipsia, non-compliance with Seroquel started last visit, difficult to engage due to presumptive depression. Certainly depression in patients with bipolar disorder can include catatonia (even if no psychotic features) it appears that her selective talking is intentional and she purposely avoids gaze. It would be unusual for catatonia to wax/wane as frequently daily. Differential may also include worsening of a co-morbid cognitive decline, unidentified medical cause, post-ictal state (defer to neurology). Resume Seroquel 12.5 mg po qhs as receptive to this previously and not the 25 mg (plus restarting). If clearer episodes of decreased responsiveness would challenge with 1 mg Ativan IV. Will follow--patient would benefit from inpatient psychiatric care on a geriatric unit when medically cleared, particularly as depression is impacting her ability to care for self. She is not able to engage in that discussion at this time. Risk Factors Assessment Do You Have Access To A Gun?: No Psych History Identifying Data 75 yo female lives alone, recently seen on consult service for failure to thrive and hyponatremia. Readmit with worsening symptoms of inactivity and weakness. Consult is by [facility] hospitalist for ?catatonia. Chief Complaint patient essentially refuses to answer, did ask me for water and was less cooperative when I did not immediately address History of Present Illness last admit was diagnosed with psychogenic polydipsia and given fluid restriction. Daughter lives in [place] and is flying in, has reported periods of decreased responsiveness for perhaps a day where a neighbor says she just sits under a blanket. The patient had cooperated with and benefitted from low dose Seroquel 12.5 mg hs last visit for hx of bipolar disorder and poor sleep. She did tell me her appetite remains poor. She quickly seemed overwhelmed with my questions despite flat affect and laid her head back to stare at the television instead then took very small bites of food. She denied that her teeth hurt. human services case manager had referred to [facility] last visit. Last period of hypomania was last summer, increase in projects around the yard/energy. otherwise no evidence of psychiatric scripts/treatments in nearly 20 yrs. Past Psychiatric History Outpatient Services: none Previous Psych Admissions: 4, 1st was in late teens Do You Have Access To A Gun?: No Describe Attempts in the Past: no known Past Medication Trials: unknown Allergies Allergy/AdvReac Type Severity Reaction Status Date / Time milk Allergy Intermediate Abdominal Verified 08/02/20 20:49 Pain gluten Allergy Unknown ANAPHYLAXIS Verified 08/02/20 20:49 bee venom protein (honey bee) Allergy Anaphylaxis Verified 08/02/20 20:49 lactose AdvReac Unknown Gastrointestinal Verified 08/02/20 20:49 Upset grains Allergy Severe Anaphylaxis Uncoded 08/02/20 20:49 Home Medications Medication Instructions Recorded Confirmed Type Botox 200 unit SUBCUT .Q3MO 12/22/19 08/02/20 History Climara Pro 1 patch TRANSDERMAL WK 12/22/19 08/02/20 History levothyroxine [Levoxyl] 50 mcg PO 5XWK 06/14/20 08/02/20 History potassium chloride [Klor-Con M20] 40 meq PO BID #60 tab 07/06/20 08/02/20 Rx hyoscyamine sulfate 0.125 mg PO Q4 PRN 07/14/20 08/02/20 History quetiapine 25 mg PO HS 07/14/20 08/02/20 History cyclosporine [Restasis] 1 drp OPHTHALMIC (EYE) Q12H 08/02/20 08/02/20 History melatonin 3 mg PO HS 08/02/20 08/02/20 History sumatriptan succinate 25 mg PO UD PRN 08/02/20 08/02/20 History Substance Abuse History denied Personal History Living Arrangements: Home Employment Status: Retired Marital Status: Beliefs That Will Affect Care: None Patient History Medical History ADHD Bipolar disorder Chronic hyponatremia Gallstones Hypothyroidism Interstitial cystitis Migraine Surgical History Hx of tonsillectomy Family History Daughter Lupus Social History Smoking Status: Never smoker Second Hand Exposure: No; Hx Alcohol Use: No Hx Substance Use: No Preferred Language: Danish Communication Ability: Effective Communication Ability Comment: Pt refuses to answer the majority of the addmision questions Pool Hand Required: No Beliefs That Will Affect Care: None marital status: Unknown Current Living Situation: Alone Other Information That Helps Us Care for You: No Feels Safe at Home: Yes Safety Concerns: Feels Safe At This Time Assistive Devices: None Physical Exam Psychiatric: Orientation: alert and + guarded Apperance: appropriately groomed Eye Contact: + poor eye contact (purposely averting gaze) Motor Behavior: + tremor (uses fingers to eat rice rather than utensils) Speech: + mute Affect: + depressed affect Mood: + depressed mood Thought Process: + concrete thought process Thought Content: + hopelessness she will not answer does not appear to be responding to internal stimuli unable to assess Insight: + severely impaired insight Judgement: + severely impaired judgement Vital Signs (Past 24 Hours): Last Vital Signs Temp 36.6 C 08/03/20 12:26 Pulse 105 H 08/03/20 12:26 Resp 16 08/03/20 12:26 BP 116/77 08/03/20 12:26 Pulse Ox 97 08/03/20 12:26 Review of Systems Unobtainable due to cognitive status Results & Data ([facility]) Medications Administered Miscellaneous (Restasis~Order Awaiting Action) 1 ea N/A QS [facility] Stop: 09/02/20 07:59 Last Admin: 08/03/20 07:42 Dose: Not Given Documented by: [id number] Potassium Chloride (Potassium Chloride Crtab 20 Meq Tabcr) 40 meq PO BID [facility] Stop: 09/02/20 08:59 Last Admin: 08/03/20 08:42 Dose: 40 meq Documented by: [id number] Coding Level of Care Code 12106 [facility] Intl Hosp Care Lvl 2
[2020-08-03] MEDS: D5W AND NSS 1,000 ML IV SCH (13:11)
[2020-08-03] MEDS: THIAMINE HCL 100 MG TAB PO SCH (13:11)
--- NOTE | 2020-08-03 18:34 | Electrocardiogram Report ---
Test Reason : Blood Pressure : / mmHG Vent. Rate : 074 BPM Atrial Rate : 074 BPM P-R Int : 124 ms QRS Dur : 076 ms QT Int : 394 ms P-R-T Axes : 087 -40 063 degrees QTc Int : 437 ms Normal sinus rhythm Left axis deviation Poor R wave progression, consider anterior TN vs. lead placement vs. LVH Abnormal ECG When compared with ECG of 23-JUL-2020 12:34, No significant change was found Confirmed by Jonas Kumar ([id number]) on 08/03/2020 6:34:27 PM Referred By: REFERRED SELF Confirmed By:Albaro Kumar
[2020-08-03] MEDS: QUEtiapine FUMARATE 25 MG TABLET PO SCH (20:08)
[2020-08-04] MEDS: RESTASIS~ORDER AWAITING ACTION SCH ×4 (00:24→23:26)
[2020-08-04] MEDS: D5W AND NSS 1,000 ML IV SCH ×2 (02:14→14:52)
[2020-08-04] MEDS ORDERED: CYANOCOBALAMIN 500 MCG TABLET (VITAMIN B-12) PO SCH (09:00)
[2020-08-04] MEDS: CEROVITE ADV FORMULA TAB PO SCH (09:06)
[2020-08-04] MEDS: THIAMINE HCL 100 MG TAB PO SCH (09:06)
[2020-08-04] MEDS: POTASSIUM CHLORIDE CRTAB 20 MEQ TABCR PO SCH ×2 (09:06→20:23)
--- NOTE | 2020-08-04 09:22 | Communication Note ---
Date of Service: August 04, 2020 Spoke with Pt's Daughter Stephanie Billingsley over phone currently in [place] Daughter traveled from [facility], and has been given permission by clinical coordinator to come and visit her mother in hospital. She will be in hospital after 10 AM She is worried about patient's safety, living at home alone. has not able to take care of herself.does not eat for days Had frequent recent admissions at hospital secondary to severe malnourishment, electrolyte derangement, Daughter has been working with Marva Aguilera RN at [facility] Case management and with [facility] office of aging/protective service phone number #[phone] over a month regarding her mother's situation. In the past patient had declined all services, help, skilled rehab after being discharged from hospital Family is worried, with her ongoing symptoms, living alone, and continued malno urishment/declining health can cause her Daughter requesting a meeting with case management hospitalist and psychiatrist to discuss about discharge planning We will try to arrange a family meeting on Wednesday Poonam Cantu MD
--- NOTE | 2020-08-04 09:41 | Surgery Progress Note ---
Date of Service August 04, 2020 Assessment & Plan (1) Gallstones: asymptomatic gallstones no surgical intervention will sign off call if needed again Admission and Anticipated Discharge Date Admission Date: August 03, 2020 Results & Data ([facility]) Vital Signs (Past 12 Hours) Vital Signs Temp Pulse Pulse Resp BP Pulse Ox 08/04/20 08:50 36.6 C 83 18 122/77 92 08/04/20 08:06 36.4 C L 78 16 125/79 94 08/04/20 08:02 75 08/04/20 03:00 36.3 C L 70 14 124/80 97 08/04/20 00:56 69 08/03/20 23:12 36.4 C L 74 14 125/80 97
[2020-08-04] MEDS ORDERED: SUMAtriptan succinate 25 MG TAB PO PRN (11:53)
--- NOTE | 2020-08-04 11:55 | Hospitalist Progress Note ---
Date of Service August 04, 2020 Assessment & Plan (1) Severe protein-calorie malnutrition: Patient noted to be severely malnourished with failure to thrive Possible secondary to underlying psychiatric disease, severe depression, bipolar mood disorder Reports that she has been avoiding food, thinking it will keep her diarrhea Nutrition/dietary consulted - Patient is started with p.o. thiamine, for possible underlying deficiency/vitamin B12 level elevated, discontinued supplement Added multivitamin with mineral Severe depression, bipolar mood disorder Possible causing severe withdrawal symptoms. Psych consult appreciated, patient started on low-dose 12.5 mg Seroquel at night Patient reports she slept too much last night after taking the meds, worried that this medication may cause her to be confused Counseling provided, to take medications as directed Adult failure to thrive: Past several month patient had multiple admissions with dehydration hyponatremia, She is unable to take care of herself at home-lives alone with minimum support Spoke with patient's daughter Stephanie who is currently visiting in [place] Daughter given permission to visit the patient This is a special circumstances-visit for family will help with clinical improvement of patient Daughter. Is very concerned regarding patient's living situation Will arrange family meeting possible tomorrow to discuss about safe discharge planning PT OT eval, social service consult requested Patient may benefit with skilled rehab versus assisted living after discharge from hospital Patient has refused all the help, referral to rehab in the past With her current health situation, patient is not safe to be discharged home CODE STATUS: DNR/DNI Admission and Anticipated Discharge Date Admission Date: August 03, 2020 Subjective Follow-up visit for severe protein calorie malnutrition/failure to thrive/catat onic phase/severe depression Patient is alert and awake, very flat affect Complains of applesauce causing burning sensation in her stomach, Appetite remains very poor No fever or chills, no cough no shortness of breath Review of Systems Review of Systems: All systems reviewed & are unremarkable except as noted in Subjective Physical Exam Physical Exam: Physical exam: General: Very cachectic, flat affect HEENT: PERRLA, EOMI, Heart: Regular S1-S2, no carotid bruit, no JVD, no lower extremity edema Lungs: Clear to auscultate, no wheeze or rales Abdomen: Soft nontender, no organomegaly Extremity: Severe Cachexia And muscle wasting noted on both upper and lower extremity Neuro: No focal neurological deficit normal speech, Psych: Very flat affect, depressed mood, Results & Data Results & Data ([facility]) Vital Signs (Past 12 Hours) Vital Signs Temp Pulse Pulse Resp BP Pulse Ox 08/04/20 08:50 36.6 C 83 18 122/77 92 08/04/20 08:06 36.4 C L 78 16 125/79 94 08/04/20 08:02 75 08/04/20 03:00 36.3 C L 70 14 124/80 97 08/04/20 00:56 69
--- NOTE | 2020-08-04 14:03 | Communication Note ---
Date of Service: August 04, 2020 Spoke with patient daughter Stephanie at bedside, Daughter is very tearful given how much her her mother has declined in past 1 year Wants to have a meeting with case management/hospitalist (myself) and psychiatry tomorrow 08/05/2020 Daughter will be available around 2 PM We will update case management and psychiatric team for family meeting at 2 PM Poonam Cantu MD
[2020-08-04] MEDS: MEGESTROL ACETATE SUSP 400 MG/10 ML UDC PO SCH (14:49)
[2020-08-04] MEDS: MELATONIN 3 MG TAB PO SCH (20:22)
[2020-08-04] MEDS: QUEtiapine FUMARATE 25 MG TABLET PO SCH (20:23)
[2020-08-05] MEDS: D5W AND NSS 1,000 ML IV SCH ×2 (02:54→13:53)
[2020-08-05] MEDS: LEVOTHYROXINE SODIUM 50 MCG TABLET PO SCH (06:10)
[2020-08-05] MEDS: RESTASIS~ORDER AWAITING ACTION SCH ×2 (08:19→16:32)
--- NOTE | 2020-08-05 11:15 | Psychiatric Progress Note ---
Date of Service August 05, 2020 Impression / Recommendations Impression 08/05/20--less psychomotor slowing since hospital care and restart Seroquel. I'm less concerned about hypoactive delirium at this time. Still unable to do much cognitive assessment, likely contributing factor. I'd be hesitant to use Ritalin for ary depression given somatic thoughts bordering on delusion. Like before she is accepting Seroquel but titration may be limited due to BP. Consider switch to Zyprexa if appetite is not improving and can be given IM, she does meet criteria for meds over objection given severity of depression and malnutrition. Liaison to attend family meeting today where placement options will be discussed. 08/03/20--75 yo female with a history of bipolar disorder, recent admit for psychogenic polydipsia, non-compliance with Seroquel started last visit, difficult to engage due to presumptive depression. Certainly depression in patients with bipolar disorder can include catatonia (even if no psychotic features) it appears that her selective talking is intentional and she purposely avoids gaze. It would be unusual for catatonia to wax/wane as frequently daily. Differential may also include worsening of a co-morbid cognitive decline, unidentified medical cause, post-ictal state (defer to neurology). Resume Seroquel 12.5 mg po qhs as receptive to this previously and not the 25 mg (plus restarting). If clearer episodes of decreased responsiveness would challenge with 1 mg Ativan IV. Will follow--patient would benefit from inpatient psychiatric care on a geriatric unit when medically cleared, particularly as depression is impacting her ability to care for self. She is not able to engage in that discussion at this time. Risk Factors Assessment Do You Have Access To A Gun?: No Interval History Chief Complaint "There is just something that ruined me and I won't get better". Subjective Subjective Patient was seen & assessed and interval progress reviewed with liaison, interim chart reviewed. Has been compliant with 2 doses of Seroquel. No wandering/agitation overnight. Patient states she is cold. Less delay in response today. Continues to deny SI/HI/vail. Remains worried that anything she eats will cause GI distress. Denies that she was drinking water more at home to cleanse self. didn't say she'd refuse rehab just no point as "I'll never get stronger". Physical Exam Psychiatric Orientation: alert Apperance: + disheveled Eye Contact: + poor eye contact speech is very soft with some delay in response Affect: + depressed affect Mood: + depressed mood Thought Process: + perseveration and + concrete thought process Thought Content: + hopelessness somatic preoccupation Suicidal Thoughts: denies suicidal thoughts Homicidal Thoughts: denies homicidal thoughts Hallucinations: no auditory hallucinations and no visual hallucinations Cognition: language grossly intact; + recent memory not intact and + attention not intact Insight: + impaired insight Judgement: + impaired judgement Vital Signs (Past 24 Hours) Last Vital Signs Temp 36.4 C L 08/05/20 07:48 Pulse 77 08/05/20 07:48 Resp 18 08/05/20 07:48 BP 102/67 08/05/20 07:48 Pulse Ox 96 08/05/20 07:48 Results & Data ([facility]) Current Inpatient Medications Current Inpatient Medications: Current Inpatient Medications Acetaminophen (Acetaminophen 325 Mg Tab) 650 mg PO Q4H PRN PRN Reason: Pain or Fever Stop: 09/02/20 03:28 Hyoscyamine (Hyoscyamine Sulfate 0.125 Mg Tab) 0.125 mg PO Q4 PRN PRN Reason: ABD CRAMPING Stop: 09/03/20 11:52 Dextrose/Sodium Chloride (D5w And Nss) 1,000 mls @ 80 mls/hr IV .[id number] [facility] Stop: 09/02/20 12:59 Last Admin: 08/05/20 02:54 Dose: 80 mls/hr Documented by: Levothyroxine Sodium (Levothyroxine Sodium 50 Mcg Tablet) 50 mcg PO [id number] [facility] Stop: 09/04/20 06:29 Last Admin: 08/05/20 06:10 Dose: 50 mcg Documented by: Megestrol Acetate (Megestrol Acetate Susp 400 Mg/10 Ml Udc) 400 mg PO QAM [facility] Stop: 09/03/20 11:59 Last Admin: 08/04/20 14:49 Dose: 400 mg Documented by: Melatonin (Melatonin 3 Mg Tab) 3 mg PO HS [facility] Stop: 09/03/20 20:59 Last Admin: 08/04/20 20:22 Dose: 3 mg Documented by: Miscellaneous (Restasis~Order Awaiting Action) 1 ea N/A QS [facility] Stop: 09/02/20 07:59 Last Admin: 08/05/20 08:19 Dose: Not Given Documented by: Multivitamins/Minerals (Cerovite Adv Formula Tab) 1 tab PO QAM [facility] Stop: 09/03/20 08:59 Last Admin: 08/04/20 09:06 Dose: 1 tab Documented by: Nitroglycerin (Nitroglycerin Sl 0.4 Mg/Tab Tab) 0.4 mg SL UD PRN PRN Reason: Chest Pain Stop: 09/02/20 03:28 Ondansetron HCl (Ondansetron Inj 2 Mg/Ml 2 Ml Vial) 4 mg IV Q6H PRN PRN Reason: Nausea Stop: 09/02/20 03:28 Polyethylene Glycol (Polyethylene (Miralax) 17 Gm Pack) 17 gm PO DAILY PRN PRN Reason: Constipation Stop: 09/02/20 03:28 Potassium Chloride (Potassium Chloride Crtab 20 Meq Tabcr) 40 meq PO BID [facility] Stop: 09/02/20 08:59 Last Admin: 08/04/20 20:23 Dose: 40 meq Documented by: Quetiapine Fumarate (Quetiapine Fumarate 25 Mg Tablet) 12.5 mg PO HS [facility] Stop: 09/02/20 20:59 Last Admin: 08/04/20 20:23 Dose: 12.5 mg Documented by: Sumatriptan Succinate (Sumatriptan Succinate 25 Mg Tab) 25 mg PO DAILY PRN PRN Reason: Migraine Headache Stop: 09/03/20 11:52 Thiamine HCl (Thiamine Hcl 100 Mg Tab) 100 mg PO QAM [facility] Stop: 09/02/20 12:29 Last Admin: 08/04/20 09:06 Dose: 100 mg Documented by:
[2020-08-05] MEDS: CEROVITE ADV FORMULA TAB PO SCH ×3 (11:50→17:37)
[2020-08-05] MEDS: THIAMINE HCL 100 MG TAB PO SCH ×3 (11:51→17:37)
--- NOTE | 2020-08-05 15:02 | Hospitalist Progress Note ---
Date of Service August 05, 2020 Assessment & Plan (1) Severe protein-calorie malnutrition: Patient noted to be severely malnourished with failure to thrive Possible secondary to underlying psychiatric disease, severe depression, bipolar mood disorder Reports that she has been avoiding food, thinking it will give her diarrhea Diet liberalized to regular, patient is encouraged to try different thing in menu If patient prefers particular food/beverage dishes-family will be allowed to bring it Nutrition/dietary consulted - Patient is started with p.o. thiamine, for possible underlying deficiency/vitamin B12 level elevated, discontinued supplement Added multivitamin with mineral Currently patient is in significant health risk due to malnourishment, unable to care for herself Severe depression, bipolar mood disorder Possible causing severe withdrawal symptoms. Psych consult appreciated, started on low-dose 12.5 mg Seroquel at night Patient reports she slept too much last night after taking the meds, worried that this medication may cause her to be confused Counseling provided, to take medications as directed Adult failure to thrive: Past several month patient had multiple admissions with dehydration hyponatremia, She is unable to take care of herself at home-lives alone with minimum support Spoke with patient's daughter Stephanie who is currently visiting in [place] Daughter given permission to visit the patient This is a special circumstances-visit for family will help with clinical improvement of patient Daughter. Is very concerned regarding patient's living situation Meeting arranged with daughter, myself, psychiatry liaison and case management. Patient had battled bipolar manic mood disorder all through her life recently been severely depressed, has only 1 daughter who lives in [facility] Patient has been very withdrawn in the past several months, has not been eating or drinking for days. Stays in bed symptoms for several days until either her friend, or neighbor checks on her Patient is significantly low BMI 14, severely cachectic, returning back home with above circumstances can cause serious consequences, multiorgan failure/ Upon discharge to hospital, patient either needs to be on skilled rehab later transition to [facility] or if the depressive symptoms shows no improvement/continues to refuse meals, and may need inpatient psychiatric ad mission Continue to patient on medical floor, to optimize her health condition. CODE STATUS: DNR/DNI Admission and Anticipated Discharge Date Admission Date: August 03, 2020 Subjective Follow-up visit for severe protein calorie malnutrition/failure to thrive/catatonic phase/severe depression Appears to be much more comfortable today, Offers no complaint, refused medication this morning, minimum p.o. intake, No cough no shortness of breath no fever or chills Daughter present at bed side Review of Systems Review of Systems: All systems reviewed & are unremarkable except as noted in Subjective Physical Exam Physical Exam: Physical exam: General: Very cachectic, flat affect HEENT: PERRLA, EOMI, Heart: Regular S1-S2, no carotid bruit, no JVD, no lower extremity edema Lungs: Clear to auscultate, no wheeze or rales Abdomen: Soft nontender, no organomegaly Extremity: Severe Cachexia And muscle wasting noted on both upper and lower extremity Neuro: No focal neurological deficit normal speech, Psych: Very flat affect, depressed mood, Results & Data Results & Data ([facility]) Vital Signs (Past 12 Hours) Vital Signs Temp Pulse Resp BP Pulse Ox 08/05/20 07:48 36.4 C L 77 18 102/67 96
[2020-08-05] MEDS: POTASSIUM CHLORIDE CRTAB 20 MEQ TABCR PO SCH ×4 (16:22→20:27)
[2020-08-05] MEDS: MEGESTROL ACETATE SUSP 400 MG/10 ML UDC PO SCH ×3 (16:22→17:37)
[2020-08-05] MEDS: QUEtiapine FUMARATE 25 MG TABLET PO SCH (20:27)
[2020-08-05] MEDS: MELATONIN 3 MG TAB PO SCH (20:27)
[2020-08-06] MEDS: RESTASIS~ORDER AWAITING ACTION SCH ×2 (00:08→07:59)
[2020-08-06] MEDS: D5W AND NSS 1,000 ML IV SCH ×2 (00:23→13:32)
[2020-08-06] MEDS: LEVOTHYROXINE SODIUM 50 MCG TABLET PO SCH (06:01)
[2020-08-06] MEDS: THIAMINE HCL 100 MG TAB PO SCH ×2 (07:57→08:00)
[2020-08-06] MEDS: POTASSIUM CHLORIDE CRTAB 20 MEQ TABCR PO SCH (07:59)
[2020-08-06] MEDS: CEROVITE ADV FORMULA TAB PO SCH (08:00)
[2020-08-06] MEDS: MEGESTROL ACETATE SUSP 400 MG/10 ML UDC PO SCH (08:00)
--- NOTE | 2020-08-06 09:22 | Hospitalist Progress Note ---
Date of Service August 06, 2020 Assessment & Plan (1) Severe protein-calorie malnutrition: Patient noted to be severely malnourished with failure to thrive Possible secondary to underlying psychiatric disease, severe depression, bipolar mood disorder Reports that she has been avoiding food, thinking it will give her diarrhea Diet liberalized to regular, patient is encouraged to try different thing in menu If patient prefers particular food/beverage dishes-family will be allowed to bring it Nutrition/dietary consulted - Patient is started with p.o. thiamine, for possible underlying deficiency/vitamin B12 level elevated, discontinued supplement Added multivitamin with mineral Currently patient is in significant health risk due to malnourishment, unable to care for herself And has been refusing medications, breakfast Medication list reviewed will discontinue potassium, limit tablets that she will require to take at one time Was ordered Megace for appetite stimulant-patient has been refusing Megace discontinued secondary to side effect (increased risk of venous thrombosis) Started on Drobinol 2.5 mg BID Will discuss with psychiatry for consideration of addition of TCA/amitriptyline at bedtime Patient is continued with IV fluids dextrose Severe depression, bipolar mood disorder Possible causing severe withdrawal symptoms. Psych consult appreciated, started on low-dose 12.5 mg Seroquel at night- May consider amitriptyline will discuss with psych Adult failure to thrive: Past several month patient had multiple admissions with dehydration hyponatremia, She is unable to take care of herself at home-skips meals for days, stays in bed -lives alone with minimum support Spoke with patient's daughter Stephanie who is currently visiting in [place] Daughter given permission to visit the patient This is a special circumstances-visit for family will help with clinical improvement of patient Daughter Is very concerned regarding patient's living situation Meeting arranged with daughter, myself, psychiatry liaison and case management. Patient had battled bipolar manic mood disorder all through her life recently been severely depressed, Patient has been very withdrawn in the past several months, has not been eating or drinking for days. Stays in bed symptoms for several days until either her friend, or neighbor checks on her has significantly low BMI 14, severely cachectic, returning back home with above circumstances can cause serious consequences, multiorgan failure/ Patient will need continued hospital stay to optimize health/nutritional status Upon discharge to hospital, patient either needs to be on skilled rehab later transition to [facility] or if the depressive symptoms shows no improvement/continues to refuse meals, and may need inpatient psychiatric admis anselmo CODE STATUS: DNR/DNI Disposition: To be determined Update given to daughter over phone Admission and Anticipated Discharge Date Admission Date: August 03, 2020 Subjective Follow-up visit for severe protein calorie malnutrition/failure to thrive/catatonic phase/severe depression Remains depressed, flat affect Per nursing, was trying to climb out of bed on her own Bed alarm was on, Aid helped her to get back on carter Patient is not confused or agitated, she simply does not want to stay in hospital refused a.m. meds, breakfast, after much counseling willing to try Vitals been stable so far no fever or chills Patient's personal items, blanket, pictures from home was brought by daughter yesterday to allow her to feel more comfortable Patient does not appear to be interested on a day of those Review of Systems Review of Systems: All systems reviewed & are unremarkable except as noted in Subjective Physical Exam Physical Exam: Physical exam: General: Very cachectic, flat affect HEENT: PERRLA, EOMI, Heart: Regular S1-S2, no carotid bruit, no JVD, no lower extremity edema Lungs: Clear to auscultate, no wheeze or rales Abdomen: Soft nontender, no organomegaly Extremity: Severe Cachexia And muscle wasting noted on both upper and lower extremity Neuro: No focal neurological deficit normal speech, Psych: Very flat affect, depressed mood, Results & Data Results & Data ([facility]) Vital Signs (Past 12 Hours) Vital Signs Temp Pulse Resp BP Pulse Ox 08/06/20 08:05 36.8 C 75 18 122/78 97 08/05/20 23:03 37.1 C 94 H 16 107/68 96
[2020-08-06] MEDS ORDERED: ARTIFICIAL TEARS OP OINT 3.5 GM TUBE OP PRN (14:29)
[2020-08-06 16:13] LABS: Albumin Level 2.3 gm/dl (3.4-5.0); BUN Creatinine Ratio 24.6 (10-20); Calcium 8.2 mg/dl (8.5-10.1); Creatinine Clr Calc Pharmacy 55.8 ml/min; Est GFR (African American) 114.6; Est GFR (Non-African American) 98.9; Magnesium 1.7 mg/dl (1.8-2.4)
[2020-08-06 16:25] LABS: Bilirubin,Total 1.5 mg/dl (0.2-1); Globulin 2.4 gm/dl (2.5-4.0); Phosphorus 1.5 mg/dl (2.5-4.9); Total Protein 4.7 gm/dl (6.4-8.2)
[2020-08-06] MEDS ORDERED: SODIUM PHOSPHATE 3 MMOL/1 ML INFUSION IV STA (16:39)
[2020-08-06] MEDS ORDERED: SODIUM PHOSPHATE 12 MMOL in SODIUM CHLORIDE 0.9% 250 ML IV ONE (17:00)
[2020-08-06] MEDS ORDERED: MAGNESIUM SULFATE / D5W 1 GM/100 ML BAG IV SCH (17:00)
[2020-08-06] MEDS: QUEtiapine FUMARATE 25 MG TABLET PO SCH (20:23)
[2020-08-06] MEDS: MELATONIN 3 MG TAB PO SCH (20:23)
[2020-08-07] MEDS: D5W AND NSS 1,000 ML IV SCH ×2 (00:57→15:55)
[2020-08-07] MEDS: LEVOTHYROXINE SODIUM 50 MCG TABLET PO SCH (05:21)
[2020-08-07 07:16] LABS: BUN Creatinine Ratio 34.9 (10-20); Calcium 8.3 mg/dl (8.5-10.1); Creatinine Clr Calc Pharmacy 83.7 ml/min; Est GFR (African American) 130.9; Magnesium 2.1 mg/dl (1.8-2.4); Potassium 3.7 mmol/L (3.5-5.1)
[2020-08-07 07:35] LABS: Phosphorus 2.7 mg/dl (2.5-4.9); Prealbumin 8.7 mg/dl (20-40)
[2020-08-07] MEDS: HYOSCYAMINE SULFATE 0.125 MG TAB PO PRN (08:57)
[2020-08-07] MEDS: CEROVITE ADV FORMULA TAB PO SCH (08:58)
--- NOTE | 2020-08-07 17:11 | Hospitalist Progress Note ---
Date of Service August 07, 2020 Assessment & Plan (1) Severe protein-calorie malnutrition: Severe protein calorie malnutrition Failure to thrive Poor oral intake secondary to psychiatric issues BMI: 14.5 Dietitian consulted Continue thiamine Encouraged to increase oral intake Continue Marinol On gentle IV fluids Severe depression Bipolar disorder History of psychogenic polydipsia Noncompliance with Seroquel Appreciate Psychiatry Input Continue Seroquel Hypothyroidism Normal TSH Continue levothyroxine Hypokalemia Hypophosphatemia Hypomagnesemia Replace electrolytes as needed Adult failure to thrive: Past several month patient had multiple admissions with dehydration hyponatremia Patient unable to take care of herself at home Family concerned with patient's living situation Case management to help with discharge planning DVT Px: SCDs CODE STATUS: DNR/DNI Disposition: To be determined Case Management consulted Admission and Anticipated Discharge Date Admission Date: August 03, 2020 Subjective Patient is seen and examined at bedside Offers no complaints this morning Had good breakfast this AM Denies chest pain, dyspnea, dizziness, nausea, abdominal pain Discussed with patient's daughter over the phone Poor historian Seemed to be depressed Review of Systems Review of Systems: All systems reviewed & are unremarkable except as noted in HPI & below Physical Exam Physical Exam: Physical Exam: Vitals signs as noted above General Appearance:Thin, Frail, no apparent distress Head: normocephalic, Atraumatic Eyes: normal inspection, EOMI Neck: supple, Trachea midline Respiratory/Chest: Normal breath sounds, CTA Cardiovascular: S1, S2, No murmur Abdomen/GI:Soft, Non tender, Bowel sounds present Extremities/Musculoskeletal:normal inspection, no edema Neurologic/Psych:AAOX3, grossly no focal neurological deficits, +Depressed Skin: normal color, warm Results & Data Results & Data ([facility]) Vital Signs (Past 12 Hours) Vital Signs Temp Pulse Resp BP Pulse Ox 08/07/20 14:30 37.0 C 97 H 17 103/69 93 08/07/20 06:58 36.6 C 79 16 129/80 96 Laboratory Results [facility] 08/07/20 06:20 Sodium 138 Potassium 3.7 Chloride 107 Carbon Dioxide 29 BUN 10 Creatinine 0.28 L Glucose 98 Calcium 8.3 L
[2020-08-07] MEDS: MELATONIN 3 MG TAB PO SCH ×2 (20:05→20:13)
[2020-08-07] MEDS: QUEtiapine FUMARATE 25 MG TABLET PO SCH ×2 (20:06→20:13)
[2020-08-08] MEDS: LEVOTHYROXINE SODIUM 50 MCG TABLET PO SCH (05:31)
[2020-08-08 05:52] LABS: Hematocrit (blood only) 31.2 % (37-47); Hemoglobin 10.7 g/dL (12.0-16.0); Mean Corpuscular Hemoglobin 32.9 pg (25-34); Mean Corpuscular Hgb Conc 34.3 g/dL (32-36); Mean Platelet Volume 9.5 fL (7.4-10.4); Platelet Count 150 K/uL (130-400); RDW Coefficient of Variation 14.4 % (11.5-14.5); RDW Standard Deviation 50.4 fL (36.4-46.3); Red Blood Count 3.25 M/uL (4.2-5.4); White Blood Count 3.98 K/uL (4.8-10.8)
[2020-08-08 06:25] LABS: BUN Creatinine Ratio 41.8 (10-20); Calcium 7.6 mg/dl (8.5-10.1); Creatinine Clr Calc Pharmacy 54.5 ml/min; Est GFR (African American) 113.7; Est GFR (Non-African American) 98.1; Potassium 3.7 mmol/L (3.5-5.1)
[2020-08-08] MEDS: THIAMINE HCL 100 MG TAB PO SCH ×2 (09:02→09:06)
[2020-08-08] MEDS: CEROVITE ADV FORMULA TAB PO SCH ×2 (09:02→09:06)
[2020-08-08] MEDS ORDERED: SODIUM PHOSPHATE 3 MMOL/1 ML INFUSION IV ONE (09:17)
[2020-08-08] MEDS ORDERED: SODIUM PHOSPHATE 15 MMOL in SODIUM CHLORIDE 0.9% 250 ML IV ONE (10:00)
--- NOTE | 2020-08-08 16:23 | Ultrasound Report ---
US venous doppler LE BI CLINICAL HISTORY: Leg swelling COMPARISON STUDY: June 29, 2020 FINDINGS: Grayscale, color-flow, Doppler spectral waveform analysis was performed. On the right, no thrombus is visualized in the common femoral, superficial femoral, popliteal, or pro ximal trifurcation veins of the calf. There is a right-sided popliteal cyst measuring 29 mm. In the left, no thrombus is visualized in the left common femoral artery. There is a very small throm bus adjacent to a valve within the distal left superficial femoral vein. No popliteal vein thrombus i s visualized. There is no thrombus within the proximal trifurcation veins of the left calf. IMPRESSION: 1. Very small nonocclusive DVT within the distal left superficial femoral vein adjacent to a valve le aflet ACT 112: Negative or not required by law. Electronically signed by: Hilton Wang M.D. 08/08/2020 4:22 PM
--- NOTE | 2020-08-08 18:23 | Hospitalist Progress Note ---
Date of Service August 08, 2020 Assessment & Plan (1) Severe protein-calorie malnutrition: Severe protein calorie malnutrition Failure to thrive Poor oral intake secondary to psychiatric issues BMI: 14.5 Dietitian consulted Continue thiamine Encouraged to increase oral intake Continue Marinol Received gentle IV fluids Very poor oral intake Acute DVT Venous Doppler:Very small nonocclusive DVT within the distal left superficial femoral vein adjacent to a valve leaflet Hypercoagulable work-up as outpatient Started on Eliquis Severe depression Bipolar disorder History of psychogenic polydipsia Noncompliance with Seroquel Appreciate Psychiatry Input Continue Seroquel Has been refusing medications Hypothyroidism Normal TSH Continue levothyroxine Hypokalemia Hypophosphatemia Hypomagnesemia Replace electrolytes as needed Adult failure to thrive: Past several month patient had multiple admissions with dehydration hyponatremia Patient unable to take care of herself at home Family concerned with patient's living situation Case management to help with discharge planning May need to address goals of care, if patient continues to refuse treatment DVT Px: Eliquis CODE STATUS: DNR/DNI Disposition: To be determined Case Management consulted Admission and Anticipated Discharge Date Admission Date: August 03, 2020 Subjective Patient is seen and examined at bedside Did not cooperate with occupational therapy this morning Very poor historian Updated patient's daughter over the phone Refused p.o. medications Noted to have a small nonocclusive DVT on venous Dopplers Poor oral intake Sitting in chair comfortably during my encounter Review of Systems Review of Systems: All systems reviewed & are unremarkable except as noted in HPI & below Physical Exam Physical Exam: Physical Exam: Vitals signs as noted above General Appearance:Thin, Frail, no apparent distress Head: normocephalic, Atraumatic Eyes: normal inspection, EOMI Neck: supple, Trachea midline Respiratory/Chest: Normal breath sounds, CTA Cardiovascular: S1, S2, No murmur Abdomen/GI:Soft, Non tender, Bowel sounds present Extremities/Musculoskeletal:normal inspection, B/L LE edema Neurologic/Psych:AAOX3, grossly no focal neurological deficits, +Depressed Skin: normal color, warm Results & Data Results & Data ([facility]) Vital Signs (Past 12 Hours) Vital Signs Temp Pulse Resp BP Pulse Ox 08/08/20 07:12 36.5 C 84 16 135/83 99 Laboratory Results Short CBC 08/08/20 Range/Units 05:32 WBC 3.98 L (4.8-10.8) K/uL Hgb 10.7 L (12.0-16.0) g/dL Hct 31.2 L (37-47) % Plt Count 150 (130-400) K/uL [facility] 08/08/20 05:32 Sodium 138 Potassium 3.7 Chloride 108 H Carbon Dioxide 27 BUN 18 D Creatinine 0.43 L Glucose 103 H Calcium 7.6 L
[2020-08-08] MEDS: APIXABAN 5 MG TABLET PO SCH ×2 (21:03→21:08)
[2020-08-08] MEDS: QUEtiapine FUMARATE 25 MG TABLET PO SCH ×2 (21:05→21:08)
[2020-08-08] MEDS: MELATONIN 3 MG TAB PO SCH (21:07)
[2020-08-09 05:26] LABS: Hematocrit (blood only) 29.6 % (37-47); Hemoglobin 10.5 g/dL (12.0-16.0)
[2020-08-09 05:51] LABS: BUN Creatinine Ratio 73.5 (10-20); Calcium 7.8 mg/dl (8.5-10.1); Creatinine Clr Calc Pharmacy 111.6 ml/min; Est GFR (African American) 143.9; Est GFR (Non-African American) 124.2; Magnesium 1.8 mg/dl (1.8-2.4); Potassium 3.4 mmol/L (3.5-5.1)
[2020-08-09 05:52] LABS: Phosphorus 2.4 mg/dl (2.5-4.9)
[2020-08-09] MEDS: LEVOTHYROXINE SODIUM 50 MCG TABLET PO SCH (06:00)
[2020-08-09] MEDS: APIXABAN 5 MG TABLET PO SCH ×2 (08:20→22:05)
[2020-08-09] MEDS: CEROVITE ADV FORMULA TAB PO SCH (09:53)
[2020-08-09] MEDS: THIAMINE HCL 100 MG TAB PO SCH (09:53)
[2020-08-09] MEDS ORDERED: POTASSIUM PHOS 3 MMOL/1 ML INFUSION IV ONE (10:19)
[2020-08-09] MEDS ORDERED: POTASSIUM PHOSPHATE 15 MMOL in SODIUM CHLORIDE 0.9% 250 ML IV ONE (10:45)
--- NOTE | 2020-08-09 16:26 | Ultrasound Report ---
ULTRASOUND ASCITES CHECK CLINICAL HISTORY: Abdominal distention. COMPARISON STUDY: Abdominal ultrasound dated 08/02/2020. FINDINGS: Real-time grayscale sonography of all 4 quadrants of the abdomen is performed to assess for abdominal ascites. There is no sonographic evidence of abdominal ascites. Sludge is incidentally not ed within the gallbladder lumen. Hepatic echotexture is heterogeneous IMPRESSION: No abdominal ascites is identified. Electronically signed by: Matt Vilchis M.D. 08/09/2020 4:24 PM
--- NOTE | 2020-08-09 19:28 | Hospitalist Progress Note ---
Date of Service August 09, 2020 Assessment & Plan (1) Severe protein-calorie malnutrition: Severe protein calorie malnutrition Failure to thrive Poor oral intake secondary to psychiatric issues BMI: 14.5 Dietitian consulted Continue thiamine Encouraged to increase oral intake Continue Marinol Received gentle IV fluids Intermittent. Refuses medications Appetite better today Acute DVT Venous Doppler:Very small nonocclusive DVT within the distal left superficial femoral vein adjacent to a valve leaflet Hypercoagulable work-up as outpatient Continue Eliquis Severe depression Bipolar disorder History of psychogenic polydipsia Noncompliance with Seroquel Appreciate Psychiatry Input Continue Seroquel Has been refusing medications intermittently Hypothyroidism Normal TSH Continue levothyroxine Hypokalemia Hypophosphatemia Hypomagnesemia Replace electrolytes as needed Adult failure to thrive: Past several month patient had multiple admissions with dehydration hyponatremia Patient unable to take care of herself at home Family concerned with patient's living situation Case management to help with discharge planning May need to address goals of care, if patient continues to refuse treatment DVT Px: Eliquis CODE STATUS: DNR/DNI Disposition: To be determined Case Management consulted Admission and Anticipated Discharge Date Admission Date: August 03, 2020 Subjective Patient is seen and examined at bedside States having nausea Appetite better today Discussed with patient's daughter at bedside Refused to get KUB today Ambulated to bathroom with help Denies chest pain, dyspnea, dizziness, abdominal pain Review of Systems Review of Systems: All systems reviewed & are unremarkable except as noted in HPI & below Physical Exam Physical Exam: Physical Exam: Vitals signs as noted above General Appearance:Thin, Frail, no apparent distress Head: normocephalic, Atraumatic Eyes: normal inspection, EOMI Neck: supple, Trachea midline Respiratory/Chest: Normal breath sounds, CTA Cardiovascular: S1, S2, No murmur Abdomen/GI:Soft, Non tender, Bowel sounds present Extremities/Musculoskeletal:normal inspection, B/L LE edema Neurologic/Psych:AAOX3, grossly no focal neurological deficits, +Depressed Skin: normal color, warm Results & Data Results & Data ([facility]) Vital Signs (Past 12 Hours) Vital Signs Temp Pulse Resp BP BP Pulse Ox 08/09/20 15:17 36.8 C 92 H 16 112/73 97 08/09/20 12:05 37 C 82 18 114/70 97 08/09/20 07:37 36.6 C 81 16 136/85 97 Laboratory Results Short CBC 08/09/20 Range/Units 05:03 Hgb 10.5 L (12.0-16.0) g/dL Hct 29.6 L (37-47) % BMP 08/09/20 05:03 Sodium 136 Potassium 3.4 L Chloride 105 Carbon Dioxide 28 BUN 15 Creatinine 0.21 L Glucose 92 Calcium 7.8 L
[2020-08-09] MEDS: QUEtiapine FUMARATE 25 MG TABLET PO SCH (22:04)
[2020-08-09] MEDS: FAMOTIDINE 10 MG TABLET PO SCH (22:15)
[2020-08-09] MEDS: MELATONIN 3 MG TAB PO SCH (22:15)
[2020-08-10 07:42] LABS: BUN Creatinine Ratio 52.4 (10-20); Calcium 7.8 mg/dl (8.5-10.1); Creatinine Clr Calc Pharmacy 86.5 ml/min; Est GFR (African American) 124.1; Phosphorus 2.5 mg/dl (2.5-4.9); Potassium 3.5 mmol/L (3.5-5.1)
[2020-08-10] MEDS: CEROVITE ADV FORMULA TAB PO SCH (08:07)
[2020-08-10] MEDS: THIAMINE HCL 100 MG TAB PO SCH (08:07)
[2020-08-10] MEDS: APIXABAN 5 MG TABLET PO SCH ×2 (08:07→20:34)
--- NOTE | 2020-08-10 20:07 | Hospitalist Progress Note ---
Date of Service August 10, 2020 Assessment & Plan (1) Severe protein-calorie malnutrition: Severe protein calorie malnutrition Failure to thrive Poor oral intake secondary to psychiatric issues BMI: 14.5 Dietitian consulted Continue thiamine Encouraged to increase oral intake Continue Marinol Received gentle IV fluids Intermittent. Refuses medications Appetite better but refuses intermittently Feels any further investigations States having insurance issues Acute DVT Venous Doppler:Very small nonocclusive DVT within the distal left superficial femoral vein adjacent to a valve leaflet Hypercoagulable work-up as outpatient Continue Eliquis Severe depression Bipolar disorder History of psychogenic polydipsia Noncompliance with Seroquel Appreciate Psychiatry Input Continue Seroquel Has been refusing medications intermittently Hypothyroidism Normal TSH Continue levothyroxine Hypokalemia Hypophosphatemia Hypomagnesemia Replace electrolytes as needed Adult failure to thrive: Past several month patient had multiple admissions with dehydration hyponatremia Patient unable to take care of herself at home Family concerned with patient's living situation Case management to help with discharge planning May need to address goals of care, if patient continues to refuse treatment DVT Px: Eliquis CODE STATUS: DNR/DNI Disposition: To be determined Case Management consulted Admission and Anticipated Discharge Date Admission Date: August 03, 2020 Subjective Patient is seen and examined at bedside Provides more history today Refuses any further investigations States having problems with insurance issues No new complaints Nausea resolved Denies chest pain, dyspnea, dizziness, abdominal pain Leg edema better Review of Systems Review of Systems: All systems reviewed & are unremarkable except as noted in HPI & below Physical Exam Physical Exam: Physical Exam: Vitals signs as noted above General Appearance:Thin, Frail, no apparent distress Head: normocephalic, Atraumatic Eyes: normal inspection, EOMI Neck: supple, Trachea midline Respiratory/Chest: Normal breath sounds, CTA Cardiovascular: S1, S2, No murmur Abdomen/GI:Soft, Non tender, Bowel sounds present Extremities/Musculoskeletal:normal inspection, B/L LE edema Neurologic/Psych:AAOX3, grossly no focal neurological deficits, +Depressed Skin: normal color, warm Results & Data Results & Data ([facility]) Vital Signs (Past 12 Hours) Vital Signs Temp Pulse Resp BP Pulse Ox 08/10/20 15:25 36.6 C 79 16 128/74 96 Laboratory Results [facility] 08/10/20 06:37 Sodium 138 Potassium 3.5 Chloride 107 Carbon Dioxide 28 BUN 17 Creatinine 0.33 L Glucose 77 Calcium 7.8 L
[2020-08-10] MEDS: MELATONIN 3 MG TAB PO SCH (20:34)
[2020-08-10] MEDS: QUEtiapine FUMARATE 25 MG TABLET PO SCH (20:35)
[2020-08-10] MEDS: FAMOTIDINE 10 MG TABLET PO SCH (20:35)
[2020-08-11 07:09] LABS: BUN Creatinine Ratio 105.3 (10-20); Blood Urea Nitrogen 16 mg/dl (7-18); Calcium 8.5 mg/dl (8.5-10.1); Carbon Dioxide 27 mmol/L (21-32); Chloride 102 mmol/L (98-107); Creatinine Clr Calc Pharmacy 187.4 ml/min; Est GFR (African American) > 150.0; Est GFR (Non-African American) 138.7; Glucose 76 mg/dl (70-99); Potassium 3.3 mmol/L (3.5-5.1); Sodium 135 mmol/L (136-145)
[2020-08-11 07:13] LABS: Phosphorus 3.3 mg/dl (2.5-4.9)
[2020-08-11] MEDS ORDERED: POTASSIUM CHLORIDE PWD 20 MEQ PACK PO ONE (08:30)
[2020-08-11] MEDS: THIAMINE HCL 100 MG TAB PO SCH (09:00)
[2020-08-11] MEDS: APIXABAN 5 MG TABLET PO SCH (09:00)
[2020-08-11] MEDS: CEROVITE ADV FORMULA TAB PO SCH (09:00)
--- NOTE | 2020-08-11 12:47 | Psychiatric Progress Note ---
Date of Service August 11, 2020 Impression / Recommendations Impression 08/11--patient has taken quetiapine 12.5 mg at bedtime the last 2 nights, and is also taking other meds orally with significant encouragement/assistance from staff. She has been eating better, 50-75% of meals, and has gained weight (BMI is increased from 14.5-17.4). She remains poorly cooperative with the assessment, only answering limited questions, but does report feeling depressed and states she is willing for psychiatric treatment. We will refer her to [facility] for Ary psych. 08/05/20--less psychomotor slowing since hospital care and restart Seroquel. I'm less concerned about hypoactive delirium at this time. Still unable to do much cognitive assessment, likely contributing factor. I'd be hesitant to use Ritalin for ary depression given somatic thoughts bordering on delusion. Like before sh carlito is accepting Seroquel but titration may be limited due to BP. Consider switch to Zyprexa if appetite is not improving and can be given IM, she does meet criteria for meds over objection given severity of depression and malnutrition. Liaison to attend family meeting today where placement options will be discussed. 08/03/20--75 yo female with a history of bipolar disorder, recent admit for psychogenic polydipsia, non-compliance with Seroquel started last visit, difficult to engage due to presumptive depression. Certainly depression in patients with bipolar disorder can include catatonia (even if no psychotic features) it appears that her selective talking is intentional and she purposely avoids gaze. It would be unusual for catatonia to wax/wane as frequently daily. Differential may also include worsening of a co-morbid cognitive decline, unidentified medical cause, post-ictal state (defer to neurology). Resume Seroquel 12.5 mg po qhs as receptive to this previously and not the 25 mg (plus restarting). If clearer episodes of decreased responsiveness would challenge with 1 mg Ativan IV. Will follow--patient would benefit from inpatient psychiatric care on a geriatric unit when medically cleared, particularly as depression is impacting her ability to care for self. She is not able to engage in that discussion at this time. Risk Factors Assessment Do You Have Access To A Gun?: No Interval History Chief Complaint Patient initially nonverbal, not responding to questions. Subjective Subjective Patient was seen & assessed and interval progress reviewed with the psychiatric liaison nurse and in the EMR. She has been taking low-dose quetiapine the past 2 days, p.o. intake has improved, and she has been able to walk unassisted to the bathroom. She was started on Marinol, BMP today show sodium 135, potassium 3.3. Vital signs have been normal and stable. On my assessment, she initially did not respond to questions, although she would open her eyes and look at me, she would just close them and appear to go back to sleep. She eventually did respond verbally to questions, stating that "of course" she is depressed, but would not answer when asked about suicidal thoughts. She stated "once I walked through those doors I was doomed," and "my benefits are maxed out, long ago I had no benefits." She says she would be willing for inpatient psychiatric treatment, "I will if it's an option, but it's really too late for that." Physical Exam Psychiatric Orientation: alert and cooperative (Partially) Very thin female appearing her stated age, dressed in a hospital gown, lying in bed in no acute distress Keeps eyes closed for most of the assessment, opening them only briefly. Motor Behavior: no abnormal motor movements Minimal, soft. Affect: + constricted affect (To depressed/somnolent) Mood: + depressed mood Thought Process: + concrete thought process Difficult to assess as patient answers only few questions, and those only briefly. Patient would not respond when asked about suicidal thoughts No response No response Insight: + impaired insight Judgement: + impaired judgement Vital Signs (Past 24 Hours) Last Vital Signs Temp 36.7 C 08/11/20 07:15 Pulse 79 08/11/20 07:15 Resp 16 08/11/20 07:15 BP 133/76 08/11/20 07:15 Pulse Ox 96 08/11/20 07:15 Results & Data ([facility]) Laboratory Results Laboratory Results - last 24 hr 08/11/20 06:16 Sodium 135 L Potassium 3.3 L Chloride 102 Carbon Dioxide 27 Anion Gap 6.0 BUN 16 Creatinine 0.15 L Est Cr Clr Drug Dosing 187.4 Est GFR ( Amer) > 150.0 Est GFR (Non-Af Amer) 138.7 BUN/Creatinine Ratio 105.3 H Glucose 76 Calcium 8.5 Phosphorus 3.3 Current Inpatient Medications Current Inpatient Medications: Current Inpatient Medications Acetaminophen (Acetaminophen 325 Mg Tab) 650 mg PO Q4H PRN PRN Reason: Pain or Fever Stop: 09/02/20 03:28 Apixaban (Apixaban 5 Mg Tablet) 10 mg PO BID [facility] Stop: 08/15/20 09:01 Last Admin: 08/11/20 09:00 Dose: 10 mg Documented by: Apixaban (Apixaban 5 Mg Tablet) 5 mg PO BID [facility] Stop: 09/14/20 20:59 Dronabinol (Dronabinol 2.5 Mg Cap) 2.5 mg PO BID [facility] Stop: 09/05/20 10:29 Last Admin: 08/11/20 08:59 Dose: 2.5 mg Documented by: Famotidine (Famotidine 10 Mg Tablet) 10 mg PO [facility] Stop: 09/08/20 20:59 Last Admin: 08/10/20 20:35 Dose: 10 mg Documented by: Hyoscyamine (Hyoscyamine Sulfate 0.125 Mg Tab) 0.125 mg PO Q4 PRN PRN Reason: ABD CRAMPING Stop: 09/03/20 11:52 Last Admin: 08/07/20 08:57 Dose: 0.125 mg Documented by: Levothyroxine Sodium (Levothyroxine Sodium 50 Mcg Tablet) 50 mcg PO [id number] [facility] Stop: 09/04/20 06:29 Last Admin: 08/09/20 06:00 Dose: 50 mcg Documented by: Melatonin (Melatonin 3 Mg Tab) 3 mg PO [facility] Stop: 09/03/20 20:59 Last Admin: 08/10/20 20:34 Dose: 3 mg Documented by: Multi-Ingredient Cream (Artificial Tears Op Oint 3.5 Gm Tube) 1 appln OP Q4H PRN PRN Reason: DRY EYES Stop: 09/05/20 14:28 Multivitamins/Minerals (Cerovite Adv Formula Tab) 1 tab PO QAM [facility] Stop: 09/03/20 08:59 Last Admin: 08/11/20 09:00 Dose: 1 tab Documented by: Nitroglycerin (Nitroglycerin Sl 0.4 Mg/Tab Tab) 0.4 mg SL UD PRN PRN Reason: Chest Pain Stop: 09/02/20 03:28 Ondansetron HCl (Ondansetron Inj 2 Mg/Ml 2 Ml Vial) 4 mg IV Q6H PRN PRN Reason: Nausea Stop: 09/02/20 03:28 Polyethylene Glycol (Polyethylene (Miralax) 17 Gm Pack) 17 gm PO DAILY PRN PRN Reason: Constipation Stop: 09/02/20 03:28 Potassium Chloride (Potassium Chloride 10 Meq Tabcr) [facility] Stop: 09/11/20 08:59 Quetiapine Fumarate (Quetiapine Fumarate 25 Mg Tablet) 12.5 mg PO HS [facility] Stop: 09/02/20 20:59 Last Admin: 08/10/20 20:35 Dose: 12.5 mg Documented by: Sumatriptan Succinate (Sumatriptan Succinate 25 Mg Tab) 25 mg PO DAILY PRN PRN Reason: Migraine Headache Stop: 09/03/20 11:52 Thiamine HCl (Thiamine Hcl 100 Mg Tab) [facility] Stop: 09/02/20 12:29 Last Admin: 08/11/20 09:00 Dose: 100 mg Documented by:
[2020-08-11] MEDS ORDERED: bisacodyL 10 MG SUPP PR PRN (16:27)
[2020-08-11] MEDS ORDERED: bisacodyL 10 MG SUPP PR ONE (16:27)
--- NOTE | 2020-08-11 18:47 | CT Scan Report ---
CT OF THE HEAD WITHOUT CONTRAST CLINICAL HISTORY: fall, head trauma COMPARISON STUDY: Head CT August 02, 2020. CT DOSE: 537.48 mGy.cm TECHNIQUE: Helical axial images of the head were obtained without IV contrast. Automated exposure con trol was utilized for the study. A dose lowering technique was utilized adhering to the principles o f ALARA. FINDINGS: No acute intracranial hemorrhage, midline shift or mass effect is present. The ventricular system is unremarkable. The basal cisterns are patent. No extra-axial collections are present. There are no findings to suggest acute dural sinus thrombosis or acute territorial infarct. No significant calvarial abnormalities are present. Visualized portions of the sinuses and mastoid air cells are krissy ar. IMPRESSION: No acute intracranial findings. ACT 112: Negative or not required by law. Electronically signed by: Carlos Bradford M.D. 08/11/2020 6:46 PM
--- NOTE | 2020-08-11 19:59 | Hospitalist Progress Note ---
Date of Service August 11, 2020 Assessment & Plan (1) Severe protein-calorie malnutrition: Severe protein calorie malnutrition Failure to thrive Poor oral intake secondary to psychiatric issues BMI: 14.5 Dietitian consulted Continue thiamine Encouraged to increase oral intake Continue Marinol Received gentle IV fluids Intermittently refuses medications, food Appetite better but refuses intermittently Feels any further investigations States having insurance issues Mechanical Fall Head Trauma Scalp wound due to above CT head:No acute intracranial findings. Continue wound care Acute DVT Venous Doppler:Very small nonocclusive DVT within the distal left superficial femoral vein adjacent to a valve leaflet Hypercoagulable work-up as outpatient Hold Eliquis today secondary to trauma Resume Eliquis as able Severe depression Bipolar disorder History of psychogenic polydipsia Noncompliance with Seroquel Appreciate Psychiatry Input Continue Seroquel Has been refusing medications intermittently Hypothyroidism Normal TSH Continue levothyroxine Hypokalemia Hypophosphatemia Hypomagnesemia Replace electrolytes as needed Adult failure to thrive: Past several month patient had multiple admissions with dehydration hyponatremia Patient unable to take care of herself at home Family concerned with patient's living situation Case management to help with discharge planning May need to address goals of care, if patient continues to refuse treatment DVT Px: Eliquis CODE STATUS: DNR/DNI Disposition: To be determined Case Management consulted Admission and Anticipated Discharge Date Admission Date: August 03, 2020 Subjective Patient is seen and examined at bedside Had accidental fall hitting her head today Discussed with psychiatry Has placement issues No new complaints Reports chronic constipation Denies chest pain, dyspnea, dizziness, abdominal pain Review of Systems 2 Review of Systems: All systems reviewed & are unremarkable except as noted in HPI & below Physical Exam Physical Exam: Physical Exam: Vitals signs as noted above General Appearance:Thin, Frail, no apparent distress Head: normocephalic, Atraumatic Eyes: normal inspection, EOMI Neck: supple, Trachea midline Respiratory/Chest: Normal breath sounds, CTA Cardiovascular: S1, S2, No murmur Abdomen/GI:Soft, Non tender, Bowel sounds present Extremities/Musculoskeletal:normal inspection, B/L LE edema better Neurologic/Psych:AAOX3, grossly no focal neurological deficits, +Depressed Skin: normal color, warm Results & Data Results & Data ([facility]) Vital Signs (Past 12 Hours) Vital Signs Temp Pulse Resp BP Pulse Ox 08/11/20 17:25 87 18 137/81 98 08/11/20 14:48 36.5 C 85 16 107/70 96 Laboratory Results BMP 08/11/20 06:16 Sodium 135 L Potassium 3.3 L Chloride 102 Carbon Dioxide 27 BUN 16 Creatinine 0.15 L Glucose 76 Calcium 8.5
[2020-08-11] MEDS: FAMOTIDINE 10 MG TABLET PO SCH (21:24)
[2020-08-11] MEDS: QUEtiapine FUMARATE 25 MG TABLET PO SCH (21:24)
[2020-08-11] MEDS: MELATONIN 3 MG TAB PO SCH (21:25)
[2020-08-12] MEDS: LEVOTHYROXINE SODIUM 50 MCG TABLET PO SCH (06:27)
[2020-08-12 06:51] LABS: Calcium 8.5 mg/dl (8.5-10.1); Creatinine Clr Calc Pharmacy 80.3 ml/min; Est GFR (African American) 121.7; Potassium 3.8 mmol/L (3.5-5.1)
[2020-08-12] MEDS: POTASSIUM CHLORIDE 10 MEQ TABCR PO SCH (08:35)
[2020-08-12] MEDS: THIAMINE HCL 100 MG TAB PO SCH (08:35)
[2020-08-12] MEDS: CEROVITE ADV FORMULA TAB PO SCH (08:35)
[2020-08-12] MEDS ORDERED: POTASSIUM CHLORIDE CRTAB 20 MEQ TABCR PO SCH (09:00)
--- NOTE | 2020-08-12 11:57 | Psychiatric Progress Note ---
Date of Service August 12, 2020 Impression / Recommendations Impression 08/12--recommend titrating quetiapine to 25mg qHS - continue titration as indicated/tolerated. Pt continues to endorse a depressed mood, but limited motivation to engage in treatment. Could consider trail of an antidepressant medication, with need for some level of caution given bipolar disorder history - consider mirtazapine given ongoing concerns with appetite and sleep. - Given fall and minor head laceration last evening, would suggest focusing efforts on building physical strength and encouraging patient to engage with PT/OT teams. - Could consider re-referral to a ary psych facility if still indicated after she is physical/medically more stable. 08/11--patient has taken quetiapine 12.5 mg at bedtime the last 2 nights, and is also taking other meds orally with significant encouragement/assistance from staff. She has been eating better, 50-75% of meals, and has gained weight (BMI is increased from 14.5-17.4). She remains poorly cooperative with the assessment, only answering limited questions, but does report feeling depressed and states she is willing for psychiatric treatment. We will refer her to [facility] for Ary psych. 08/05/20--less psychomotor slowing since hospital care and restart Seroquel. I'm less concerned about hypoactive delirium at this time. Still unable to do much cognitive assessment, likely contributing factor. I'd be hesitant to use Ritalin for ary depression given somatic thoughts bordering on delusion. Like before she is accepting Seroquel but titration may be limited due to BP. Consider switch to Zyprexa if appetite is not improving and can be given IM, she does meet criteria for meds over objection given severity of depression and malnutrition. Liaison to attend family meeting today where placement options will be discussed. 08/03/20--75 yo female with a history of bipolar disorder, recent admit for psychogenic polydipsia, non-compliance with Seroquel started last visit, difficult to engage due to presumptive depression. Certainly depression in patients with bipolar disorder can include catatonia (even if no psychotic features) it appears that her selective talking is intentional and she purposely avoids gaze. It would be unusual for catatonia to wax/wane as frequently daily. Differential may also include worsening of a co-morbid cognitive decline, unidentified medical cause, post-ictal state (defer to neurology). Resume Seroquel 12.5 mg po qhs as receptive to this previously and not the 25 mg (plus restarting). If clearer episodes of decreased responsiveness would challenge with 1 mg Ativan IV. Will follow--patient would benefit from inpatient psychiatric care on a geriatric unit when medically cleared, particularly as depression is impacting her ability to care for self. She is not able to engage in that discussion at this time. Risk Factors Assessment Do You Have Access To A Gun?: No Interval History Chief Complaint "Hi." Review of Systems Notes Constitutional: reports sleep has been "terrible", declines to elaborate Cardiovascular: denied Respiratory: denied Gastrointestinal: reports appetite has been "terrible", declines to elaborate Neurological: denied Psychiatric: denies symptoms other than stated above Total of at least 10 systems reviewed, pertinent positives as above and in HPI. Subjective Subjective Patient's case has been reviewed and discussed daily during morning report with psychiatric nurse liaison. Plan as of yesterday, was to refer patient to an inpatient Ary psych unit; however, patient suffered a fall last evening and likely requires ongoing attempts to engage with physical therapy to build up her physical strength. Pt's engagement with conversation today was very limited. She did admit her mood was "terrible", relating this to prolonged hospitalization. This provider attempted to ask questions to gauge patient's goals of treatment and her motivation to work toward these. At one point she rolled over to face away from this provider. After several questions were asked without response from the patient, she stated "Please don't keep asking me questions, because it makes me have to be rude." Pt indicated she did not plan to continue conversation with this provider. This provider explained that we are trying to support her primary team with progressing through this admission to move toward the next step of treatment. Pt continues to be unwilling to engage in these efforts and does not verbalize an opinion of what level of treatment she desires or feels would be helpful. This provider did explain recommendation to titrate her dose of quetiapine, no response from the patient. Physical Exam Psychiatric Orientation: alert; + uncooperative Apperance: appropriately dressed and appeared stated age appearing thin Eye Contact: + poor eye contact (even turning to face away from this provider) Motor Behavior: no abnormal motor movements (observed while laying in bed) Speech: soft tone, nonspontaneous, limited engagement in conversation Affect: + depressed affect and + flat affect Mood: + depressed mood (describes mood as "terrible") Thought Process: + concrete thought process Insight: + impaired insight Judgement: + impaired judgement Vital Signs (Past 24 Hours) Last Vital Signs Temp 36.5 C 08/12/20 08:15 Pulse 76 08/12/20 08:15 Resp 16 08/12/20 08:15 BP 134/81 08/12/20 08:15 Pulse Ox 99 08/12/20 08:15 Results & Data ([facility]) Laboratory Results Laboratory Results - last 24 hr 08/11/20 08/12/20 17:26 05:36 Sodium 135 L Potassium 3.8 D Chloride 102 Carbon Dioxide 29 Anion Gap 4.0 BUN 21 H Creatinine 0.35 L Est Cr Clr Drug Dosing 80.3 Est GFR ( Amer) 121.7 Est GFR (Non-Af Amer) 105.0 BUN/Creatinine Ratio 61.0 H Glucose 84 POC Glucose 121 H Calcium 8.5 Current Inpatient Medications Current Inpatient Medications: Current Inpatient Medications Acetaminophen (Acetaminophen 325 Mg Tab) 650 mg PO Q4H PRN PRN Reason: Pain or Fever Stop: 09/02/20 03:28 Apixaban (Apixaban 5 Mg Tablet) 10 mg PO BID [facility] Last Admin: 08/11/20 09:00 Dose: 10 mg Documented by: Apixaban (Apixaban 5 Mg Tablet) 5 mg PO BID [facility] Stop: 09/14/20 20:59 Bisacodyl (Bisacodyl 10 Mg Supp) 10 mg OR DAILY PRN PRN Reason: Constipation Stop: 09/10/20 16:26 Dronabinol (Dronabinol 2.5 Mg Cap) 2.5 mg PO BID [facility] Stop: 09/05/20 10:29 Last Admin: 08/12/20 08:35 Dose: 2.5 mg Documented by: Famotidine (Famotidine 10 Mg Tablet) 10 mg PO HS [facility] Stop: 09/08/20 20:59 Last Admin: 08/11/20 21:24 Dose: 10 mg Documented by: Hyoscyamine (Hyoscyamine Sulfate 0.125 Mg Tab) 0.125 mg PO Q4 PRN PRN Reason: ABD CRAMPING Stop: 09/03/20 11:52 Last Admin: 08/07/20 08:57 Dose: 0.125 mg Documented by: Levothyroxine Sodium (Levothyroxine Sodium 50 Mcg Tablet) 50 mcg PO Sherlyn@0630 [facility] Stop: 09/04/20 06:29 Last Admin: 08/12/20 06:27 Dose: 50 mcg Documented by: Melatonin (Melatonin 3 Mg Tab) 3 mg PO [facility] Stop: 09/03/20 20:59 Last Admin: 08/11/20 21:25 Dose: 3 mg Documented by: Multi-Ingredient Cream (Artificial Tears Op Oint 3.5 Gm Tube) 1 appln OP Q4H PRN PRN Reason: DRY EYES Stop: 09/05/20 14:28 Multivitamins/Minerals (Cerovite Adv Formula Tab) [address] [facility] Stop: 09/03/20 08:59 Last Admin: 08/12/20 08:35 Dose: 1 tab Documented by: Nitroglycerin (Nitroglycerin Sl 0.4 Mg/Tab Tab) 0.4 mg SL UD PRN PRN Reason: Chest Pain Stop: 09/02/20 03:28 Ondansetron HCl (Ondansetron Inj 2 Mg/Ml 2 Ml Vial) 4 mg IV Q6H PRN PRN Reason: Nausea Stop: 09/02/20 03:28 Polyethylene Glycol (Polyethylene (Miralax) 17 Gm Pack) 17 gm PO DAILY PRN PRN Reason: Constipation Stop: 09/02/20 03:28 Potassium Chloride (Potassium Chloride 10 Meq Tabcr) [address] [facility] Stop: 09/11/20 08:59 Last Admin: 08/12/20 08:35 Dose: 10 meq Documented by: Quetiapine Fumarate (Quetiapine Fumarate 25 Mg Tablet) 12.5 mg PO [facility] Stop: 09/02/20 20:59 Last Admin: 08/11/20 21:24 Dose: 12.5 mg Documented by: Sumatriptan Succinate (Sumatriptan Succinate 25 Mg Tab) 25 mg PO DAILY PRN PRN Reason: Migraine Headache Stop: 09/03/20 11:52 Thiamine HCl (Thiamine Hcl 100 Mg Tab) [address] [facility] Stop: 09/02/20 12:29 Last Admin: 08/12/20 08:35 Dose: 100 mg Documented by:
--- NOTE | 2020-08-12 18:12 | Hospitalist Progress Note ---
Date of Service August 12, 2020 Assessment & Plan (1) Severe protein-calorie malnutrition: Severe protein calorie malnutrition Failure to thrive Poor oral intake secondary to psychiatric issues BMI: 14.5 Dietitian consulted Continue thiamine Encouraged to increase oral intake Continue Marinol Received gentle IV fluids Intermittently refuses medications, food Appetite better but refuses intermittently Refuses any further investigations States having insurance issues Mechanical Fall Head Trauma Scalp wound due to above CT head:No acute intracranial findings. Continue wound care No active bleeding today Acute DVT Venous Doppler:Very small nonocclusive DVT within the distal left superficial femoral vein adjacent to a valve leaflet Hypercoagulable work-up as outpatient Resume Neisha ruggiero Severe depression Bipolar disorder History of psychogenic polydipsia Noncompliance with Seroquel Appreciate Psychiatry Input Continue Seroquel--Increased to 25mg QHS Has been refusing medications intermittently Psychiatry following Hypothyroidism Normal TSH Continue levothyroxine Hypokalemia Hypophosphatemia Hypomagnesemia Replace electrolytes as needed Adult failure to thrive: Past several month patient had multiple admissions with dehydration hyponatremia Patient unable to take care of herself at home Family concerned with patient's living situation Case management to help with discharge planning May need to address goals of care, if patient continues to refuse treatment DVT Px: Eliquis CODE STATUS: DNR/DNI Disposition: To be determined Case Management consulted Admission and Anticipated Discharge Date Admission Date: August 03, 2020 Subjective Patient is seen and examined at bedside Upset today "You don't understand how this system works" Offers no complaints Updated patient's daughter over phone Denies chest pain, dyspnea, dizziness, abdominal pain Review of Systems Review of Systems: All systems reviewed & are unremarkable except as noted in HPI & below Physical Exam Physical Exam: Physical Exam: Vitals signs as noted above General Appearance:Thin, Frail, no apparent distress Head: normocephalic, Atraumatic Eyes: normal inspection, EOMI Neck: supple, Trachea midline Respiratory/Chest: Normal breath sounds, CTA Cardiovascular: S1, S2, No murmur Abdomen/GI:Soft, Non tender, Bowel sounds present Extremities/Musculoskeletal:normal inspection, B/L LE edema better Neurologic/Psych:AAOX3, grossly no focal neurological deficits, +Depressed Skin: normal color, warm Results & Data Results & Data ([facility]) Vital Signs (Past 12 Hours) Vital Signs Temp Pulse Resp BP Pulse Ox 08/12/20 16:42 36.9 C 74 16 109/63 94 08/12/20 08:15 36.5 C 76 16 134/81 99 Laboratory Results [facility] 08/12/20 05:36 Sodium 135 L Potassium 3.8 D Chloride 102 Carbon Dioxide 29 BUN 21 H Creatinine 0.35 L Glucose 84 Calcium 8.5
[2020-08-12] MEDS: APIXABAN 5 MG TABLET PO SCH (22:19)
[2020-08-12] MEDS: FAMOTIDINE 10 MG TABLET PO SCH (22:22)
[2020-08-12] MEDS: MELATONIN 3 MG TAB PO SCH (22:22)
[2020-08-12] MEDS: QUEtiapine FUMARATE 25 MG TABLET PO SCH (22:22)
[2020-08-13] MEDS: LEVOTHYROXINE SODIUM 50 MCG TABLET PO SCH (05:33)
[2020-08-13 06:38] LABS: Hematocrit (blood only) 31.6 % (37-47); Hemoglobin 11.2 g/dL (12.0-16.0); Mean Corpuscular Hgb Conc 35.4 g/dL (32-36); Mean Corpuscular Volume 93.2 fL (80-100); Mean Platelet Volume 8.4 fL (7.4-10.4); Platelet Count 271 K/uL (130-400); RDW Coefficient of Variation 14.7 % (11.5-14.5); RDW Standard Deviation 49.2 fL (36.4-46.3); Red Blood Count 3.39 M/uL (4.2-5.4); White Blood Count 3.18 K/uL (4.8-10.8)
[2020-08-13] MEDS: HYOSCYAMINE SULFATE 0.125 MG TAB PO PRN (09:15)
[2020-08-13] MEDS: POTASSIUM CHLORIDE 10 MEQ TABCR PO SCH ×2 (09:16→10:31)
[2020-08-13] MEDS: CEROVITE ADV FORMULA TAB PO SCH ×2 (09:16→10:31)
[2020-08-13] MEDS: THIAMINE HCL 100 MG TAB PO SCH ×2 (09:17→10:30)
[2020-08-13] MEDS: APIXABAN 5 MG TABLET PO SCH ×3 (09:17→23:34)
--- NOTE | 2020-08-13 16:24 | Hospitalist Progress Note ---
Date of Service August 13, 2020 Assessment & Plan (1) Severe protein-calorie malnutrition: Severe protein calorie malnutrition Failure to thrive Poor oral intake secondary to psychiatric issues BMI: 14.5 Dietitian consulted Continue thiamine Continue Marinol Received gentle IV fluids Intermittently refuses medications, food Appetite better but refuses intermittently Refuses any further investigations States having insurance issues Encouraged to increase oral intake Mechanical Fall Head Trauma Scalp wound due to above CT head:No acute intracranial findings. Continue wound care No recurrence of bleeding Acute DVT Venous Doppler:Very small nonocclusive DVT within the distal left superficial femoral vein adjacent to a valve leaflet Hypercoagulable work-up as outpatient Continue Eliquis Severe depression Bipolar disorder History of psychogenic polydipsia Noncompliance with Seroquel Appreciate Psychiatry Input Continue Seroquel--Increased to 25mg QHS Has been refusing medications intermittently Psychiatry following Hypothyroidism Normal TSH Continue levothyroxine Hypokalemia Hypophosphatemia Hypomagnesemia Replace electrolytes as needed Adult failure to thrive: Past several month patient had multiple admissions with dehydration hyponatremia Patient unable to take care of herself at home Family concerned with patient's living situation Case management to help with discharge planning May need to address goals of care, if patient continues to refuse treatment DVT Px: Eliquis CODE STATUS: DNR/DNI Disposition: To be determined Case Management consulted Admission and Anticipated Discharge Date Admission Date: August 03, 2020 Subjective Patient is seen and examined at bedside " 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, delusions" Offers no complaints Denies chest pain, dyspnea, dizziness, abdominal pain Review of Systems Review of Systems: All systems reviewed & are unremarkable except as noted in HPI & below Physical Exam Physical Exam: Physical Exam: Vitals signs as noted above General Appearance:Thin, Frail, no apparent distress Head: normocephalic, Atraumatic Eyes: normal inspection, EOMI Neck: supple, Trachea midline Respiratory/Chest: Normal breath sounds, CTA Cardiovascular: S1, S2, No murmur Abdomen/GI:Soft, Non tender, Bowel sounds present Extremities/Musculoskeletal:normal inspection, B/L LE edema better Neurologic/Psych:AAOX3, grossly no focal neurological deficits, +Depressed Skin: normal color, warm Results & Data Results & Data ([facility]) Vital Signs (Past 12 Hours) Vital Signs Temp Pulse Resp BP Pulse Ox 08/13/20 16:01 36.9 C 71 16 129/74 95 08/13/20 08:20 36.6 C 73 16 130/84 96 Laboratory Results Short CBC 08/13/20 Range/Units 06:01 WBC 3.18 L (4.8-10.8) K/uL Hgb 11.2 L (12.0-16.0) g/dL Hct 31.6 L (37-47) % Plt Count 271 (130-400) K/uL
[2020-08-13] MEDS: FAMOTIDINE 10 MG TABLET PO SCH (23:34)
[2020-08-13] MEDS: QUEtiapine FUMARATE 25 MG TABLET PO SCH (23:35)
[2020-08-13] MEDS: MELATONIN 3 MG TAB PO SCH (23:35)
[2020-08-14] MEDS: LEVOTHYROXINE SODIUM 50 MCG TABLET PO SCH (06:27)
[2020-08-14 08:22] LABS: Hemoglobin 12.5 g/dL (12.0-16.0); Mean Corpuscular Hemoglobin 33.2 pg (25-34); Mean Corpuscular Hgb Conc 35.7 g/dL (32-36); Mean Corpuscular Volume 92.8 fL (80-100); Mean Platelet Volume 8.6 fL (7.4-10.4); Platelet Count 333 K/uL (130-400); RDW Coefficient of Variation 14.7 % (11.5-14.5); RDW Standard Deviation 49.6 fL (36.4-46.3); Red Blood Count 3.77 M/uL (4.2-5.4); White Blood Count 5.75 K/uL (4.8-10.8)
[2020-08-14 08:57] LABS: BUN Creatinine Ratio 67.2 (10-20); Calcium 8.8 mg/dl (8.5-10.1); Creatinine Clr Calc Pharmacy 112.5 ml/min; Est GFR (African American) 135.9; Est GFR (Non-African American) 117.3; Potassium 3.1 mmol/L (3.5-5.1)
[2020-08-14] MEDS: POTASSIUM CHLORIDE 10 MEQ TABCR PO SCH (08:58)
[2020-08-14] MEDS: CEROVITE ADV FORMULA TAB PO SCH (08:59)
[2020-08-14] MEDS: APIXABAN 5 MG TABLET PO SCH ×2 (08:59→22:40)
[2020-08-14] MEDS: THIAMINE HCL 100 MG TAB PO SCH (08:59)
--- NOTE | 2020-08-14 13:04 | Hospitalist Progress Note ---
Date of Service August 14, 2020 Assessment & Plan (1) Severe protein-calorie malnutrition: Severe protein calorie malnutrition Failure to thrive Poor oral intake secondary to psychiatric issues BMI: 14.5 Dietitian on case Continue thiamine Continue Marinol Received gentle IV fluids Intermittently refuses medications, food Appetite better but refuses intermittently Refuses any further investigations States having insurance issues Encouraged to increase oral intake Mechanical Fall Head Trauma Scalp wound due to above CT head:No acute intracranial findings. Continue wound care No recurrence of bleeding Acute DVT Venous Doppler:Very small nonocclusive DVT within the distal left superficial femoral vein adjacent to a valve leaflet Hypercoagulable work-up as outpatient Continue Eliquis Severe depression Bipolar disorder History of psychogenic polydipsia Noncompliance with Seroquel Appreciate Psychiatry Input Continue Seroquel--Increased to 25mg QHS Has been refusing medications intermittently Psychiatry following Hypothyroidism Normal TSH Continue levothyroxine Hypokalemia Hypophosphatemia Hypomagnesemia Replace electrolytes as needed Adult failure to thrive: Past several month patient had multiple admissions with dehydration hyponatremia Patient unable to take care of herself at home Family concerned with patient's living situation Case management to help with discharge planning May need to address goals of care, if patient continues to refuse treatment DVT Px: Eliquis CODE STATUS: DNR/DNI Disposition: To be determined Case Management consulted Labs checked ROS-No Headache, No Visual Changes, No Nausea, No Vomiting, No Fever, No Chills, No Neck Pain or Stiffness, No Chest Pain, No Palpitations, No SOB, No MARTIN, No Cough, No Sputum, No Wheezing, No Abdominal Pain, No Diarrhea, No Hematemesis, No Hemoptysis, No Unexpected Weight Loss, No Flank pain, No Melena, No Hematochezia, No Frequency, No Urgency, No Burning, No Hematuria, No Rashes, No Diaphoresis. Appetite is Normal Physical Exam Gen-AAO x 3, NAD, Afebrile Head-Healing Forehead Lac, EOMI, PERRLA, Anicteric Sclera, No Posterior Pharyngeal Erythema Neck-Supple, No JVD, No Thyromegaly, No Masses, No LAD, No Bruits Lungs-Clear to Auscultation Bilaterally, No Rales, No Rhonchi, No Wheezing, No Crepitus Chest-No S4, +S1, +S2, No S3, No Murmurs, No Rubs, No Gallops, No Ectopy Abdomen-Soft, Bowel Sounds Present, Non Tender, Non Distended, No Hepatomegaly, No Splenomegaly, No Palpable Masses, No Rebound, No Rigidity, No Guarding Musculoskeletal-Full Range of Motion Bilaterally, No CVAT Extremities-No Cyanosis, No Clubbing, No Edema Nuero-Cranial Nerves II-XII grossly intact, Motor WNL, DTRs WNL, Strength WNL, Non Focal Psych-Flat Admission and Anticipated Discharge Date Admission Date: August 03, 2020 Results & Data Results & Data ([facility]) Vital Signs (Past 12 Hours) Vital Signs Temp Pulse Resp BP Pulse Ox 08/14/20 08:02 36.7 C 78 16 124/74 94
[2020-08-14] MEDS: QUEtiapine FUMARATE 25 MG TABLET PO SCH (22:39)
[2020-08-14] MEDS: FAMOTIDINE 10 MG TABLET PO SCH (22:39)
[2020-08-14] MEDS: MELATONIN 3 MG TAB PO SCH (22:42)
[2020-08-15] MEDS: LEVOTHYROXINE SODIUM 50 MCG TABLET PO SCH (05:27)
[2020-08-15 07:18] LABS: Hematocrit (blood only) 29.8 % (37-47); Hemoglobin 10.3 g/dL (12.0-16.0); Mean Corpuscular Hgb Conc 34.6 g/dL (32-36); Mean Corpuscular Volume 95.5 fL (80-100); Mean Platelet Volume 8.4 fL (7.4-10.4); Platelet Count 246 K/uL (130-400); RDW Coefficient of Variation 15.3 % (11.5-14.5); RDW Standard Deviation 52.6 fL (36.4-46.3); Red Blood Count 3.12 M/uL (4.2-5.4); White Blood Count 4.27 K/uL (4.8-10.8)
[2020-08-15 07:47] LABS: BUN Creatinine Ratio 45.1 (10-20); Calcium 8.4 mg/dl (8.5-10.1); Creatinine Clr Calc Pharmacy 55.6 ml/min; Est GFR (African American) 109.7; Est GFR (Non-African American) 94.6; Potassium 3.3 mmol/L (3.5-5.1)
[2020-08-15] MEDS: CEROVITE ADV FORMULA TAB PO SCH (09:07)
[2020-08-15] MEDS: APIXABAN 5 MG TABLET PO SCH ×3 (09:07→21:34)
[2020-08-15] MEDS: POTASSIUM CHLORIDE 10 MEQ TABCR PO SCH (09:08)
[2020-08-15] MEDS: THIAMINE HCL 100 MG TAB PO SCH (09:08)
--- NOTE | 2020-08-15 09:42 | Hospitalist Progress Note ---
Date of Service August 15, 2020 Assessment & Plan (1) Severe protein-calorie malnutrition: Severe protein calorie malnutrition Failure to thrive Poor oral intake secondary to psychiatric issues BMI: 14.5 Dietitian on case Continue thiamine Continue Marinol Received gentle IV fluids Intermittently refuses medications, food Appetite better but refuses intermittently Refuses any further investigations States having insurance issues Encouraged to increase oral intake Mechanical Fall Head Trauma Scalp wound due to above CT head:No acute intracranial findings. Continue wound care No recurrence of bleeding Acute DVT Venous Doppler:Very small nonocclusive DVT within the distal left superficial femoral vein adjacent to a valve leaflet Hypercoagulable work-up as outpatient Continue Eliquis Severe depression Bipolar disorder History of psychogenic polydipsia Noncompliance with Seroquel Appreciate Psychiatry Input Continue Seroquel--Increased to 25mg QHS Has been refusing medications intermittently Psychiatry following Hypothyroidism Normal TSH Continue levothyroxine Hypokalemia Hypophosphatemia Hypomagnesemia Replace electrolytes as needed Adult failure to thrive: Past several month patient had multiple admissions with dehydration hyponatremia Patient unable to take care of herself at home Family concerned with patient's living situation Case management to help with discharge planning May need to address goals of care, if patient continues to refuse treatment DVT Px: Eliquis CODE STATUS: DNR/DNI Disposition: To be determined Case Management consulted-Awaiting auth for [facility] Labs checked ROS-No Headache, No Visual Changes, No Nausea, No Vomiting, No Fever, No Chills, No Neck Pain or Stiffness, No Chest Pain, No Palpitations, No SOB, No MARTIN, No Cough, No Sputum, No Wheezing, No Abdominal Pain, No Diarrhea, No Hematemesis, No Hemoptysis, No Unexpected Weight Loss, No Flank pain, No Melena, No Hematochezia, No Frequency, No Urgency, No Burning, No Hematuria, No Rashes, No Diaphoresis. Appetite is Normal Physical Exam Gen-AAO x 3, NAD, Afebrile Head-Healing Forehead Lac, EOMI, PERRLA, Anicteric Sclera, No Posterior Pharyngeal Erythema Neck-Supple, No JVD, No Thyromegaly, No Masses, No LAD, No Bruits Lungs-Clear to Auscultation Bilaterally, No Rales, No Rhonchi, No Wheezing, No Crepitus Chest-No S4, +S1, +S2, No S3, No Murmurs, No Rubs, No Gallops, No Ectopy Abdomen-Soft, Bowel Sounds Present, Non Tender, Non Distended, No Hepatomegaly, No Splenomegaly, No Palpable Masses, No Rebound, No Rigidity, No Guarding Musculoskeletal-Full Range of Motion Bilaterally, No CVAT Extremities-No Cyanosis, No Clubbing, No Edema Nuero-Cranial Nerves II-XII grossly intact, Motor WNL, DTRs WNL, Strength WNL, Non Focal Psych-Flat Admission and Anticipated Discharge Date Admission Date: August 03, 2020 Results & Data Results & Data ([facility]) Vital Signs (Past 12 Hours) Vital Signs Temp Pulse Resp BP Pulse Ox 08/15/20 07:12 36.2 C L 74 16 122/74 96 08/14/20 23:08 36.6 C 78 16 109/71 96
[2020-08-15] MEDS: POTASSIUM CHLORIDE / WTR 10 MEQ/100 ML PLCT IV SCH ×2 (11:15→11:16)
[2020-08-15] MEDS: QUEtiapine FUMARATE 25 MG TABLET PO SCH (21:34)
[2020-08-15] MEDS: MELATONIN 3 MG TAB PO SCH (21:34)
[2020-08-15] MEDS: FAMOTIDINE 10 MG TABLET PO SCH (21:34)
[2020-08-15] MEDS: POTASSIUM CHLORIDE CRTAB 20 MEQ TABCR PO SCH (21:34)
[2020-08-16] MEDS: LEVOTHYROXINE SODIUM 50 MCG TABLET PO SCH (06:46)
[2020-08-16] MEDS: THIAMINE HCL 100 MG TAB PO SCH (08:34)
[2020-08-16] MEDS: APIXABAN 5 MG TABLET PO SCH ×4 (08:34→22:25)
[2020-08-16] MEDS: POTASSIUM CHLORIDE CRTAB 20 MEQ TABCR PO SCH ×3 (08:34→22:25)
[2020-08-16] MEDS: CEROVITE ADV FORMULA TAB PO SCH (08:35)
--- NOTE | 2020-08-16 10:38 | Hospitalist Progress Note ---
Date of Service August 16, 2020 Assessment & Plan (1) Severe protein-calorie malnutrition: Severe protein calorie malnutrition Failure to thrive Poor oral intake secondary to psychiatric issues BMI: 14.5 Dietitian on case Continue thiamine Continue Marinol Received gentle IV fluids Intermittently refuses medications, food Appetite better but refuses intermittently Refuses any further investigations States having insurance issues Encouraged to increase oral intake Mechanical Fall Head Trauma Scalp wound due to above CT head:No acute intracranial findings. Continue wound care No recurrence of bleeding Acute DVT Venous Doppler:Very small nonocclusive DVT within the distal left superficial femoral vein adjacent to a valve leaflet Hypercoagulable work-up as outpatient Continue Eliquis Severe depression Bipolar disorder History of psychogenic polydipsia Noncompliance with Seroquel Appreciate Psychiatry Input Continue Seroquel--Increased to 25mg QHS Has been refusing medications intermittently Psychiatry following Hypothyroidism Normal TSH Continue levothyroxine Hypokalemia Hypophosphatemia Hypomagnesemia Replace electrolytes as needed Adult failure to thrive: Past several month patient had multiple admissions with dehydration hyponatremia Patient unable to take care of herself at home Family concerned with patient's living situation Case management to help with discharge planning May need to address goals of care, if patient continues to refuse treatment DVT Px: Eliquis CODE STATUS: DNR/DNI Disposition: To be determined Case Management consulted-Awaiting auth for [facility], d/w DTR Stephanie yesterday Labs checked ROS-No Headache, No Visual Changes, No Nausea, No Vomiting, No Fever, No Chills, No Neck Pain or Stiffness, No Chest Pain, No Palpitations, No SOB, No MARTIN, No Cough, No Sputum, No Wheezing, No Abdominal Pain, No Diarrhea, No Hematemesis, No Hemoptysis, No Unexpected Weight Loss, No Flank pain, No Melena, No Hematochezia, No Frequency, No Urgency, No Burning, No Hematuria, No Rashes, No Diaphoresis. Appetite is Normal Physical Exam Gen-AAO x 3, NAD, Afebrile Head-Healing Forehead Lac, EOMI, PERRLA, Anicteric Sclera, No Posterior Pharyngeal Erythema Neck-Supple, No JVD, No Thyromegaly, No Masses, No LAD, No Bruits Lungs-Clear to Auscultation Bilaterally, No Rales, No Rhonchi, No Wheezing, No Crepitus Chest-No S4, +S1, +S2, No S3, No Murmurs, No Rubs, No Gallops, No Ectopy Abdomen-Soft, Bowel Sounds Present, Non Tender, Non Distended, No Hepatomegaly, No Splenomegaly, No Palpable Masses, No Rebound, No Rigidity, No Guarding Musculoskeletal-Full Range of Motion Bilaterally, No CVAT Extremities-No Cyanosis, No Clubbing, No Edema Nuero-Cranial Nerves II-XII grossly intact, Motor WNL, DTRs WNL, Strength WNL, Non Focal Psych-Flat Admission and Anticipated Discharge Date Admission Date: August 03, 2020 Results & Data Results & Data ([facility]) Vital Signs (Past 12 Hours) Vital Signs Temp Pulse Resp BP Pulse Ox 08/16/20 07:04 36.8 C 81 16 133/83 95 08/15/20 23:32 36.4 C L 72 16 146/83 H 96
--- NOTE | 2020-08-16 11:26 | Discharge Summary ---
Date of Service August 16, 2020 Admission HPI Per Admitting Provider 75-year-old female with past medical history significant for acquired hypothyroidism, chronic interstitial cystitis, osteoporosis, chronic migraines, bipolar disorder, attention deficit hyperactivity disorder. The patient has a recently history of chronic hyponatremia. The patient has multiple admissions for hyponatremia and dehydration. 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 She also had prescribed Seroquel per Psychiatry and she was again in the hospital on 06/2020 and patient did not want to go to facility or stay. She just wanted to get discharged and got discharged. Daughter lives in [place]; did not see her mother for more than a year because of COVID. She is waited until covid vaccine to come and see her mother. She states she is flying tomorrow to [place]. She will be in the flight the whole day and she may come on the night of Wednesday and she will come to the hospital on Wednesday. Daughter states patient has been steadily declining since about a year and she is severely malnourished, not eating and drinking much. When the daughter asked, she could not explain why she did not want to eat.She sometimes mumbles and goes to catatonic state for about a day and it gets resolved by itself and she does fine. The patient is also stressed out since last year because of her living condition, her financial situation and as per daughter, patient thinks she had COVID last spring and she is not eating much since then. She also has some food allergies. Daughter does not have power of trust and estates attorney and daughter is also talking with [facility] nurse and also local office of Aging, but the patient declines any help, does not accept any help. She did not answer the phone for a few days. That is nothing uncommon for her but last time when she talked to her, she did not seem right. So daughter asked the neighbors to check on her. When the neighbor checked, she was on the bed with multiple blankets and she was mumbling and seemed drowsy and not talking and she was brought into the hospital. Later she opened the eyes but not at all talking. As per the ER physician, she knows that she is getting admitted. Initial workup with a CT of the head is unremarkable. Gallbladder ultrasound showing gallstones. This time labs show a sodium of 136, potassium 3.4, BUN 25, creatinine 0.6, total bilirubin is 2.7, which seems to be chronically elevated. TSH is normal. Urinalysis was okay. Urine drug screen is okay. SARS-CoV-2 PCR is negative. Influenza A and B and RSV was negative. The patient does not answer any question. Could not get any history from the patient. Hemodynamically stable. Admission Exam Per Admitting Provider VITAL SIGNS: Temperature afebrile, pulse 68, respiratory rate 14, blood pressure 118/77, oxygen 98% on room air. HEENT: Pupils equal, round, and reactive to light. Oral mucosa dry. NECK: No neck masses seen. CARDIOVASCULAR: S1, S2 heard, regular rate and rhythm, no murmur, no gallop. RESPIRATORY SYSTEM: Normal AP diameter. No accessory muscle use. No wheezing, no crackles. ABDOMEN: Soft, bowel sounds present. No distention. CENTRAL NERVOUS SYSTEM: The patient is awake, but not answering any questions, not responding to any stimuli. Not moving her extremities. No facial droop seen. EXTREMITIES: No edema, no erythema. Principal Diagnosis Severe protein-calorie malnutrition: Failure to thrive Poor oral intake secondary to psychiatric issues Mechanical Fall Head Trauma Scalp wound due to above Acute DVT Severe depression Bipolar disorder History of psychogenic polydipsia Noncompliance with Seroquel Hypothyroidism Hypokalemia Hypophosphatemia Hypomagnesemia Adult failure to thrive: Discharge Exam See below Discharge Data Allergies Allergy/AdvReac Type Severity Reaction Status Date / Time milk Allergy Intermediate Abdominal Verified 08/02/20 20:49 Pain gluten Allergy Unknown ANAPHYLAXIS Verified 08/02/20 20:49 bee venom protein (honey bee) Allergy Anaphylaxis Verified 08/02/20 20:49 lactose AdvReac Unknown Gastrointestinal Verified 08/02/20 20:49 Upset grains Allergy Severe Anaphylaxis Uncoded 08/02/20 20:49 Consultations 08/02/20 22:20 ED Decision to Admit Stat 08/03/20 08:00 Consult General Surgery Routine Consult Neurology Routine Consult Psychiatry Routine Ordered Studies 08/02/20 18:45 CT head/brain wo con Stat 08/02/20 20:27 US gallbladder Stat 08/08/20 16:00 US venous doppler LE BI Routine 08/09/20 15:14 US abdomen ltd ascites Routine 08/11/20 17:35 CT head/brain wo con Urgent Current Diagnoses Unspecified severe protein-calorie malnutrition (08/03/20) Calculus of gallbladder without cholecystitis without obstruction (08/03/20) Allergies milk Allergy (Intermediate, Verified 08/02/20 20:49) Abdominal Pain gluten Allergy (Unknown, Verified 08/02/20 20:49) ANAPHYLAXIS bee venom protein (honey bee) Allergy (Verified 08/02/20 20:49) Anaphylaxis lactose Adverse Reaction (Unknown, Verified 08/02/20 20:49) Gastrointestinal Upset grains Allergy (Severe, Uncoded 08/02/20 20:49) Anaphylaxis Height/Weight/Isolation Height 4 ft 10 in Weight 35.9 kg Chemistry 08/15/20 06:33 Sodium 136 Potassium 3.3 L Chloride 102 Carbon Dioxide 32 Anion Gap 2.0 L BUN 21 H Creatinine 0.48 L Glucose 93 Hospital Course (1) Severe protein-calorie malnutrition: Severe protein calorie malnutrition Failure to thrive Poor oral intake secondary to psychiatric issues BMI: 14.5 Dietitian on case Continue thiamine Continue Marinol Received gentle IV fluids Intermittently refuses medications, food Appetite better but refuses intermittently Refuses any further investigations States having insurance issues Encouraged to increase oral intake Mechanical Fall Head Trauma Scalp wound due to above CT head:No acute intracranial findings. Continue wound care No recurrence of bleeding Acute DVT Venous Doppler:Very small nonocclusive DVT within the distal left superficial femoral vein adjacent to a valve leaflet Hypercoagulable work-up as outpatient Continue Eliquis Severe depression Bipolar disorder History of psychogenic polydipsia Noncompliance with Seroquel Appreciate Psychiatry Input Continue Seroquel--Increased to 25mg QHS Has been refusing medications intermittently Psychiatry following Hypothyroidism Normal TSH Continue levothyroxine Hypokalemia Hypophosphatemia Hypomagnesemia Replace electrolytes as needed Adult failure to thrive: Past several month patient had multiple admissions with dehydration hyponatremia Patient unable to take care of herself at home Family concerned with patient's living situation Case management to help with discharge planning May need to address goals of care, if patient continues to refuse treatment DVT Px: Eliquis CODE STATUS: DNR/DNI Disposition: To be determined Case Management consulted-Awaiting [facility] bed today, d/w DTR Stephanie yesterday Labs checked ROS-No Headache, No Visual Changes, No Nausea, No Vomiting, No Fever, No Chills, No Neck Pain or Stiffness, No Chest Pain, No Palpitations, No SOB, No MARTIN, No Cough, No Sputum, No Wheezing, No Abdominal Pain, No Diarrhea, No Hematemesis, No Hemoptysis, No Unexpected Weight Loss, No Flank pain, No Melena, No Hematochezia, No Frequency, No Urgency, No Burning, No Hematuria, No Rashes, No Diaphoresis. Appetite is Normal Physical Exam Gen-AAO x 3, NAD, Afebrile Head-Healing Forehead Lac, EOMI, PERRLA, Anicteric Sclera, No Posterior Pharyngeal Erythema Neck-Supple, No JVD, No Thyromegaly, No Masses, No LAD, No Bruits Lungs-Clear to Auscultation Bilaterally, No Rales, No Rhonchi, No Wheezing, No Crepitus Chest-No S4, +S1, +S2, No S3, No Murmurs, No Rubs, No Gallops, No Ectopy Abdomen-Soft, Bowel Sounds Present, Non Tender, Non Distended, No Hepatomegaly, No Splenomegaly, No Palpable Masses, No Rebound, No Rigidity, No Guarding Musculoskeletal-Full Range of Motion Bilaterally, No CVAT Extremities-No Cyanosis, No Clubbing, No Edema Nuero-Cranial Nerves II-XII grossly intact, Motor WNL, DTRs WNL, Strength WNL, Non Focal Psych-Flat Total Time Total Time Spent Total Time Spent (In Minutes): 45 mins Total Time Includes: Examination of the Patient, Discharge Planning, Medication Reconciliation and Communication With Other Providers Discharge Plan Discharge Items Patient Disposition: Transfer Behavioral Health Fac Reason For Visit: AMS Discharge Diagnosis: Severe protein-calorie malnutrition: Failure to thrive Poor oral intake secondary to psychiatric issues Mechanical Fall Head Trauma Scalp wound due to above Acute DVT Severe depression Bipolar disorder History of psychogenic polydipsia Noncompliance with Seroquel Hypothyroidism Hypokalemia Hypophosphatemia Hypomagnesemia Adult failure to thrive: Condition on Discharge: [facility] Concerns: Diet intake Activity: Resume your previous activity Lifting: Gradually increase as tolerated Bathing: No limitations Exercise/Sports: Gradually increase as tolerated Driving/Machine Use: None Weightbearing: Full weightbearing Non-emergency contact: Primary Care Provider and Psychiatrist Call non-emergency contact if: you have any medication questions Follow-up/Referrals: Alec Vazquez DO [Primary Care Provider] - Diet: Regular Addtl Attending Provider Instructions: None Pending Studies at Discharge: No Stand-Alone Forms: My [facility] Skilled Items DNR: Yes Lines: None Medications and DC Order Prescriptions: New Eliquis 5 mg Tablet 5 mg PO BID Qty: 60 RF: 0 Continued Climara Pro 0.045-0.015 mg/24 hr patch weekly 1 patch transdermal WK RF: 0 levothyroxine [Levoxyl] 50 mcg tablet 50 mcg PO 5XWK RF: 0 potassium chloride [Klor-Con M20] 20 mEq Tablet,Er Particles/Crystals 40 meq PO BID Qty: 60 RF: 0 hyoscyamine sulfate 0.125 mg tablet 0.125 mg PO Q4 PRN (Reason: ABD CRAMPING) RF: 0 quetiapine 25 mg tablet 25 mg PO HS RF: 0 melatonin 3 mg Tablet 3 mg PO HS RF: 0 Restasis 0.05 % Dropperette 1 drp OPHTHALMIC (EYE) Q12H RF: 0 Discontinued Botox 200 unit recon soln 200 unit subcut .Q3MO RF: 0 sumatriptan succinate 25 mg tablet 25 mg PO UD PRN (Reason: Migraine Headache) RF: 0 Discharge Orders: Discharge Order (Routine); Ordered 08/16/20 Ordered By: Yaron Laguerre Admission Data Admit Date/Time: 08/03/20 00:24 Attending Provider: Yaron Laguerre Admit Provider: Gregor Flowers Primary Care Provider: Alec Vazquez Other Providers: Gregor Flowers ; Michael Logan ; Kecia Wahl ; Denita Sylvester ; Nilesh Zimmerman ; Elmer Cazares ; Yue Lee ; Gabi Escalera ; Tera Greer Jr ; Kayli Naranjo ; Víctor Britt ; Angie Nash ; Penny Upton ; Floyd Nascimento ; Penny Uriostegui ; Sergey Clinton ; Em Figueroa ; [facility], ; [facility] ; [facility] Other Interventions: Discharge Summary Assessment (RN) Last Done: 08/16/20 11:40
[2020-08-16] MEDS: MELATONIN 3 MG TAB PO SCH ×2 (20:33→22:25)
[2020-08-16] MEDS: FAMOTIDINE 10 MG TABLET PO SCH ×2 (20:33→22:25)
[2020-08-16] MEDS: QUEtiapine FUMARATE 25 MG TABLET PO SCH ×2 (20:33→22:26)
[2020-08-17] MEDS: POTASSIUM CHLORIDE CRTAB 20 MEQ TABCR PO SCH ×3 (04:15→20:15)
[2020-08-17] MEDS: APIXABAN 5 MG TABLET PO SCH ×3 (04:15→20:15)
[2020-08-17] MEDS ORDERED: DOCUSATE SODIUM/SENNA 50/8.6MG TAB PO STA (06:23)
[2020-08-17] MEDS: THIAMINE HCL 100 MG TAB PO SCH (08:00)
[2020-08-17] MEDS: CEROVITE ADV FORMULA TAB PO SCH (08:00)
--- NOTE | 2020-08-17 09:41 | Hospitalist Progress Note ---
Date of Service August 17, 2020 Assessment & Plan (1) Severe protein-calorie malnutrition: Severe protein calorie malnutrition Failure to thrive Poor oral intake secondary to psychiatric issues BMI: 14.5 Dietitian on case Continue thiamine Continue Marinol Received gentle IV fluids Intermittently refuses medications, food Appetite better but refuses intermittently Refuses any further investigations States having insurance issues Encouraged to increase oral intake Mechanical Fall Head Trauma Scalp wound due to above CT head:No acute intracranial findings. Continue wound care No recurrence of bleeding Acute DVT Venous Doppler:Very small nonocclusive DVT within the distal left superficial femoral vein adjacent to a valve leaflet Hypercoagulable work-up as outpatient Continue Eliquis Severe depression Bipolar disorder History of psychogenic polydipsia Noncompliance with Seroquel Appreciate Psychiatry Input Continue Seroquel--Increased to 25mg QHS Has been refusing medications intermittently Psychiatry following Hypothyroidism Normal TSH Continue levothyroxine Hypokalemia Hypophosphatemia Hypomagnesemia Replace electrolytes as needed Adult failure to thrive: Past several month patient had multiple admissions with dehydration hyponatremia Patient unable to take care of herself at home Family concerned with patient's living situation Case management to help with discharge planning May need to address goals of care, if patient continues to refuse treatment DVT Px: Eliquis CODE STATUS: DNR/DNI Disposition: To be determined Case Management consulted-Awaiting [facility] bed today, d/w DTR Stephanie Labs checked ROS-No Headache, No Visual Changes, No Nausea, No Vomiting, No Fever, No Chills, No Neck Pain or Stiffness, No Chest Pain, No Palpitations, No SOB, No MARTIN, No Cough, No Sputum, No Wheezing, No Abdominal Pain, No Diarrhea, No Hematemesis, No Hemoptysis, No Unexpected Weight Loss, No Flank pain, No Melena, No Hematochezia, No Frequency, No Urgency, No Burning, No Hematuria, No Rashes, No Diaphoresis. Appetite is Normal Physical Exam Gen-AAO x 3, NAD, Afebrile Head-Healing Forehead Lac, EOMI, PERRLA, Anicteric Sclera, No Posterior Pharyngeal Erythema Neck-Supple, No JVD, No Thyromegaly, No Masses, No LAD, No Bruits Lungs-Clear to Auscultation Bilaterally, No Rales, No Rhonchi, No Wheezing, No Crepitus Chest-No S4, +S1, +S2, No S3, No Murmurs, No Rubs, No Gallops, No Ectopy Abdomen-Soft, Bowel Sounds Present, Non Tender, Non Distended, No Hepatomegaly, No Splenomegaly, No Palpable Masses, No Rebound, No Rigidity, No Guarding Musculoskeletal-Full Range of Motion Bilaterally, No CVAT Extremities-No Cyanosis, No Clubbing, No Edema Nuero-Cranial Nerves II-XII grossly intact, Motor WNL, DTRs WNL, Strength WNL, Non Focal Psych-Flat Admission and Anticipated Discharge Date Admission Date: August 03, 2020 Results & Data Results & Data ([facility]) Vital Signs (Past 12 Hours) Vital Signs Temp Pulse Resp BP Pulse Ox 08/17/20 07:08 36.5 C 82 16 126/83 97 08/16/20 22:29 36.3 C L 70 16 140/86 96
[2020-08-17] MEDS: QUEtiapine FUMARATE 25 MG TABLET PO SCH (20:14)
[2020-08-17] MEDS: FAMOTIDINE 10 MG TABLET PO SCH ×2 (20:14→20:34)
[2020-08-17] MEDS: DOCUSATE SODIUM/SENNA 50/8.6MG TAB PO SCH ×2 (20:14→20:34)
[2020-08-17] MEDS: MELATONIN 3 MG TAB PO SCH (20:14)
--- NOTE | 2020-08-18 08:38 | Hospitalist Progress Note ---
Date of Service August 18, 2020 Assessment & Plan (1) Severe protein-calorie malnutrition: Severe protein calorie malnutrition Failure to thrive Poor oral intake secondary to psychiatric issues BMI: 14.5 Dietitian on case Continue thiamine Continue Marinol Received gentle IV fluids Intermittently refuses medications, food Appetite better but refuses intermittently Refuses any further investigations States having insurance issues Encouraged to increase oral intake Mechanical Fall Head Trauma Scalp wound due to above CT head:No acute intracranial findings. Continue wound care No recurrence of bleeding Acute DVT Venous Doppler:Very small nonocclusive DVT within the distal left superficial femoral vein adjacent to a valve leaflet Hypercoagulable work-up as outpatient Continue Eliquis Severe depression Bipolar disorder History of psychogenic polydipsia Noncompliance with Seroquel Appreciate Psychiatry Input Continue Seroquel--Increased to 25mg QHS Has been refusing medications intermittently Psychiatry following Hypothyroidism Normal TSH Continue levothyroxine Hypokalemia Hypophosphatemia Hypomagnesemia Replace electrolytes as needed Adult failure to thrive: Past several month patient had multiple admissions with dehydration hyponatremia Patient unable to take care of herself at home Family concerned with patient's living situation Case management to help with discharge planning May need to address goals of care, if patient continues to refuse treatment DVT Px: Eliquis CODE STATUS: DNR/DNI Disposition: To be determined Case Management consulted-Awaiting [facility] bed, d/w DTR Stephanie Labs checked ROS-No Headache, No Visual Changes, No Nausea, No Vomiting, No Fever, No Chills, No Neck Pain or Stiffness, No Chest Pain, No Palpitations, No SOB, No MARTIN, No Cough, No Sputum, No Wheezing, No Abdominal Pain, No Diarrhea, No Hematemesis, No Hemoptysis, No Unexpected Weight Loss, No Flank pain, No Melena, No Hematochezia, No Frequency, No Urgency, No Burning, No Hematuria, No Rashes, No Diaphoresis. Appetite is Normal Physical Exam Gen-AAO x 3, NAD, Afebrile Head-Healing Forehead Lac, EOMI, PERRLA, Anicteric Sclera, No Posterior Pharyngeal Erythema Neck-Supple, No JVD, No Thyromegaly, No Masses, No LAD, No Bruits Lungs-Clear to Auscultation Bilaterally, No Rales, No Rhonchi, No Wheezing, No Crepitus Chest-No S4, +S1, +S2, No S3, No Murmurs, No Rubs, No Gallops, No Ectopy Abdomen-Soft, Bowel Sounds Present, Non Tender, Non Distended, No Hepatomegaly, No Splenomegaly, No Palpable Masses, No Rebound, No Rigidity, No Guarding Musculoskeletal-Full Range of Motion Bilaterally, No CVAT Extremities-No Cyanosis, No Clubbing, No Edema Nuero-Cranial Nerves II-XII grossly intact, Motor WNL, DTRs WNL, Strength WNL, Non Focal Psych-Flat Admission and Anticipated Discharge Date Admission Date: August 03, 2020 Results & Data Results & Data ([facility]) Vital Signs (Past 12 Hours) Vital Signs Temp Pulse Resp BP Pulse Ox 08/18/20 06:58 36.6 C 76 16 122/79 94 08/17/20 22:16 36.8 C 66 16 123/76 95
[2020-08-18] MEDS: APIXABAN 5 MG TABLET PO SCH ×2 (09:30→19:58)
[2020-08-18] MEDS: POTASSIUM CHLORIDE CRTAB 20 MEQ TABCR PO SCH ×2 (09:30→19:58)
[2020-08-18] MEDS: THIAMINE HCL 100 MG TAB PO SCH (09:31)
[2020-08-18] MEDS: CEROVITE ADV FORMULA TAB PO SCH (09:31)
--- NOTE | 2020-08-18 15:05 | Psychiatric Progress Note ---
Date of Service August 18, 2020 Impression / Recommendations Impression 75 yo female with FTT seemingly due to combo of depression and cognitive change. Has been intermittently refusing meds but in general accepting of Seroquel and MSE has improved from my first contact with her. Remeron trial 7.5 mg po qhs, approved by hospitalist. Cannot titrate Seroquel further due to hx of lower BP and fall risks and no evidence of mixed episode or psychosis. Risk Factors Assessment Do You Have Access To A Gun?: No Interval History Chief Complaint "I know that I'm depressed but this is more than that, my body is giving up but I just want to be at home. Call my daughter. Am I leaving today? ". Review of Systems Notes poor appetite, low energy, head lac healing Subjective Subjective Patient was seen & assessed and interval progress reviewed. Patient known to me from initial consultation. Remains on med floor with variable PO intake. She is more expressive today, discussed the weather and her bodily concerns, complained about appetite on "that stuff that made me a cartoon", meaning marinol as she "stuffed my face". She did not focus on dying and there was much less delay in response than previous. She clearly has memory difficulties as asked half way through conversation if she was leaving today and is confusing some of her confusion due to memory issues as medication side effects. "That's why I don't take them sometimes, what did I go to school for?" She was agreeable to trying an antidepressant in addition to the seroquel which she did take last night. Physical Exam Psychiatric Orientation: alert, oriented to person and oriented to place Apperance: appropriately groomed Eye Contact: + fair eye contact Motor Behavior: no psychomotor agitation in bed Speech: normal rate/rhythm/volume of speech Affect: + depressed affect Mood: + anxious mood Thought Process: + concrete thought process Thought Content: + preoccupation; no delusions Suicidal Thoughts: denies suicidal thoughts Homicidal Thoughts: denies homicidal thoughts Hallucinations: no auditory hallucinations and no visual hallucinations Cognition: language grossly intact; + recent memory not intact, + remote memory not intact and + attention not intact Insight: + poor insight Judgement: + poor judgement Vital Signs (Past 24 Hours) Last Vital Signs Temp 36.6 C 08/18/20 06:58 Pulse 76 08/18/20 06:58 Resp 16 08/18/20 06:58 BP 122/79 08/18/20 06:58 Pulse Ox 94 08/18/20 06:58 Results & Data ([facility]) Current Inpatient Medications Current Inpatient Medications: Current Inpatient Medications Acetaminophen (Acetaminophen 325 Mg Tab) 650 mg PO Q4H PRN PRN Reason: Pain or Fever Stop: 09/02/20 03:28 Apixaban (Apixaban 5 Mg Tablet) 5 mg PO BID [facility] Stop: 09/14/20 20:59 Last Admin: 08/18/20 09:30 Dose: 5 mg Documented by: Bisacodyl (Bisacodyl 10 Mg Supp) 10 mg [place] DAILY PRN PRN Reason: Constipation Stop: 09/10/20 16:26 Last Admin: 08/17/20 04:33 Dose: 10 mg Documented by: Dronabinol (Dronabinol 2.5 Mg Cap) 2.5 mg PO BID [facility] Stop: 09/05/20 10:29 Last Admin: 08/18/20 09:31 Dose: Not Given Documented by: Famotidine (Famotidine 10 Mg Tablet) 10 mg PO [facility] Stop: 09/08/20 20:59 Last Admin: 08/17/20 20:34 Dose: Not Given Documented by: Hyoscyamine (Hyoscyamine Sulfate 0.125 Mg Tab) 0.125 mg PO Q4 PRN PRN Reason: ABD CRAMPING Stop: 09/03/20 11:52 Last Admin: 08/07/20 08:57 Dose: 0.125 mg Documented by: Levothyroxine Sodium (Levothyroxine Sodium 50 Mcg Tablet) 50 mcg PO [id number] [facility] Stop: 09/04/20 06:29 Last Admin: 08/16/20 06:46 Dose: 50 mcg Documented by: Melatonin (Melatonin 3 Mg Tab) 3 mg PO [facility] Stop: 09/03/20 20:59 Last Admin: 08/17/20 20:14 Dose: 3 mg Documented by: Mirtazapine (Mirtazapine Tab 15 Mg Tab) 7.5 mg PO [facility] Stop: 09/17/20 20:59 Multi-Ingredient Cream (Artificial Tears Op Oint 3.5 Gm Tube) 1 appln OP Q4H PRN PRN Reason: DRY EYES Stop: 09/05/20 14:28 Multivitamins/Minerals (Cerovite Adv Formula Tab) 1 tab PO QAM [facility] Stop: 09/03/20 08:59 Last Admin: 08/18/20 09:31 Dose: 1 tab Documented by: Nitroglycerin (Nitroglycerin Sl 0.4 Mg/Tab Tab) 0.4 mg SL UD PRN PRN Reason: Chest Pain Stop: 09/02/20 03:28 Ondansetron HCl (Ondansetron Inj 2 Mg/Ml 2 Ml Vial) 4 mg IV Q6H PRN PRN Reason: Nausea Stop: 09/02/20 03:28 Polyethylene Glycol (Polyethylene (Miralax) 17 Gm Pack) 17 gm PO DAILY PRN PRN Reason: Constipation Stop: 09/02/20 03:28 Potassium Chloride (Potassium Chloride Crtab 20 Meq Tabcr) 20 meq PO BID [facility] Stop: 09/14/20 20:59 Last Admin: 08/18/20 09:30 Dose: 20 meq Documented by: Quetiapine Fumarate (Quetiapine Fumarate 25 Mg Tablet) 25 mg PO HS [facility] Stop: 09/11/20 20:59 Last Admin: 08/17/20 20:14 Dose: 25 mg Documented by: Senna/Docusate Sodium (Docusate Sodium/Senna 50/8.6mg Tab) 2 tab PO QPM [facility] Stop: 09/16/20 20:59 Last Admin: 08/17/20 20:34 Dose: Not Given Documented by: Sumatriptan Succinate (Sumatriptan Succinate 25 Mg Tab) 25 mg PO DAILY PRN PRN Reason: Migraine Headache Stop: 09/03/20 11:52 Thiamine HCl (Thiamine Hcl 100 Mg Tab) 100 mg PO QAM [facility] Stop: 09/02/20 12:29 Last Admin: 08/18/20 09:31 Dose: 100 mg Documented by:
[2020-08-18] MEDS: DOCUSATE SODIUM/SENNA 50/8.6MG TAB PO SCH (19:58)
[2020-08-18] MEDS: FAMOTIDINE 10 MG TABLET PO SCH (19:59)
[2020-08-18] MEDS: QUEtiapine FUMARATE 25 MG TABLET PO SCH (21:35)
[2020-08-18] MEDS: MIRTAZAPINE TAB 15 MG TAB PO SCH (21:35)
[2020-08-18] MEDS: MELATONIN 3 MG TAB PO SCH (21:37)
[2020-08-19] MEDS: LEVOTHYROXINE SODIUM 50 MCG TABLET PO SCH (05:32)
[2020-08-19 06:12] LABS: Hematocrit (blood only) 31.3 % (37-47); Hemoglobin 10.7 g/dL (12.0-16.0); Mean Corpuscular Hgb Conc 34.2 g/dL (32-36); Mean Corpuscular Volume 96.6 fL (80-100); Mean Platelet Volume 8.5 fL (7.4-10.4); Platelet Count 264 K/uL (130-400); RDW Coefficient of Variation 15.4 % (11.5-14.5); RDW Standard Deviation 54.4 fL (36.4-46.3); Red Blood Count 3.24 M/uL (4.2-5.4); White Blood Count 3.67 K/uL (4.8-10.8)
[2020-08-19 06:59] LABS: BUN Creatinine Ratio 50.6 (10-20); Calcium 8.4 mg/dl (8.5-10.1); Creatinine Clr Calc Pharmacy 76.1 ml/min; Est GFR (African American) 122.8
[2020-08-19] MEDS: APIXABAN 5 MG TABLET PO SCH ×2 (09:32→20:41)
[2020-08-19] MEDS: CEROVITE ADV FORMULA TAB PO SCH ×2 (09:32→09:56)
[2020-08-19] MEDS: THIAMINE HCL 100 MG TAB PO SCH ×2 (09:32→09:56)
[2020-08-19] MEDS: POTASSIUM CHLORIDE CRTAB 20 MEQ TABCR PO SCH ×2 (09:55→20:41)
--- NOTE | 2020-08-19 13:14 | Hospitalist Progress Note ---
Date of Service August 19, 2020 Assessment & Plan (1) Severe protein-calorie malnutrition: Severe protein calorie malnutrition Failure to thrive Poor oral intake secondary to psychiatric issues BMI: 14.5 Dietitian on case Continue thiamine Continue Marinol Received gentle IV fluids Intermittently refuses medications, food Appetite better but refuses intermittently Refuses any further investigations States having insurance issues Encouraged to increase oral intake Mechanical Fall Head Trauma Scalp wound due to above CT head:No acute intracranial findings. Continue wound care No recurrence of bleeding Acute DVT Venous Doppler:Very small nonocclusive DVT within the distal left superficial femoral vein adjacent to a valve leaflet Hypercoagulable work-up as outpatient Continue Eliquis Severe depression Bipolar disorder History of psychogenic polydipsia Noncompliance with Seroquel Appreciate Psychiatry Input Continue Seroquel--Increased to 25mg QHS Has been refusing medications intermittently Psychiatry following Hypothyroidism Normal TSH Continue levothyroxine Hypokalemia Hypophosphatemia Hypomagnesemia Replace electrolytes as needed Adult failure to thrive: Past several month patient had multiple admissions with dehydration hyponatremia Patient unable to take care of herself at home Family concerned with patient's living situation Case management to help with discharge planning May need to address goals of care, if patient continues to refuse treatment DVT Px: Eliquis CODE STATUS: DNR/DNI Disposition: To be determined Case Management consulted-Awaiting [facility] bed, d/w DTR Stephanie, psych input noted Labs checked ROS-No Headache, No Visual Changes, No Nausea, No Vomiting, No Fever, No Chills, No Neck Pain or Stiffness, No Chest Pain, No Palpitations, No SOB, No MARTIN, No Cough, No Sputum, No Wheezing, No Abdominal Pain, No Diarrhea, No Hematemesis, No Hemoptysis, No Unexpected Weight Loss, No Flank pain, No Melena, No Hematochezia, No Frequency, No Urgency, No Burning, No Hematuria, No Rashes, No Diaphoresis. Appetite is Normal Physical Exam Gen-AAO x 3, NAD, Afebrile Head-Healing Forehead Lac, EOMI, PERRLA, Anicteric Sclera, No Posterior Pharyngeal Erythema Neck-Supple, No JVD, No Thyromegaly, No Masses, No LAD, No Bruits Lungs-Clear to Auscultation Bilaterally, No Rales, No Rhonchi, No Wheezing, No Crepitus Chest-No S4, +S1, +S2, No S3, No Murmurs, No Rubs, No Gallops, No Ectopy Abdomen-Soft, Bowel Sounds Present, Non Tender, Non Distended, No Hepatomegaly, No Splenomegaly, No Palpable Masses, No Rebound, No Rigidity, No Guarding Musculoskeletal-Full Range of Motion Bilaterally, No CVAT Extremities-No Cyanosis, No Clubbing, No Edema Nuero-Cranial Nerves II-XII grossly intact, Motor WNL, DTRs WNL, Strength WNL, Non Focal Psych-Flat Admission and Anticipated Discharge Date Admission Date: August 03, 2020 Results & Data Results & Data ([facility]) Vital Signs (Past 12 Hours) Vital Signs Temp Pulse Resp BP Pulse Ox 08/19/20 08:05 36.4 C L 73 16 127/80 93
[2020-08-19] MEDS: QUEtiapine FUMARATE 25 MG TABLET PO SCH (20:40)
[2020-08-19] MEDS: FAMOTIDINE 10 MG TABLET PO SCH (20:40)
[2020-08-19] MEDS: MELATONIN 3 MG TAB PO SCH (20:40)
[2020-08-19] MEDS: MIRTAZAPINE TAB 15 MG TAB PO SCH (20:40)
[2020-08-19] MEDS: DOCUSATE SODIUM/SENNA 50/8.6MG TAB PO SCH (20:41)
[2020-08-20] MEDS: LEVOTHYROXINE SODIUM 50 MCG TABLET PO SCH (05:15)
[2020-08-20] MEDS: THIAMINE HCL 100 MG TAB PO SCH (07:55)
[2020-08-20] MEDS: APIXABAN 5 MG TABLET PO SCH ×2 (07:55→21:21)
[2020-08-20] MEDS: CEROVITE ADV FORMULA TAB PO SCH (07:55)
[2020-08-20] MEDS: POTASSIUM CHLORIDE CRTAB 20 MEQ TABCR PO SCH ×2 (07:56→21:22)
--- NOTE | 2020-08-20 11:56 | Hospitalist Progress Note ---
Date of Service August 20, 2020 Assessment & Plan (1) Severe protein-calorie malnutrition: Severe protein calorie malnutrition Failure to thrive Poor oral intake secondary to psychiatric issues BMI: 14.5 Dietitian on case Continue thiamine Continue Marinol Received gentle IV fluids Intermittently refuses medications, food Appetite better but refuses intermittently Refuses any further investigations States having insurance issues Encouraged to increase oral intake Mechanical Fall Head Trauma Scalp wound due to above CT head:No acute intracranial findings. Continue wound care No recurrence of bleeding Acute DVT Venous Doppler:Very small nonocclusive DVT within the distal left superficial femoral vein adjacent to a valve leaflet Hypercoagulable work-up as outpatient Continue Eliquis Severe depression Bipolar disorder History of psychogenic polydipsia Noncompliance with Seroquel Appreciate Psychiatry Input Continue Seroquel--Increased to 25mg QHS On Remeron to increase appetite Has been refusing medications intermittently Psychiatry following Hypothyroidism Normal TSH Continue levothyroxine Hypokalemia Hypophosphatemia Hypomagnesemia Replace electrolytes as needed Adult failure to thrive: Past several month patient had multiple admissions with dehydration hyponatremia Patient unable to take care of herself at home Family concerned with patient's living situation Case management to help with discharge planning May need to address goals of care, if patient continues to refuse treatment DVT Px: Eliquis CODE STATUS: DNR/DNI Disposition: To be determined Case Management consulted-Awaiting [facility] bed, d/w DTR Stephanie, psych input noted, Placement questionable, [facility]?? Labs checked ROS-No Headache, No Visual Changes, No Nausea, No Vomiting, No Fever, No Chills, No Neck Pain or Stiffness, No Chest Pain, No Palpitations, No SOB, No MARTIN, No Cough, No Sputum, No Wheezing, No Abdominal Pain, No Diarrhea, No Hematemesis, No Hemoptysis, No Unexpected Weight Loss, No Flank pain, No Melena, No Hematochezia, No Frequency, No Urgency, No Burning, No Hematuria, No Rashes, No Diaphoresis. Appetite is Normal Physical Exam Gen-AAO x 3, NAD, Afebrile Head-Healing Forehead Lac, EOMI, PERRLA, Anicteric Sclera, No Posterior Pharyngeal Erythema Neck-Supple, No JVD, No Thyromegaly, No Masses, No LAD, No Bruits Lungs-Clear to Auscultation Bilaterally, No Rales, No Rhonchi, No Wheezing, No Crepitus Chest-No S4, +S1, +S2, No S3, No Murmurs, No Rubs, No Gallops, No Ectopy Abdomen-Soft, Bowel Sounds Present, Non Tender, Non Distended, No Hepatomegaly, No Splenomegaly, No Palpable Masses, No Rebound, No Rigidity, No Guarding Musculoskeletal-Full Range of Motion Bilaterally, No CVAT Extremities-No Cyanosis, No Clubbing, No Edema Nuero-Cranial Nerves II-XII grossly intact, Motor WNL, DTRs WNL, Strength WNL, Non Focal Psych-Flat Admission and Anticipated Discharge Date Admission Date: August 03, 2020 Results & Data Results & Data ([facility]) Vital Signs (Past 12 Hours) Vital Signs Temp Pulse Resp BP Pulse Ox 08/20/20 08:40 36.6 C 80 16 118/74 97
[2020-08-20] MEDS: POLYETHYLENE (MIRALAX) 17 GM PACK PO PRN (18:40)
[2020-08-20] MEDS: MELATONIN 3 MG TAB PO SCH (21:21)
[2020-08-20] MEDS: FAMOTIDINE 10 MG TABLET PO SCH (21:21)
[2020-08-20] MEDS: MIRTAZAPINE TAB 15 MG TAB PO SCH (21:21)
[2020-08-20] MEDS: DOCUSATE SODIUM/SENNA 50/8.6MG TAB PO SCH (21:21)
[2020-08-20] MEDS: QUEtiapine FUMARATE 25 MG TABLET PO SCH (21:22)
[2020-08-21] MEDS: LEVOTHYROXINE SODIUM 50 MCG TABLET PO SCH (05:21)
[2020-08-21] MEDS: APIXABAN 5 MG TABLET PO SCH ×2 (07:37→20:29)
[2020-08-21] MEDS: THIAMINE HCL 100 MG TAB PO SCH (07:45)
[2020-08-21] MEDS: POTASSIUM CHLORIDE CRTAB 20 MEQ TABCR PO SCH ×2 (07:45→20:30)
[2020-08-21] MEDS: CEROVITE ADV FORMULA TAB PO SCH (07:45)
[2020-08-21] MEDS: POLYETHYLENE (MIRALAX) 17 GM PACK PO PRN (10:40)
[2020-08-21] MEDS: MELATONIN 3 MG TAB PO SCH (20:13)
[2020-08-21] MEDS: QUEtiapine FUMARATE 25 MG TABLET PO SCH (20:13)
[2020-08-21] MEDS: MIRTAZAPINE TAB 15 MG TAB PO SCH (20:29)
[2020-08-21] MEDS: DOCUSATE SODIUM/SENNA 50/8.6MG TAB PO SCH (20:29)
[2020-08-21] MEDS: FAMOTIDINE 10 MG TABLET PO SCH (20:29)
--- NOTE | 2020-08-21 21:15 | Hospitalist Progress Note ---
Date of Service August 21, 2020 Assessment & Plan (1) Severe protein-calorie malnutrition: Underweight with poor oral intake 2/2 psychiatric issues. Cont daily thiamine, marinol. (2) Bipolar disorder: Seen by psych this admission who report some improvement in her since admission. Patient states she is responding well to Seroquel and it helps her get some sleep. Also now on mirtazapine trial. Cont current therapies. (3) Adult failure to thrive: Dehydration and weight loss over the past few months. Family concerned for patient's current living situation and question whether or not patient can live alone. Cont supportive care efforts, (4) Electrolyte abnormality: intermittent hyponatremia, hypomagnesemia and hypophosphatemia all related to poor PO intake. Recheck lytes in am. Replace as needed. (5) Status post fall: suffered an inpatient fall in the bathroom when ambulating there alone. No loss of consciousness. She sustained a 1 inch laceration and a CT head was performed in setting of Eliquis. No acute intracranial findings were seen. (6) Acute DVT (deep venous thrombosis): Eliquis (7) Hypothyroidism: chronic, cont Synthroid per home regimen. (8) DVT prophylaxis: Eliquis DNR/DNI Dispo-uncertain at this time. Possible to personal long-term? [facility] and Anticipated Discharge Date Admission Date: August 03, 2020 Subjective 75 yo F with bipolar disorder presented with altered mental status. Currently feeling well but she is undergoing the process of placement. She states that she is fine with this. She feels she was stubborn not to take any medication previously for her bipolar disorder. States she used to be much more independent, but now she feels she could use the help. Physically feels well but feels full after overeating for dinner. Review of Systems Review of Systems: All systems reviewed & are unremarkable except as noted in Subjective Physical Exam Physical Exam: CONSTITUTIONAL: thin, frail, vitals are stable, generally well-appearing EYES: normal conjunctivae, no scleral icterus ENT: external ear and nose normal, MMM RESPIRATORY: clear to auscultation bilaterally, no crackles, rales or wheezes, normal respiratory effort CARDIOVASCULAR: regular rate and rhythm, S1 and 2 heard without murmurs, gallops or rubs, no JVD, no peripheral edema GASTROINTESTINAL: normal bowel sounds, soft, nontender, no hepatomegaly, no guarding MUSCULOSKELETAL: strength 5/5 throughout, head is normocephalic and atraumatic, ambulates independently around the room SKIN: warm and dry NEUROLOGIC: CN 2-12 grossly intact, no sensory deficit, normal cognition, normal speech,no gross focal deficits. PSYCHIATRIC: alert cooperative and oriented to person, place and time. Euthymic mood, makes good eye contact, language grossly intact, recent and remote memory grossly intact. Results & Data Results & Data ([facility]) Vital Signs (Past 12 Hours) Vital Signs Temp Pulse Resp BP Pulse Ox 08/21/20 15:20 36.5 C 84 18 115/72 97 Medications Administered Current Inpatient Medications Acetaminophen (Acetaminophen 325 Mg Tab) 650 mg PO Q4H PRN PRN Reason: Pain or Fever Stop: 09/02/20 03:28 Apixaban (Apixaban 5 Mg Tablet) 5 mg PO BID [facility] Stop: 09/14/20 20:59 Last Admin: 08/21/20 20:29 Dose: Not Given Documented by: Bisacodyl (Bisacodyl 10 Mg Supp) 10 mg [place] DAILY PRN PRN Reason: Constipation Stop: 09/10/20 16:26 Last Admin: 08/17/20 04:33 Dose: 10 mg Documented by: Dronabinol (Dronabinol 2.5 Mg Cap) 2.5 mg PO BID [facility] Stop: 09/05/20 10:29 Last Admin: 08/21/20 20:29 Dose: Not Given Documented by: Famotidine (Famotidine 10 Mg Tablet) 10 mg PO HS [facility] Stop: 09/08/20 20:59 Last Admin: 08/21/20 20:29 Dose: Not Given Documented by: Hyoscyamine (Hyoscyamine Sulfate 0.125 Mg Tab) 0.125 mg PO Q4 PRN PRN Reason: ABD CRAMPING Stop: 09/03/20 11:52 Last Admin: 08/07/20 08:57 Dose: 0.125 mg Documented by: Levothyroxine Sodium (Levothyroxine Sodium 50 Mcg Tablet) 50 mcg PO [id number] [facility] Stop: 09/04/20 06:29 Last Admin: 08/21/20 05:21 Dose: 50 mcg Documented by: Melatonin (Melatonin 3 Mg Tab) 3 mg PO HS [facility] Stop: 09/03/20 20:59 Last Admin: 08/21/20 20:13 Dose: 3 mg Documented by: Mirtazapine (Mirtazapine Tab 15 Mg Tab) 7.5 mg PO HS [facility] Stop: 09/17/20 20:59 Last Admin: 08/21/20 20:29 Dose: Not Given Documented by: Multi-Ingredient Cream (Artificial Tears Op Oint 3.5 Gm Tube) 1 appln OP Q4H PRN PRN Reason: DRY EYES Stop: 09/05/20 14:28 Multivitamins/Minerals (Cerovite Adv Formula Tab) 1 tab PO QAM [facility] Stop: 09/03/20 08:59 Last Admin: 08/21/20 07:45 Dose: Not Given Documented by: Nitroglycerin (Nitroglycerin Sl 0.4 Mg/Tab Tab) 0.4 mg SL UD PRN PRN Reason: Chest Pain Stop: 09/02/20 03:28 Ondansetron HCl (Ondansetron Inj 2 Mg/Ml 2 Ml Vial) 4 mg IV Q6H PRN PRN Reason: Nausea Stop: 09/02/20 03:28 Polyethylene Glycol (Polyethylene (Miralax) 17 Gm Pack) 17 gm PO DAILY PRN PRN Reason: Constipation Stop: 09/02/20 03:28 Last Admin: 08/21/20 10:40 Dose: 17 gm Documented by: Potassium Chloride (Potassium Chloride Crtab 20 Meq Tabcr) 20 meq PO BID [facility] Stop: 09/14/20 20:59 Last Admin: 08/21/20 20:30 Dose: Not Given Documented by: Quetiapine Fumarate (Quetiapine Fumarate 25 Mg Tablet) 25 mg PO HS [facility] Stop: 09/11/20 20:59 Last Admin: 08/21/20 20:13 Dose: 25 mg Documented by: Senna/Docusate Sodium (Docusate Sodium/Senna 50/8.6mg Tab) 2 tab PO QPM [facility] Stop: 09/16/20 20:59 Last Admin: 08/21/20 20:29 Dose: Not Given Documented by: Sumatriptan Succinate (Sumatriptan Succinate 25 Mg Tab) 25 mg PO DAILY PRN PRN Reason: Migraine Headache Stop: 09/03/20 11:52 Thiamine HCl (Thiamine Hcl 100 Mg Tab) 100 mg PO QAM [facility] Stop: 09/02/20 12:29 Last Admin: 08/21/20 07:45 Dose: Not Given Documented by: (1) Bipolar disorder Active/Remission status: remission status unspecified Qualified Code(s): F31.9 - Bipolar disorder, unspecified
[2020-08-22] MEDS: LEVOTHYROXINE SODIUM 50 MCG TABLET PO SCH (05:34)
[2020-08-22 07:18] LABS: BUN Creatinine Ratio 62.5 (10-20); Calcium 8.3 mg/dl (8.5-10.1); Creatinine Clr Calc Pharmacy 86.3 ml/min; Est GFR (Non-African American) 110.4; Magnesium 2.1 mg/dl (1.8-2.4); Phosphorus 2.6 mg/dl (2.5-4.9); Potassium 3.8 mmol/L (3.5-5.1)
[2020-08-22] MEDS: APIXABAN 5 MG TABLET PO SCH ×2 (08:32→21:07)
[2020-08-22] MEDS: CEROVITE ADV FORMULA TAB PO SCH (08:32)
[2020-08-22] MEDS: POTASSIUM CHLORIDE CRTAB 20 MEQ TABCR PO SCH ×2 (08:32→21:07)
[2020-08-22] MEDS: THIAMINE HCL 100 MG TAB PO SCH (08:32)
[2020-08-22] MEDS: MELATONIN 3 MG TAB PO SCH (21:07)
[2020-08-22] MEDS: FAMOTIDINE 10 MG TABLET PO SCH (21:07)
[2020-08-22] MEDS: QUEtiapine FUMARATE 25 MG TABLET PO SCH (21:07)
[2020-08-22] MEDS: MIRTAZAPINE TAB 15 MG TAB PO SCH (21:07)
[2020-08-22] MEDS: DOCUSATE SODIUM/SENNA 50/8.6MG TAB PO SCH (21:07)
--- NOTE | 2020-08-22 21:16 | Hospitalist Progress Note ---
Date of Service August 22, 2020 Assessment & Plan (1) Severe protein-calorie malnutrition: Underweight with poor oral intake 2/2 psychiatric issues. Cont daily thiamine, marinol. (2) Bipolar disorder: Seen by psych this admission who report some improvement in her since admission. Patient states she is responding well to Seroquel and it helps her get some sleep. Also now on mirtazapine trial. Cont current therapies. (3) Adult failure to thrive: Dehydration and weight loss over the past few months. Family concerned for patient's current living situation and question whether or not patient can live alone. Cont supportive care efforts, planning for placement. Discussed case with CM today who has spoken with family. Daughter prefers SNF, will try for placement here first. (4) Electrolyte abnormality: intermittent hyponatremia, hypomagnesemia and hypophosphatemia all related to poor PO intake. Lytes are within normal limits. Tolerating PO. (5) Status post fall: suffered an inpatient fall in the bathroom when ambulating there alone earlier in the admission. No loss of consciousness. She sustained a 1 inch laceration and a CT head was performed in setting of Eliquis. No acute intracranial findings were seen. (6) Acute DVT (deep venous thrombosis): Eliquis for at least 3 months. (7) Hypothyroidism: chronic, cont Synthroid per home regimen. (8) DVT prophylaxis: Eliquis DNR/DNI Dispo-uncertain at this time. Possible to personal nursing home vs SNF. Alma Cancino DO [facility] Hospitalist Admission and Anticipated Discharge Date Admission Date: August 03, 2020 Subjective 75 yo F with bipolar disorder presented with altered mental status. Reports feeling very bad today, but doesn't go into much detail Reports she is eating well Denies any symptoms at this time Oriented Again she is fine with placement, discussed her current options. She granted me permission to speak with her daughter about her care. 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 Review of Systems Review of Systems: All systems reviewed & are unremarkable except as noted in Subjective Physical Exam Physical Exam: CONSTITUTIONAL: thin, frail, vitals are stable, generally well-appearing EYES: normal conjunctivae, no scleral icterus ENT: external ear and nose normal, MMM RESPIRATORY: clear to auscultation bilaterally, no crackles, rales or wheezes, normal respiratory effort CARDIOVASCULAR: regular rate and rhythm, S1 and 2 heard without murmurs, gallops or rubs, no JVD, no peripheral edema GASTROINTESTINAL: normal bowel sounds, soft, nontender, no hepatomegaly, no guarding MUSCULOSKELETAL: strength 5/5 throughout, head is normocephalic and atraumatic, ambulates independently around the room SKIN: warm and dry NEUROLOGIC: CN 2-12 grossly intact, no sensory deficit, normal cognition, normal speech,no gross focal deficits. PSYCHIATRIC: alert cooperative and oriented to person, place and time. Euthymic mood, makes good eye contact, language grossly intact, recent and remote memory grossly intact. Results & Data Results & Data ([facility]) Vital Signs (Past 12 Hours) Vital Signs Temp Pulse Resp BP Pulse Ox 08/22/20 15:28 36.3 C L 65 16 126/81 98 Laboratory Results [facility] 08/22/20 06:13 Sodium 134 L Potassium 3.8 Chloride 101 Carbon Dioxide 29 BUN 19 H Creatinine 0.30 L Glucose 93 Calcium 8.3 L Medications Administered Current Inpatient Medications Acetaminophen (Acetaminophen 325 Mg Tab) 650 mg PO Q4H PRN PRN Reason: Pain or Fever Stop: 09/02/20 03:28 Apixaban (Apixaban 5 Mg Tablet) 5 mg PO BID [facility] Stop: 09/14/20 20:59 Last Admin: 08/22/20 21:07 Dose: Not Given Documented by: Bisacodyl (Bisacodyl 10 Mg Supp) 10 mg [place] DAILY PRN PRN Reason: Constipation Stop: 09/10/20 16:26 Last Admin: 08/17/20 04:33 Dose: 10 mg Documented by: Dronabinol (Dronabinol 2.5 Mg Cap) 2.5 mg PO BID [facility] Stop: 09/05/20 10:29 Last Admin: 08/22/20 21:07 Dose: Not Given Documented by: Famotidine (Famotidine 10 Mg Tablet) 10 mg PO HS [facility] Stop: 09/08/20 20:59 Last Admin: 08/22/20 21:07 Dose: Not Given Documented by: Hyoscyamine (Hyoscyamine Sulfate 0.125 Mg Tab) 0.125 mg PO Q4 PRN PRN Reason: ABD CRAMPING Stop: 09/03/20 11:52 Last Admin: 08/07/20 08:57 Dose: 0.125 mg Documented by: Levothyroxine Sodium (Levothyroxine Sodium 50 Mcg Tablet) 50 mcg PO [id number] [facility] Stop: 09/04/20 06:29 Last Admin: 08/22/20 05:34 Dose: 50 mcg Documented by: Melatonin (Melatonin 3 Mg Tab) 3 mg PO [facility] Stop: 09/03/20 20:59 Last Admin: 08/22/20 21:07 Dose: Not Given Documented by: Mirtazapine (Mirtazapine Tab 15 Mg Tab) 7.5 mg PO [facility] Stop: 09/17/20 20:59 Last Admin: 08/22/20 21:07 Dose: Not Given Documented by: Multi-Ingredient Cream (Artificial Tears Op Oint 3.5 Gm Tube) 1 appln OP Q4H PRN PRN Reason: DRY EYES Stop: 09/05/20 14:28 Multivitamins/Minerals (Cerovite Adv Formula Tab) 1 tab PO QAM [facility] Stop: 09/03/20 08:59 Last Admin: 08/22/20 08:32 Dose: Not Given Documented by: Nitroglycerin (Nitroglycerin Sl 0.4 Mg/Tab Tab) 0.4 mg SL UD PRN PRN Reason: Chest Pain Stop: 09/02/20 03:28 Ondansetron HCl (Ondansetron Inj 2 Mg/Ml 2 Ml Vial) 4 mg IV Q6H PRN PRN Reason: Nausea Stop: 09/02/20 03:28 Polyethylene Glycol (Polyethylene (Miralax) 17 Gm Pack) 17 gm PO DAILY PRN PRN Reason: Constipation Stop: 09/02/20 03:28 Last Admin: 08/21/20 10:40 Dose: 17 gm Documented by: Potassium Chloride (Potassium Chloride Crtab 20 Meq Tabcr) 20 meq PO BID [facility] Stop: 09/14/20 20:59 Last Admin: 08/22/20 21:07 Dose: Not Given Documented by: Quetiapine Fumarate (Quetiapine Fumarate 25 Mg Tablet) 25 mg PO [facility] Stop: 09/11/20 20:59 Last Admin: 08/22/20 21:07 Dose: Not Given Documented by: Senna/Docusate Sodium (Docusate Sodium/Senna 50/8.6mg Tab) 2 tab PO QPM [facility] Stop: 09/16/20 20:59 Last Admin: 08/22/20 21:07 Dose: Not Given Documented by: Sumatriptan Succinate (Sumatriptan Succinate 25 Mg Tab) 25 mg PO DAILY PRN PRN Reason: Migraine Headache Stop: 09/03/20 11:52 Thiamine HCl (Thiamine Hcl 100 Mg Tab) 100 mg PO QAM [facility] Stop: 09/02/20 12:29 Last Admin: 08/22/20 08:32 Dose: Not Given Documented by: (1) Bipolar disorder Active/Remission status: remission status unspecified Qualified Code(s): F31.9 - Bipolar disorder, unspecified
[2020-08-23] MEDS: LEVOTHYROXINE SODIUM 50 MCG TABLET PO SCH (05:02)
[2020-08-23] MEDS: APIXABAN 5 MG TABLET PO SCH ×2 (11:26→20:16)
[2020-08-23] MEDS: POTASSIUM CHLORIDE CRTAB 20 MEQ TABCR PO SCH ×2 (11:27→20:17)
[2020-08-23] MEDS: CEROVITE ADV FORMULA TAB PO SCH (11:27)
[2020-08-23] MEDS: THIAMINE HCL 100 MG TAB PO SCH (11:27)
--- NOTE | 2020-08-23 15:25 | Hospitalist Progress Note ---
Date of Service August 23, 2020 Assessment & Plan (1) Severe protein-calorie malnutrition: Underweight with poor oral intake 2/2 psychiatric issues. Cont daily thiamine, marinol. (2) Bipolar disorder: Seen by psych this admission who report some improvement in her since admission. Patient states she is responding well to Seroquel and it helps her get some sleep. Also now on mirtazapine trial. Cont current therapies. Noted intermittent refusal of medications. (3) Adult failure to thrive: Dehydration and weight loss over the past few months. Family concerned for patient's current living situation and question whether or not patient can live alone. Cont supportive care efforts, planning for placement. Discussed case with CM today who has spoken with family. Daughter prefers SNF, will try for placement here first. (4) Electrolyte abnormality: intermittent hyponatremia, hypomagnesemia and hypophosphatemia all related to poor PO intake. Lytes are within normal limits. Tolerating PO. (5) Status post fall: suffered an inpatient fall in the bathroom when ambulating there alone earlier in the admission. No loss of consciousness. She sustained a 1 inch laceration and a CT head was performed in setting of Eliquis. No acute intracranial findings were seen. (6) Acute DVT (deep venous thrombosis): Eliquis for at least 3 months. (7) Hypothyroidism: chronic, cont Synthroid per home regimen. (8) DVT prophylaxis: Eliquis DNR/DNI Dispo-uncertain at this time. Possible to personal long term vs SNF. Alma Cancino DO [facility] Hospitalist Admission and Anticipated Discharge Date Admission Date: August 03, 2020 Subjective 75 yo F with bipolar disorder presented with altered mental status. doing ok today isn't saying much except no specific issues generally things are not good for her spoke with Daughter by phone and updated her on the care plan . Review of Systems Review of Systems: All systems reviewed & are unremarkable except as noted in Subjective Physical Exam Physical Exam: CONSTITUTIONAL: thin, frail, vitals are stable, generally well-appearing EYES: normal conjunctivae, no scleral icterus ENT: external ear and nose normal, MMM RESPIRATORY: clear to auscultation bilaterally, no crackles, rales or wheezes, normal respiratory effort CARDIOVASCULAR: regular rate and rhythm, S1 and 2 heard without murmurs, gallops or rubs, no JVD, no peripheral edema GASTROINTESTINAL: normal bowel sounds, soft, nontender, no hepatomegaly, no guarding MUSCULOSKELETAL: strength 5/5 throughout, head is normocephalic and atraumatic, ambulates independently around the room SKIN: warm and dry NEUROLOGIC: CN 2-12 grossly intact, no sensory deficit, normal cognition, normal speech,no gross focal deficits. PSYCHIATRIC: alert cooperative and oriented to person, place and time. Euthymic mood, makes good eye contact, language grossly intact, recent and remote memory grossly intact. Results & Data Results & Data ([facility]) Vital Signs (Past 12 Hours) Vital Signs Temp Pulse Resp BP Pulse Ox 08/23/20 07:35 36.4 C L 78 18 138/84 96 Medications Administered Current Inpatient Medications Acetaminophen (Acetaminophen 325 Mg Tab) 650 mg PO Q4H PRN PRN Reason: Pain or Fever Stop: 09/02/20 03:28 Apixaban (Apixaban 5 Mg Tablet) 5 mg PO BID [facility] Stop: 09/14/20 20:59 Last Admin: 08/23/20 11:26 Dose: Not Given Documented by: Bisacodyl (Bisacodyl 10 Mg Supp) 10 mg [place] DAILY PRN PRN Reason: Constipation Stop: 09/10/20 16:26 Last Admin: 08/17/20 04:33 Dose: 10 mg Documented by: Dronabinol (Dronabinol 2.5 Mg Cap) 2.5 mg PO BID [facility] Stop: 09/05/20 10:29 Last Admin: 08/23/20 11:26 Dose: Not Given Documented by: Famotidine (Famotidine 10 Mg Tablet) 10 mg PO HS [facility] Stop: 09/08/20 20:59 Last Admin: 08/22/20 21:07 Dose: Not Given Documented by: Hyoscyamine (Hyoscyamine Sulfate 0.125 Mg Tab) 0.125 mg PO Q4 PRN PRN Reason: ABD CRAMPING Stop: 09/03/20 11:52 Last Admin: 08/07/20 08:57 Dose: 0.125 mg Documented by: Levothyroxine Sodium (Levothyroxine Sodium 50 Mcg Tablet) 50 mcg PO [id number] [facility] Stop: 09/04/20 06:29 Last Admin: 08/23/20 05:02 Dose: 50 mcg Documented by: Melatonin (Melatonin 3 Mg Tab) 3 mg PO HS [facility] Stop: 09/03/20 20:59 Last Admin: 08/22/20 21:07 Dose: Not Given Documented by: Mirtazapine (Mirtazapine Tab 15 Mg Tab) 7.5 mg PO HS [facility] Stop: 09/17/20 20:59 Last Admin: 08/22/20 21:07 Dose: Not Given Documented by: Multi-Ingredient Cream (Artificial Tears Op Oint 3.5 Gm Tube) 1 appln OP Q4H MT N PRN Reason: DRY EYES Stop: 09/05/20 14:28 Multivitamins/Minerals (Cerovite Adv Formula Tab) 1 tab PO QAM [facility] Stop: 09/03/20 08:59 Last Admin: 08/23/20 11:27 Dose: Not Given Documented by: Nitroglycerin (Nitroglycerin Sl 0.4 Mg/Tab Tab) 0.4 mg SL UD PRN PRN Reason: Chest Pain Stop: 09/02/20 03:28 Ondansetron HCl (Ondansetron Inj 2 Mg/Ml 2 Ml Vial) 4 mg IV Q6H PRN PRN Reason: Nausea Stop: 09/02/20 03:28 Polyethylene Glycol (Polyethylene (Miralax) 17 Gm Pack) 17 gm PO DAILY PRN PRN Reason: Constipation Stop: 09/02/20 03:28 Last Admin: 08/21/20 10:40 Dose: 17 gm Documented by: Potassium Chloride (Potassium Chloride Crtab 20 Meq Tabcr) 20 meq PO BID [facility] Stop: 09/14/20 20:59 Last Admin: 08/23/20 11:27 Dose: Not Given Documented by: Quetiapine Fumarate (Quetiapine Fumarate 25 Mg Tablet) 25 mg PO [facility] Stop: 09/11/20 20:59 Last Admin: 08/22/20 21:07 Dose: Not Given Documented by: Senna/Docusate Sodium (Docusate Sodium/Senna 50/8.6mg Tab) 2 tab PO QPM [facility] Stop: 09/16/20 20:59 Last Admin: 08/22/20 21:07 Dose: Not Given Documented by: Sumatriptan Succinate (Sumatriptan Succinate 25 Mg Tab) 25 mg PO DAILY PRN PRN Reason: Migraine Headache Stop: 09/03/20 11:52 Thiamine HCl (Thiamine Hcl 100 Mg Tab) 100 mg PO QAM [facility] Stop: 09/02/20 12:29 Last Admin: 08/23/20 11:27 Dose: Not Given Documented by: (1) Bipolar disorder Active/Remission status: remission status unspecified Qualified Code(s): F31.9 - Bipolar disorder, unspecified
[2020-08-23] MEDS: DOCUSATE SODIUM/SENNA 50/8.6MG TAB PO SCH (20:17)
[2020-08-23] MEDS: QUEtiapine FUMARATE 25 MG TABLET PO SCH (20:17)
[2020-08-23] MEDS: MIRTAZAPINE TAB 15 MG TAB PO SCH (20:17)
[2020-08-23] MEDS: MELATONIN 3 MG TAB PO SCH (20:17)
[2020-08-23] MEDS: FAMOTIDINE 10 MG TABLET PO SCH (20:17)
[2020-08-24 00:01] LABS: Appearance Urine Turbid (Clear); Bacteria Urine Automated 4+ (Negative); Bilirubin Urine Negative (Negative); Blood Urine 1+ (Negative); Color Urine Yellow; Glucose Urine UA Negative (Negative); Ketones Urine Trace (Negative); Leukocyte Esterase Urine 2+ (Negative); Nitrite Urine Negative (Negative); Protein Urine Negative (Negative); Specific Gravity Urine 1.018 (1.000-1.030); Urobilinogen Urine Negative (Negative); WBC Urine Automated >30 /hpf (0-5)
[2020-08-24] MEDS: APIXABAN 5 MG TABLET PO SCH ×2 (08:24→21:23)
[2020-08-24] MEDS: POTASSIUM CHLORIDE CRTAB 20 MEQ TABCR PO SCH ×2 (08:26→21:24)
[2020-08-24] MEDS: CEROVITE ADV FORMULA TAB PO SCH (08:26)
[2020-08-24] MEDS: THIAMINE HCL 100 MG TAB PO SCH (08:26)
--- NOTE | 2020-08-24 18:43 | Hospitalist Progress Note ---
Date of Service August 24, 2020 Assessment & Plan (1) Severe protein-calorie malnutrition: Underweight with poor oral intake 2/2 psychiatric issues. Cont daily thiamine, marinol. (2) Bipolar disorder: Seen by psych this admission who report some improvement in her since admission. Patient states she is responding well to Seroquel and it helps her get some sleep. Also now on mirtazapine trial. Cont current therapies. (3) UTI (urinary tract infection): Began reporting bladder pain symptoms yesterday, UA is positive for infection. Noted h/o interstitial cystitis. Will need to clear infection. (4) Interstitial cystitis: After clear infection will continue working on treatment goals for IC such as avoidance of activities or beverages that exacerbate symptoms (caffeine, alcohol, artificial sweeteners, hot pepper, acidic foods), avoidance of exercises, recreational activities, or body positions that worsen bladder symptoms, fluid management, or bladder training. Outpatient referral to a urologist may also be helpful or consideration of amitryiptiline trial. (5) Adult failure to thrive: Dehydration and weight loss over the past few months. Family concerned for patient's current living situation and question whether or not patient can live alone. Cont supportive care efforts, planning for placement to SNF, application in place. (6) Electrolyte abnormality: intermittent hyponatremia, hypomagnesemia and hypophosphatemia all related to poor PO intake. Lytes are within normal limits. Tolerating PO. (7) Status post fall: suffered an inpatient fall in the bathroom when ambulating there alone earlier in the admission. No loss of consciousness. She sustained a 1 inch laceration and a CT head was performed in setting of Eliquis. No acute intracranial findings were seen. (8) Acute DVT (deep venous thrombosis): Eliquis for at least 3 months. (9) Hypothyroidism: chronic, cont Synthroid per home regimen. (10) DVT prophylaxis: Eliquis DNR/DNI Dispo-uncertain at this time. Of note, per psychiatry, as she has nursing needs with an improved mental status exam from admission she is no longer appropriate for a geriatric inpatient psychiatric unit. Possible to personal correction vs SNF. Awaiting authorization. Alma Cancino DO [facility] Hospitalist Admission and Anticipated Discharge Date Admission Date: August 03, 2020 Subjective 75 yo F with h/o bipolar disorder presented with AMS, has demonstrated that she cannot care for herself independently, awaiting placement in SNF Patient reports significant bladder pain today. UA positive for infection and antibiotics were started. She is otherwise oriented We discussed the start of application for medical assistance and this upset her I ensured her I would put her in touch with case management and that her daughter knew about this application Review of Systems Review of Systems: All systems reviewed & are unremarkable except as noted in Subjective Physical Exam Physical Exam: CONSTITUTIONAL: thin, frail, vitals are stable, NAD EYES: normal conjunctivae, no scleral icterus ENT: external ear and nose normal, MMM RESPIRATORY: clear to auscultation bilaterally, no crackles, rales or wheezes, normal respiratory effort CARDIOVASCULAR: regular rate and rhythm, S1 and 2 heard without murmurs, gallops or rubs, no JVD, no peripheral edema GASTROINTESTINAL: normal bowel sounds, soft, nontender, nondistended, no guardi ng. MUSCULOSKELETAL: strength 5/5 throughout, head is normocephalic and atraumatic, ambulates independently around the room SKIN: warm and dry NEUROLOGIC: CN 2-12 grossly intact, no sensory deficit, normal cognition, normal speech,no gross focal deficits. PSYCHIATRIC: alert cooperative and oriented. Results & Data Results & Data ([facility]) Vital Signs (Past 12 Hours) Vital Signs Temp Pulse Resp BP Pulse Ox 08/24/20 16:07 36.6 C 82 20 110/66 96 08/24/20 08:25 36.7 C 81 18 130/68 96 Laboratory Results Urine 08/23/20 Range/Units Unknown Urine Color Yellow Urine Appearance Turbid A (Clear) Urine pH 6.0 (4.5-7.5) Ur Specific Libby 1.018 (1.000-1.030) Urine Protein Negative (Negative) Urine Glucose (UA) Negative (Negative) Medications Administered Current Inpatient Medications Acetaminophen (Acetaminophen 325 Mg Tab) 650 mg PO Q4H PRN PRN Reason: Pain or Fever Stop: 09/02/20 03:28 Apixaban (Apixaban 5 Mg Tablet) 5 mg PO BID [facility] Stop: 09/14/20 20:59 Last Admin: 08/24/20 08:24 Dose: 5 mg Documented by: Bisacodyl (Bisacodyl 10 Mg Supp) 10 mg DE DAILY PRN PRN Reason: Constipation Stop: 09/10/20 16:26 Last Admin: 08/17/20 04:33 Dose: 10 mg Documented by: Dronabinol (Dronabinol 2.5 Mg Cap) 2.5 mg PO BID [facility] Stop: 09/05/20 10:29 Last Admin: 08/24/20 08:26 Dose: Not Given Documented by: Famotidine (Famotidine 10 Mg Tablet) 10 mg PO [facility] Stop: 09/08/20 20:59 Last Admin: 08/23/20 20:17 Dose: Not Given Documented by: Hyoscyamine (Hyoscyamine Sulfate 0.125 Mg Tab) 0.125 mg PO Q4 PRN PRN Reason: ABD CRAMPING Stop: 09/03/20 11:52 Last Admin: 08/07/20 08:57 Dose: 0.125 mg Documented by: Levothyroxine Sodium (Levothyroxine Sodium 50 Mcg Tablet) 50 mcg PO [id number] [facility] Stop: 09/04/20 06:29 Last Admin: 08/23/20 05:02 Dose: 50 mcg Documented by: Melatonin (Melatonin 3 Mg Tab) 3 mg PO [facility] Stop: 09/03/20 20:59 Last Admin: 08/23/20 20:17 Dose: Not Given Documented by: Mirtazapine (Mirtazapine Tab 15 Mg Tab) 7.5 mg PO [facility] Stop: 09/17/20 20:59 Last Admin: 08/23/20 20:17 Dose: Not Given Documented by: Multi-Ingredient Cream (Artificial Tears Op Oint 3.5 Gm Tube) 1 appln OP Q4H PRN PRN Reason: DRY EYES Stop: 09/05/20 14:28 Multivitamins/Minerals (Cerovite Adv Formula Tab) 1 tab PO QAM [facility] Stop: 09/03/20 08:59 Last Admin: 08/24/20 08:26 Dose: Not Given Documented by: Nitroglycerin (Nitroglycerin Sl 0.4 Mg/Tab Tab) 0.4 mg SL UD PRN PRN Reason: Chest Pain Stop: 09/02/20 03:28 Ondansetron HCl (Ondansetron Inj 2 Mg/Ml 2 Ml Vial) 4 mg IV Q6H PRN PRN Reason: Nausea Stop: 09/02/20 03:28 Polyethylene Glycol (Polyethylene (Miralax) 17 Gm Pack) 17 gm PO DAILY PRN PRN Reason: Constipation Stop: 09/02/20 03:28 Last Admin: 08/21/20 10:40 Dose: 17 gm Documented by: Potassium Chloride (Potassium Chloride Crtab 20 Meq Tabcr) 20 meq PO BID [facility] Stop: 09/14/20 20:59 Last Admin: 08/24/20 08:26 Dose: Not Given Documented by: Quetiapine Fumarate (Quetiapine Fumarate 25 Mg Tablet) 25 mg PO HS [facility] Stop: 09/11/20 20:59 Last Admin: 08/23/20 20:17 Dose: Not Given Documented by: Senna/Docusate Sodium (Docusate Sodium/Senna 50/8.6mg Tab) 2 tab PO QPM [facility] Stop: 09/16/20 20:59 Last Admin: 08/23/20 20:17 Dose: Not Given Documented by: Sumatriptan Succinate (Sumatriptan Succinate 25 Mg Tab) 25 mg PO DAILY PRN PRN Reason: Migraine Headache Stop: 09/03/20 11:52 Thiamine HCl (Thiamine Hcl 100 Mg Tab) 100 mg PO QAM [facility] Stop: 09/02/20 12:29 Last Admin: 08/24/20 08:26 Dose: Not Given Documented by: (1) Bipolar disorder Active/Remission status: remission status unspecified Qualified Code(s): F31.9 - Bipolar disorder, unspecified
[2020-08-24] MEDS: cefTRIAXone SODIUM 1,000 MG in DEXTROSE 5% 50 ML IV SCH ×2 (19:59→21:18)
[2020-08-24] MEDS: MELATONIN 3 MG TAB PO SCH (21:23)
[2020-08-24] MEDS: DOCUSATE SODIUM/SENNA 50/8.6MG TAB PO SCH (21:23)
[2020-08-24] MEDS: QUEtiapine FUMARATE 25 MG TABLET PO SCH (21:23)
[2020-08-24] MEDS: FAMOTIDINE 10 MG TABLET PO SCH (21:24)
[2020-08-24] MEDS: PHENAZOPYRIDINE HCL 100 MG TAB PO SCH (21:24)
[2020-08-24] MEDS: MIRTAZAPINE TAB 15 MG TAB PO SCH (21:24)
[2020-08-25] MEDS: POTASSIUM CHLORIDE CRTAB 20 MEQ TABCR PO SCH ×2 (08:51→20:18)
[2020-08-25] MEDS: APIXABAN 5 MG TABLET PO SCH ×2 (08:51→20:06)
[2020-08-25] MEDS: PHENAZOPYRIDINE HCL 100 MG TAB PO SCH ×3 (08:51→20:07)
[2020-08-25] MEDS: THIAMINE HCL 100 MG TAB PO SCH (08:51)
[2020-08-25] MEDS: CEROVITE ADV FORMULA TAB PO SCH (08:51)
--- NOTE | 2020-08-25 14:57 | Hospitalist Progress Note ---
Date of Service August 25, 2020 Assessment & Plan (1) Adult failure to thrive: Dehydration and weight loss over the past few months. Family concerned for patient's current living situation and question whether or not patient can live alone. Cont supportive care efforts, planning for placement to SNF, application in place. (2) Severe protein-calorie malnutrition: Underweight with poor oral intake 2/2 psychiatric issues. Cont daily thiamine, marinol. (3) UTI (urinary tract infection): Rocephin pending urine culture results. Pyridium for comfort. (4) Interstitial cystitis: After clear infection will continue working on treatment goals for IC such as avoidance of activities or beverages that exacerbate symptoms (caffeine, alcohol, artificial sweeteners, hot pepper, acidic foods), avoidance of exercises, recreational activities, or body positions that worsen bladder symptoms, fluid management, or bladder training. Outpatient referral to a urologist may also be helpful or consideration of amitriptyline trial. (5) Bipolar disorder: Seen by psych this admission who report some improvement in her since admission. Patient states she is responding well to Seroquel and it helps her get some sleep. Also now on mirtazapine trial. Cont current therapies. Noted intermittent refusal of medications. (6) Electrolyte abnormality: intermittent hyponatremia, hypomagnesemia and hypophosphatemia all related to poor PO intake. Lytes are within normal limits. Tolerating PO. (7) Status post fall: suffered an inpatient fall in the bathroom when ambulating there alone earlier in the admission. No loss of consciousness. She sustained a 1 inch laceration and a CT head was performed in setting of Eliquis. No acute intracranial findings were seen. (8) Acute DVT (deep venous thrombosis): Eliquis for at least 3 months. (9) Hypothyroidism: chronic, cont Synthroid per home regimen. (10) DVT prophylaxis: Eliquis DNR/DNI Dispo-uncertain at this time. Of note, per psychiatry, as she has nursing needs with an improved mental status exam from admission she is no longer appropriate for a geriatric inpatient psychiatric unit. Possible to personal snf vs SNF. Awaiting authorization. [facility] Admission and Anticipated Discharge Date Admission Date: August 03, 2020 Subjective 75 yo F with bipolar disorder presented with altered mental status. Recently discovered UTI persistent bladder discomfort and pain started on abx last night-patient declined pyridium but now willing to use it otherwise doing ok tolerating PO Review of Systems Review of Systems: All systems reviewed & are unremarkable except as noted in Subjective Physical Exam Physical Exam: CONSTITUTIONAL: thin, frail, vitals are stable, NAD EYES: normal conjunctivae, no scleral icterus ENT: external ear and nose normal, MMM RESPIRATORY: clear to auscultation bilaterally, no crackles, rales or wheezes, normal respiratory effort CARDIOVASCULAR: regular rate and rhythm, S1 and 2 heard without murmurs, gallops or rubs, no JVD, no peripheral edema GASTROINTESTINAL: soft, nontender, nondistended, no guarding. MUSCULOSKELETAL: strength 5/5 throughout, head is normocephalic and atraumatic, ambulates independently around the room SKIN: warm and dry NEUROLOGIC: CN 2-12 grossly intact, no sensory deficit, normal cognition, normal speech,no gross focal deficits. PSYCHIATRIC: alert cooperative and oriented. Results & Data Results & Data ([facility]) Vital Signs (Past 12 Hours) Vital Signs Temp Pulse Resp BP Pulse Ox 08/25/20 07:54 36.5 C 77 16 129/79 96 Medications Administered Current Inpatient Medications Acetaminophen (Acetaminophen 325 Mg Tab) 650 mg PO Q4H PRN PRN Reason: Pain or Fever Stop: 09/02/20 03:28 Apixaban (Apixaban 5 Mg Tablet) 5 mg PO BID [facility] Stop: 09/14/20 20:59 Last Admin: 08/25/20 08:51 Dose: 5 mg Documented by: Bisacodyl (Bisacodyl 10 Mg Supp) 10 mg [place] DAILY PRN PRN Reason: Constipation Stop: 09/10/20 16:26 Last Admin: 08/17/20 04:33 Dose: 10 mg Documented by: Dronabinol (Dronabinol 2.5 Mg Cap) 2.5 mg PO BID [facility] Stop: 09/05/20 10:29 Last Admin: 08/25/20 08:51 Dose: Not Given Documented by: Famotidine (Famotidine 10 Mg Tablet) 10 mg PO HS [facility] Stop: 09/08/20 20:59 Last Admin: 08/24/20 21:24 Dose: Not Given Documented by: Hyoscyamine (Hyoscyamine Sulfate 0.125 Mg Tab) 0.125 mg PO Q4 PRN PRN Reason: ABD CRAMPING Stop: 09/03/20 11:52 Last Admin: 08/07/20 08:57 Dose: 0.125 mg Documented by: Ceftriaxone Sodium 1,000 mg/ (Dextrose) 50 mls @ 100 mls/hr IV Q24H [facility]; Protocol Stop: 08/29/20 19:29 Last Admin: 08/24/20 21:18 Dose: Not Given Documented by: Levothyroxine Sodium (Levothyroxine Sodium 50 Mcg Tablet) 50 mcg PO [id number] [facility] Stop: 09/04/20 06:29 Last Admin: 08/23/20 05:02 Dose: 50 mcg Documented by: Melatonin (Melatonin 3 Mg Tab) 3 mg PO [facility] Stop: 09/03/20 20:59 Last Admin: 08/24/20 21:23 Dose: 3 mg Documented by: Mirtazapine (Mirtazapine Tab 15 Mg Tab) 7.5 mg PO [facility] Stop: 09/17/20 20:59 Last Admin: 08/24/20 21:24 Dose: Not Given Documented by: Multi-Ingredient Cream (Artificial Tears Op Oint 3.5 Gm Tube) 1 appln OP Q4H PRN PRN Reason: DRY EYES Stop: 09/05/20 14:28 Multivitamins/Minerals (Cerovite Adv Formula Tab) 1 tab PO QAM [facility] Stop: 09/03/20 08:59 Last Admin: 08/25/20 08:51 Dose: Not Given Documented by: Nitroglycerin (Nitroglycerin Sl 0.4 Mg/Tab Tab) 0.4 mg SL UD PRN PRN Reason: Chest Pain Stop: 09/02/20 03:28 Ondansetron HCl (Ondansetron Inj 2 Mg/Ml 2 Ml Vial) 4 mg IV Q6H PRN PRN Reason: Nausea Stop: 09/02/20 03:28 Phenazopyridine HCl (Phenazopyridine Hcl 100 Mg Tab) 100 mg PO TID [facility] Stop: 09/23/20 20:59 Last Admin: 08/25/20 12:02 Dose: 100 mg Documented by: Polyethylene Glycol (Polyethylene (Miralax) 17 Gm Pack) 17 gm PO DAILY PRN PRN Reason: Constipation Stop: 09/02/20 03:28 Last Admin: 08/21/20 10:40 Dose: 17 gm Documented by: Potassium Chloride (Potassium Chloride Crtab 20 Meq Tabcr) 20 meq PO BID [facility] Stop: 09/14/20 20:59 Last Admin: 08/25/20 08:51 Dose: Not Given Documented by: Quetiapine Fumarate (Quetiapine Fumarate 25 Mg Tablet) 25 mg PO HS [facility] Stop: 09/11/20 20:59 Last Admin: 08/24/20 21:23 Dose: 25 mg Documented by: Senna/Docusate Sodium (Docusate Sodium/Senna 50/8.6mg Tab) 2 tab PO QPM [facility] Stop: 09/16/20 20:59 Last Admin: 08/24/20 21:23 Dose: Not Given Documented by: Sumatriptan Succinate (Sumatriptan Succinate 25 Mg Tab) 25 mg PO DAILY PRN PRN Reason: Migraine Headache Stop: 09/03/20 11:52 Thiamine HCl (Thiamine Hcl 100 Mg Tab) 100 mg PO QAM [facility] Stop: 09/02/20 12:29 Last Admin: 08/25/20 08:51 Dose: Not Given Documented by: (1) Bipolar disorder Active/Remission status: remission status unspecified Qualified Code(s): F31.9 - Bipolar disorder, unspecified
[2020-08-25] MEDS: QUEtiapine FUMARATE 25 MG TABLET PO SCH (20:06)
[2020-08-25] MEDS: cefTRIAXone SODIUM 1,000 MG in DEXTROSE 5% 50 ML IV SCH (20:06)
[2020-08-25] MEDS: MELATONIN 3 MG TAB PO SCH (20:07)
[2020-08-25] MEDS: DOCUSATE SODIUM/SENNA 50/8.6MG TAB PO SCH (20:17)
[2020-08-25] MEDS: FAMOTIDINE 10 MG TABLET PO SCH (20:18)
[2020-08-25] MEDS: MIRTAZAPINE TAB 15 MG TAB PO SCH (20:18)
[2020-08-26] MEDS: LEVOTHYROXINE SODIUM 50 MCG TABLET PO SCH (05:48)
[2020-08-26] MEDS: APIXABAN 5 MG TABLET PO SCH ×2 (08:07→22:16)
[2020-08-26] MEDS: CEROVITE ADV FORMULA TAB PO SCH (08:07)
[2020-08-26] MEDS: PHENAZOPYRIDINE HCL 100 MG TAB PO SCH ×3 (08:07→22:17)
[2020-08-26] MEDS: POTASSIUM CHLORIDE CRTAB 20 MEQ TABCR PO SCH ×2 (08:09→22:17)
[2020-08-26] MEDS: THIAMINE HCL 100 MG TAB PO SCH (08:10)
[2020-08-26] MEDS: PREMARIN VAG CRM 14 APPLN/30 GM TUBE PV SCH (11:15)
--- NOTE | 2020-08-26 15:32 | Hospitalist Progress Note ---
Date of Service August 26, 2020 Assessment & Plan (1) Adult failure to thrive: Dehydration and weight loss over the past few months. Family concerned for patient's current living situation and question whether or not patient can live alone. Cont supportive care efforts, planning for placement to SNF, application in place. Awaiting placement (2) Severe protein-calorie malnutrition: Underweight with poor oral intake 2/2 psychiatric issues. Cont daily thiamine, marinol. She mentioned that she has been eating and drinking reasonably and will try continue to do so (3) UTI (urinary tract infection): Rocephin pending urine culture results. Pyridium for comfort. (4) Interstitial cystitis: After clear infection will continue working on treatment goals for IC Such as avoidance of activities or beverages that exacerbate symptoms (caffeine, alcohol, artificial sweeteners, hot pepper, acidic foods), Avoidance of exercises, recreational activities, or body positions that worsen bladder symptoms, fluid management, or bladder training. Outpatient referral to a urologist may also be helpful or consideration of amitriptyline trial Started on Premarin vaginal cream (5) Bipolar disorder: Seen by psych this admission who report some improvement in her since admission. Patient states she is responding well to Seroquel and it helps her get some sleep. Also now on mirtazapine trial. Cont current therapies. Noted intermittent refusal of medications. She plans to continue with the current management plan (6) Electrolyte abnormality: intermittent hyponatremia, hypomagnesemia and hypophosphatemia all related to poor PO intake. Lytes are within normal limits. Tolerating PO. We will check electrolytes tomorrow (7) Status post fall: suffered an inpatient fall in the bathroom when ambulating there alone earlier in the admission. No loss of consciousness. She sustained a 1 inch laceration and a CT head was performed in setting of Eliquis. No acute intracranial findings were seen. (8) Acute DVT (deep venous thrombosis): Eliquis for at least 3 months. (9) Hypothyroidism: chronic, cont Synthroid per home regimen. (10) DVT prophylaxis: Eliquis DNR/DNI Dispo-uncertain at this time. Of note, per psychiatry, as she has nursing needs with an improved mental status exam from admission she is no longer appropriate for a geriatric inpatient psychiatric unit. Possible to personal long term vs SNF. Awaiting authorization. Admission and Anticipated Discharge Date Admission Date: August 03, 2020 Subjective 08/26/2020 The patient was seen and examined in medical floor She complains today of ongoing urinary symptoms of urgency, frequency and dysuria She does have occasional incontinence too She remains generally weak and lethargic but mentions that she has been eating and drinking reasonably Review of Systems Review of Systems: All systems reviewed and are unremarkable except as noted below Constitutional: + weakness Physical Exam Physical Exam: Lying in bed comfortably Constitutional: + ill appearing and + thin Eyes: PERRL, conjunctivae normal, anicteric sclerae ENMT: external ear and nose normal, oropharynx normal Neck: trachea midline, no thyromegaly Respiratory: no respiratory distress Auscultation: lungs clear to auscultation bilaterally Cardiovascular: Rate/Rhythm: regular rate and regular rhythm Heart Sounds: no murmur Extremities: no edema Gastrointestinal (Abdomen): Inspection/Auscultation: normal bowel sounds; abdomen not distended Percussion/Palpation: abdomen soft; abdomen nontender Musculoskeletal: No acute arthritis in any joint Neurologic: Alert and awake. Pleasantly confused. Generally weak and ed rgic Lymphatic: no cervical or axillary lymphadenopathy Results & Data Results & Data ([facility]) Vital Signs (Past 12 Hours) Vital Signs Temp Pulse Resp BP Pulse Ox 08/26/20 07:07 36.5 C 77 16 95/60 L 96 08/26/20 05:59 36.5 C Medications Administered Current Inpatient Medications Acetaminophen (Acetaminophen 325 Mg Tab) 650 mg PO Q4H PRN PRN Reason: Pain or Fever Stop: 09/02/20 03:28 Apixaban (Apixaban 5 Mg Tablet) 5 mg PO BID [facility] Stop: 09/14/20 20:59 Last Admin: 08/26/20 08:07 Dose: Not Given Documented by: Bisacodyl (Bisacodyl 10 Mg Supp) 10 mg [place] DAILY PRN PRN Reason: Constipation Stop: 09/10/20 16:26 Last Admin: 08/17/20 04:33 Dose: 10 mg Documented by: Dronabinol (Dronabinol 2.5 Mg Cap) 2.5 mg PO BID [facility] Stop: 09/05/20 10:29 Last Admin: 08/26/20 08:07 Dose: Not Given Documented by: Estrogens Conjugated (Premarin Vag Crm 14 Appln/30 Gm Tube) 1 appln PV DAILY [facility] Stop: 09/25/20 10:44 Last Admin: 08/26/20 11:15 Dose: Not Given Documented by: Famotidine (Famotidine 10 Mg Tablet) 10 mg PO [facility] Stop: 09/08/20 20:59 Last Admin: 08/25/20 20:18 Dose: Not Given Documented by: Hyoscyamine (Hyoscyamine Sulfate 0.125 Mg Tab) 0.125 mg PO Q4 PRN PRN Reason: ABD CRAMPING Stop: 09/03/20 11:52 Last Admin: 08/07/20 08:57 Dose: 0.125 mg Documented by: Ceftriaxone Sodium 1,000 mg/ (Dextrose) 50 mls @ 100 mls/hr IV Q24H [facility]; Protocol Stop: 08/29/20 19:29 Last Infusion: 08/25/20 20:48 Dose: Infused Documented by: Levothyroxine Sodium (Levothyroxine Sodium 50 Mcg Tablet) 50 mcg PO [id number] [facility] Stop: 09/04/20 06:29 Last Admin: 08/26/20 05:48 Dose: 50 mcg Documented by: Melatonin (Melatonin 3 Mg Tab) 3 mg PO [facility] Stop: 09/03/20 20:59 Last Admin: 08/25/20 20:07 Dose: 3 mg Documented by: Mirtazapine (Mirtazapine Tab 15 Mg Tab) 7.5 mg PO [facility] Stop: 09/17/20 20:59 Last Admin: 08/25/20 20:18 Dose: Not Given Documented by: Multi-Ingredient Cream (Artificial Tears Op Oint 3.5 Gm Tube) 1 appln OP Q4H PRN PRN Reason: DRY EYES Stop: 09/05/20 14:28 Multivitamins/Minerals (Cerovite Adv Formula Tab) 1 tab PO QAM [facility] Stop: 09/03/20 08:59 Last Admin: 08/26/20 08:07 Dose: Not Given Documented by: Nitroglycerin (Nitroglycerin Sl 0.4 Mg/Tab Tab) 0.4 mg SL UD PRN PRN Reason: Chest Pain Stop: 09/02/20 03:28 Ondansetron HCl (Ondansetron Inj 2 Mg/Ml 2 Ml Vial) 4 mg IV Q6H PRN PRN Reason: Nausea Stop: 09/02/20 03:28 Phenazopyridine HCl (Phenazopyridine Hcl 100 Mg Tab) 100 mg PO TID [facility] Stop: 09/23/20 20:59 Last Admin: 08/26/20 13:38 Dose: 100 mg Documented by: Polyethylene Glycol (Polyethylene (Miralax) 17 Gm Pack) 17 gm PO DAILY PRN PRN Reason: Constipation Stop: 09/02/20 03:28 Last Admin: 08/21/20 10:40 Dose: 17 gm Documented by: Potassium Chloride (Potassium Chloride Crtab 20 Meq Tabcr) 20 meq PO BID [facility] Stop: 09/14/20 20:59 Last Admin: 08/26/20 08:09 Dose: Not Given Documented by: Quetiapine Fumarate (Quetiapine Fumarate 25 Mg Tablet) 25 mg PO HS [facility] Stop: 09/11/20 20:59 Last Admin: 08/25/20 20:06 Dose: 25 mg Documented by: Senna/Docusate Sodium (Docusate Sodium/Senna 50/8.6mg Tab) 2 tab PO QPM [facility] Stop: 09/16/20 20:59 Last Admin: 08/25/20 20:17 Dose: Not Given Documented by: Sumatriptan Succinate (Sumatriptan Succinate 25 Mg Tab) 25 mg PO DAILY PRN PRN Reason: Migraine Headache Stop: 09/03/20 11:52 Thiamine HCl (Thiamine Hcl 100 Mg Tab) 100 mg PO QAM [facility] Stop: 09/02/20 12:29 Last Admin: 08/26/20 08:10 Dose: Not Given Documented by: (1) Bipolar disorder Active/Remission status: remission status unspecified Qualified Code(s): F31.9 - Bipolar disorder, unspecified
[2020-08-26] MEDS: FAMOTIDINE 10 MG TABLET PO SCH (22:16)
[2020-08-26] MEDS: MIRTAZAPINE TAB 15 MG TAB PO SCH (22:16)
[2020-08-26] MEDS: cefTRIAXone SODIUM 1,000 MG in DEXTROSE 5% 50 ML IV SCH (22:16)
[2020-08-26] MEDS: MELATONIN 3 MG TAB PO SCH (22:16)
[2020-08-26] MEDS: DOCUSATE SODIUM/SENNA 50/8.6MG TAB PO SCH (22:16)
[2020-08-26] MEDS: QUEtiapine FUMARATE 25 MG TABLET PO SCH (22:17)
[2020-08-27 06:00] LABS: Basophils # (auto) 0.02 K/uL (0-0.2); Basophils % (auto) 0.6 %; Eosinophils # (auto) 0.01 K/uL (0-0.5); Eosinophils % (auto) 0.3 %; Lymphocytes # (auto) 1.38 K/uL (1.2-3.4); Lymphocytes % (auto) 39.2 %; Mean Corpuscular Hemoglobin 33.5 pg (25-34); Mean Corpuscular Hgb Conc 34.4 g/dL (32-36); Mean Corpuscular Volume 97.6 fL (80-100); Mean Platelet Volume 8.8 fL (7.4-10.4); Monocytes # (auto) 0.25 K/uL (0.11-0.59); Monocytes % (auto) 7.1 %; Neutrophils # (auto) 1.86 K/uL (1.4-6.5); Neutrophils % (auto) 52.8 %; Platelet Count 227 K/uL (130-400); RDW Coefficient of Variation 15.5 % (11.5-14.5); RDW Standard Deviation 55.5 fL (36.4-46.3); Red Blood Count 3.28 M/uL (4.2-5.4); White Blood Count 3.52 K/uL (4.8-10.8)
[2020-08-27] MEDS: LEVOTHYROXINE SODIUM 50 MCG TABLET PO SCH (06:34)
[2020-08-27 06:41] LABS: BUN Creatinine Ratio 62.1 (10-20); Calcium 7.7 mg/dl (8.5-10.1); Creatinine Clr Calc Pharmacy 88.1 ml/min; Est GFR (African American) 132.5; Est GFR (Non-African American) 114.3; Magnesium 2.2 mg/dl (1.8-2.4); Phosphorus 2.3 mg/dl (2.5-4.9); Potassium 3.5 mmol/L (3.5-5.1)
[2020-08-27] MEDS: APIXABAN 5 MG TABLET PO SCH ×2 (09:40→21:29)
[2020-08-27] MEDS: POTASSIUM CHLORIDE CRTAB 20 MEQ TABCR PO SCH ×2 (09:40→21:29)
[2020-08-27] MEDS: CEROVITE ADV FORMULA TAB PO SCH (09:40)
[2020-08-27] MEDS: PHENAZOPYRIDINE HCL 100 MG TAB PO SCH ×3 (09:40→21:29)
[2020-08-27] MEDS: PREMARIN VAG CRM 14 APPLN/30 GM TUBE PV SCH (09:40)
[2020-08-27] MEDS: THIAMINE HCL 100 MG TAB PO SCH (09:40)
--- NOTE | 2020-08-27 14:03 | Hospitalist Progress Note ---
Date of Service August 27, 2020 Assessment & Plan (1) Adult failure to thrive: Dehydration and weight loss over the past few months. Family concerned for patient's current living situation and question whether or not patient can live alone. Cont supportive care efforts, planning for placement to SNF, application in place. Awaiting placement No new symptoms and remains stable (2) Severe protein-calorie malnutrition: Underweight with poor oral intake 2/2 psychiatric issues. Cont daily thiamine, marinol. She mentioned that she has been eating and drinking reasonably and will try continue to do so (3) UTI (urinary tract infection): Rocephin pending urine culture results. Pyridium for comfort. (4) Interstitial cystitis: After clear infection will continue working on treatment goals for IC Such as avoidance of activities or beverages that exacerbate symptoms (caffeine, alcohol, artificial sweeteners, hot pepper, acidic foods), Avoidance of exercises, recreational activities, or body positions that worsen bladder symptoms, fluid management, or bladder training. Outpatient referral to a urologist may also be helpful or consideration of amitriptyline trial Started on Premarin vaginal cream (5) Bipolar disorder: Seen by psych this admission who report some improvement in her since admission. Patient states she is responding well to Seroquel and it helps her get some sleep. Also now on mirtazapine trial. Cont current therapies. Noted intermittent refusal of medications. She plans to continue with the current management plan She remains depressed but not aggressive (6) Electrolyte abnormality: intermittent hyponatremia, hypomagnesemia and hypophosphatemia all related to poor PO intake. Lytes are within normal limits. Tolerating PO. We will check electrolytes tomorrow-remains reasonably stable on 08/27/2020 (7) Status post fall: suffered an inpatient fall in the bathroom when ambulating there alone earlier in the admission. No loss of consciousness. She sustained a 1 inch laceration and a CT head was performed in setting of Eliquis. No acute intracranial findings were seen. (8) Acute DVT (deep venous thrombosis): Eliquis for at least 3 months. (9) Hypothyroidism: chronic, cont Synthroid per home regimen. (10) DVT prophylaxis: Eliquis DNR/DNI Dispo-uncertain at this time. Of note, per psychiatry, as she has nursing needs with an improved mental status exam from admission she is no longer appropriate for a geriatric inpatient psychiatric unit. Possible to personal skilled nursing vs SNF. Awaiting authorization. Admission and Anticipated Discharge Date Admission Date: August 03, 2020 Subjective 08/26/2020 The patient was seen and examined in medical floor She complains today of ongoing urinary symptoms of urgency, frequency and dysuria She does have occasional incontinence too She remains generally weak and lethargic but mentions that she has been eating and drinking reasonably 08/27/2020 The patient was seen and examined in medical floor She remains weak and lethargic Denies any other significant symptoms She admits that she has been eating and drinking reasonably Review of Systems Review of Systems: All systems reviewed and are unremarkable except as noted below Constitutional: + weakness Physical Exam Physical Exam: Lying in bed comfortably Constitutional: + ill appearing, + thin and + cachectic Eyes: PERRL, conjunctivae normal, anicteric sclerae ENMT: external ear and nose normal, oropharynx normal Neck: trachea midline, no thyromegaly Respiratory: no respiratory distress Auscultation: lungs clear to auscultation bilaterally Cardiovascular: Rate/Rhythm: regular rate and regular rhythm Heart Sounds: no murmur Extremities: no edema Gastrointestinal (Abdomen): Inspection/Auscultation: normal bowel sounds; ab domen not distended Percussion/Palpation: abdomen soft; abdomen nontender Musculoskeletal: No acute arthritis in any joint Neurologic: Alert and awake. Very depressed. Poor insight. Generally weak and lethargic Lymphatic: no cervical or axillary lymphadenopathy Results & Data Results & Data ([facility]) Vital Signs (Past 12 Hours) Vital Signs Temp Pulse Resp BP Pulse Ox 08/27/20 07:26 36.6 C 65 16 130/82 93 Laboratory Results Short CBC 08/27/20 Range/Units 05:27 WBC 3.52 L (4.8-10.8) K/uL Hgb 11.0 L (12.0-16.0) g/dL Hct 32.0 L (37-47) % Plt Count 227 (130-400) K/uL BMP 08/27/20 05:27 Sodium 137 Potassium 3.5 Chloride 103 Carbon Dioxide 30 BUN 17 Creatinine 0.27 L Glucose 91 Calcium 7.7 L Medications Administered Current Inpatient Medications Acetaminophen (Acetaminophen 325 Mg Tab) 650 mg PO Q4H PRN PRN Reason: Pain or Fever Stop: 09/02/20 03:28 Apixaban (Apixaban 5 Mg Tablet) 5 mg PO BID [facility] Stop: 09/14/20 20:59 Last Admin: 08/27/20 09:40 Dose: Not Given Documented by: Bisacodyl (Bisacodyl 10 Mg Supp) 10 mg [place] DAILY PRN PRN Reason: Constipation Stop: 09/10/20 16:26 Last Admin: 08/17/20 04:33 Dose: 10 mg Documented by: Dronabinol (Dronabinol 2.5 Mg Cap) 2.5 mg PO BID [facility] Stop: 09/05/20 10:29 Last Admin: 08/27/20 09:40 Dose: Not Given Documented by: Estrogens Conjugated (Premarin Vag Crm 14 Appln/30 Gm Tube) 1 appln PV DAILY [facility] Stop: 09/25/20 10:44 Last Admin: 08/27/20 09:40 Dose: Not Given Documented by: Famotidine (Famotidine 10 Mg Tablet) 10 mg PO HS [facility] Stop: 09/08/20 20:59 Last Admin: 08/26/20 22:16 Dose: Not Given Documented by: Hyoscyamine (Hyoscyamine Sulfate 0.125 Mg Tab) 0.125 mg PO Q4 PRN PRN Reason: ABD CRAMPING Stop: 09/03/20 11:52 Last Admin: 08/07/20 08:57 Dose: 0.125 mg Documented by: Ceftriaxone Sodium 1,000 mg/ (Dextrose) 50 mls @ 100 mls/hr IV Q24H [facility]; Protocol Stop: 08/29/20 19:29 Last Admin: 08/26/20 22:16 Dose: Not Given Documented by: Levothyroxine Sodium (Levothyroxine Sodium 50 Mcg Tablet) 50 mcg PO [id number] [facility] Stop: 09/04/20 06:29 Last Admin: 08/27/20 06:34 Dose: Not Given Documented by: Melatonin (Melatonin 3 Mg Tab) 3 mg PO [facility] Stop: 09/03/20 20:59 Last Admin: 08/26/20 22:16 Dose: Not Given Documented by: Mirtazapine (Mirtazapine Tab 15 Mg Tab) 7.5 mg PO [facility] Stop: 09/17/20 20:59 Last Admin: 08/26/20 22:16 Dose: Not Given Documented by: Multi-Ingredient Cream (Artificial Tears Op Oint 3.5 Gm Tube) 1 appln OP Q4H PRN PRN Reason: DRY EYES Stop: 09/05/20 14:28 Multivitamins/Minerals (Cerovite Adv Formula Tab) 1 tab PO QAM [facility] Stop: 09/03/20 08:59 Last Admin: 08/27/20 09:40 Dose: Not Given Documented by: Nitroglycerin (Nitroglycerin Sl 0.4 Mg/Tab Tab) 0.4 mg SL UD PRN PRN Reason: Chest Pain Stop: 09/02/20 03:28 Ondansetron HCl (Ondansetron Inj 2 Mg/Ml 2 Ml Vial) 4 mg IV Q6H PRN PRN Reason: Nausea Stop: 09/02/20 03:28 Phenazopyridine HCl (Phenazopyridine Hcl 100 Mg Tab) 100 mg PO TID [facility] Stop: 09/23/20 20:59 Last Admin: 08/27/20 09:40 Dose: Not Given Documented by: Polyethylene Glycol (Polyethylene (Miralax) 17 Gm Pack) 17 gm PO DAILY PRN PRN Reason: Constipation Stop: 09/02/20 03:28 Last Admin: 08/21/20 10:40 Dose: 17 gm Documented by: Potassium Chloride (Potassium Chloride Crtab 20 Meq Tabcr) 20 meq PO BID [facility] Stop: 09/14/20 20:59 Last Admin: 08/27/20 09:40 Dose: Not Given Documented by: Quetiapine Fumarate (Quetiapine Fumarate 25 Mg Tablet) 25 mg PO HS [facility] Stop: 09/11/20 20:59 Last Admin: 08/26/20 22:17 Dose: Not Given Documented by: Senna/Docusate Sodium (Docusate Sodium/Senna 50/8.6mg Tab) 2 tab PO QPM [facility] Stop: 09/16/20 20:59 Last Admin: 08/26/20 22:16 Dose: Not Given Documented by: Sumatriptan Succinate (Sumatriptan Succinate 25 Mg Tab) 25 mg PO DAILY PRN PRN Reason: Migraine Headache Stop: 09/03/20 11:52 Thiamine HCl (Thiamine Hcl 100 Mg Tab) 100 mg PO QAM [facility] Stop: 09/02/20 12:29 Last Admin: 08/27/20 09:40 Dose: Not Given Documented by: (1) Bipolar disorder Active/Remission status: remission status unspecified Qualified Code(s): F31.9 - Bipolar disorder, unspecified
[2020-08-27] MEDS: cefTRIAXone SODIUM 1,000 MG in DEXTROSE 5% 50 ML IV SCH (19:39)
[2020-08-27] MEDS: FAMOTIDINE 10 MG TABLET PO SCH (21:28)
[2020-08-27] MEDS: DOCUSATE SODIUM/SENNA 50/8.6MG TAB PO SCH (21:28)
[2020-08-27] MEDS: QUEtiapine FUMARATE 25 MG TABLET PO SCH (21:29)
[2020-08-27] MEDS: MELATONIN 3 MG TAB PO SCH (21:29)
[2020-08-27] MEDS: MIRTAZAPINE TAB 15 MG TAB PO SCH (21:29)
[2020-08-28] MEDS: LEVOTHYROXINE SODIUM 50 MCG TABLET PO SCH ×2 (05:34→09:12)
[2020-08-28] MEDS: APIXABAN 5 MG TABLET PO SCH ×2 (09:13→20:52)
[2020-08-28] MEDS: PREMARIN VAG CRM 14 APPLN/30 GM TUBE PV SCH (09:13)
[2020-08-28] MEDS: CEROVITE ADV FORMULA TAB PO SCH (09:13)
[2020-08-28] MEDS: PHENAZOPYRIDINE HCL 100 MG TAB PO SCH ×3 (09:14→20:53)
[2020-08-28] MEDS: THIAMINE HCL 100 MG TAB PO SCH (09:14)
[2020-08-28] MEDS: POTASSIUM CHLORIDE CRTAB 20 MEQ TABCR PO SCH ×2 (09:14→20:53)
--- NOTE | 2020-08-28 13:14 | Hospitalist Progress Note ---
Date of Service August 28, 2020 Assessment & Plan (1) Adult failure to thrive: Dehydration and weight loss over the past few months. Family concerned for patient's current living situation and question whether or not patient can live alone. Cont supportive care efforts, planning for placement to SNF, application in place. Awaiting placement No new symptoms and remains stable She plans to eat and drink more to get better (2) Severe protein-calorie malnutrition: Underweight with poor oral intake 2/2 psychiatric issues. Cont daily thiamine, marinol. She mentioned that she has been eating and drinking reasonably and will try continue to do so (3) UTI (urinary tract infection): Rocephin pending urine culture results. Pyridium for comfort. Decreasing symptoms (4) Interstitial cystitis: After clear infection will continue working on treatment goals for IC Such as avoidance of activities or beverages that exacerbate symptoms (caffeine, alcohol, artificial sweeteners, hot pepper, acidic foods), Avoidance of exercises, recreational activities, or body positions that worsen bladder symptoms, fluid management, or bladder training. Outpatient referral to a urologist may also be helpful or consideration of amitriptyline trial Started on Premarin vaginal cream (5) Bipolar disorder: Seen by psych this admission who report some improvement in her since admission. Patient states she is responding well to Seroquel and it helps her get some sleep. Also now on mirtazapine trial. Cont current therapies. Noted intermittent refusal of medications. She plans to continue with the current management plan She remains depressed but not aggressive She has been compliant with the management plan (6) Electrolyte abnormality: intermittent hyponatremia, hypomagnesemia and hypophosphatemia all related to poor PO intake. Lytes are within normal limits. Tolerating PO. We will check electrolytes tomorrow-remains reasonably stable on 08/27/2020 (7) Status post fall: suffered an inpatient fall in the bathroom when ambulating there alone earlier in the admission. No loss of consciousness. She sustained a 1 inch laceration and a CT head was performed in setting of Eliquis. No acute intracranial findings were seen. (8) Acute DVT (deep venous thrombosis): Eliquis for at least 3 months. (9) Hypothyroidism: chronic, cont Synthroid per home regimen. (10) DVT prophylaxis: Eliquis DNR/DNI Dispo-uncertain at this time. Of note, per psychiatry, as she has nursing needs with an improved mental status exam from admission she is no longer appropriate for a geriatric inpatient psychiatric unit. Possible to personal halfway vs SNF. Awaiting authorization. Admission and Anticipated Discharge Date Admission Date: August 03, 2020 Subjective 08/26/2020 The patient was seen and examined in medical floor She complains today of ongoing urinary symptoms of urgency, frequency and dysuria She does have occasional incontinence too She remains generally weak and lethargic but mentions that she has been eating and drinking reasonably 08/27/2020 The patient was seen and examined in medical floor She remains weak and lethargic Denies any other significant symptoms She admits that she has been eating and drinking reasonably 08/28/2020 The patient was seen and examined in medical floor She remains stable and has been smiling without any significant complaint She does not have any more psychotic behavior and she has been listening to the management plan She will need to go to skilled care facility and is not likely to need any extra care for her psychiatric issues at least for now Review of Systems Review of Systems: All systems reviewed and are unremarkable except as noted below Constitutional: + weakness Physical Exam Physical Exam: Lying in bed comfortably Constitutional: + ill appearing, + thin and + cachectic Eyes: PERRL, conjunctivae normal, anicteric sclerae ENMT: external ear and nose normal, oropharynx normal Neck: trachea midline, no thyromegaly Respiratory: no respiratory distress Auscultation: lungs clear to auscultation bilaterally Cardiovascular: Rate/Rhythm: regular rate and regular rhythm Heart Sounds: no murmur Extremities: no edema Gastrointestinal (Abdomen): Inspection/Auscultation: normal bowel sounds; abdomen not distended Percussion/Palpation: abdomen soft; abdomen nontender Musculoskeletal: No acute arthritis in any joint Neurologic: Alert, awake and oriented x3. Generally very weak and lethargic Psychiatric: Orientation: alert and oriented x 3 Eye Contact: good eye contact Motor Behavior: n tremor Speech: normal rate/rhythm/volume of speech Affect: + depressed affect Mood: + depressed mood Lymphatic: no cervical or axillary lymphadenopathy Results & Data Results & Data ([facility]) Vital Signs (Past 12 Hours) Vital Signs Temp Pulse Resp BP Pulse Ox 08/28/20 07:45 36.6 C 72 16 137/81 95 Medications Administered Current Inpatient Medications Acetaminophen (Acetaminophen 325 Mg Tab) 650 mg PO Q4H PRN PRN Reason: Pain or Fever Stop: 09/02/20 03:28 Apixaban (Apixaban 5 Mg Tablet) 5 mg PO BID [facility] Stop: 09/14/20 20:59 Last Admin: 08/28/20 09:13 Dose: Not Given Documented by: Bisacodyl (Bisacodyl 10 Mg Supp) 10 mg [place] DAILY PRN PRN Reason: Constipation Stop: 09/10/20 16:26 Last Admin: 08/17/20 04:33 Dose: 10 mg Documented by: Dronabinol (Dronabinol 2.5 Mg Cap) 2.5 mg PO BID [facility] Stop: 09/05/20 10:29 Last Admin: 08/28/20 09:13 Dose: Not Given Documented by: Estrogens Conjugated (Premarin Vag Crm 14 Appln/30 Gm Tube) 1 appln PV DAILY [facility] Stop: 09/25/20 10:44 Last Admin: 08/28/20 09:13 Dose: Not Given Documented by: Famotidine (Famotidine 10 Mg Tablet) 10 mg PO [facility] Stop: 09/08/20 20:59 Last Admin: 08/27/20 21:28 Dose: Not Given Documented by: Hyoscyamine (Hyoscyamine Sulfate 0.125 Mg Tab) 0.125 mg PO Q4 PRN PRN Reason: ABD CRAMPING Stop: 09/03/20 11:52 Last Admin: 08/07/20 08:57 Dose: 0.125 mg Documented by: Ceftriaxone Sodium 1,000 mg/ (Dextrose) 50 mls @ 100 mls/hr IV Q24H [facility]; Protocol Stop: 08/29/20 19:29 Last Infusion: 08/27/20 20:18 Dose: Infused Documented by: Levothyroxine Sodium (Levothyroxine Sodium 50 Mcg Tablet) 50 mcg PO [id number] [facility] Stop: 09/04/20 06:29 Last Admin: 08/28/20 09:12 Dose: 50 mcg Documented by: Melatonin (Melatonin 3 Mg Tab) 3 mg PO [facility] Stop: 09/03/20 20:59 Last Admin: 08/27/20 21:29 Dose: Not Given Documented by: Mirtazapine (Mirtazapine Tab 15 Mg Tab) 7.5 mg PO [facility] Stop: 09/17/20 20:59 Last Admin: 08/27/20 21:29 Dose: Not Given Documented by: Multi-Ingredient Cream (Artificial Tears Op Oint 3.5 Gm Tube) 1 appln OP Q4H PRN PRN Reason: DRY EYES Stop: 09/05/20 14:28 Multivitamins/Minerals (Cerovite Adv Formula Tab) 1 tab PO QAM [facility] Stop: 09/03/20 08:59 Last Admin: 08/28/20 09:13 Dose: Not Given Documented by: Nitroglycerin (Nitroglycerin Sl 0.4 Mg/Tab Tab) 0.4 mg SL UD PRN PRN Reason: Chest Pain Stop: 09/02/20 03:28 Ondansetron HCl (Ondansetron Inj 2 Mg/Ml 2 Ml Vial) 4 mg IV Q6H PRN PRN Reason: Nausea Stop: 09/02/20 03:28 Phenazopyridine HCl (Phenazopyridine Hcl 100 Mg Tab) 100 mg PO TID [facility] Stop: 09/23/20 20:59 Last Admin: 08/28/20 09:14 Dose: Not Given Documented by: Polyethylene Glycol (Polyethylene (Miralax) 17 Gm Pack) 17 gm PO DAILY PRN PRN Reason: Constipation Stop: 09/02/20 03:28 Last Admin: 08/21/20 10:40 Dose: 17 gm Documented by: Potassium Chloride (Potassium Chloride Crtab 20 Meq Tabcr) 20 meq PO BID [facility] Stop: 09/14/20 20:59 Last Admin: 08/28/20 09:14 Dose: Not Given Documented by: Quetiapine Fumarate (Quetiapine Fumarate 25 Mg Tablet) 25 mg PO HS [facility] Stop: 09/11/20 20:59 Last Admin: 08/27/20 21:29 Dose: Not Given Documented by: Senna/Docusate Sodium (Docusate Sodium/Senna 50/8.6mg Tab) 2 tab PO QPM [facility] Stop: 09/16/20 20:59 Last Admin: 08/27/20 21:28 Dose: Not Given Documented by: Sumatriptan Succinate (Sumatriptan Succinate 25 Mg Tab) 25 mg PO DAILY PRN PRN Reason: Migraine Headache Stop: 09/03/20 11:52 Thiamine HCl (Thiamine Hcl 100 Mg Tab) 100 mg PO QAM [facility] Stop: 09/02/20 12:29 Last Admin: 08/28/20 09:14 Dose: Not Given Documented by: (1) Bipolar disorder Active/Remission status: remission status unspecified Qualified Code(s): F31.9 - Bipolar disorder, unspecified
[2020-08-28] MEDS: cefTRIAXone SODIUM 1,000 MG in DEXTROSE 5% 50 ML IV SCH (20:02)
[2020-08-28] MEDS: DOCUSATE SODIUM/SENNA 50/8.6MG TAB PO SCH (20:52)
[2020-08-28] MEDS: QUEtiapine FUMARATE 25 MG TABLET PO SCH (20:53)
[2020-08-28] MEDS: FAMOTIDINE 10 MG TABLET PO SCH (20:53)
[2020-08-28] MEDS: MELATONIN 3 MG TAB PO SCH (20:53)
[2020-08-28] MEDS: MIRTAZAPINE TAB 15 MG TAB PO SCH (20:53)
[2020-08-29] MEDS: LEVOTHYROXINE SODIUM 50 MCG TABLET PO SCH (05:38)
[2020-08-29] MEDS: PREMARIN VAG CRM 14 APPLN/30 GM TUBE PV SCH (09:18)
[2020-08-29] MEDS: THIAMINE HCL 100 MG TAB PO SCH (09:18)
[2020-08-29] MEDS: APIXABAN 5 MG TABLET PO SCH ×2 (09:18→19:52)
[2020-08-29] MEDS: POTASSIUM CHLORIDE CRTAB 20 MEQ TABCR PO SCH ×2 (09:18→19:53)
[2020-08-29] MEDS: CEROVITE ADV FORMULA TAB PO SCH (09:18)
[2020-08-29] MEDS: PHENAZOPYRIDINE HCL 100 MG TAB PO SCH ×3 (09:18→19:53)
--- NOTE | 2020-08-29 14:48 | Communication Note ---
Date of Service: August 29, 2020 Patient was seen on afternoon of 08/29/2020. Patient observed to be laying comfortably in bed, gazing out of the window. She was calm and cooperative with personal lines underwriter. She states that she is doing "okay" today. Patient was asked if she is experiencing any psychiatric issues including depression anxiety or audiovisual hallucinations. Patient adamantly denied any psychiatric symptoms. She denies feeling depressed or suicidal. She denied any hallucinations. She denied any need from psychiatric services. The idea of physical rehab was brought up with the patient as a way for her to regain her strength. Patient is in agreement at this time that regaining her strength at another facility would be optimal for her. Assessment Patient is stable from a psychiatric standpoint. No further psychiatric follow-up at this time.
--- NOTE | 2020-08-29 16:55 | Hospitalist Progress Note ---
Date of Service August 29, 2020 Assessment & Plan (1) Adult failure to thrive: Dehydration and weight loss over the past few months. Family concerned for patient's current living situation and question whether or not patient can live alone. Cont supportive care efforts, planning for placement to SNF, application in place. Awaiting placement No new symptoms and remains stable She plans to eat and drink more to get better Remains stable and does not have any issues (2) Severe protein-calorie malnutrition: Underweight with poor oral intake 2/2 psychiatric issues. Cont daily thiamine, marinol. She mentioned that she has been eating and drinking reasonably and will try continue to do so Remains in bed most of the time and has not been drinking and eating the way she is supposed to be (3) UTI (urinary tract infection): Rocephin pending urine culture results. Pyridium for comfort. Decreasing symptoms (4) Interstitial cystitis: After clear infection will continue working on treatment goals for IC Such as avoidance of activities or beverages that exacerbate symptoms (caffeine, alcohol, artificial sweeteners, hot pepper, acidic foods), Avoidance of exercises, recreational activities, or body positions that worsen bladder symptoms, fluid management, or bladder training. Outpatient referral to a urologist may also be helpful or consideration of amitriptyline trial Started on Premarin vaginal cream Still complains of cystitis symptoms (5) Bipolar disorder: Seen by psych this admission who report some improvement in her since admission. Patient states she is responding well to Seroquel and it helps her get some sleep. Also now on mirtazapine trial. Cont current therapies. Noted intermittent refusal of medications. She plans to continue with the current management plan She remains depressed but not aggressive She has been compliant with the management plan (6) Electrolyte abnormality: intermittent hyponatremia, hypomagnesemia and hypophosphatemia all related to poor PO intake. Lytes are within normal limits. Tolerating PO. We will check electrolytes tomorrow-remains reasonably stable on 08/27/2020 (7) Status post fall: suffered an inpatient fall in the bathroom when ambulating there alone earlier in the admission. No loss of consciousness. She sustained a 1 inch laceration and a CT head was performed in setting of Eliquis. No acute intracranial findings were seen. (8) Acute DVT (deep venous thrombosis): Eliquis for at least 3 months. (9) Hypothyroidism: chronic, cont Synthroid per home regimen. (10) DVT prophylaxis: Neisha DNR/DNI Dispo-uncertain at this time. Of note, per psychiatry, as she has nursing needs with an improved mental status exam from admission she is no longer appropriate for a geriatric inpatient psychiatric unit. Possible to personal chcf vs SNF. Awaiting authorization. Awaiting acceptance Admission and Anticipated Discharge Date Admission Date: August 03, 2020 Subjective 08/26/2020 The patient was seen and examined in medical floor She complains today of ongoing urinary symptoms of urgency, frequency and dysuria She does have occasional incontinence too She remains generally weak and lethargic but mentions that she has been eating and drinking reasonably 08/27/2020 The patient was seen and examined in medical floor She remains weak and lethargic Denies any other significant symptoms She admits that she has been eating and drinking reasonably 08/28/2020 The patient was seen and examined in medical floor She remains stable and has been smiling without any significant complaint She does not have any more psychotic behavior and she has been listening to the management plan She will need to go to skilled care facility and is not likely to need any extra care for her psychiatric issues at least for now 08/29/2020 The patient was seen and examined in medical floor She has been stable for the last few days and has been cooperative Denies any acute distress and does not have any psychotic behavior Review of Systems Review of Systems: All systems reviewed and are unremarkable except as noted below Constitutional: + weakness Physical Exam Physical Exam: Lying in bed comfortably Constitutional: + ill appearing, + thin and + cachectic Eyes: PERRL, conjunctivae normal, anicteric sclerae ENMT: external ear and nose normal, oropharynx normal Neck: trachea midline, no thyromegaly Respiratory: no respiratory distress Auscultation: lungs clear to auscultation bilaterally Cardiovascular: Rate/Rhythm: regular rate and regular rhythm Heart Sounds: no murmur Extremities: no edema Gastrointestinal (Abdomen): Inspection/Auscultation: normal bowel sounds; abdomen not distended Percussion/Palpation: abdomen soft; abdomen nontender Psychiatric: Orientation: alert Eye Contact: good eye contact Motor Behavior: n tremor Speech: normal rate/rhythm/volume of speech Affect: + depressed affect Mood: + depressed mood Insight: + limited insight Lymphatic: no cervical or axillary lymphadenopathy Results & Data Results & Data ([facility]) Vital Signs (Past 12 Hours) Vital Signs Temp Pulse Resp BP Pulse Ox 08/29/20 07:09 36.5 C 70 14 136/83 96 Medications Administered Current Inpatient Medications Acetaminophen (Acetaminophen 325 Mg Tab) 650 mg PO Q4H PRN PRN Reason: Pain or Fever Stop: 09/02/20 03:28 Apixaban (Apixaban 5 Mg Tablet) 5 mg PO BID [facility] Stop: 09/14/20 20:59 Last Admin: 08/29/20 09:18 Dose: Not Given Documented by: Bisacodyl (Bisacodyl 10 Mg Supp) 10 mg [place] DAILY PRN PRN Reason: Constipation Stop: 09/10/20 16:26 Last Admin: 08/17/20 04:33 Dose: 10 mg Documented by: Dronabinol (Dronabinol 2.5 Mg Cap) 2.5 mg PO BID [facility] Stop: 09/05/20 10:29 Last Admin: 08/29/20 09:18 Dose: Not Given Documented by: Estrogens Conjugated (Premarin Vag Crm 14 Appln/30 Gm Tube) 1 appln PV DAILY [facility] Stop: 09/25/20 10:44 Last Admin: 08/29/20 09:18 Dose: Not Given Documented by: Famotidine (Famotidine 10 Mg Tablet) 10 mg PO HS [facility] Stop: 09/08/20 20:59 Last Admin: 08/28/20 20:53 Dose: Not Given Documented by: Hyoscyamine (Hyoscyamine Sulfate 0.125 Mg Tab) 0.125 mg PO Q4 PRN PRN Reason: ABD CRAMPING Stop: 09/03/20 11:52 Last Admin: 08/07/20 08:57 Dose: 0.125 mg Documented by: Ceftriaxone Sodium 1,000 mg/ (Dextrose) 50 mls @ 100 mls/hr IV Q24H [facility]; Protocol Stop: 08/29/20 19:29 Last Admin: 08/28/20 20:02 Dose: Not Given Documented by: Levothyroxine Sodium (Levothyroxine Sodium 50 Mcg Tablet) 50 mcg PO [id number] [facility] Stop: 09/04/20 06:29 Last Admin: 08/29/20 05:38 Dose: Not Given Documented by: Melatonin (Melatonin 3 Mg Tab) 3 mg PO HS [facility] Stop: 09/03/20 20:59 Last Admin: 08/28/20 20:53 Dose: Not Given Documented by: Mirtazapine (Mirtazapine Tab 15 Mg Tab) 7.5 mg PO HS [facility] Stop: 09/17/20 20:59 Last Admin: 08/28/20 20:53 Dose: Not Given Documented by: Multi-Ingredient Cream (Artificial Tears Op Oint 3.5 Gm Tube) 1 appln OP Q4H PRN PRN Reason: DRY EYES Stop: 09/05/20 14:28 Multivitamins/Minerals (Cerovite Adv Formula Tab) 1 tab PO QAM [facility] Stop: 09/03/20 08:59 Last Admin: 08/29/20 09:18 Dose: Not Given Documented by: Nitroglycerin (Nitroglycerin Sl 0.4 Mg/Tab Tab) 0.4 mg SL UD PRN PRN Reason: Chest Pain Stop: 09/02/20 03:28 Ondansetron HCl (Ondansetron Inj 2 Mg/Ml 2 Ml Vial) 4 mg IV Q6H PRN PRN Reason: Nausea Stop: 09/02/20 03:28 Phenazopyridine HCl (Phenazopyridine Hcl 100 Mg Tab) 100 mg PO TID [facility] Stop: 09/23/20 20:59 Last Admin: 08/29/20 13:46 Dose: Not Given Documented by: Polyethylene Glycol (Polyethylene (Miralax) 17 Gm Pack) 17 gm PO DAILY PRN PRN Reason: Constipation Stop: 09/02/20 03:28 Last Admin: 08/21/20 10:40 Dose: 17 gm Documented by: Potassium Chloride (Potassium Chloride Crtab 20 Meq Tabcr) 20 meq PO BID [facility] Stop: 09/14/20 20:59 Last Admin: 08/29/20 09:18 Dose: Not Given Documented by: Quetiapine Fumarate (Quetiapine Fumarate 25 Mg Tablet) 25 mg PO HS [facility] Stop: 09/11/20 20:59 Last Admin: 08/28/20 20:53 Dose: Not Given Documented by: Senna/Docusate Sodium (Docusate Sodium/Senna 50/8.6mg Tab) 2 tab PO QPM [facility] Stop: 09/16/20 20:59 Last Admin: 08/28/20 20:52 Dose: Not Given Documented by: Sumatriptan Succinate (Sumatriptan Succinate 25 Mg Tab) 25 mg PO DAILY PRN PRN Reason: Migraine Headache Stop: 09/03/20 11:52 Thiamine HCl (Thiamine Hcl 100 Mg Tab) 100 mg PO QAM [facility] Stop: 09/02/20 12:29 Last Admin: 08/29/20 09:18 Dose: Not Given Documented by: (1) Bipolar disorder Active/Remission status: remission status unspecified Qualified Code(s): F31.9 - Bipolar disorder, unspecified
[2020-08-29] MEDS: DOCUSATE SODIUM/SENNA 50/8.6MG TAB PO SCH (19:52)
[2020-08-29] MEDS: FAMOTIDINE 10 MG TABLET PO SCH (19:52)
[2020-08-29] MEDS: MELATONIN 3 MG TAB PO SCH (19:52)
[2020-08-29] MEDS: MIRTAZAPINE TAB 15 MG TAB PO SCH (19:53)
[2020-08-29] MEDS: QUEtiapine FUMARATE 25 MG TABLET PO SCH (19:53)
[2020-08-30] MEDS: LEVOTHYROXINE SODIUM 50 MCG TABLET PO SCH (05:10)
[2020-08-30] MEDS: APIXABAN 5 MG TABLET PO SCH ×2 (08:49→20:25)
[2020-08-30] MEDS: PREMARIN VAG CRM 14 APPLN/30 GM TUBE PV SCH (08:49)
[2020-08-30] MEDS: POTASSIUM CHLORIDE CRTAB 20 MEQ TABCR PO SCH ×2 (08:50→20:25)
[2020-08-30] MEDS: PHENAZOPYRIDINE HCL 100 MG TAB PO SCH ×3 (08:50→20:25)
[2020-08-30] MEDS: CEROVITE ADV FORMULA TAB PO SCH (08:50)
[2020-08-30] MEDS: THIAMINE HCL 100 MG TAB PO SCH (08:50)
--- NOTE | 2020-08-30 15:32 | Hospitalist Progress Note ---
Date of Service August 30, 2020 Assessment & Plan (1) Adult failure to thrive: Dehydration and weight loss over the past few months. Family concerned for patient's current living situation and question whether or not patient can live alone. Cont supportive care efforts, planning for placement to SNF, application in place. Awaiting placement No new symptoms and remains stable She plans to eat and drink more to get better Remains stable and does not have any issues Has been trying to eat and drink a little bit more but requires supervision (2) Severe protein-calorie malnutrition: Underweight with poor oral intake 2/2 psychiatric issues. Cont daily thiamine, marinol. She mentioned that she has been eating and drinking reasonably and will try continue to do so Remains in bed most of the time and has not been drinking and eating the way she is supposed to be (3) UTI (urinary tract infection): Rocephin pending urine culture results. Pyridium for comfort. Decreasing symptoms (4) Interstitial cystitis: After clear infection will continue working on treatment goals for IC Such as avoidance of activities or beverages that exacerbate symptoms (caffeine, alcohol, artificial sweeteners, hot pepper, acidic foods), Avoidance of exercises, recreational activities, or body positions that worsen bladder symptoms, fluid management, or bladder training. Outpatient referral to a urologist may also be helpful or consideration of amitriptyline trial Started on Premarin vaginal cream Still complains of cystitis symptoms (5) Bipolar disorder: Seen by psych this admission who report some improvement in her since admission. Patient states she is responding well to Seroquel and it helps her get some sleep. Also now on mirtazapine trial. Cont current therapies. Noted intermittent refusal of medications. She plans to continue with the current management plan She remains depressed but not aggressive She has been compliant with the management plan She has been more stable without any psychotic behavior and she has been more cooperative (6) Electrolyte abnormality: intermittent hyponatremia, hypomagnesemia and hypophosphatemia all related to poor PO intake. Lytes are within normal limits. Tolerating PO. We will check electrolytes tomorrow-remains reasonably stable on 08/27/2020 She'll need to have oral supplement of electrolytes on discharge (7) Status post fall: suffered an inpatient fall in the bathroom when ambulating there alone earlier in the admission. No loss of consciousness. She sustained a 1 inch laceration and a CT head was performed in setting of Eliquis. No acute intracranial findings were seen. She has had a fall this afternoon from her bed without any significant injury We'll observe (8) Acute DVT (deep venous thrombosis): Cesiliaquis for at least 3 months. (9) Hypothyroidism: chronic, cont Synthroid per home regimen. (10) DVT prophylaxis: Eliquis DNR/DNI Dispo-uncertain at this time. Of note, per psychiatry, as she has nursing needs with an improved mental status exam from admission she is no longer appropriate for a geriatric inpatient ps ychiatric unit. Possible to personal chcf vs SNF. Awaiting authorization. Awaiting acceptance Admission and Anticipated Discharge Date Admission Date: August 03, 2020 Subjective 08/26/2020 The patient was seen and examined in medical floor She complains today of ongoing urinary symptoms of urgency, frequency and dysuria She does have occasional incontinence too She remains generally weak and lethargic but mentions that she has been eating and drinking reasonably 08/27/2020 The patient was seen and examined in medical floor She remains weak and lethargic Denies any other significant symptoms She admits that she has been eating and drinking reasonably 08/28/2020 The patient was seen and examined in medical floor She remains stable and has been smiling without any significant complaint She does not have any more psychotic behavior and she has been listening to the management plan She will need to go to skilled care facility and is not likely to need any extra care for her psychiatric issues at least for now 08/29/2020 The patient was seen and examined in medical floor She has been stable for the last few days and has been cooperative Denies any acute distress and does not have any psychotic behavior 08/30/2020 The patient was seen and examined in medical floor She has been more cooperative and denies any more psychotic behavior She refused to go to [facility] Review of Systems Review of Systems: All systems reviewed and are unremarkable except as noted below Constitutional: + weakness Physical Exam Physical Exam: Lying in bed comfortably Constitutional: + ill appearing, + thin and + cachectic Eyes: PERRL, conjunctivae normal, anicteric sclerae ENMT: external ear and nose normal, oropharynx normal Neck: trachea midline, no thyromegaly Respiratory: no respiratory distress Auscultation: lungs clear to auscultation bilaterally Cardiovascular: Rate/Rhythm: regular rate and regular rhythm Heart Sounds: no murmur Extremities: no edema Gastrointestinal (Abdomen): Inspection/Auscultation: normal bowel sounds; abdomen not distended Percussion/Palpation: abdomen soft; abdomen nontender Musculoskeletal: No acute arthritis in any joint Neurologic: Alert and awake, pleasantly confused. Generally very weak and lethargic and is cachectic Psychiatric: Orientation: alert Eye Contact: good eye contact Motor Behavior: n tremor Speech: normal rate/rhythm/volume of speech Affect: + depressed affect Mood: + depressed mood Insight: + limited insight Lymphatic: no cervical or axillary lymphadenopathy Results & Data Results & Data ([facility]) Medications Administered Current Inpatient Medications Acetaminophen (Acetaminophen 325 Mg Tab) 650 mg PO Q4H PRN PRN Reason: Pain or Fever Stop: 09/02/20 03:28 Apixaban (Apixaban 5 Mg Tablet) 5 mg PO BID [facility] Stop: 09/14/20 20:59 Last Admin: 08/30/20 08:49 Dose: Not Given Documented by: Bisacodyl (Bisacodyl 10 Mg Supp) 10 mg AL DAILY PRN PRN Reason: Constipation Stop: 09/10/20 16:26 Last Admin: 08/17/20 04:33 Dose: 10 mg Documented by: Dronabinol (Dronabinol 2.5 Mg Cap) 2.5 mg PO BID [facility] Stop: 09/05/20 10:29 Last Admin: 08/30/20 08:49 Dose: Not Given Documented by: Estrogens Conjugated (Premarin Vag Crm 14 Appln/30 Gm Tube) 1 appln PV DAILY [facility] Stop: 09/25/20 10:44 Last Admin: 08/30/20 08:49 Dose: Not Given Documented by: Famotidine (Famotidine 10 Mg Tablet) 10 mg PO HS [facility] Stop: 09/08/20 20:59 Last Admin: 08/29/20 19:52 Dose: Not Given Documented by: Hyoscyamine (Hyoscyamine Sulfate 0.125 Mg Tab) 0.125 mg PO Q4 PRN PRN Reason: ABD CRAMPING Stop: 09/03/20 11:52 Last Admin: 08/07/20 08:57 Dose: 0.125 mg Documented by: Levothyroxine Sodium (Levothyroxine Sodium 50 Mcg Tablet) 50 mcg PO [id number] [facility] Stop: 09/04/20 06:29 Last Admin: 08/30/20 05:10 Dose: Not Given Documented by: Melatonin (Melatonin 3 Mg Tab) 3 mg PO HS [facility] Stop: 09/03/20 20:59 Last Admin: 08/29/20 19:52 Dose: Not Given Documented by: Mirtazapine (Mirtazapine Tab 15 Mg Tab) 7.5 mg PO HS [facility] Stop: 09/17/20 20:59 Last Admin: 08/29/20 19:53 Dose: Not Given Documented by: Multi-Ingredient Cream (Artificial Tears Op Oint 3.5 Gm Tube) 1 appln OP Q4H AL N PRN Reason: DRY EYES Stop: 09/05/20 14:28 Multivitamins/Minerals (Cerovite Adv Formula Tab) 1 tab PO QAM [facility] Stop: 09/03/20 08:59 Last Admin: 08/30/20 08:50 Dose: Not Given Documented by: Nitroglycerin (Nitroglycerin Sl 0.4 Mg/Tab Tab) 0.4 mg SL UD PRN PRN Reason: Chest Pain Stop: 09/02/20 03:28 Ondansetron HCl (Ondansetron Inj 2 Mg/Ml 2 Ml Vial) 4 mg IV Q6H PRN PRN Reason: Nausea Stop: 09/02/20 03:28 Phenazopyridine HCl (Phenazopyridine Hcl 100 Mg Tab) 100 mg PO TID [facility] Stop: 09/23/20 20:59 Last Admin: 08/30/20 14:02 Dose: Not Given Documented by: Polyethylene Glycol (Polyethylene (Miralax) 17 Gm Pack) 17 gm PO DAILY PRN PRN Reason: Constipation Stop: 09/02/20 03:28 Last Admin: 08/21/20 10:40 Dose: 17 gm Documented by: Potassium Chloride (Potassium Chloride Crtab 20 Meq Tabcr) 20 meq PO BID [facility] Stop: 09/14/20 20:59 Last Admin: 08/30/20 08:50 Dose: Not Given Documented by: Quetiapine Fumarate (Quetiapine Fumarate 25 Mg Tablet) 25 mg PO HS [facility] Stop: 09/11/20 20:59 Last Admin: 08/29/20 19:53 Dose: Not Given Documented by: Senna/Docusate Sodium (Docusate Sodium/Senna 50/8.6mg Tab) 2 tab PO QPM [facility] Stop: 09/16/20 20:59 Last Admin: 08/29/20 19:52 Dose: Not Given Documented by: Sumatriptan Succinate (Sumatriptan Succinate 25 Mg Tab) 25 mg PO DAILY PRN PRN Reason: Migraine Headache Stop: 09/03/20 11:52 Thiamine HCl (Thiamine Hcl 100 Mg Tab) 100 mg PO QAM [facility] Stop: 09/02/20 12:29 Last Admin: 08/30/20 08:50 Dose: Not Given Documented by: (1) Bipolar disorder Active/Remission status: remission status unspecified Qualified Code(s): F31.9 - Bipolar disorder, unspecified
[2020-08-30] MEDS: QUEtiapine FUMARATE 25 MG TABLET PO SCH (20:25)
[2020-08-30] MEDS: FAMOTIDINE 10 MG TABLET PO SCH (20:25)
[2020-08-30] MEDS: MELATONIN 3 MG TAB PO SCH (20:25)
[2020-08-30] MEDS: DOCUSATE SODIUM/SENNA 50/8.6MG TAB PO SCH (20:25)
[2020-08-30] MEDS: MIRTAZAPINE TAB 15 MG TAB PO SCH (20:25)
[2020-08-31] MEDS: CEROVITE ADV FORMULA TAB PO SCH (09:54)
[2020-08-31] MEDS: PREMARIN VAG CRM 14 APPLN/30 GM TUBE PV SCH (09:54)
[2020-08-31] MEDS: APIXABAN 5 MG TABLET PO SCH ×2 (09:54→19:33)
[2020-08-31] MEDS: POTASSIUM CHLORIDE CRTAB 20 MEQ TABCR PO SCH ×2 (09:55→19:33)
[2020-08-31] MEDS: THIAMINE HCL 100 MG TAB PO SCH (09:55)
[2020-08-31] MEDS: PHENAZOPYRIDINE HCL 100 MG TAB PO SCH ×3 (09:55→19:33)
--- NOTE | 2020-08-31 11:30 | Hospitalist Progress Note ---
Date of Service August 31, 2020 Assessment & Plan (1) Adult failure to thrive: Dehydration and weight loss over the past few months. Family concerned for patient's current living situation and question whether or not patient can live alone. Cont supportive care efforts, planning for placement to SNF, application in place. Awaiting placement No new symptoms and remains stable She plans to eat and drink more to get better Remains stable and does not have any issues Has been trying to eat and drink a little bit more but requires supervision Has been more cooperative (2) Severe protein-calorie malnutrition: Underweight with poor oral intake 2/2 psychiatric issues. Cont daily thiamine, marinol. She mentioned that she has been eating and drinking reasonably and will try continue to do so Remains in bed most of the time and has not been drinking and eating the way she is supposed to be Has been trying to eat more (3) UTI (urinary tract infection): Rocephin pending urine culture results. Pyridium for comfort. Decreasing symptoms (4) Interstitial cystitis: After clear infection will continue working on treatment goals for IC Such as avoidance of activities or beverages that exacerbate symptoms (caffeine, alcohol, artificial sweeteners, hot pepper, acidic foods), Avoidance of exercises, recreational activities, or body positions that worsen bladder symptoms, fluid management, or bladder training. Outpatient referral to a urologist may also be helpful or consideration of amitriptyline trial Started on Premarin vaginal cream Still complains of cystitis symptoms (5) Bipolar disorder: Seen by psych this admission who report some improvement in her since admission. Patient states she is responding well to Seroquel and it helps her get some sleep. Also now on mirtazapine trial. Cont current therapies. Noted intermittent refusal of medications. She plans to continue with the current management plan She remains depressed but not aggressive She has been compliant with the management plan She has been more stable without any psychotic behavior and she has been more cooperative (6) Electrolyte abnormality: intermittent hyponatremia, hypomagnesemia and hypophosphatemia all related to poor PO intake. Lytes are within normal limits. Tolerating PO. We will check electrolytes tomorrow-remains reasonably stable on 08/27/2020 She'll need to have oral supplement of electrolytes on discharge We will check electrolytes on Wednesday (7) Status post fall: suffered an inpatient fall in the bathroom when ambulating there alone earlier in the admission. No loss of consciousness. She sustained a 1 inch laceration and a CT head was performed in setting of Eliquis. No acute intracranial findings were seen. She has had a fall this afternoon from her bed without any significant injury We'll observe (8) Acute DVT (deep venous thrombosis): Eliquis for at least 3 months. (9) Hypothyroidism: chronic, cont Synthroid per home regimen. (10) DVT prophylaxis: Eliquis DNR/DNI Dispo-uncertain at this time. Of note, per psychiatry, as she has nursing needs with an improved mental status exam from admission she is no longer appropriate for a geriatric inpatient psychiatric unit. Possible to personal retirement vs SNF. Awaiting authorization. Awaiting acceptance Admission and Anticipated Discharge Date Admission Date: August 03, 2020 Subjective 08/26/2020 The patient was seen and examined in medical floor She complains today of ongoing urinary symptoms of urgency, frequency and dysuria She does have occasional incontinence too She remains generally weak and lethargic but mentions that she has been eating and drinking reasonably 08/27/2020 The patient was seen and examined in medical floor She remains weak and lethargic Denies any other significant symptoms She admits that she has been eating and drinking reasonably 08/28/2020 The patient was seen and examined in medical floor She remains stable and has been smiling without any significant complaint She does not have any more psychotic behavior and she has been listening to the management plan She will need to go to skilled care facility and is not likely to need any extra care for her psychiatric issues at least for now 08/29/2020 The patient was seen and examined in medical floor She has been stable for the last few days and has been cooperative Denies any acute distress and does not have any psychotic behavior 08/30/2020 The patient was seen and examined in medical floor She has been more cooperative and denies any more psychotic behavior She refused to go to [facility] 08/31/2020 The patient was seen and examined in medical floor She has been much better today and she ate more than 50% of her breakfast She is planning to eat more Has been more cooperative and does not have any psychotic behavior Review of Systems Review of Systems: All systems reviewed and are unremarkable except as noted below Constitutional: + weakness Physical Exam Physical Exam: Lying in bed comfortably Constitutional: + ill appearing, + thin and + cachectic Eyes: PERRL, conjunctivae normal, anicteric sclerae ENMT: external ear and nose normal, oropharynx normal Neck: trachea midline, no thyromegaly Respiratory: no respiratory distress Auscultation: lungs clear to auscultation bilaterally Cardiovascular: Rate/Rhythm: regular rate and regular rhythm Heart Sounds: no murmur Extremities: no edema Gastrointestinal (Abdomen): Inspection/Auscultation: normal bowel sounds; abdomen not distended Percussion/Palpation: abdomen soft; abdomen nontender Musculoskeletal: No acute arthritis in any joint Neurologic: Alert awake and oriented x3. Generally weak Psychiatric: Orientation: alert Eye Contact: good eye contact Motor Behavior: n tremor Speech: normal rate/rhythm/volume of speech Affect: + depressed affect Mood: + depressed mood Insight: + limited insight Lymphatic: no cervical or axillary lymphadenopathy Results & Data Results & Data ([facility]) Vital Signs (Past 12 Hours) Vital Signs Temp Pulse Resp BP Pulse Ox 08/31/20 07:18 36.9 C 77 16 124/78 97 (1) Bipolar disorder Active/Remission status: remission status unspecified Qualified Code(s): F31.9 - Bipolar disorder, unspecified
[2020-08-31] MEDS: MIRTAZAPINE TAB 15 MG TAB PO SCH (19:33)
[2020-08-31] MEDS: DOCUSATE SODIUM/SENNA 50/8.6MG TAB PO SCH (19:33)
[2020-08-31] MEDS: QUEtiapine FUMARATE 25 MG TABLET PO SCH (19:33)
[2020-08-31] MEDS: FAMOTIDINE 10 MG TABLET PO SCH (19:33)
[2020-08-31] MEDS: MELATONIN 3 MG TAB PO SCH (19:33)
[2020-09-01] MEDS: CEROVITE ADV FORMULA TAB PO SCH (08:01)
[2020-09-01] MEDS: THIAMINE HCL 100 MG TAB PO SCH (08:01)
[2020-09-01] MEDS: PREMARIN VAG CRM 14 APPLN/30 GM TUBE PV SCH (08:01)
[2020-09-01] MEDS: APIXABAN 5 MG TABLET PO SCH ×2 (08:01→21:01)
[2020-09-01] MEDS: PHENAZOPYRIDINE HCL 100 MG TAB PO SCH ×3 (08:01→21:03)
[2020-09-01] MEDS: POTASSIUM CHLORIDE CRTAB 20 MEQ TABCR PO SCH ×2 (08:01→21:04)
--- NOTE | 2020-09-01 12:21 | Hospitalist Progress Note ---
Date of Service September 01, 2020 Assessment & Plan (1) Adult failure to thrive: Dehydration and weight loss over the past few months. Family concerned for patient's current living situation and question whether or not patient can live alone. Cont supportive care efforts, planning for placement to SNF, application in place. Awaiting placement No new symptoms and remains stable She plans to eat and drink more to get better Remains stable and does not have any issues Has been trying to eat and drink a little bit more but requires supervision Less cooperative today and more depressed (2) Severe protein-calorie malnutrition: Underweight with poor oral intake 2/2 psychiatric issues. Cont daily thiamine, marinol. She mentioned that she has been eating and drinking reasonably and will try continue to do so Remains in bed most of the time and has not been drinking and eating the way she is supposed to be Has been trying to eat more (3) UTI (urinary tract infection): Rocephin pending urine culture results. Pyridium for comfort. Decreasing symptoms The antibiotic course is finished (4) Interstitial cystitis: After clear infection will continue working on treatment goals for IC Such as avoidance of activities or beverages that exacerbate symptoms (caffeine, alcohol, artificial sweeteners, hot pepper, acidic foods), Avoidance of exercises, recreational activities, or body positions that worsen bladder symptoms, fluid management, or bladder training. Outpatient referral to a urologist may also be helpful or consideration of amitriptyline trial Started on Premarin vaginal cream Still complains of cystitis symptoms (5) Bipolar disorder: Seen by psych this admission who report some improvement in her since admission. Patient states she is responding well to Seroquel and it helps her get some sleep. Also now on mirtazapine trial. Cont current therapies. Noted intermittent refusal of medications. She plans to continue with the current management plan She remains depressed but not aggressive She has been compliant with the management plan She has been more stable without any psychotic behavior and she has been more cooperative Has been more depressed today (6) Electrolyte abnormality: intermittent hyponatremia, hypomagnesemia and hypophosphatemia all related to poor PO intake. Lytes are within normal limits. Tolerating PO. We will check electrolytes tomorrow-remains reasonably stable on 08/27/2020 She'll need to have oral supplement of electrolytes on discharge We will check electrolytes on Wednesday (7) Status post fall: suffered an inpatient fall in the bathroom when ambulating there alone earlier in the admission. No loss of consciousness. She sustained a 1 inch laceration and a CT head was performed in setting of Eliquis. No acute intracranial findings were seen. She has had a fall this afternoon from her bed without any significant injury We'll observe (8) Acute DVT (deep venous thrombosis): Eliquis for at least 3 months. (9) Hypothyroidism: chronic, cont Synthroid per home regimen. (10) DVT prophylaxis: Eliqudelmi DNR/DNI Dispo-uncertain at this time. Of note, per psychiatry, as she has nursing needs with an improved mental status exam from admission she is no longer appropriate for a geriatric inpatient psychiatric unit. Possible to personal chcf vs SNF. Awaiting authorization. Awaiting acceptance Admission and Anticipated Discharge Date Admission Date: August 03, 2020 Subjective 08/26/2020 The patient was seen and examined in medical floor She complains today of ongoing urinary symptoms of urgency, frequency and dysuria She does have occasional incontinence too She remains generally weak and lethargic but mentions that she has been eating and drinking reasonably 08/27/2020 The patient was seen and examined in medical floor She remains weak and lethargic Denies any other significant symptoms She admits that she has been eating and drinking reasonably 08/28/2020 The patient was seen and examined in medical floor She remains stable and has been smiling without any significant complaint She does not have any more psychotic behavior and she has been listening to the management plan She will need to go to skilled care facility and is not likely to need any extra care for her psychiatric issues at least for now 08/29/2020 The patient was seen and examined in medical floor She has been stable for the last few days and has been cooperative Denies any acute distress and does not have any psychotic behavior 08/30/2020 The patient was seen and examined in medical floor She has been more cooperative and denies any more psychotic behavior She refused to go to [facility] 08/31/2020 The patient was seen and examined in medical floor She has been much better today and she ate more than 50% of her breakfast She is planning to eat more Has been more cooperative and does not have any psychotic behavior 09/01/2020 The patient was seen and examined in medical floor She remains depressed and did not take her medications and did not eat anything this morning Still complains to of pain secondary to interstitial cystitis Denies any other significant symptoms Review of Systems Review of Systems: All systems reviewed and are unremarkable except as noted below Constitutional: + weakness Psychiatric: + depression Physical Exam Physical Exam: Lying in bed comfortably but very depressed Constitutional: + ill appearing, + thin and + cachectic Eyes: PERRL, conjunctivae normal, anicteric sclerae ENMT: external ear and nose normal, oropharynx normal Neck: trachea midline, no thyromegaly Respiratory: no respiratory distress Auscultation: lungs clear to auscultation bilaterally Cardiovascular: Rate/Rhythm: regular rate and regular rhythm Heart Sounds: no murmur Extremities: no edema Gastrointestinal (Abdomen): Inspection/Auscultation: normal bowel sounds; abdomen not distended Percussion/Palpation: abdomen soft; abdomen nontender Musculoskeletal: No acute arthritis in any joint Neurologic: Alert, awake and oriented. Extremely lethargic Psychiatric: Orientation: alert Eye Contact: good eye contact Motor Behavior: n tremor Speech: normal rate/rhythm/volume of speech Affect: + depressed affect Mood: + depressed mood Insight: + limited insight Lymphatic: no cervical or axillary lymphadenopathy Results & Data Results & Data ([facility]) Vital Signs (Past 12 Hours) Vital Signs Temp Pulse Resp BP Pulse Ox 09/01/20 07:28 36.5 C 79 14 128/82 97 (1) Bipolar disorder Active/Remission status: remission status unspecified Qualified Code(s): F31.9 - Bipolar disorder, unspecified
--- NOTE | 2020-09-01 17:37 | Psychiatric Progress Note ---
Date of Service September 01, 2020 Impression / Recommendations Impression 75 yo female with failure to thrive who Has been intermittently refusing meds and meals. Patient is also refusing [facility] placement and additional supervision. This patient's capacity to refuse [facility] placement was assessed at this time. The patient is unable to consistently maintain capacity to refuse chcf placement. She is unable to articulate alternatives to chcf placement except to see I will go home she is unable to out to articulate ways to maintain her own safety at home including ways she will provide herself with food food and care home " She has difficulty discussing the advantages of chcf placement or the disadvantages of chcf placement. Even though the patient is oriented in time and able to discuss current presidents past presidents likes and dislikes on a superficial level, However when asked questions regarding her care and follow-up patient is unable to clearly articulate her needs. she is unable to clearly articulate her reasons for refusing medications or feeding. At this time patient does not have capacity to refuse chcf placement. Patient does not have capacity to refuse food and hydration. Would suggest substituted judgment. Daughter appears to be her next of kin. This group underwriter's impression was discussed with the attending of record Dr. Montoya. Risk Factors Assessment Do You Have Access To A Gun?: No Interval History Chief Complaint "I am fine I want to go home". Review of Systems Notes Patient reports a decreased appetite patient also reports weakness patient reports eating just a little" of her meals ongoing weight loss is noted Subjective Subjective Patient was seen & assessed and interval progress reviewed with Dr. Montoya, the patient is noted to continue to intermittently refuse her food. Patient is noted also to intermittently refuse medications and care as she did this morning. Team is encouraging outpatient and patient does promise to accept more meals. Patient is able to discuss during interview, current political events, patient knows current president also able to discuss past presidents. However when patient is asked specific reasons for refusing chcf placement patient is only able to say I just want to go home" patient's belief is that financially she cannot afford it. Patient is unable to articulate alternatives to chcf placement. When this group underwriter discussed with patient how she will prevent herself from falling at home will how she would obtain meals if nobody delivered them to the house patient was unable to voice alternatives or ways that she could prevent herself from a future hospitalization for the same reasons. Patient denies hallucinations there was no evidence on exam of response to internal stimuli. Patient does admit to depression, patient reports the depression is as result of him "my current situation" patient denies active suicidal thoughts. Does admit to hopelessness," what else is there for me"" patient denies any active plans. " I wouldn't do anything to hurt myself because I don't want my daughter to have to deal with that" Physical Exam Psychiatric Orientation: alert, oriented x 3, oriented to person, oriented to place, cooperative and + guarded Apperance: appropriately dressed, appropriately groomed, + disheveled and appeared stated age Eye Contact: + fair eye contact Motor Behavior: no abnormal motor movements (observed while laying in bed) and + psychomotor retardation; no psychomotor agitation and n tremor Speech: + mute and normal rate/rhythm/volume of speech Affect: + depressed affect, + flat affect and + constricted affect (To depressed/somnolent) Mood: + depressed mood and + anxious mood Thought Process: + perseveration and + concrete thought process Thought Content: + preoccupation and + hopelessness; no delusions Suicidal Thoughts: denies suicidal thoughts Homicidal Thoughts: denies homicidal thoughts Hallucinations: no auditory hallucinations and no visual hallucinations Cognition: language grossly intact; + recent memory not intact, + remote memory not intact and + attention not intact Insight: + poor insight, + impaired insight and + severely impaired insight; not limited insight Judgement: + poor judgement, + impaired judgement and + severely impaired judgement Vital Signs (Past 24 Hours) Last Vital Signs Temp 36.2 C L 09/01/20 15:10 Pulse 67 09/01/20 15:10 Resp 14 09/01/20 15:10 BP 127/80 09/01/20 15:10 Pulse Ox 97 09/01/20 15:10 Full exam is deferred to the physical exam performed by Dr. Sarmiento today 09/01/2020 Results & Data ([facility]) Current Inpatient Medications Current Inpatient Medications: Current Inpatient Medications Acetaminophen (Acetaminophen 325 Mg Tab) 650 mg PO Q4H PRN PRN Reason: Pain or Fever Stop: 09/02/20 03:28 Apixaban (Apixaban 5 Mg Tablet) 5 mg PO BID ALEJANDRO Stop: 09/14/20 20:59 Last Admin: 09/01/20 08:01 Dose: Not Given Documented by: Bisacodyl (Bisacodyl 10 Mg Supp) 10 mg [place] DAILY PRN PRN Reason: Constipation Stop: 09/10/20 16:26 Last Admin: 08/17/20 04:33 Dose: 10 mg Documented by: Dronabinol (Dronabinol 2.5 Mg Cap) 2.5 mg PO BID ON [facility] Stop: 09/05/20 10:29 Last Admin: 09/01/20 08:01 Dose: Not Given Documented by: Estrogens Conjugated (Premarin Vag Crm 14 Appln/30 Gm Tube) 1 appln PV DAILY ON [facility] Stop: 09/25/20 10:44 Last Admin: 09/01/20 08:01 Dose: Not Given Documented by: Famotidine (Famotidine 10 Mg Tablet) 10 mg PO HS ON [facility] Stop: 09/08/20 20:59 Last Admin: 08/31/20 19:33 Dose: Not Given Documented by: Hyoscyamine (Hyoscyamine Sulfate 0.125 Mg Tab) 0.125 mg PO Q4 PRN PRN Reason: ABD CRAMPING Stop: 09/03/20 11:52 Last Admin: 08/07/20 08:57 Dose: 0.125 mg Documented by: Levothyroxine Sodium (Levothyroxine Sodium 50 Mcg Tablet) 50 mcg PO [id number] ON LICENSE OF [facility] Stop: 09/04/20 06:29 Last Admin: 08/30/20 05:10 Dose: Not Given Documented by: Melatonin (Melatonin 3 Mg Tab) 3 mg PO [facility] Stop: 09/03/20 20:59 Last Admin: 08/31/20 19:33 Dose: Not Given Documented by: Mirtazapine (Mirtazapine Tab 15 Mg Tab) 7.5 mg PO [facility] Stop: 09/17/20 20:59 Last Admin: 08/31/20 19:33 Dose: Not Given Documented by: Multi-Ingredient Cream (Artificial Tears Op Oint 3.5 Gm Tube) 1 appln OP Q4H PRN PRN Reason: DRY EYES Stop: 09/05/20 14:28 Multivitamins/Minerals (Cerovite Adv Formula Tab) 1 tab PO QAM ON [facility] Stop: 09/03/20 08:59 Last Admin: 09/01/20 08:01 Dose: Not Given Documented by: Nitroglycerin (Nitroglycerin Sl 0.4 Mg/Tab Tab) 0.4 mg SL UD PRN PRN Reason: Chest Pain Stop: 09/02/20 03:28 Ondansetron HCl (Ondansetron Inj 2 Mg/Ml 2 Ml Vial) 4 mg IV Q6H PRN PRN Reason: Nausea Stop: 09/02/20 03:28 Phenazopyridine HCl (Phenazopyridine Hcl 100 Mg Tab) 100 mg PO TID ON [facility] Stop: 09/23/20 20:59 Last Admin: 09/01/20 13:24 Dose: Not Given Documented by: Polyethylene Glycol (Polyethylene (Miralax) 17 Gm Pack) 17 gm PO DAILY PRN PRN Reason: Constipation Stop: 09/02/20 03:28 Last Admin: 08/21/20 10:40 Dose: 17 gm Documented by: Potassium Chloride (Potassium Chloride Crtab 20 Meq Tabcr) 20 meq PO BID ON [facility] Stop: 09/14/20 20:59 Last Admin: 09/01/20 08:01 Dose: Not Given Documented by: Quetiapine Fumarate (Quetiapine Fumarate 25 Mg Tablet) 25 mg PO HS ON [facility] Stop: 09/11/20 20:59 Last Admin: 08/31/20 19:33 Dose: Not Given Documented by: Senna/Docusate Sodium (Docusate Sodium/Senna 50/8.6mg Tab) 2 tab PO QPM ON [facility] Stop: 09/16/20 20:59 Last Admin: 08/31/20 19:33 Dose: Not Given Documented by: Sumatriptan Succinate (Sumatriptan Succinate 25 Mg Tab) 25 mg PO DAILY PRN PRN Reason: Migraine Headache Stop: 09/03/20 11:52 Thiamine HCl (Thiamine Hcl 100 Mg Tab) 100 mg PO QAM ON [facility] Stop: 09/02/20 12:29 Last Admin: 09/01/20 08:01 Dose: Not Given Documented by:
[2020-09-01] MEDS: MIRTAZAPINE TAB 15 MG TAB PO SCH (21:03)
[2020-09-01] MEDS: MELATONIN 3 MG TAB PO SCH (21:03)
[2020-09-01] MEDS: DOCUSATE SODIUM/SENNA 50/8.6MG TAB PO SCH (21:03)
[2020-09-01] MEDS: FAMOTIDINE 10 MG TABLET PO SCH (21:03)
[2020-09-01] MEDS: QUEtiapine FUMARATE 25 MG TABLET PO SCH (21:04)
[2020-09-02] MEDS: LEVOTHYROXINE SODIUM 50 MCG TABLET PO SCH (05:50)
[2020-09-02 06:19] LABS: BUN Creatinine Ratio 73.6 (10-20); Calcium 8.1 mg/dl (8.5-10.1); Creatinine Clr Calc Pharmacy 64.3 ml/min; Est GFR (African American) 119.5 ml/min; Est GFR (Non-African American) 103.1 ml/min; Magnesium 2.4 mg/dl (1.8-2.4); Potassium 3.6 mmol/L (3.5-5.1)
[2020-09-02 06:20] LABS: Phosphorus 3.3 mg/dl (2.5-4.9)
[2020-09-02] MEDS: APIXABAN 5 MG TABLET PO SCH ×2 (09:02→21:23)
[2020-09-02] MEDS: PREMARIN VAG CRM 14 APPLN/30 GM TUBE PV SCH (09:03)
[2020-09-02] MEDS: THIAMINE HCL 100 MG TAB PO SCH (09:03)
[2020-09-02] MEDS: PHENAZOPYRIDINE HCL 100 MG TAB PO SCH ×3 (09:03→21:24)
[2020-09-02] MEDS: CEROVITE ADV FORMULA TAB PO SCH (09:03)
[2020-09-02] MEDS: POTASSIUM CHLORIDE CRTAB 20 MEQ TABCR PO SCH ×2 (09:03→21:24)
--- NOTE | 2020-09-02 12:42 | Hospitalist Progress Note ---
Date of Service September 02, 2020 Assessment & Plan (1) Adult failure to thrive: Dehydration and weight loss over the past few months. Family concerned for patient's current living situation and question whether or not patient can live alone. Cont supportive care efforts, planning for placement to SNF, application in place. Awaiting placement No new symptoms and remains stable She plans to eat and drink more to get better Remains stable and does not have any issues Has been trying to eat and drink a little bit more but requires supervision Less cooperative today and more depressed She is very inconsistent with his behavior and activities but remains calm and quiet and no more aggressiveness Appreciate psychiatric input and recommendation Being incompetent she will need to have a power of public relations or surrogate decision maker Daughter is agreeable as per the director case management (2) Severe protein-calorie malnutrition: Underweight with poor oral intake 2/2 psychiatric issues. Cont daily thiamine, marinol. She mentioned that she has been eating and drinking reasonably and will try continue to do so Remains in bed most of the time and has not been drinking and eating the way she is supposed to be Has been trying to eat more Advised to continue to eat more and drink more (3) UTI (urinary tract infection): Rocephin pending urine culture results. Pyridium for comfort. Decreasing symptoms The antibiotic course is finished (4) Interstitial cystitis: After clear infection will continue working on treatment goals for IC Such as avoidance of activities or beverages that exacerbate symptoms (caffeine, alcohol, artificial sweeteners, hot pepper, acidic foods), Avoidance of exercises, recreational activities, or body positions that worsen bladder symptoms, fluid management, or bladder training. Outpatient referral to a urologist may also be helpful or consideration of amitriptyline trial Started on Premarin vaginal cream Still complains of cystitis symptoms (5) Bipolar disorder: Seen by psych this admission who report some improvement in her since admission. Patient states she is responding well to Seroquel and it helps her get some sleep. Also now on mirtazapine trial. Cont current therapies. Noted intermittent refusal of medications. She plans to continue with the current management plan She remains depressed but not aggressive She has been compliant with the management plan She has been more stable without any psychotic behavior and she has been more cooperative Has been more depressed today (6) Electrolyte abnormality: intermittent hyponatremia, hypomagnesemia and hypophosphatemia all related to poor PO intake. Lytes are within normal limits. Tolerating PO. We will check electrolytes tomorrow-remains reasonably stable on 08/27/2020 She'll need to have oral supplement of electrolytes on discharge We will check electrolytes on Wednesday-no more electrolyte abnormalities (7) Status post fall: suffered an inpatient fall in the bathroom when ambulating there alone earlier in the admission. No loss of consciousness. She sustained a 1 inch laceration and a CT head was performed in setting of Eliquis. No acute intracranial findings were seen. She has had a fall this afternoon from her bed without any significant injury We'll observe (8) Acute DVT (deep venous thrombosis): Eliquis for at least 3 months. (9) Hypothyroidism: chronic, cont Synthroid per home regimen. (10) DVT prophylaxis: Eliqudelmi DNR/DNI Dispo-uncertain at this time. Of note, per psychiatry, as she has nursing needs with an improved mental status exam from admission she is no longer appropriate for a geriatric inpatient psychiatric unit. Possible to personal assisted vs SNF. Awaiting authorization. Awaiting acceptance Admission and Anticipated Discharge Date Admission Date: August 03, 2020 Subjective 08/26/2020 The patient was seen and examined in medical floor She complains today of ongoing urinary symptoms of urgency, frequency and dy suria She does have occasional incontinence too She remains generally weak and lethargic but mentions that she has been eating and drinking reasonably 08/27/2020 The patient was seen and examined in medical floor She remains weak and lethargic Denies any other significant symptoms She admits that she has been eating and drinking reasonably 08/28/2020 The patient was seen and examined in medical floor She remains stable and has been smiling without any significant complaint She does not have any more psychotic behavior and she has been listening to the management plan She will need to go to skilled care facility and is not likely to need any extra care for her psychiatric issues at least for now 08/29/2020 The patient was seen and examined in medical floor She has been stable for the last few days and has been cooperative Denies any acute distress and does not have any psychotic behavior 08/30/2020 The patient was seen and examined in medical floor She has been more cooperative and denies any more psychotic behavior She refused to go to [facility] 08/31/2020 The patient was seen and examined in medical floor She has been much better today and she ate more than 50% of her breakfast She is planning to eat more Has been more cooperative and does not have any psychotic behavior 09/01/2020 The patient was seen and examined in medical floor She remains depressed and did not take her medications and did not eat anything this morning Still complains to of pain secondary to interstitial cystitis Denies any other significant symptoms 09/02/2020 The patient was seen and examined in medical floor She is much better today and has been eating and drinking She was seen by the psychiatrist yesterday and recommended that she is incompetent in making her decisions The daughter is aware She denies any significant symptoms except weakness Review of Systems Review of Systems: All systems reviewed and are unremarkable except as noted below Constitutional: + weakness Psychiatric: + depression Physical Exam Physical Exam: Lying in bed comfortably but very depressed Constitutional: + ill appearing, + thin and + cachectic Eyes: PERRL, conjunctivae normal, anicteric sclerae ENMT: external ear and nose normal, oropharynx normal Neck: trachea midline, no thyromegaly Respiratory: no respiratory distress Auscultation: lungs clear to auscultation bilaterally Cardiovascular: Rate/Rhythm: regular rate and regular rhythm Heart Sounds: no murmur Extremities: no edema Gastrointestinal (Abdomen): Inspection/Auscultation: normal bowel sounds; abdomen not distended Percussion/Palpation: abdomen soft; abdomen nontender Musculoskeletal: No acute arthritis in any joint Neurologic: .Alert and awake. Pleasantly confused Psychiatric: Orientation: alert Eye Contact: good eye contact Motor Behavior: n tremor Speech: normal rate/rhythm/volume of speech Affect: + depressed affect Mood: + depressed mood Insight: + limited insight Lymphatic: no cervical or axillary lymphadenopathy Results & Data Results & Data ([facility]) Vital Signs (Past 12 Hours) Vital Signs Temp Pulse Resp BP Pulse Ox 09/02/20 07:24 36.6 C 75 16 128/[address] [facility] 09/02/20 05:34 Sodium 138 Potassium 3.6 Chloride 104 Carbon Dioxide 30 BUN 27 H Creatinine 0.37 L Glucose 102 H Calcium 8.1 L Medications Administered Current Inpatient Medications Apixaban (Apixaban 5 Mg Tablet) 5 mg PO BID ALEJANDRO Stop: 09/14/20 20:59 Last Admin: 09/02/20 09:02 Dose: Not Given Documented by: Bisacodyl (Bisacodyl 10 Mg Supp) 10 mg MD DAILY PRN PRN Reason: Constipation Stop: 09/10/20 16:26 Last Admin: 08/17/20 04:33 Dose: 10 mg Documented by: Dronabinol (Dronabinol 2.5 Mg Cap) 2.5 mg PO BID [facility] Stop: 09/05/20 10:29 Last Admin: 09/02/20 09:02 Dose: Not Given Documented by: Estrogens Conjugated (Premarin Vag Crm 14 Appln/30 Gm Tube) 1 appln PV DAILY [facility] Stop: 09/25/20 10:44 Last Admin: 09/02/20 09:03 Dose: Not Given Documented by: Famotidine (Famotidine 10 Mg Tablet) 10 mg PO [facility] Stop: 09/08/20 20:59 Last Admin: 09/01/20 21:03 Dose: Not Given Documented by: Hyoscyamine (Hyoscyamine Sulfate 0.125 Mg Tab) 0.125 mg PO Q4 PRN PRN Reason: ABD CRAMPING Stop: 09/03/20 11:52 Last Admin: 08/07/20 08:57 Dose: 0.125 mg Documented by: Levothyroxine Sodium (Levothyroxine Sodium 50 Mcg Tablet) 50 mcg PO [id number] [facility] Stop: 09/04/20 06:29 Last Admin: 09/02/20 05:50 Dose: 50 mcg Documented by: Melatonin (Melatonin 3 Mg Tab) 3 mg PO [facility] Stop: 09/03/20 20:59 Last Admin: 09/01/20 21:03 Dose: Not Given Documented by: Mirtazapine (Mirtazapine Tab 15 Mg Tab) 7.5 mg PO [facility] Stop: 09/17/20 20:59 Last Admin: 09/01/20 21:03 Dose: Not Given Documented by: Multi-Ingredient Cream (Artificial Tears Op Oint 3.5 Gm Tube) 1 appln OP Q4H PRN PRN Reason: DRY EYES Stop: 09/05/20 14:28 Multivitamins/Minerals (Cerovite Adv Formula Tab) 1 tab PO QAM [facility] Stop: 09/03/20 08:59 Last Admin: 09/02/20 09:03 Dose: Not Given Documented by: Phenazopyridine HCl (Phenazopyridine Hcl 100 Mg Tab) 100 mg PO TID [facility] Stop: 09/23/20 20:59 Last Admin: 09/02/20 09:03 Dose: Not Given Documented by: Potassium Chloride (Potassium Chloride Crtab 20 Meq Tabcr) 20 meq PO BID [facility] Stop: 09/14/20 20:59 Last Admin: 09/02/20 09:03 Dose: Not Given Documented by: Quetiapine Fumarate (Quetiapine Fumarate 25 Mg Tablet) 25 mg PO HS [facility]LEJANDRO Stop: 09/11/20 20:59 Last Admin: 09/01/20 21:04 Dose: Not Given Documented by: Senna/Docusate Sodium (Docusate Sodium/Senna 50/8.6mg Tab) 2 tab PO QPM [facility]LE[facility]ANDR[facility] Stop: 09/16/20 20:59 Last Admin: 09/01/20 21:03 Dose: Not Given Documented by: Sumatriptan Succinate (Sumatriptan Succinate 25 Mg Tab) 25 mg PO DAILY PRN PRN Reason: Migraine Headache Stop: 09/03/20 11:52 (1) Bipolar disorder Active/Remission status: remission status unspecified Qualified Code(s): F31.9 - Bipolar disorder, unspecified
[2020-09-02] MEDS: DOCUSATE SODIUM/SENNA 50/8.6MG TAB PO SCH (21:24)
[2020-09-02] MEDS: MIRTAZAPINE TAB 15 MG TAB PO SCH (21:24)
[2020-09-02] MEDS: MELATONIN 3 MG TAB PO SCH (21:24)
[2020-09-02] MEDS: FAMOTIDINE 10 MG TABLET PO SCH (21:24)
[2020-09-02] MEDS: QUEtiapine FUMARATE 25 MG TABLET PO SCH (21:24)
[2020-09-03] MEDS: LEVOTHYROXINE SODIUM 50 MCG TABLET PO SCH (05:33)
[2020-09-03] MEDS: APIXABAN 5 MG TABLET PO SCH ×2 (08:52→20:19)
[2020-09-03] MEDS: PREMARIN VAG CRM 14 APPLN/30 GM TUBE PV SCH (08:52)
[2020-09-03] MEDS: PHENAZOPYRIDINE HCL 100 MG TAB PO SCH ×3 (08:53→20:21)
[2020-09-03] MEDS: POTASSIUM CHLORIDE CRTAB 20 MEQ TABCR PO SCH ×2 (08:53→20:21)
--- NOTE | 2020-09-03 13:53 | Hospitalist Progress Note ---
Date of Service September 03, 2020 Assessment & Plan (1) Adult failure to thrive: Dehydration and weight loss over the past few months. Family concerned for patient's current living situation and question whether or not patient can live alone. Cont supportive care efforts, planning for placement to SNF, application in place. Awaiting placement No new symptoms and remains stable She plans to eat and drink more to get better Remains stable and does not have any issues Has been trying to eat and drink a little bit more but requires supervision She is very inconsistent with his behavior and activities but remains calm and quiet and no more aggressiveness She remains stable and is being reevaluated for acceptance to [facility] Appreciate psychiatric input and recommendation Being incompetent she will need to have a power of claims attorney or surrogate decision maker Daughter is agreeable as per the case mgr (2) Severe protein-calorie malnutrition: Underweight with poor oral intake 2/2 psychiatric issues. Cont daily thiamine, marinol. She mentioned that she has been eating and drinking reasonably and will try continue to do so Remains in bed most of the time and has not been drinking and eating the way she is supposed to be Has been trying to eat more Advised to continue to eat more and drink more Will need to be pushed with feeding (3) UTI (urinary tract infection): Rocephin pending urine culture results. Pyridium for comfort. Decreasing symptoms The antibiotic course is finished (4) Interstitial cystitis: After clear infection will continue working on treatment goals for IC Such as avoidance of activities or beverages that exacerbate symptoms (caffeine, alcohol, artificial sweeteners, hot pepper, acidic foods), Avoidance of exercises, recreational activities, or body positions that worsen bladder symptoms, fluid management, or bladder training. Outpatient referral to a urologist may also be helpful or consideration of amitr iptyline trial Started on Premarin vaginal cream Still complains of cystitis symptoms (5) Bipolar disorder: Seen by psych this admission who report some improvement in her since admission. Patient states she is responding well to Seroquel and it helps her get some sleep. Also now on mirtazapine trial. Cont current therapies. Noted intermittent refusal of medications. She plans to continue with the current management plan She remains depressed but not aggressive She has been compliant with the management plan She has been more stable without any psychotic behavior and she has been more cooperative Has been more depressed today (6) Electrolyte abnormality: intermittent hyponatremia, hypomagnesemia and hypophosphatemia all related to poor PO intake. Lytes are within normal limits. Tolerating PO. We will check electrolytes tomorrow-remains reasonably stable on 08/27/2020 She'll need to have oral supplement of electrolytes on discharge We will check electrolytes on Wednesday-no more electrolyte abnormalities (7) Status post fall: suffered an inpatient fall in the bathroom when ambulating there alone earlier in the admission. No loss of consciousness. She sustained a 1 inch laceration and a CT head was performed in setting of Eliquis. No acute intracranial findings were seen. She has had a fall this afternoon from her bed without any significant injury We'll observe (8) Acute DVT (deep venous thrombosis): Eliquis for at least 3 months. (9) Hypothyroidism: chronic, cont Synthroid per home regimen. (10) DVT prophylaxis: Eliquis DNR/DNI Dispo-uncertain at this time. Of note, per psychiatry, as she has nursing needs with an improved mental status exam from admission she is no longer appropriate for a geriatric inpatient psychiatric unit. Possible to personal jail vs SNF. Awaiting authorization. Awaiting acceptance to [facility] Admission and Anticipated Discharge Date Admission Date: August 03, 2020 Subjective 08/26/2020 The patient was seen and examined in medical floor She complains today of ongoing urinary symptoms of urgency, frequency and dysuria She does have occasional incontinence too She remains generally weak and lethargic but mentions that she has been eating and drinking reasonably 08/27/2020 The patient was seen and examined in medical floor She remains weak and lethargic Denies any other significant symptoms She admits that she has been eating and drinking reasonably 08/28/2020 The patient was seen and examined in medical floor She remains stable and has been smiling without any significant complaint She does not have any more psychotic behavior and she has been listening to the management plan She will need to go to skilled care facility and is not likely to need any extra care for her psychiatric issues at least for now 08/29/2020 The patient was seen and examined in medical floor She has been stable for the last few days and has been cooperative Denies any acute distress and does not have any psychotic behavior 08/30/2020 The patient was seen and examined in medical floor She has been more cooperative and denies any more psychotic behavior She refused to go to [facility] 08/31/2020 The patient was seen and examined in medical floor She has been much better today and she ate more than 50% of her breakfast She is planning to eat more Has been more cooperative and does not have any psychotic behavior 09/01/2020 The patient was seen and examined in medical floor She remains depressed and did not take her medications and did not eat anything this morning Still complains to of pain secondary to interstitial cystitis Denies any other significant symptoms 09/02/2020 The patient was seen and examined in medical floor She is much better today and has been eating and drinking She was seen by the psychiatrist yesterday and recommended that she is incompetent in making her decisions The daughter is aware She denies any significant symptoms except weakness 09/03/2020 The patient was seen and examined in medical floor She remains stable and refused her breakfast She plans to eat lunch Still complains to have pain from interstitial cystitis Review of Systems Review of Systems: All systems reviewed and are unremarkable except as noted below Constitutional: + weakness Psychiatric: + depression Physical Exam Physical Exam: Lying in bed comfortably but very depressed Constitutional: + ill appearing, + thin and + cachectic Eyes: PERRL, conjunctivae normal, anicteric sclerae ENMT: external ear and nose normal, oropharynx normal Neck: trachea midline, no thyromegaly Respiratory: no respiratory distress Auscultation: lungs clear to auscultation bilaterally Cardiovascular: Rate/Rhythm: regular rate and regular rhythm Heart Sounds: no murmur Extremities: no edema Gastrointestinal (Abdomen): Inspection/Auscultation: normal bowel sounds; abdomen not distended Percussion/Palpation: abdomen soft; abdomen nontender Musculoskeletal: No acute arthritis in any joint Neurologic: Alert and awake, pleasantly confused, lack of insight, incompetent Psychiatric: Orientation: alert Eye Contact: good eye contact Motor Behavior: n tremor Speech: normal rate/rhythm/volume of speech Affect: + depressed affect Mood: + depressed mood Insight: + limited insight Lymphatic: no cervical or axillary lymphadenopathy Results & Data Results & Data ([facility]) Vital Signs (Past 12 Hours) Vital Signs Temp Pulse Resp BP Pulse Ox 09/03/20 07:45 37.0 C 75 16 143/82 H 96 Medications Administered Current Inpatient Medications Apixaban (Apixaban 5 Mg Tablet) 5 mg PO BID [facility] Stop: 09/14/20 20:59 Last Admin: 09/03/20 08:52 Dose: Not Given Documented by: Bisacodyl (Bisacodyl 10 Mg Supp) 10 mg NV DAILY PRN PRN Reason: Constipation Stop: 09/10/20 16:26 Last Admin: 08/17/20 04:33 Dose: 10 mg Documented by: Dronabinol (Dronabinol 2.5 Mg Cap) 2.5 mg PO BID [facility] Stop: 09/05/20 10:29 Last Admin: 09/03/20 08:52 Dose: Not Given Documented by: Estrogens Conjugated (Premarin Vag Crm 14 Appln/30 Gm Tube) 1 appln PV DAILY [facility] Stop: 09/25/20 10:44 Last Admin: 09/03/20 08:52 Dose: Not Given Documented by: Famotidine (Famotidine 10 Mg Tablet) 10 mg PO HS [facility] Stop: 09/08/20 20:59 Last Admin: 09/02/20 21:24 Dose: Not Given Documented by: Levothyroxine Sodium (Levothyroxine Sodium 50 Mcg Tablet) 50 mcg PO [id number] [facility] Stop: 09/04/20 06:29 Last Admin: 09/03/20 05:33 Dose: 50 mcg Documented by: Melatonin (Melatonin 3 Mg Tab) 3 mg PO HS [facility] Stop: 09/03/20 20:59 Last Admin: 09/02/20 21:24 Dose: Not Given Documented by: Mirtazapine (Mirtazapine Tab 15 Mg Tab) 7.5 mg PO HS [facility] Stop: 09/17/20 20:59 Last Admin: 09/02/20 21:24 Dose: Not Given Documented by: Multi-Ingredient Cream (Artificial Tears Op Oint 3.5 Gm Tube) 1 appln OP Q4H PRN PRN Reason: DRY EYES Stop: 09/05/20 14:28 Phenazopyridine HCl (Phenazopyridine Hcl 100 Mg Tab) 100 mg PO TID [facility] Stop: 09/23/20 20:59 Last Admin: 09/03/20 13:50 Dose: 100 mg Documented by: Potassium Chloride (Potassium Chloride Crtab 20 Meq Tabcr) 20 meq PO BID [facility] Stop: 09/14/20 20:59 Last Admin: 09/03/20 08:53 Dose: Not Given Documented by: Quetiapine Fumarate (Quetiapine Fumarate 25 Mg Tablet) 25 mg PO HS [facility] Stop: 09/11/20 20:59 Last Admin: 09/02/20 21:24 Dose: Not Given Documented by: Senna/Docusate Sodium (Docusate Sodium/Senna 50/8.6mg Tab) 2 tab PO QPM [facility] Stop: 09/16/20 20:59 Last Admin: 09/02/20 21:24 Dose: Not Given Documented by: (1) Bipolar disorder Active/Remission status: remission status unspecified Qualified Code(s): F31.9 - Bipolar disorder, unspecified
[2020-09-03] MEDS: DOCUSATE SODIUM/SENNA 50/8.6MG TAB PO SCH (20:19)
[2020-09-03] MEDS: GABAPENTIN 100 MG CAP PO SCH (20:21)
[2020-09-03] MEDS: MIRTAZAPINE TAB 15 MG TAB PO SCH (20:21)
[2020-09-03] MEDS: FAMOTIDINE 10 MG TABLET PO SCH (20:21)
[2020-09-03] MEDS: QUEtiapine FUMARATE 25 MG TABLET PO SCH (21:57)
[2020-09-04] MEDS ORDERED: MELATONIN 3 MG TAB PO PRN (00:07)
[2020-09-04] MEDS: PREMARIN VAG CRM 14 APPLN/30 GM TUBE PV SCH (08:51)
[2020-09-04] MEDS: POTASSIUM CHLORIDE CRTAB 20 MEQ TABCR PO SCH ×2 (08:51→22:04)
[2020-09-04] MEDS: GABAPENTIN 100 MG CAP PO SCH ×2 (08:51→22:04)
[2020-09-04] MEDS: CEROVITE ADV FORMULA TAB PO SCH (08:51)
[2020-09-04] MEDS: LEVOTHYROXINE SODIUM 50 MCG TABLET PO SCH (08:52)
[2020-09-04] MEDS: PHENAZOPYRIDINE HCL 100 MG TAB PO SCH ×3 (08:52→22:04)
[2020-09-04] MEDS: APIXABAN 5 MG TABLET PO SCH ×2 (08:52→22:03)
--- NOTE | 2020-09-04 18:23 | Hospitalist Progress Note ---
Date of Service September 04, 2020 Assessment & Plan (1) Adult failure to thrive: Dehydration and weight loss since past few months. Continue Marinol [facility] Consulted Needs placement Case management to help with discharge planning (2) Severe protein-calorie malnutrition: Underweight due to poor oral intake Likely secondary to psychiatric issues. Continue thiamine, marinol. (3) UTI (urinary tract infection): Urine culture: Citrobacter--pansensitive Completed Rocephin course (4) Interstitial cystitis: Avoidance of activities or beverages that exacerbate symptoms (caffeine, alcohol, artificial sweeteners, hot pepper, acidic foods), Avoidance of exercises, recreational activities, or body positions that worsen bladder symptoms, fluid management, or bladder training. Outpatient referral to a urologist Started on Premarin vaginal cream (5) Bipolar disorder: Appreciate psychiatry input Continue current medications (6) Electrolyte abnormality: hyponatremia, hypomagnesemia and hypophosphatemia all related to poor PO intake. Replace lites as needed Monitor (7) Status post fall: Had inpatient fall in the bathroom when ambulating S/P Head laceration Fall precautions (8) Acute DVT (deep venous thrombosis): On Eliquis (9) Hypothyroidism: Continue levothyroxine (10) DVT prophylaxis: Eliquis Code Status DNR/DNI Disposition SNF as able Admission and Anticipated Discharge Date Admission Date: August 03, 2020 Subjective Patient is seen and examined at bedside Offers no new complaints Denies chest pain, shortness of breath, dizziness, nausea, abdominal pain Waiting for placement Review of Systems Review of Systems: All systems reviewed & are unremarkable except as noted in HPI & below Physical Exam Physical Exam: Physical Exam: Vitals signs as noted above General Appearance:Thin, Frail, no apparent distress Head: normocephalic, Atraumatic Eyes: normal inspection, EOMI Neck: supple, Trachea midline Respiratory/Chest: Normal breath sounds, CTA Cardiovascular: S1, S2, No murmur Abdomen/GI:Soft, Non tender, Bowel sounds present Extremities/Musculoskeletal:normal inspection, No edema Neurologic/Psych:AAOX3, grossly no focal neurological deficits Skin: normal color, warm Results & Data Results & Data ([facility]) Vital Signs (Past 12 Hours) Vital Signs Temp Pulse Pulse Resp BP BP Pulse Ox 09/04/20 15:52 36.9 C 67 18 129/82 96 05/19/21 07:23 36.4 C L 63 16 125/74 95 (1) Bipolar disorder Active/Remission status: remission status unspecified Qualified Code(s): F31.9 - Bipolar disorder, unspecified
[2020-09-04] MEDS: DOCUSATE SODIUM/SENNA 50/8.6MG TAB PO SCH (22:03)
[2020-09-04] MEDS: FAMOTIDINE 10 MG TABLET PO SCH (22:04)
[2020-09-04] MEDS: MIRTAZAPINE TAB 15 MG TAB PO SCH (22:04)
[2020-09-04] MEDS: QUEtiapine FUMARATE 25 MG TABLET PO SCH (22:04)
[2020-09-05 05:48] LABS: Hematocrit (blood only) 34.5 % (37-47); Hemoglobin 11.8 g/dL (12.0-16.0); Mean Corpuscular Hemoglobin 33.6 pg (25-34); Mean Corpuscular Hgb Conc 34.2 g/dL (32-36); Mean Corpuscular Volume 98.3 fL (80-100); Mean Platelet Volume 8.4 fL (7.4-10.4); Platelet Count 189 K/uL (130-400); RDW Coefficient of Variation 15.5 % (11.5-14.5); RDW Standard Deviation 56.1 fL (36.4-46.3); Red Blood Count 3.51 M/uL (4.2-5.4); White Blood Count 4.29 K/uL (4.8-10.8)
[2020-09-05] MEDS: LEVOTHYROXINE SODIUM 50 MCG TABLET PO SCH (06:07)
[2020-09-05 06:17] LABS: BUN Creatinine Ratio 62.5 (10-20); Calcium 8.4 mg/dl (8.5-10.1); Creatinine Clr Calc Pharmacy 77.5 ml/min; Est GFR (African American) 126.6 ml/min; Est GFR (Non-African American) 109.3 ml/min; Potassium 3.9 mmol/L (3.5-5.1)
[2020-09-05] MEDS: APIXABAN 5 MG TABLET PO SCH ×2 (09:04→21:27)
[2020-09-05] MEDS: CEROVITE ADV FORMULA TAB PO SCH (09:05)
[2020-09-05] MEDS: GABAPENTIN 100 MG CAP PO SCH ×2 (09:05→21:27)
[2020-09-05] MEDS: POTASSIUM CHLORIDE CRTAB 20 MEQ TABCR PO SCH ×2 (09:05→21:27)
[2020-09-05] MEDS: PREMARIN VAG CRM 14 APPLN/30 GM TUBE PV SCH (09:05)
[2020-09-05] MEDS: PHENAZOPYRIDINE HCL 100 MG TAB PO SCH ×3 (09:05→21:27)
--- NOTE | 2020-09-05 14:52 | Psychiatric Progress Note ---
Date of Service September 05, 2020 Impression / Recommendations Impression 75 yo female with failure to thrive who Has been intermittently refusing meds and meals. Patient is also refusing long-term placement and additional supervision. Today 09/05/2020. Patient continues to intermittently refuse meals medications and simple procedures. He is unable to explain why patient is unable to verbalize alternatives to the procedure that she refuses. Patient is unable to verbalize any consistent way her reasons for refusing jail and any alternatives to that disposition. Patient unsafe to go home given failure to thrive difficulty thriving even in an environment with 24-hour supervision and care being provided [id number] is unlikely that she will be able to maintain her daily needs of life including eating hygiene and fluid intake if discharged home without 24-hour supervision. At this time patient has been deemed medically clear for placement. 302 petition initiated by primary team. 302 upheld after exam findings noted above. At this time patient does not need a one-to-one for her committed status as patient is not mobile without staff support due to her deconditioning and malnutrition. Risk Factors Assessment Do You Have Access To A Gun?: No Interval History Chief Complaint "I do not see anything tht will get me into TROUBLE AND I DO NOT FEEL LIKE TALKING". Subjective Subjective Patient was seen & assessed. Patient was being assessed on 302 petition based on her conditioning medically stable to transfer but not able to accept the options provided patient's chart reviewed. Patient's record by Dr. Montenegro reviewed. 75 yo female admitted to the hospital with failure to thrive who Has been intermittently refusing meds and meals, and minor medical care, such as EKG, Showers, and occasional refusal of blood work. . Patient is also refusing long-term placement and additional supervision, and reports her preference to go home. The patient is unable to consistently maintain capacity to refuse jail placement. Patient is also unable to explain why she does not eat all her meals, accept procedures or medications. Patient continues to report that I think sometimes I am full "I do not take them" I do not think I want to get fat either" she is unable to articulate alternatives to jail placement except to see "I will go home"She is unable to articulate ways to maintain her own safety at home. Patient also reporting that I do not want to say anything that will get me into trouble" she admits to some hopelessness and concerned that she does not know what the future holds" she denies active Suicidal thoughts Physical Exam Psychiatric Orientation: alert, oriented x 3, oriented to person, oriented to place, cooperative and + guarded Apperance: + disheveled and appeared stated age; + inappropriately dressed and + inappropriately groomed Eye Contact: + poor eye contact (even turning to face away from this provider) Motor Behavior: no abnormal motor movements (observed while laying in bed) and + psychomotor retardation; no psychomotor agitation and n tremor Selctively mute at times, refusing to answer questions Affect: + depressed affect, + flat affect and + constricted affect (To depressed/somnolent) Mood: + depressed mood and + anxious mood Thought Process: + perseveration and + concrete thought process Thought Content: + preoccupation, + hopelessness and + loneliness; no delusions Suicidal Thoughts: denies suicidal thoughts Homicidal Thoughts: denies homicidal thoughts Hallucinations: no auditory hallucinations and no visual hallucinations Cognition: remote memory grossly intact and language grossly intact; + recent memory not intact and + attention not intact Estimated Intelligence: consistent with education level Insight: + impaired insight and + severely impaired insight Judgement: + impaired judgement and + severely impaired judgement Vital Signs (Past 24 Hours) Last Vital Signs Temp 36.5 C 09/05/20 07:30 Pulse 70 09/05/20 07:30 Resp 18 09/05/20 07:30 BP 138/84 09/05/20 07:30 Pulse Ox 97 09/05/20 07:30 Full exam is deferred to the physical exam performed today 09/05/2020 Physical exam performed today by Dr. Montenegro Results & Data ([facility]) Laboratory Results Laboratory Results - last 24 hr 09/05/20 09/05/20 05:39 05:39 WBC 4.29 L RBC 3.51 L Hgb 11.8 L Hct 34.5 L MCV 98.3 MCH 33.6 MCHC 34.2 RDW Std Deviation 56.1 H RDW Coeff of Jackeline 15.5 H Plt Count 189 MPV 8.4 Sodium 136 Potassium 3.9 Chloride 103 Carbon Dioxide 31 Anion Gap 2.0 L BUN 19 H Creatinine 0.31 L Est Cr Clr Drug Dosing 77.5 Est GFR ( Amer) 126.6 Est GFR (Non-Af Amer) 109.3 BUN/Creatinine Ratio 62.5 H Glucose 96 Calcium 8.4 L Current Inpatient Medications Current Inpatient Medications: Current Inpatient Medications Apixaban (Apixaban 5 Mg Tablet) 5 mg PO BID [facility] Stop: 09/14/20 20:59 Last Admin: 09/05/20 09:04 Dose: Not Given Documented by: Bisacodyl (Bisacodyl 10 Mg Supp) 10 mg SC DAILY PRN PRN Reason: Constipation Stop: 09/10/20 16:26 Last Admin: 08/17/20 04:33 Dose: 10 mg Documented by: Dronabinol (Dronabinol 2.5 Mg Cap) 2.5 mg PO BID [facility] Stop: 09/12/20 18:17 Last Admin: 09/05/20 09:04 Dose: Not Given Documented by: Estrogens Conjugated (Premarin Vag Crm 14 Appln/30 Gm Tube) 1 appln PV DAILY [facility] Stop: 09/25/20 10:44 Last Admin: 09/05/20 09:05 Dose: Not Given Documented by: Famotidine (Famotidine 10 Mg Tablet) 10 mg PO HS [facility] Stop: 09/08/20 20:59 Last Admin: 09/04/20 22:04 Dose: Not Given Documented by: Gabapentin (Gabapentin 100 Mg Cap) 100 mg PO BID [facility] Stop: 10/03/20 20:59 Last Admin: 09/05/20 09:05 Dose: Not Given Documented by: Levothyroxine Sodium (Levothyroxine Sodium 50 Mcg Tablet) 50 mcg PO [id number] [facility] Stop: 10/04/20 07:59 Last Admin: 09/05/20 06:07 Dose: 50 mcg Documented by: Melatonin (Melatonin 3 Mg Tab) 3 mg PO HS PRN PRN Reason: Sleep Stop: 10/04/20 00:06 Last Admin: 09/04/20 00:10 Dose: 3 mg Documented by: Mirtazapine (Mirtazapine Tab 15 Mg Tab) 7.5 mg PO HS [facility] Stop: 09/17/20 20:59 Last Admin: 09/04/20 22:04 Dose: Not Given Documented by: Multivitamins/Minerals (Cerovite Adv Formula Tab) 1 tab PO QAM [facility] Stop: 10/04/20 08:59 Last Admin: 09/05/20 09:05 Dose: Not Given Documented by: Phenazopyridine HCl (Phenazopyridine Hcl 100 Mg Tab) 100 mg PO TID [facility] Stop: 09/23/20 20:59 Last Admin: 09/05/20 14:02 Dose: 100 mg Documented by: Potassium Chloride (Potassium Chloride Crtab 20 Meq Tabcr) 20 meq PO BID [facility] Stop: 09/14/20 20:59 Last Admin: 09/05/20 09:05 Dose: Not Given Documented by: Quetiapine Fumarate (Quetiapine Fumarate 25 Mg Tablet) 25 mg PO HS [facility] Stop: 09/11/20 20:59 Last Admin: 09/04/20 22:04 Dose: Not Given Documented by: Senna/Docusate Sodium (Docusate Sodium/Senna 50/8.6mg Tab) 2 tab PO QPM [facility] Stop: 09/16/20 20:59 Last Admin: 09/04/20 22:03 Dose: Not Given Documented by:
--- NOTE | 2020-09-05 19:02 | Hospitalist Progress Note ---
Date of Service September 05, 2020 Assessment & Plan (1) Adult failure to thrive: Dehydration and weight loss since past few months. Continue Marinol [employer] Consulted Needs placement Case management to help with discharge planning refuses meds (2) Severe protein-calorie malnutrition: Underweight due to poor oral intake Likely secondary to psychiatric issues. Continue thiamine, marinol. (3) UTI (urinary tract infection): Urine culture: Citrobacter--pansensitive Completed Rocephin course (4) Interstitial cystitis: Avoidance of activities or beverages that exacerbate symptoms (caffeine, alcohol, artificial sweeteners, hot pepper, acidic foods), Avoidance of exercises, recreational activities, or body positions that worsen bladder symptoms, fluid management, or bladder training. Outpatient referral to a urologist on Premarin vaginal cream (5) Bipolar disorder: Appreciate psychiatry input Continue current medications if agrees Refuses medications--noncompliant (6) Electrolyte abnormality: hyponatremia, hypomagnesemia and hypophosphatemia all related to poor PO intake. Replace lites as needed Monitor (7) Status post fall: Had inpatient fall in the bathroom when ambulating S/P Head laceration Fall precautions (8) Acute DVT (deep venous thrombosis): Refuses Eliquis (9) Hypothyroidism: Continue levothyroxine (10) DVT prophylaxis: Eliquis Code Status DNR/DNI Disposition To be determined Admission and Anticipated Discharge Date Admission Date: August 03, 2020 Subjective Patient is seen and examined at bedside Discussed with psychiatry. Refuses most medications Denies chest pain, shortness of breath, dizziness, nausea, abdominal pain Review of Systems Review of Systems: All systems reviewed & are unremarkable except as noted in HPI & below Physical Exam Physical Exam: Physical Exam: Vitals signs as noted above General Appearance:Thin, Frail, no apparent distress Head: normocephalic, Atraumatic Eyes: normal inspection, EOMI Neck: supple, Trachea midline Respiratory/Chest: Normal breath sounds, CTA Cardiovascular: S1, S2, No murmur Abdomen/GI:Soft, Non tender, Bowel sounds present Extremities/Musculoskeletal:normal inspection, No edema Neurologic/Psych:AAOX3, grossly no focal neurological deficits Skin: normal color, warm Results & Data Results & Data ([facility]) Vital Signs (Past 12 Hours) Vital Signs Temp Pulse Resp BP Pulse Ox 09/05/20 16:42 36.7 C 72 16 118/76 98 05/20/21 07:30 36.5 C 70 18 138/84 97 Laboratory Results Short CBC 09/05/20 Range/Units 05:39 WBC 4.29 L (4.8-10.8) K/uL Hgb 11.8 L (12.0-16.0) g/dL Hct 34.5 L (37-47) % Plt Count 189 (130-400) K/uL BMP 09/05/20 05:39 Sodium 136 Potassium 3.9 Chloride 103 Carbon Dioxide 31 BUN 19 H Creatinine 0.31 L Glucose 96 Calcium 8.4 L (1) Bipolar disorder Active/Remission status: remission status unspecified Qualified Code(s): F31.9 - Bipolar disorder, unspecified
[2020-09-05] MEDS: MIRTAZAPINE TAB 15 MG TAB PO SCH (21:27)
[2020-09-05] MEDS: DOCUSATE SODIUM/SENNA 50/8.6MG TAB PO SCH (21:27)
[2020-09-05] MEDS: QUEtiapine FUMARATE 25 MG TABLET PO SCH (21:27)
[2020-09-05] MEDS: FAMOTIDINE 10 MG TABLET PO SCH (21:27)
[2020-09-06] MEDS: LEVOTHYROXINE SODIUM 50 MCG TABLET PO SCH (06:09)
[2020-09-06] MEDS: PHENAZOPYRIDINE HCL 100 MG TAB PO SCH ×3 (08:21→21:55)
[2020-09-06] MEDS: APIXABAN 5 MG TABLET PO SCH ×2 (08:21→21:25)
[2020-09-06] MEDS: POTASSIUM CHLORIDE CRTAB 20 MEQ TABCR PO SCH ×2 (08:22→21:55)
[2020-09-06] MEDS: CEROVITE ADV FORMULA TAB PO SCH (08:22)
[2020-09-06] MEDS: PREMARIN VAG CRM 14 APPLN/30 GM TUBE PV SCH (08:22)
[2020-09-06] MEDS: GABAPENTIN 100 MG CAP PO SCH ×2 (08:22→21:55)
[2020-09-06 14:56] LABS: Appearance Urine Slightly Cloudy (Clear); Color Urine Orange
[2020-09-06 14:57] LABS: Specific Gravity Urine 1.004 (1.000-1.030)
[2020-09-06 15:04] LABS: Amorphous Sediment Urine Present (None Prsent)
[2020-09-06 15:05] LABS: Bacteria Urine Negative (Negative); RBC Urine 0-4 /hpf (0-4)
[2020-09-06 15:14] LABS: Amphetamines+Metham, Urine Neg (Neg); Barbiturates, Urine Neg (Neg); Benzodiazepine, Urine Neg (Neg); Cocaine, Urine Neg (Neg); MDMA (Ecstacy), Urine Neg (Neg); Methadone, Urine Neg (Neg); Opiate, Urine Neg (Neg); Phencyclidine, Urine Neg (Neg)
--- NOTE | 2020-09-06 15:39 | Psychiatric Progress Note ---
Date of Service September 06, 2020 Impression / Recommendations Impression 75 yo female with failure to thrive who Has been intermittently refusing meds and meals. Patient is also refusing residential placement and additional supervision. Today 09/06/2020-patient continues to intermittently refuse meals and medication. It is my opinion that her refusal of medications continues to contribute to her failure to thrive. This puts her at risk for serious disability from malnutrition which she has already experienced, this puts her at possible risk of from malnutrition if left alone. Without intervention with psychiatric medications Ms. Bradford will continue to remain ill will continue to exhibit poor insight and poor judgment and will continue her current state of disability. Ms. Bradford is a candidate for medications over objection. Would consider intramuscular Zyprexa 2.5 mg IM over objection once her hearing over 303 is completed. Psychiatry will continue to follow with you. Today 09/05/2020. Patient continues to intermittently refuse meals medications and simple procedures. He is unable to explain why patient is unable to verbalize alternatives to the procedure that she refuses. Patient is unable to verbalize any consistent way her reasons for refusing fdc and any alternatives to that disposition. Patient unsafe to go home given failure to thrive difficulty thriving even in an environment with 24-hour supervision and care being provided [id number] is unlikely that she will be able to maintain her daily needs of life including eating hygiene and fluid intake if discharged home without 24-hour supervision. At this time patient has been deemed medically clear for placement. 302 petition initiated by primary team. 302 upheld after exam findings noted above. At this time patient does not need a one-to-one for her committed status as patient is not mobile without staff support due to her deconditioning and malnutrition. Risk Factors Assessment Do You Have Access To A Gun?: No Interval History Chief Complaint "[I think I am fine]". Subjective Subjective 75 yo female admitted to the hospital with failure to thrive who Has been intermittently refusing meds and meals, and minor medical care, such as EKG, Showers, and occasional refusal of blood work. . Patient is also refusing residential placement and additional supervision, and reports her preference to go home. The patient is unable to consistently maintain capacity to refuse medications or placement. When reviewed and seen today 09/06/2020 patient admits to depression. Patient continues to refuse 90% of her medications without being able to express why between 510 and 517 she refused all her quetiapine accepted quetiapine just 519 and 520 between 5 5 and 520 she has refused all her Remeron her somatic meds she has also refused 85% of the time. She also is inconsistent with her meals and her hydration and requires a lot of support and encouragement to eat her meals. When asked why she refuses these she says well I do not know I do not think they are working I do not think I need. Patient however continues to endorse depression. What you think I have to live for." I have no money and is a long story" I do not see anything that would get me into trouble" while denying intent to act on suicidal thoughts in the hospital. Patient remains guarded about her plans when she leaves. She is only able to say I want to go home" She is not willing renal conversation today to discuss a safety plan at home, options for meals, how to get help if she needs it. She denies auditory or visual hallucinations there is no evidence of response to internal stimuli at this time. While patient is able to discuss today's date and where she is placed she is unable to fully discuss her options for treatment of her reasons for refusal and options for safe placement and ability to maintain her needs of food and correction. This is due to her psychiatric illness, mainly her depression, possible some psychosis. Physical Exam Psychiatric Orientation: alert, oriented to person, oriented to place and + guarded; + not oriented x 3 and + uncooperative Apperance: + disheveled and appeared stated age; + inappropriately dressed and + inappropriately groomed Eye Contact: + fair eye contact; + not good eye contact and not poor eye contact (even turning to face away from this provider) Motor Behavior: + psychomotor retardation; + abnormal motor movements (observed while laying in bed), no psychomotor agitation and n tremor Speech: + mute; + abnormal rate/rhythm/volume of speech selectively mute and not answering questions, despite being told this is a health exam Affect: + depressed affect, + flat affect and + constricted affect (To depressed/somnolent) Mood: + depressed mood and + anxious mood Thought Process: + perseveration and + concrete thought process Thought Content: + preoccupation, + hopelessness and + loneliness; no delusions Suicidal Thoughts: denies suicidal thoughts Homicidal Thoughts: denies homicidal thoughts Hallucinations: no auditory hallucinations and no visual hallucinations Cognition: remote memory grossly intact and language grossly intact; + recent memory not intact and + attention not intact Estimated Intelligence: consistent with education level Insight: + severely impaired insight; not limited insight, not poor insight and not impaired insight Judgement: + severely impaired judgement; not poor judgement and not impaired judgement Vital Signs (Past 24 Hours) Last Vital Signs Temp 36.7 C 09/06/20 07:33 Pulse 75 09/06/20 07:33 Resp 16 09/06/20 07:33 BP 127/77 09/06/20 07:33 Pulse Ox 97 09/06/20 07:33 Full exam is deferred to the physical exam performed today 09/06/2020 Physical exam performed today by the hospitalist Results & Data ([facility] [place]) Laboratory Results Laboratory Results - last 24 hr 09/06/20 09/06/20 09/06/20 13:47 13:47 14:10 Urine Color [place] Urine Appearance Slightly Cloudy Urine pH Ur Specific [place] 1.004 Urine Protein Urine Glucose (UA) Urine Ketones Urine Blood Urine Nitrite Urine Bilirubin Urine Urobilinogen Ur Leukocyte Esterase Urine RBC 0-4 Urine WBC 5-10 H Ur Epithelial Cells 10-20 H Amorphous Sediment Present A Urine Bacteria Negative Urine Opiates Screen Ur Methadone, Qual Urine Barbiturates Ur Phencyclidine (PCP) U Amphetamin/Meth Scrn MDMA (Ecstasy) Screen U Benzodiazepines Scrn Ur Cocaine Metabolite U Marijuana (THC) Screen COVID-19 Eval Order Covid19 IDNow [facility] SARS-CoV-2, RNA, NAAT NEGATIVE 09/06/20 14:10 Urine Color Urine Appearance Urine pH Ur Specific [place] Urine Protein Urine Glucose (UA) Urine Ketones Urine Blood Urine Nitrite Urine Bilirubin Urine Urobilinogen Ur Leukocyte Esterase Urine RBC Urine WBC Ur Epithelial Cells Amorphous Sediment Urine Bacteria Urine Opiates Screen Neg Ur Methadone, Qual Neg Urine Barbiturates Neg Ur Phencyclidine (PCP) Neg U Amphetamin/Meth Scrn Neg MDMA (Ecstasy) Screen Neg U Benzodiazepines Scrn Neg Ur Cocaine Metabolite Neg U Marijuana (THC) Screen Neg COVID-19 Eval Order SARS-CoV-2, RNA, NAAT Current Inpatient Medications Current Inpatient Medications: Current Inpatient Medications Apixaban (Apixaban 5 Mg Tablet) 5 mg PO BID [facility] Stop: 09/14/20 20:59 Last Admin: 09/06/20 08:21 Dose: 5 mg Documented by: Bisacodyl (Bisacodyl 10 Mg Supp) 10 mg [place] DAILY PRN PRN Reason: Constipation Stop: 09/10/20 16:26 Last Admin: 08/17/20 04:33 Dose: 10 mg Documented by: Dronabinol (Dronabinol 2.5 Mg Cap) 2.5 mg PO BID [facility]LE[facility]AN[facility] Stop: 09/12/20 18:17 Last Admin: 09/06/20 08:22 Dose: Not Given Documented by: Estrogens Conjugated (Premarin Vag Crm 14 Appln/30 Gm Tube) 1 appln PV DAILY [facility] Stop: 09/25/20 10:44 Last Admin: 09/06/20 08:22 Dose: Not Given Documented by: Famotidine (Famotidine 10 Mg Tablet) 10 mg PO HS [facility] Stop: 09/08/20 20:59 Last Admin: 09/05/20 21:27 Dose: Not Given Documented by: Gabapentin (Gabapentin 100 Mg Cap) 100 mg PO BID [facility] Stop: 10/03/20 20:59 Last Admin: 09/06/20 08:22 Dose: Not Given Documented by: Levothyroxine Sodium (Levothyroxine Sodium 50 Mcg Tablet) 50 mcg PO [id number] [facility] Stop: 10/04/20 07:59 Last Admin: 09/06/20 06:09 Dose: 50 mcg Documented by: Melatonin (Melatonin 3 Mg Tab) 3 mg PO HS PRN PRN Reason: Sleep Stop: 10/04/20 00:06 Last Admin: 09/04/20 00:10 Dose: 3 mg Documented by: Mirtazapine (Mirtazapine Tab 15 Mg Tab) 7.5 mg PO HS [facility] Stop: 09/17/20 20:59 Last Admin: 09/05/20 21:27 Dose: Not Given Documented by: Multivitamins/Minerals (Cerovite Adv Formula Tab) 1 tab PO QAM [facility]ANDR[facility] Stop: 10/04/20 08:59 Last Admin: 09/06/20 08:22 Dose: Not Given Documented by: Phenazopyridine HCl (Phenazopyridine Hcl 100 Mg Tab) 100 mg PO TID [facility] Stop: 09/23/20 20:59 Last Admin: 09/06/20 13:50 Dose: Not Given Documented by: Potassium Chloride (Potassium Chloride Crtab 20 Meq Tabcr) 20 meq PO BID [facility] Stop: 09/14/20 20:59 Last Admin: 09/06/20 08:22 Dose: Not Given Documented by: Quetiapine Fumarate (Quetiapine Fumarate 25 Mg Tablet) 25 mg PO HS [facility] Stop: 09/11/20 20:59 Last Admin: 09/05/20 21:27 Dose: Not Given Documented by: Senna/Docusate Sodium (Docusate Sodium/Senna 50/8.6mg Tab) 2 tab PO QPM [facility]LE[facility]ANDR[facility] Stop: 09/16/20 20:59 Last Admin: 09/05/20 21:27 Dose: Not Given Documented by:
--- NOTE | 2020-09-06 17:01 | Hospitalist Progress Note ---
Date of Service September 06, 2020 Assessment & Plan (1) Adult failure to thrive: Dehydration and weight loss since past few months. Continue Marinol [employer] Consulted Needs placement Case management to help with discharge planning refuses most medications Waiting for placement (2) Severe protein-calorie malnutrition: Underweight due to poor oral intake Likely secondary to psychiatric issues. Continue thiamine, marinol if patient agrees to take them (3) UTI (urinary tract infection): Urine culture: Citrobacter--pansensitive Completed Rocephin course (4) Interstitial cystitis: Avoidance of activities or beverages that exacerbate symptoms (caffeine, alcohol, artificial sweeteners, hot pepper, acidic foods), Avoidance of exercises, recreational activities, or body positions that worsen bladder symptoms, fluid management, or bladder training. Outpatient referral to a urologist on Premarin vaginal cream (5) Bipolar disorder: Appreciate psychiatry input Continue current medications if agrees Refuses medications--noncompliant (6) Electrolyte abnormality: hyponatremia, hypomagnesemia and hypophosphatemia all related to poor PO intake. Replace lites as needed Monitor (7) Status post fall: Had inpatient fall in the bathroom when ambulating S/P Head laceration Fall precautions (8) Acute DVT (deep venous thrombosis): Refuses Eliquis (9) Hypothyroidism: Continue levothyroxine (10) DVT prophylaxis: Eliquis Code Status DNR/DNI Disposition Waiting for placement Admission and Anticipated Discharge Date Admission Date: August 03, 2020 Subjective Patient is seen and examined at bedside Offers no new complaints States taking some of her medications today Denies chest pain, shortness of breath, dizziness, nausea, abdominal pain Waiting for placement Review of Systems Review of Systems: All systems reviewed & are unremarkable except as noted in HPI & below Physical Exam Physical Exam: Physical Exam: Vitals signs as noted above General Appearance:Thin, Frail, no apparent distress Head: normocephalic, Atraumatic Eyes: normal inspection, EOMI Neck: supple, Trachea midline Respiratory/Chest: Normal breath sounds, CTA Cardiovascular: S1, S2, No murmur Abdomen/GI:Soft, Non tender, Bowel sounds present Extremities/Musculoskeletal:normal inspection, No edema Neurologic/Psych:AAOX3, grossly no focal neurological deficits Skin: normal color, warm Results & Data Results & Data ([facility] [place]) Vital Signs (Past 12 Hours) Vital Signs Temp Pulse Resp BP Pulse Ox 09/06/20 16:32 36.7 C 70 16 136/84 96 09/06/20 07:33 36.7 C 75 16 127/77 97 Laboratory Results Urine 09/06/20 Range/Units 14:10 Urine Color [place] Urine Appearance Slightly Cloudy (Clear) Urine pH (4.5-7.5) Ur Specific [place] 1.004 (1.000-1.030) Urine Protein (Negative) Urine Glucose (UA) (Negative) (1) Bipolar disorder Active/Remission status: remission status unspecified Qualified Code(s): F31.9 - Bipolar disorder, unspecified
[2020-09-06] MEDS ORDERED: ACETAMINOPHEN 325 MG TAB PO PRN (19:28)
--- NOTE | 2020-09-06 20:31 | CT Scan Report ---
HEAD CT NONCONTRAST CT DOSE: 1110.15 mGy.cm HISTORY: Headache. Neck pain. TECHNIQUE: Multiaxial CT images of the head were performed without the use of intravenous contrast. A utomated exposure control was utilized for this study. A dose lowering technique was utilized adheri ng to the principles of ALARA. Comparison: Head CT 08/11/2020. Findings: The paranasal sinuses and mastoid air cells are clear. The calvarium and skull base are int act. There is no mass, hematoma, midline shift, acute infarct. White matter hypodensity is nonspecifi c but suggestive of microvascular ischemic change. The ventricles and sulci demonstrate mild age-rela luz involutional changes. Impression: No significant change compared to the prior study. No acute intracranial abnormality. ACT 112: Negative or not required by law. Electronically signed by: Christiano Engel M.D. 09/06/2020 8:30 PM
--- NOTE | 2020-09-06 20:36 | CT Scan Report ---
CERVICAL SPINE CT CT DOSE: HISTORY: neck pain TECHNIQUE: Multiaxial CT images of the cervical spine were performed and reformatted in the sagittal and coronal plane without the use of contrast. A dose lowering technique was utilized adhering to th e principles of ALARA. COMPARISON: None. FINDINGS: No fractures. No subluxation. Prevertebral soft tissues and the C1-C2 interval are intact. No pneumothorax. Bilateral pleural effusions are partially visualized. Suspect diffuse edema within t he soft tissues of the neck. Straightening of the cervical spine. Moderate to severe facet degenerati ve changes and degenerative disc disease seen throughout the cervical spine. There is mild central ca nal narrowing from C4 through the C6 levels due to the posterior disc osteophyte complexes. IMPRESSION: No fractures within the cervical spine. Moderate to severe degenerative changes as described above. ACT 112: Negative or not required by law. Electronically signed by: Christiano Engel M.D. 09/06/2020 8:34 PM
[2020-09-06] MEDS: QUEtiapine FUMARATE 25 MG TABLET PO SCH (21:25)
[2020-09-06] MEDS: FAMOTIDINE 10 MG TABLET PO SCH (21:55)
[2020-09-06] MEDS: DOCUSATE SODIUM/SENNA 50/8.6MG TAB PO SCH (21:55)
[2020-09-06] MEDS: MIRTAZAPINE TAB 15 MG TAB PO SCH (21:55)
[2020-09-07] MEDS: PREMARIN VAG CRM 14 APPLN/30 GM TUBE PV SCH (09:23)
[2020-09-07] MEDS: GABAPENTIN 100 MG CAP PO SCH ×2 (09:23→21:34)
[2020-09-07] MEDS: CEROVITE ADV FORMULA TAB PO SCH (09:23)
[2020-09-07] MEDS: POTASSIUM CHLORIDE CRTAB 20 MEQ TABCR PO SCH ×2 (09:23→21:34)
[2020-09-07] MEDS: APIXABAN 5 MG TABLET PO SCH ×3 (09:23→21:24)
[2020-09-07] MEDS: PHENAZOPYRIDINE HCL 100 MG TAB PO SCH ×3 (09:23→21:34)
--- NOTE | 2020-09-07 11:52 | Psychiatric Progress Note ---
Date of Service September 07, 2020 Impression / Recommendations Impression 75 yo female with a history of bipolar depression and FTT (seemingly due to co- morbid cognitive decline though nutritional depletion also contributing). She has a high level of education for her age and covers for some of her cognitive deficits quite well but continues to be unable to engage in discussion around her inability to live independently. She just restarted Seroquel last night with benefit but voices clear preferences re: mood stabilizinng medication. She selectively refuses marinol as believes she was "binge eating" rather than refeeding. Was placed on 302 commitment as when refusing psych meds her d epression and ability to participate in her care worsen with decreased PO. 302 was initial step for monitoring should she require forced psych meds. Will confirm daughter's preferences re: forced meds as bed search for appropriate psych bed (prefer ary) continues. In the meantime, patient is amenable to a trial of Zyprexa zydis this has as "not Seroquel" and doesn't need to swallow. Would benefit from more social interaction/therapeutic millieu. Engage with patient while eats without pointing out weight or encourage to eat seems most effective. Risk Factors Assessment Do You Have Access To A Gun?: No Interval History Identifying Information patient known to me from previous contacts earlier in stay, placed on a 302 commitment on 09/05 given refusal of psych meds resulting in worsening depression and PO intake and belief that hopelessness was contributing to refusal of appropriate level of nursing care upon discharge. Chief Complaint "That Seroquel stuff messes me up, of course I'm depressed in here. Aren't I leaving today?" Review of Systems Notes patient unable to complete reliably Subjective Subjective Patient was seen & assessed and interval progress reviewed with liaison and Dr. Sánchez (yesterday) who gave a first opinion for psychiatric medications over objection. Discussed case 09/06 with 3S nursing techn given care needs and liaison staff are now to assist with hs med compliance. Although patient generally complains about feeling worse after Seroquel she is clearly more engaged in speaking with me today, less delay in response and sat up to eat her eggs and garrett, even requesting more. She does not like being encouraged to eat and continues with somatic preoccupation about the temperature of drinks. She continues with some degree of body dysmorphia in that feels she is too thin but "doesn't feel right" when eats more, denies that anything is poisoned at this time or that she needs excessive fluids to treat UTI, etc. Soon after visit she ambulated and toileted (BM) independently. Physical Exam Psychiatric Orientation: alert, oriented to person and oriented to place Apperance: appropriately groomed Eye Contact: + fair eye contact Motor Behavior: no abnormal motor movements non spontaneous speech Affect: + depressed affect Mood: + depressed mood Thought Process: + concrete thought process Thought Content: + hopelessness Suicidal Thoughts: denies suicidal thoughts (in that doesn't want to self harm but states repeatedly "what's the point?") Homicidal Thoughts: denies homicidal thoughts Hallucinations: no auditory hallucinations and no visual hallucinations Cognition: + attention not intact Estimated Intelligence: + above average estimated intelligence Judgement: + severely impaired judgement Vital Signs (Past 24 Hours) Last Vital Signs Temp 36.3 C L 09/07/20 07:27 Pulse 70 09/07/20 07:27 Resp 14 09/07/20 07:27 BP 134/84 09/07/20 07:27 Pulse Ox 99 09/07/20 07:27 Full exam is deferred to the physical exam performed today 09/06/2020 Physical exam performed today by the hospitalist Results & Data ([facility]) Laboratory Results Laboratory Results - last 24 hr 09/06/20 09/06/20 09/06/20 13:47 13:47 14:10 Urine Color [place] Urine Appearance Slightly Cloudy Urine pH Ur Specific [place] 1.004 Urine Protein Urine Glucose (UA) Urine Ketones Urine Blood Urine Nitrite Urine Bilirubin Urine Urobilinogen Ur Leukocyte Esterase Urine RBC 0-4 Urine WBC 5-10 H Ur Epithelial Cells 10-20 H Amorphous Sediment Present A Urine Bacteria Negative Urine Opiates Screen Ur Methadone, Qual Urine Barbiturates Ur Phencyclidine (PCP) U Amphetamin/Meth Scrn MDMA (Ecstasy) Screen U Benzodiazepines Scrn Ur Cocaine Metabolite U Marijuana (THC) Screen COVID-19 Eval Order Covid19 IDNow [facility] SARS-CoV-2, RNA, NAAT NEGATIVE 09/06/20 14:10 Urine Color Urine Appearance Urine pH Ur Specific [place] Urine Protein Urine Glucose (UA) Urine Ketones Urine Blood Urine Nitrite Urine Bilirubin Urine Urobilinogen Ur Leukocyte Esterase Urine RBC Urine WBC Ur Epithelial Cells Amorphous Sediment Urine Bacteria Urine Opiates Screen Neg Ur Methadone, Qual Neg Urine Barbiturates Neg Ur Phencyclidine (PCP) Neg U Amphetamin/Meth Scrn Neg MDMA (Ecstasy) Screen Neg U Benzodiazepines Scrn Neg Ur Cocaine Metabolite Neg U Marijuana (THC) Screen Neg COVID-19 Eval Order SARS-CoV-2, RNA, NAAT Current Inpatient Medications Current Inpatient Medications: Current Inpatient Medications Acetaminophen (Acetaminophen 325 Mg Tab) 650 mg PO Q6H PRN PRN Reason: Fever Stop: 10/06/20 19:27 Apixaban (Apixaban 5 Mg Tablet) 5 mg PO BID [facility] Stop: 09/14/20 20:59 Last Admin: 09/07/20 09:23 Dose: Not Given Documented by: Bisacodyl (Bisacodyl 10 Mg Supp) 10 mg [place] DAILY PRN PRN Reason: Constipation Stop: 09/10/20 16:26 Last Admin: 08/17/20 04:33 Dose: 10 mg Documented by: Dronabinol (Dronabinol 2.5 Mg Cap) 2.5 mg PO BID [facility] Stop: 09/12/20 18:17 Last Admin: 09/07/20 09:23 Dose: Not Given Documented by: Estrogens Conjugated (Premarin Vag Crm 14 Appln/30 Gm Tube) 1 appln PV DAILY [facility] Stop: 09/25/20 10:44 Last Admin: 09/07/20 09:23 Dose: Not Given Documented by: Famotidine (Famotidine 10 Mg Tablet) 10 mg PO HS [facility]ANDR[facility] Stop: 09/08/20 20:59 Last Admin: 09/06/20 21:55 Dose: Not Given Documented by: Gabapentin (Gabapentin 100 Mg Cap) 100 mg PO BID [facility] Stop: 10/03/20 20:59 Last Admin: 09/07/20 09:23 Dose: Not Given Documented by: Levothyroxine Sodium (Levothyroxine Sodium 50 Mcg Tablet) 50 mcg PO [id number] [facility] Stop: 10/04/20 07:59 Last Admin: 09/06/20 06:09 Dose: 50 mcg Documented by: Melatonin (Melatonin 3 Mg Tab) 3 mg PO HS PRN PRN Reason: Sleep Stop: 10/04/20 00:06 Last Admin: 09/04/20 00:10 Dose: 3 mg Documented by: Multivitamins/Minerals (Cerovite Adv Formula Tab) 1 tab PO QAM [facility]LE[facility]ANDRO Stop: 10/04/20 08:59 Last Admin: 09/07/20 09:23 Dose: Not Given Documented by: Phenazopyridine HCl (Phenazopyridine Hcl 100 Mg Tab) 100 mg PO TID [facility]LE[facility]ANDR[facility] Stop: 09/23/20 20:59 Last Admin: 09/07/20 09:23 Dose: Not Given Documented by: Potassium Chloride (Potassium Chloride Crtab 20 Meq Tabcr) 20 meq PO BID [facility]LE[facility]ANDRO Stop: 09/14/20 20:59 Last Admin: 09/07/20 09:23 Dose: Not Given Documented by: Senna/Docusate Sodium (Docusate Sodium/Senna 50/8.6mg Tab) 2 tab PO QPM [facility]AN[facility] Stop: 09/16/20 20:59 Last Admin: 09/06/20 21:55 Dose: Not Given Documented by:
--- NOTE | 2020-09-07 16:22 | Hospitalist Progress Note ---
Date of Service September 07, 2020 Assessment & Plan (1) Adult failure to thrive: Dehydration and weight loss since past few months. 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 Continue thiamine, marinol if patient agrees to take them (3) UTI (urinary tract infection): Urine culture: Citrobacter--pansensitive Completed Rocephin course (4) Interstitial cystitis: Avoidance of activities or beverages that exacerbate symptoms (caffeine, alcohol, artificial sweeteners, hot pepper, acidic foods), Avoidance of exercises, recreational activities, or body positions that worsen bladder symptoms, fluid management, or bladder training. Outpatient referral to a urologist on Premarin vaginal cream (5) Bipolar disorder: Appreciate psychiatry input Continue current medications if agrees Refuses medications--noncompliant Started on Zyprexa (6) Electrolyte abnormality: hyponatremia, hypomagnesemia and hypophosphatemia all related to poor PO intake. Replace lites as needed Monitor (7) Status post fall: Had inpatient fall in the bathroom when ambulating S/P Head laceration Fall precautions (8) Acute DVT (deep venous thrombosis): Refuses Eliquis (9) Hypothyroidism: Continue levothyroxine (10) DVT prophylaxis: Eliquis Code Status DNR/DNI Disposition Waiting for placement Admission and Anticipated Discharge Date Admission Date: August 03, 2020 Subjective Patient is seen and examined at bedside States eating well today Continues to refuse some of the meds Denies chest pain, shortness of breath, dizziness, nausea, abdominal pain Review of Systems Review of Systems: All systems reviewed & are unremarkable except as noted in HPI & below Physical Exam Physical Exam: Physical Exam: Vitals signs as noted above General Appearance:Thin, Frail, no apparent distress Head: normocephalic, Atraumatic Eyes: normal inspection, EOMI Neck: supple, Trachea midline Respiratory/Chest: Normal breath sounds, CTA Cardiovascular: S1, S2, No murmur Abdomen/GI:Soft, Non tender, Bowel sounds present Extremities/Musculoskeletal:normal inspection, No edema Neurologic/Psych:AAOX3, grossly no focal neurological deficits Skin: normal color, warm Results & Data Results & Data ([facility]) Vital Signs (Past 12 Hours) Vital Signs Temp Pulse Resp BP Pulse Ox 09/07/20 07:27 36.3 C L 70 14 134/84 99 (1) Bipolar disorder Active/Remission status: remission status unspecified Qualified Code(s): F31.9 - Bipolar disorder, unspecified
[2020-09-07] MEDS: OLANZapine ZYDIS 5 MG ORALLY DIS. TAB PO SCH (21:24)
[2020-09-07] MEDS: DOCUSATE SODIUM/SENNA 50/8.6MG TAB PO SCH (21:34)
[2020-09-07] MEDS: FAMOTIDINE 10 MG TABLET PO SCH (21:35)
[2020-09-08] MEDS: APIXABAN 5 MG TABLET PO SCH ×2 (08:11→22:31)
[2020-09-08] MEDS: CEROVITE ADV FORMULA TAB PO SCH (08:19)
[2020-09-08] MEDS: GABAPENTIN 100 MG CAP PO SCH ×2 (08:19→22:34)
[2020-09-08] MEDS: PHENAZOPYRIDINE HCL 100 MG TAB PO SCH ×3 (08:19→22:28)
[2020-09-08] MEDS: PREMARIN VAG CRM 14 APPLN/30 GM TUBE PV SCH (08:19)
[2020-09-08] MEDS: POTASSIUM CHLORIDE CRTAB 20 MEQ TABCR PO SCH (08:20)
--- NOTE | 2020-09-08 12:22 | Psychiatric Progress Note ---
Date of Service September 08, 2020 Impression / Recommendations Impression 75 yo female with a history of bipolar depression and FTT (seemingly due to co- morbid cognitive decline though nutritional depletion also contributing). She has a high level of education for her age and covers for some of her cognitive deficits quite well but continues to be unable to engage in discussion around her inability to live independently. On 302 commitment with active bed search for more aggressive treatment of depression as not taking psych meds consistently prior to 302 and this results in decline, more hoplessness/passive defiance of team recs. She is not agitated or aggressive. She is somatically preoccupied re: her weight, other physicial conditions and financial circumstances which is consistent with ruminative bipolar depression. Contacted daughter directly by phone this am to encourage mental health provisisions be included in POA document. 30 min discussion of her hospital course, current and past bipolar symptoms, and nutritional status also contributing to her mother's cognitive decline. She expressed concerns about possible Covid infection last Spring, reviewed that I doubt long haul symptoms alone would account for this level of symptoms. Reviewed indication for mood stabilizer, risks/benefits/alternatives of atypicals in the elderly and she is supportive of "any and all means to get depression medications into mom" at this point given that without treatment "she'll probably ". Denies prior hx of ED, ie anorexia nervosa. Discussed ongoing bed search, complexities of placement options, and that capacity can change on a day to day basis and is specific to the item/intervention that is being consented to. Reviewed that would need to consider 303 petition. Risk Factors Assessment Do You Have Access To A Gun?: No Interval History Identifying Information patient known to me from previous contacts earlier in stay, placed on a 302 commitment on 09/05 given refusal of psych meds resulting in worsening depression and PO intake and belief that hopelessness was contributing to refusal of appropriate level of nursing care upon discharge. Chief Complaint patient resting this am after breakfast Review of Systems Notes patient unable to complete Subjective Subjective Patient was seen & assessed and interval progress reviewed with nursing. No acute issues overnight. Accepted first dose of Zyprexa Zydis with assistance of psychiatric liaison. Per CM she is 1 assist to bathroom (fall precautions) and is ambulating up to 250 ft with PT. Physical Exam Mental Examination limited due to sedation this am, not clear related to Zyprexa or time of visit, no abnormal motor movements. Vital Signs (Past 24 Hours) Last Vital Signs Temp 36.7 C 09/08/20 07:36 Pulse 75 09/08/20 07:36 Resp 16 09/08/20 07:36 BP 118/76 09/08/20 07:36 Pulse Ox 95 09/08/20 07:36 Full exam is deferred to the physical exam performed today 09/06/2020 Physical exam performed today by the hospitalist Results & Data ([facility]) Current Inpatient Medications Current Inpatient Medications: Current Inpatient Medications Acetaminophen (Acetaminophen 325 Mg Tab) 650 mg PO Q6H PRN PRN Reason: Fever Stop: 10/06/20 19:27 Apixaban (Apixaban 5 Mg Tablet) 5 mg PO BID [facility] Stop: 09/14/20 20:59 Last Admin: 09/08/20 08:11 Dose: 5 mg Documented by: Bisacodyl (Bisacodyl 10 Mg Supp) 10 mg NM DAILY PRN PRN Reason: Constipation Stop: 09/10/20 16:26 Last Admin: 08/17/20 04:33 Dose: 10 mg Documented by: Dronabinol (Dronabinol 2.5 Mg Cap) 2.5 mg PO BID [facility] Stop: 09/12/20 18:17 Last Admin: 09/08/20 08:19 Dose: Not Given Documented by: Estrogens Conjugated (Premarin Vag Crm 14 Appln/30 Gm Tube) 1 appln PV DAILY A[facility]AN[facility] Stop: 09/25/20 10:44 Last Admin: 09/08/20 08:19 Dose: Not Given Documented by: Famotidine (Famotidine 10 Mg Tablet) 10 mg PO HS [facility]AN[facility] Stop: 09/08/20 20:59 Last Admin: 09/07/20 21:35 Dose: Not Given Documented by: Gabapentin (Gabapentin 100 Mg Cap) 100 mg PO BID [facility] Stop: 10/03/20 20:59 Last Admin: 09/08/20 08:19 Dose: Not Given Documented by: Levothyroxine Sodium (Levothyroxine Sodium 50 Mcg Tablet) 50 mcg PO [id number] [facility] Stop: 10/04/20 07:59 Last Admin: 09/06/20 06:09 Dose: 50 mcg Documented by: Melatonin (Melatonin 3 Mg Tab) 3 mg PO HS PRN PRN Reason: Sleep Stop: 10/04/20 00:06 Last Admin: 09/04/20 00:10 Dose: 3 mg Documented by: Multivitamins/Minerals (Cerovite Adv Formula Tab) 1 tab PO QAM [facility]AN[facility] Stop: 10/04/20 08:59 Last Admin: 09/08/20 08:19 Dose: Not Given Documented by: Olanzapine (Olanzapine Zydis 5 Mg Orally Dis. Tab) 2.5 mg PO HS [facility]LEJAN[facility]O Stop: 10/07/20 20:59 Last Admin: 09/07/20 21:24 Dose: 2.5 mg Documented by: Phenazopyridine HCl (Phenazopyridine Hcl 100 Mg Tab) 100 mg PO TID ALEJANDRO Stop: 09/23/20 20:59 Last Admin: 09/08/20 08:19 Dose: Not Given Documented by: Potassium Chloride (Potassium Chloride Crtab 20 Meq Tabcr) 20 meq PO BID [facility]LEJAN[facility] Stop: 09/14/20 20:59 Last Admin: 09/08/20 08:20 Dose: Not Given Documented by: Senna/Docusate Sodium (Docusate Sodium/Senna 50/8.6mg Tab) 2 tab PO QPM A[facility]AN[facility] Stop: 09/16/20 20:59 Last Admin: 09/07/20 21:34 Dose: Not Given Documented by:
--- NOTE | 2020-09-08 16:44 | Hospitalist Progress Note ---
Date of Service September 08, 2020 Assessment & Plan (1) Adult failure to thrive: Dehydration and weight loss since past few months. 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 Continue thiamine, marinol if patient agrees to take them Display And Banner Designer consulted Encourage increased oral intake (3) UTI (urinary tract infection): Urine culture: Citrobacter--pansensitive Completed Rocephin course (4) Interstitial cystitis: Avoidance of activities or beverages that exacerbate symptoms (caffeine, alcohol, artificial sweeteners, hot pepper, acidic foods), Avoidance of exercises, recreational activities, or body positions that worsen bladder symptoms, fluid management, or bladder training. Outpatient referral to a urologist on Premarin vaginal cream (5) Bipolar disorder: Appreciate psychiatry input Continue current medications if agrees Refuses medications--noncompliant Continue Zyprexa (6) Electrolyte abnormality: hyponatremia, hypomagnesemia and hypophosphatemia all related to poor PO intake. Replace lites as needed Monitor (7) Status post fall: Had inpatient fall in the bathroom when ambulating S/P Head laceration Fall precautions (8) Acute DVT (deep venous thrombosis): Refuses Eliquis (9) Hypothyroidism: Continue levothyroxine (10) DVT prophylaxis: Eliquis Code Status DNR/DNI Disposition Waiting for placement Admission and Anticipated Discharge Date Admission Date: August 03, 2020 Subjective Patient is seen and examined at bedside No new complaints Denies chest pain, shortness of breath, dizziness, nausea, abdominal pain Discussed with Psychiatry today Review of Systems Review of Systems: All systems reviewed & are unremarkable except as noted in HPI & below Physical Exam Physical Exam: Physical Exam: Vitals signs as noted above General Appearance:Thin, Frail, no apparent distress Head: normocephalic, Atraumatic Eyes: normal inspection, EOMI Neck: supple, Trachea midline Respiratory/Chest: Normal breath sounds, CTA Cardiovascular: S1, S2, No murmur Abdomen/GI:Soft, Non tender, Bowel sounds present Extremities/Musculoskeletal:normal inspection, No edema Neurologic/Psych:AAOX3, grossly no focal neurological deficits Skin: normal color, warm Results & Data Results & Data ([facility]) Vital Signs (Past 12 Hours) Vital Signs Temp Pulse Resp BP Pulse Ox 09/08/20 07:36 36.7 C 75 16 118/76 95 (1) Bipolar disorder Active/Remission status: remission status unspecified Qualified Code(s): F31.9 - Bipolar disorder, unspecified
[2020-09-08] MEDS: OLANZapine ZYDIS 5 MG ORALLY DIS. TAB PO SCH (22:30)
[2020-09-08] MEDS: DOCUSATE SODIUM/SENNA 50/8.6MG TAB PO SCH (22:34)
[2020-09-09] MEDS: LEVOTHYROXINE SODIUM 50 MCG TABLET PO SCH (05:54)
[2020-09-09] MEDS: PHENAZOPYRIDINE HCL 100 MG TAB PO SCH ×3 (08:05→21:41)
[2020-09-09] MEDS: APIXABAN 5 MG TABLET PO SCH ×2 (08:05→21:30)
[2020-09-09] MEDS: CEROVITE ADV FORMULA TAB PO SCH (08:06)
[2020-09-09] MEDS: PREMARIN VAG CRM 14 APPLN/30 GM TUBE PV SCH (08:09)
[2020-09-09] MEDS: GABAPENTIN 100 MG CAP PO SCH ×2 (08:24→21:44)
--- NOTE | 2020-09-09 13:47 | Psychiatric Progress Note ---
Date of Service September 09, 2020 Impression / Recommendations Impression 75 yo female with a history of bipolar depression and FTT (seemingly due to co- morbid cognitive decline though nutritional depletion also contributing). She has a high level of education for her age and covers for some of her cognitive deficits quite well but continues to be unable to engage in discussion around her inability to live independently. On 302 commitment with active bed search for more aggressive treatment of depression as not taking psych meds consistently prior to 302 and this results in decline, more hoplessness/passive defiance of team recs. She is not agitated or aggressive. She is somatically preoccupied re: her weight, other physicial conditions and financial circumstances which is consistent with ruminative bipolar depression. --slight improvement with med compliance 09/09/20. 09/08/20--Contacted daughter directly by phone this am to encourage mental health provisisions be included in POA document. 30 min discussion of her hospital course, current and past bipolar symptoms, and nutritional status also contributing to her mother's cognitive decline. She expressed concerns about possible Covid infection last Spring, reviewed that I doubt long haul symptoms alone would account for this level of symptoms. Reviewed indication for mood stabilizer, risks/benefits/alternatives of atypicals in the elderly and she is supportive of "any and all means to get depression medications into mom" at this point given that without treatment "she'll probably ". Denies prior hx of ED, ie anorexia nervosa. Discussed ongoing bed search, complexities of placement options, and that capacity can change on a day to day basis and is specific to the item/intervention that is being consented to. Reviewed that would need to consider 303 petition. 09/09/20--continue current psych meds, 303 hearing to be scheduled for tomorrow, bed search per liaison. Risk Factors Assessment Do You Have Access To A Gun?: No Interval History Identifying Information patient known to me from previous contacts earlier in stay, placed on a 302 comm itment on 09/05 given refusal of psych meds resulting in worsening depression and PO intake and belief that hopelessness was contributing to refusal of appropriate level of nursing care upon discharge. Chief Complaint "I guess I'm taking these pills, I don't want to leave here but also don't understand what's happening to me". Review of Systems Notes tired, otherwise denied physical complaints Subjective Subjective Patient was seen & assessed and interval progress reviewed with liaison nurse, interim hx reviewed. Accepted more meds in past 24 hours than for weeks. Eating is still sporadic. Remains preoccupied with finances but less somatic. At same time when didn't want to answer questions she acted as though her throat was spasming but denied symptoms. 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 Cooperative with nursing care. Physical Exam Psychiatric Orientation: alert, oriented to person and oriented to place Apperance: appropriately groomed Eye Contact: + poor eye contact non-spontaneous Affect: + depressed affect Mood: + depressed mood Thought Process: + concrete thought process Thought Content: + preoccupation, + hopelessness and + worthlessness Suicidal Thoughts: denies suicidal thoughts and denies suicidal plan Homicidal Thoughts: denies homicidal thoughts and denies homicidal plan Hallucinations: no auditory hallucinations and no visual hallucinations Cognition: + attention not intact (mainly due to motivation) Estimated Intelligence: + above average estimated intelligence Insight: + impaired insight Judgement: + impaired judgement Vital Signs (Past 24 Hours) Last Vital Signs Temp 36.5 C 09/09/20 07:30 Pulse 71 09/09/20 07:30 Resp 18 09/09/20 07:30 BP 116/75 09/09/20 07:30 Pulse Ox 95 09/09/20 07:30 Full exam is deferred to the physical exam performed today 09/06/2020 Physical exam performed today by the hospitalist Results & Data ([facility]) Current Inpatient Medications Current Inpatient Medications: Current Inpatient Medications Acetaminophen (Acetaminophen 325 Mg Tab) 650 mg PO Q6H PRN PRN Reason: Fever Stop: 10/06/20 19:27 Apixaban (Apixaban 5 Mg Tablet) 5 mg PO BID [facility] Stop: 09/14/20 20:59 Last Admin: 09/09/20 08:05 Dose: 5 mg Documented by: Bisacodyl (Bisacodyl 10 Mg Supp) 10 mg [place] DAILY PRN PRN Reason: Constipation Stop: 09/10/20 16:26 Last Admin: 08/17/20 04:33 Dose: 10 mg Documented by: Dronabinol (Dronabinol 2.5 Mg Cap) 2.5 mg PO BID [facility] Stop: 09/12/20 18:17 Last Admin: 09/09/20 08:20 Dose: 2.5 mg Documented by: Estrogens Conjugated (Premarin Vag Crm 14 Appln/30 Gm Tube) 1 appln PV DAILY [facility] Stop: 09/25/20 10:44 Last Admin: 09/09/20 08:09 Dose: 1 appln Documented by: Gabapentin (Gabapentin 100 Mg Cap) 100 mg PO BID [facility]AN[facility] Stop: 10/03/20 20:59 Last Admin: 09/09/20 08:24 Dose: Not Given Documented by: Levothyroxine Sodium (Levothyroxine Sodium 50 Mcg Tablet) 50 mcg PO [id number] A[facility]AN[facility] Stop: 10/04/20 07:59 Last Admin: 09/09/20 05:54 Dose: 50 mcg Documented by: Melatonin (Melatonin 3 Mg Tab) 3 mg PO HS PRN PRN Reason: Sleep Stop: 10/04/20 00:06 Last Admin: 09/04/20 00:10 Dose: 3 mg Documented by: Multivitamins/Minerals (Cerovite Adv Formula Tab) 1 tab PO QAM [facility]AN[facility] Stop: 10/04/20 08:59 Last Admin: 09/09/20 08:06 Dose: 1 tab Documented by: Olanzapine (Olanzapine Zydis 5 Mg Orally Dis. Tab) 2.5 mg PO HS [facility]LE[facility]AN[facility]O Stop: 10/07/20 20:59 Last Admin: 09/08/20 22:30 Dose: 2.5 mg Documented by: Phenazopyridine HCl (Phenazopyridine Hcl 100 Mg Tab) 100 mg PO TID [facility]ANDRO Stop: 09/23/20 20:59 Last Admin: 09/09/20 08:05 Dose: 100 mg Documented by: Senna/Docusate Sodium (Docusate Sodium/Senna 50/8.6mg Tab) 2 tab PO QPM [facility]AN[facility] Stop: 09/16/20 20:59 Last Admin: 09/08/20 22:34 Dose: Not Given Documented by:
--- NOTE | 2020-09-09 14:49 | Hospitalist Progress Note ---
Date of Service September 09, 2020 Assessment & Plan (1) Adult failure to thrive: Dehydration and weight loss since past few months. Continue Marinol if patient agrees Medical Instructor Consulted Case management to help with discharge planning Waiting for placement (2) Severe protein-calorie malnutrition: Underweight due to poor oral intake Likely secondary to psychiatric issues. Continue thiamine, marinol if patient agrees to take them Medical Instructor consulted Poor oral intake today (3) UTI (urinary tract infection): Urine culture: Citrobacter--pansensitive Completed Rocephin course (4) Interstitial cystitis: Avoidance of activities or beverages that exacerbate symptoms (caffeine, alcohol, artificial sweeteners, hot pepper, acidic foods), Avoidance of exercises, recreational activities, or body positions that worsen bladder symptoms, fluid management, or bladder training. Outpatient referral to a urologist on Premarin vaginal cream (5) Bipolar disorder: Appreciate psychiatry input Continue current medications if agrees Refuses medications--noncompliant intermittently Continue Zyprexa Took medications today (6) Electrolyte abnormality: hyponatremia, hypomagnesemia and hypophosphatemia all related to poor PO intake. Replace lites as needed Monitor (7) Status post fall: Had inpatient fall in the bathroom when ambulating S/P Head laceration Fall precautions (8) Acute DVT (deep venous thrombosis): Refuses Eliquis (9) Hypothyroidism: Continue levothyroxine (10) DVT prophylaxis: Eliquis Code Status DNR/DNI Disposition Waiting for placement Admission and Anticipated Discharge Date Admission Date: August 03, 2020 Subjective Patient is seen and examined at bedside Took most medications today Reports poor oral intake today Poor historian Denies chest pain, shortness of breath, dizziness, nausea, abdominal pain Waiting for placement Review of Systems Review of Systems: All systems reviewed & are unremarkable except as noted in HPI & below Physical Exam Physical Exam: Physical Exam: Vitals signs as noted above General Appearance:Thin, Frail, no apparent distress Head: normocephalic, Atraumatic Eyes: normal inspection, EOMI Neck: supple, Trachea midline Respiratory/Chest: Normal breath sounds, CTA Cardiovascular: S1, S2, No murmur Abdomen/GI:Soft, Non tender, Bowel sounds present Extremities/Musculoskeletal:normal inspection, No edema Neurologic/Psych:AAOX3, grossly no focal neurological deficits Skin: normal color, warm Results & Data Results & Data ([facility]) Vital Signs (Past 12 Hours) Vital Signs Temp Pulse Resp BP Pulse Ox 09/09/20 07:30 36.5 C 71 18 116/75 95 (1) Bipolar disorder Active/Remission status: remission status unspecified Qualified Code(s): F31.9 - Bipolar disorder, unspecified
[2020-09-09] MEDS: DOCUSATE SODIUM/SENNA 50/8.6MG TAB PO SCH (21:29)
[2020-09-09] MEDS: OLANZapine ZYDIS 5 MG ORALLY DIS. TAB PO SCH (21:30)
[2020-09-10] MEDS: LEVOTHYROXINE SODIUM 50 MCG TABLET PO SCH (06:04)
[2020-09-10] MEDS: PREMARIN VAG CRM 14 APPLN/30 GM TUBE PV SCH (08:27)
[2020-09-10] MEDS: GABAPENTIN 100 MG CAP PO SCH (08:27)
[2020-09-10] MEDS: CEROVITE ADV FORMULA TAB PO SCH (08:28)
[2020-09-10] MEDS: PHENAZOPYRIDINE HCL 100 MG TAB PO SCH ×2 (08:29→15:06)
[2020-09-10] MEDS: APIXABAN 5 MG TABLET PO SCH (08:29)
--- NOTE | 2020-09-10 12:54 | Hospitalist Progress Note ---
Date of Service September 10, 2020 Assessment & Plan (1) Adult failure to thrive: Dehydration and weight loss since past few months. Continue Marinol if patient agrees Home Care Provider Consulted Case management to help with discharge planning [facility] to [facility] (2) Severe protein-calorie malnutrition: Underweight due to poor oral intake Likely secondary to psychiatric issues. Continue thiamine, marinol if patient agrees to take them Home Care Provider consulted (3) UTI (urinary tract infection): Urine culture: Citrobacter--pansensitive Completed Rocephin course (4) Interstitial cystitis: Avoidance of activities or beverages that exacerbate symptoms (caffeine, alcohol, artificial sweeteners, hot pepper, acidic foods), Avoidance of exercises, recreational activities, or body positions that worsen bladder symptoms, fluid management, or bladder training. Outpatient referral to a urologist on Premarin vaginal cream (5) Bipolar disorder: Appreciate psychiatry input Continue current medications if agrees Refuses medications--noncompliant intermittently Continue Zyprexa Continue current medications (6) Electrolyte abnormality: hyponatremia, hypomagnesemia and hypophosphatemia all related to poor PO intake. Replace lites as needed Monitor (7) Status post fall: Had inpatient fall in the bathroom when ambulating S/P Head laceration Fall precautions (8) Acute DVT (deep venous thrombosis): Continue Eliquis (9) Hypothyroidism: Continue levothyroxine (10) DVT prophylaxis: Eliquis Code Status DNR/DNI Disposition [facility]. Admission and Anticipated Discharge Date Admission Date: August 03, 2020 Subjective Patient is seen and examined at bedside No new complaints States eating well today Denies chest pain, shortness of breath, dizziness, nausea, abdominal pain Planned to be discharged to [facility] today Review of Systems Review of Systems: All systems reviewed & are unremarkable except as noted in HPI & below Physical Exam Physical Exam: Physical Exam: Vitals signs as noted above General Appearance:Thin, Frail, no apparent distress Head: normocephalic, Atraumatic Eyes: normal inspection, EOMI Neck: supple, Trachea midline Respiratory/Chest: Normal breath sounds, CTA Cardiovascular: S1, S2, No murmur Abdomen/GI:Soft, Non tender, Bowel sounds present Extremities/Musculoskeletal:normal inspection, No edema Neurologic/Psych:AAOX3, grossly no focal neurological deficits Skin: normal color, warm Results & Data Results & Data ([facility]) Vital Signs (Past 12 Hours) Vital Signs Temp Pulse Resp BP Pulse Ox 09/10/20 07:01 36.6 C 69 16 117/73 95 (1) Bipolar disorder Active/Remission status: remission status unspecified Qualified Code(s): F31.9 - Bipolar disorder, unspecified
--- NOTE | 2020-09-10 13:14 | Discharge Summary ---
Date of Service September 10, 2020 Admission HPI Per Admitting Provider 75-year-old female with past medical history significant for acquired hypothyroidism, chronic interstitial cystitis, osteoporosis, chronic migraines, bipolar disorder, attention deficit hyperactivity disorder. The patient has a recently history of chronic hyponatremia. The patient has multiple admissions for hyponatremia and dehydration. 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 She also had prescribed Seroquel per Psychiatry and she was again in the hospital on 06/2020 and patient did not want to go to facility or stay. She just wanted to get discharged and got discharged. Daughter lives in [place]; did not see her mother for more than a year because of COVID. She is waited until covid vaccine to come and see her mother. She states she is flying tomorrow to [place]. She will be in the flight the whole day and she may come on the night of Wednesday and she will come to the hospital on Wednesday. Daughter states patient has been steadily declining since about a year and she is severely malnourished, not eating and drinking much. When the daughter asked, she could not explain why she did not want to eat.She sometimes mumbles and goes to catatonic state for about a day and it gets resolved by itself and she does fine. The patient is also stressed out since last year because of her living condition, her financial situation and as per daughter, patient thinks she had COVID last spring and she is not eating much since then. She also has some food allergies. Daughter does not have power of employee benefits attorney and daughter is also talking with [facility] nurse and also local office of Aging, but the patient declines any help, does not accept any help. She did not answer the phone for a few days. That is nothing uncommon for her but last time when she talked to her, she did not seem right. So daughter asked the neighbors to check on her. When the neighbor checked, she was on the bed with multiple blankets and she was mumbling and seemed drowsy and not talking and she was brought into the hospital. Later she opened the eyes but not at all talking. As per the ER physician, she knows that she is getting admitted. Initial workup with a CT of the head is unremarkable. Gallbladder ultrasound showing gallstones. This time labs show a sodium of 136, potassium 3.4, BUN 25, creatinine 0.6, total bilirubin is 2.7, which seems to be chronically elevated. TSH is normal. Urinalysis was okay. Urine drug screen is okay. SARS-CoV-2 PCR is negative. Influenza A and B and RSV was negative. The patient does not answer any question. Could not get any history from the patient. Hemodynamically stable. Principal Diagnosis Severe protein-calorie malnutrition Failure to thrive Poor oral intake secondary to psychiatric issues Mechanical Fall Head Trauma Scalp wound due to above Acute DVT Severe depression Bipolar disorder History of psychogenic polydipsia Noncompliance with Seroquel Hypothyroidism Hypokalemia Hypophosphatemia Hypomagnesemia Adult failure to thrive Discharge Data Allergies Allergy/AdvReac Type Severity Reaction Status Date / Time bee venom protein (honey bee) Allergy Severe Anaphylaxis Verified 08/24/20 18:51 gluten Allergy Severe ANAPHYLAXIS Verified 08/24/20 18:51 lactose AdvReac Mild Gastrointestinal Verified 08/24/20 18:51 Upset Consultations 08/02/20 22:20 ED Decision to Admit Stat 08/03/20 08:00 Consult General Surgery Routine Consult Neurology Routine Consult Psychiatry Routine Procedures Performed CT head: No significant change compared to the prior study. No acute intracranial abnormality. Neck CT: No fractures within the cervical spine. Moderate to severe degenerative changes as described above. Ordered Studies 08/02/20 18:45 CT head/brain wo con Stat 08/02/20 20:27 US gallbladder Stat 08/08/20 16:00 US venous doppler LE BI Routine 08/09/20 15:14 US abdomen ltd ascites Routine 08/11/20 17:35 CT head/brain wo con Urgent 09/06/20 19:31 CT cervical spine wo con Urgent CT head/brain wo con Urgent Hospital Course (1) Adult failure to thrive: Dehydration and weight loss since past few months. 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 Continue thiamine, marinol if patient agrees to take them Tank Truck Driver consulted (3) UTI (urinary tract infection): Urine culture: Citrobacter--pansensitive Completed Rocephin course (4) Interstitial cystitis: Avoidance of activities or beverages that exacerbate symptoms (caffeine, alcohol, artificial sweeteners, hot pepper, acidic foods), Avoidance of exercises, recreational activities, or body positions that worsen bladder symptoms, fluid management, or bladder training. Outpatient referral to a urologist on Premarin vaginal cream (5) Bipolar disorder: Appreciate psychiatry input Continue current medications if agrees Refuses medications--noncompliant intermittently Continue Zyprexa Continue current medications (6) Electrolyte abnormality: hyponatremia, hypomagnesemia and hypophosphatemia all related to poor PO intake. Replace lites as needed Monitor (7) Status post fall: Had inpatient fall in the bathroom when ambulating S/P Head laceration Fall precautions (8) Acute DVT (deep venous thrombosis): Continue Eliquis (9) Hypothyroidism: Continue levothyroxine (10) DVT prophylaxis: Eliquis Code Status DNR/DNI Disposition [facility]. Total Time Total Time Spent Total Time Spent (In Minutes): 48 minutes Total Time Includes: Examination of the Patient, Discharge Planning, Medication Reconciliation, Communication With Other Providers and Other Discharge Plan Discharge Items Patient Disposition: Transfer [facility] Reason For Visit: AMS Discharge Diagnosis: Severe protein-calorie malnutrition Failure to thrive Poor oral intake secondary to psychiatric issues Mechanical Fall Head Trauma Scalp wound due to above Acute DVT Severe depression Bipolar disorder History of psychogenic polydipsia Noncompliance with Seroquel Hypothyroidism Hypokalemia Hypophosphatemia Hypomagnesemia Adult failure to thrive Condition on Discharge: Fair Health Concerns: Diet intake Activity: Resume your previous activity Lifting: Gradually increase as tolerated Bathing: No limitations Exercise/Sports: Gradually increase as tolerated Driving/Machine Use: None Weightbearing: Full weightbearing Non-emergency contact: Primary Care Provider and Psychiatrist Call non-emergency contact if: you have any medication questions Follow-up/Referrals: Alec Vazquez DO [Primary Care Provider] - Diet: Regular Addtl Attending Provider Instructions: Follow-up with your primary care physician in 1 [facility] with your psychiatrist and [facility] for further management. Pending Studies at Discharge: No Stand-Alone Forms: My [facility] Skilled Items DNR: Yes Lines: None Urinary Catheter: No Medications and DC Order Prescriptions: New Eliquis 5 mg Tablet 5 mg PO BID Qty: 60 RF: 0 gabapentin 100 mg Capsule 100 mg PO BID Qty: 60 RF: 0 olanzapine 5 mg Tablet,Disintegrating 2.5 mg PO HS Qty: 30 RF: 0 phenazopyridine [Pyridium] 100 mg Tablet 100 mg PO TID PRN (Reason: pain) Qty: 30 RF: 0 Certavite-Antioxidant 18-400 mg-mcg Tablet 1 tab PO QAM Qty: 0 RF: 0 Continued Climara Pro 0.045-0.015 mg/24 hr patch weekly 1 patch transdermal WK RF: 0 levothyroxine [Levoxyl] 50 mcg tablet 50 mcg PO 5XWK RF: 0 hyoscyamine sulfate 0.125 mg tablet 0.125 mg PO Q4 PRN (Reason: ABD CRAMPING) RF: 0 melatonin 3 mg Tablet 3 mg PO HS RF: 0 Restasis 0.05 % Dropperette 1 drp OPHTHALMIC (EYE) Q12H RF: 0 Discontinued Botox 200 unit recon soln 200 unit subcut .Q3MO RF: 0 potassium chloride [Klor-Con M20] 20 mEq Tablet,Er Particles/Crystals 40 meq PO BID Qty: 60 RF: 0 quetiapine 25 mg tablet 25 mg PO HS RF: 0 sumatriptan succinate 25 mg tablet 25 mg PO UD PRN (Reason: Migraine Headache) RF: 0 Discharge Orders: Discharge Order (Routine); Ordered 09/10/20 Ordered By: Pop Montenegro Admission Data Admit Date/Time: 08/03/20 00:24 Attending Provider: Pop Montenegro Admit Provider: Gregor Flowers Primary Care Provider: Alec Vazquez Other Providers: Gregor Flowers ; Michael Logan ; Kecia Wahl ; Denita Sylvester ; Nilesh Zimmerman ; Elmer Cazares ; Yue Lee ; Gabi Escalera ; Tera Greer Jr ; Kayli Naranjo ; Víctor Britt ; Angie Nash ; Penny Upton ; Floyd Nascimento ; Penny Uriostegui ; Sergey Hays. ; [facility], ; [facility] ; [facility] ; Alma Cancino ; Shonna Christian Other Interventions: Discharge Summary Assessment (RN) Last Done: 09/10/20 11:25
--- NOTE | 2020-09-10 13:15 | Communication Note ---
Date of Service: September 10, 2020 testimony given at today's [facility] with [facility] reps/attorneys, the patient declined to participate. 303 granted. Has been accepted at [facility] with transportation this pm to [place]. Accepting physician is Dr. Jimi Lai.
== END 2020-09-10 17:16 | DRG 641 ==
LOC: ED 17:18 → 2W 08-03 00:24 → SUATTDRO 08-03 00:24 → 2W 08-03 02:18 → 3W 08-07 00:52